=== PATIENT | female | born 2005 | race Caucasian/White ===

== ENCOUNTER 2023-05-01 14:35 | Outpatient (OUT) | payer OTHER, SELFPAY ==
--- NOTE | 2023-05-01 | XR_ITS ---
The [address] [address] Patient Name: HENRY BONE MRN: [id number] date: 2005 Sex: F Assigned Patient Location: [facility] Current Patient Location: [facility] Accession/Order Number: [id number] Exam Date: 05/01/2023 14:42 Report Date: 05/01/2023 15:53 At the request of: MICHAEL LOVELL Procedure: XR foot RT min 3V EXAM: XR foot RT min 3V HISTORY: RIGHT FOOT PAIN for days after an injury to the ankle. COMPARISON: 11/16/2021 TECHNIQUE: 5 views of the foot were obtained. FINDINGS: There is no evidence of an acute fracture or dislocation. The joint spaces are intact throughout. No significant focal osseous abnormality is identified. No soft tissue calcification or radiopaque foreign body is identified. XR/XR foot RT min 3V IMPRESSION: No acute fracture or dislocation. The joint spaces are intact. The overall appearance is unchanged. Electronically authenticated by: SUZETTE MONTIEL Date: 05/01/2023 15:53
--- NOTE | 2023-05-01 | XR_ITS ---
The [address] [address] Patient Name: HENRY BONE MRN: [id number] date: 2005 Sex: F Assigned Patient Location: [facility] Current Patient Location: [facility] Accession/Order Number: [id number] Exam Date: 05/01/2023 14:42 Report Date: 05/01/2023 15:51 At the request of: MICHAEL LOVELL Procedure: XR ankle RT min 3V EXAM: XR ankle RT min 3V HISTORY: RIGHT ANKLE PAIN COMPARISON: 05/24/2022 TECHNIQUE: 3 views of the right ankle were obtained. FINDINGS: There is no evidence of an acute fracture or dislocation. The mortise is intact. No osteochondral injury is identified. The subtalar joints are intact. No abnormality is seen in the soft tissues. XR/XR ankle RT min 3V IMPRESSION: No acute fracture or dislocation. No significant degenerative changes are present. The overall appearance of the ankle is unchanged. Electronically authenticated by: SUZETTE MONTIEL Date: 05/01/2023 15:51
== END 2023-05-01 14:36 | disposition home or self-care (01) ==
LOC: RAD 14:35
PROVIDERS: Visit Provider Physician Assistant
DX: M25.571 Pain in right ankle and joints of right foot (principal)
CPT/HCPCS: 73610; 73630

== ENCOUNTER 2025-06-05 08:06 | Outpatient (OUT) | payer BC, MEDICAID, SELFPAY ==
--- OUTSIDE RECORDS SUMMARY | 2017-06-05 11:00 | XMS_ITS | Continuity of Care Document ---
Author Organization [facility] Address [address] [place] [address] Phone Care Team Providers Care Technical Implementation Lead Name Role Phone Fernando Stephens Unavailable Unavailable Procedures Procedure Date Imm Admin Through 16 Yrs Of Age 017 HPV 9 Valent Imm Admin Through 16 Yrs Of Age 016 HPV 9 Valent IMMUNIZATION ADMIN HPV VACCINE NON VALENT IM Imm Admin Through 16 Yrs Of Age 016 HPV 9 Valent Imm Admin Through 16 Yrs Of Age 016 Meningococcal Conjugate Vaccine 016 Imm Admin Through 16 Yrs Of Age 016 TDAP VACCINE >7 IM IMMUNIZATION ADMIN HPV VACCINE NON VALENT IM IMMUNIZATION ADMIN, EACH ADD MENINGOCOCCAL VACCINE, IM TDAP VACCINE >7 IM Advance Directives Directive Yes / No Effective Date File Name No Information Encounters Encounter Description Practice Location Reason(s) For Visit Diagnoses Date Provider Providers Copied on Encounter [facility], [address], [place], [id number], tel:[phone] [facility] No Information Rajani Wang. [address], [place], [id number], [place]. tel:[phone] [facility], [address], [place], [id number], [place] tel:[phone] [facility] No Information Rajani Wang. [address], [place], [id number], [place]. tel:[phone] [facility], [address], [place], [id number], [place] tel:[phone] [facility] No Information Rajani Wang. [address], [place], [id number], [place]. tel:[phone] Family History Family Member Type Diagnosis Age At Onset No Information Immunizations Vaccine Date Status Comments Hep A (ped/adol, 2 dose) refused Tram rce: New Immunization Record HPV (9-valent) administered Source: New I mmunization Record Influenza virus vaccine, injectable, quadrivalent, split virus, preservative free, 3 years or older Fluarix, Flulaval or Fluzone Quad [id number] refused Source: New Immuniza tion Record HPV (9-valent) administered Source: New I mmunization Record Hep A (ped/adol, 2 dose) refused Tram rce: New Immunization Record HPV (9-valent) administered Source: New I mmunization Record MCV4 administered Source: New Imm unization Record Tdap administered Source: New Imm unization Record Payers Payer name Insurance type Covered constitution party ID Authoriza tion(s) No Information Social History Type Description Quantity Date Captured Comments Sex Female Smoking Status No Information Chief Complaint And Reason For Visit No Information Reason For Referral Reason For Referral No Information History Of Present Illness Encounter Date Complaint History Of Prese nt Illness No Information Functional Status Date Functional Assessmen t No Information Instructions Date Instruction Additional Infor mation No Information Assessments Type Assessment Date No Information Patient Care Teams Name Effective Dates (start - stop) Status Members No Information
--- OUTSIDE RECORDS SUMMARY | 2025-05-25 05:25 | XMS_ITS | Continuity of Care Document ---
Author Organization [facility] Address [address] [place] [address] Phone Care Team Providers Care Rotary Engraver Name Role Phone Kalani Zamora Attending Provider [phone] Aida Carrizales APRN Attending Provider [facility] Primary Care Prov ider Jason Watkins DO Emergency Provider [phone] Care Teams Patient Care Team Team Status: Active Member Role/Relationship Status Dates Services [facility] Primary Care Provider Ac tive Visit Care Team Team Status: Inactive Member Role/Relationship Status Dates MELISSA Elam Attending Provider Active Start: March 26, 2025 End: March 26, 2025 Visit Care Team Team Status: Inactive Member Role/Relationship Status Dates Aida Carrizales APRN [employer] TECHNICIAN-BC Attending Provider Activ e Start: April 17, 2025 End: April 17, 2025 Visit Care Team Team Status: Inactive Member Role/Relationship Status Dates [facility] Primary Care Provider Ac tive Start: May 25, 2025 End: May 25, 2025Gedajuan Watkins DOEmergendior ProviderActiveStart: May 25, 2025 End: May 25, 2025 Chief Complaint and Reason for Visit Chief Complaint Admit Date d64.9 e61.1 r79.89 March 26, 2025 9:21am Z01.419 Z12.4 April 17, 2025 1 1:20am Lower rt side abd/back pain May 7:17am Allergies, Adverse Reactions, Alerts Allergen Type Severity Reaction Last Updated Verified Status amoxicillin Allergy Unknown Mother is allergic May 25, 2025 7:32am Yes Active homatropine Allergy Unknown dizzy, nausea May 032024 7:32am Yes Active hydrocodone Allergy Unknown dizzy, nausea May 032024 7:32am Yes Active red dye Allergy Unknown Hives May 25, 2025 7:32am Yes Active Penicillins Adverse Reaction Unknown Hives Novembe r 2024 7:32am Yes Active wheat Adverse Reaction Unknown Hives May 25, 2025 7:32am Yes Active Social History Smoking Status Status Start Date End Date Date of Observa tion Never smoked tobacco (finding) May 25, 2025 7:36am Observation Status Observation Response Date of Response Legal Sex Female (finding) [facility] 2004 Family History Relationship Condition Age at Onset Recorded Date/T belkis grandparent Diabetes mellitus Unknown motherDeceasedUnknown Problems Active Problems Problem Diagnosis/Recorded Date Onset Date Stat Acute flank pain April 12, 2021 12:32am Unknown Active UTI (urinary tract infection) January 02, 2023 6:07pm Un known Active Incomplete miscarriage October 08, 2024 5:25am Unknown Active Skin yeast infection January 02, 2023 6:07pm Unknown Active Arthralgia May 07, 2019 9:46pm Unknown Ac tive Upper respiratory infection November 03, 2018 9:46pm Unkno wn Active Coxsackie viruses April 19, 2017 2:26pm Unknown Active Hematuria, microscopic April 12, 2021 12:32am Unkn own Active Acute bronchitis October 21, 2017 8:12pm Unknown Active Left shoulder strain October 12, 2020 8:44pm Unknown Active Abdominal pain May 25, 2025 9:55am Unknown Active Bronchitis May 07, 2019 9:46pm Unknown Ac tive Right ankle sprain February 16, 2021 2:13pm Unknown Active Sprain of foot March 08, 2019 3:27pm Unknown Active Inactive/Resolved Problems Problem Diagnosis/Recorded Date Onset Date Stat us Calculus of distal left ureter March 07, 2024 4:1 7am Unknown Resolved Viral illness August 21, 2023 9:07pm Unknown Resolved Renal colic on left side March 07, 2024 4:17am Un known Resolved Abdominal pain November 12, 2023 6:36pm Unknown Reso lved Medications Medication Status Dose Units Route Directions Qty Days Refills S tart Date Stop Date End Date Reason(s) Instructions Adherence Cetirizine (Zyrtec) 10 mg capsule Discontinued 10 MG P O Daily 30 0May 2017 11:00pmMay 2018 8:43pmFluoxetine 20 mg capsuleDiscontinued 20MGPODailyFebruary 2023 12:00amNoveer 2023 2:15pmOndansetron 4 mg tablet,mmvqayrwmlhrogOkizmjecyegx5GJBGGjuvr 8 hours as needed for nausea and vomitingFebruary 2023 12:00amN[facility] 20[facility] 2:15pmOndansetron 4 mg tablet,wolrpqcgihtagaDxnvgvjehwkb5OUKKHenml 8 hours as needed for nausea and pzgcchxk038Guqqnqln 2023 12:00amMay 2023 5:25pmTamsulosin (Flomax) 0.4 mg capsuleDiscontinued0.1CVWXJblrh47Cpkgvlckk 5th, 2024 11:00pmNov2023 2:15pmadminister 30 minutes after same meal each day until stone passes Ketorolac 10 mg tuktpiBwlqbtfmkppo82IKLMMgrfu 6 hours as needed for tjam2349 March 06, 2024 11:00pmNov2023 2:16pmOndansetron 4 mg tablet,qnqdhtvmyqvawuGfcmkuyxcntt4CXSWM1I as needed for nausea and byvgaayg434 March 06, 2024 11:00pmNov2023 6:45pmOxycodone 5 mg tablet Discontinued5 - 10MGPOEvery 6 hours as needed for buyb9118Esgscciya 6th, 2024 May 07, 2024 2:15pmCalculus of distal left ureter Renal colic on left side Calculus of ureter Unspecified renal colicHydroxyzine Hcl 25 mg qhomegByneodblkcxf32EDTEYaqxiBlcav 2024 11:00pmJune 2024 4:52pmHydroxyzine Hcl 25 mg hfchshKvyvbc94RVOV Daily as neededJun2024 4:52pmUnknownPrednisolone Sodium Phosphate 15 mg/5 mL (3 mg/mL) ccgwfkjmPivgulkvvguu29FSJKHyoot4149Rluck 2017 11:00pmApril 2017 11:00pmApril 2017 11:01pmAlbuterol Sulfate 90 mcg/actuation HFA aerosol sgknaeaFehofiizcdjs8KANASTZKVCPDNQGCEI 4-6 HOURS as needed for shortness of breath or daqguuqb41Pnoqw 2017 11:00pmMay 2017 5:51pmadminister with spacerAlbuterol Sulfate 90 mcg/actuation HFA aerosol inhalerDiscontinued2 FRRBUNYWFUAJCGS6X as needed for shortness of breath or szzdwmtx675Aogimxcc 6th, 2019 12:00amNovember 2023 2:15pmVenlafaxine (Effexor Xr) 75 mg capsule,extended release 24hrDiscontinuedMGPOJuly 2022 11:00pmFebruary 2023 8:31pmTrazodone 50 mg tabletDiscontinuedMGJuly 2022 11:00pm August 21, 2023 8:31pmCetirizine 10 mg clcaieDhnqav56XSLNYnwab as needed for allergy symptomsJuly 2022 11:00pmComplies with drug therapyNitrofurantoin Macrocrystal 100 mg capsuleDiscontinuedMGJuly 2022 11:00pmFebruary 2023 8:31pmMetformin 500 mg tablet extended release 24 hrDiscontinuedMGPOJuly 2022 11:00pmFebruary 2023 8:30pmCephalexin 500 mg capsuleDiscontinued 500MGPOFour times sepsr04585Igsq 2022 11:00pmFebruary 2023 8:30pm Ibuprofen 600 mg nixxucDadgbbwmkgxs889EMXCV9R as needed for tsgb4853Zoo 2023 11:00pmNovember 2023 2:15pmArm Brace (Wrist Brace) miscDiscontinued0 .Pqfzx28OncxmxdpMay 27, 2024 12:00amApril 2024 4:36amAcute pain of left wrist Strain of left wrist Pain in left wristAs directedNorgestimate-Ethinyl Estradiol (Sprintec (28)) 0.25-0.035 mg hqvltbAushmo0HBKCQBndlvTkom 2024 11:00pmUnknownMetformin 500 mg pihvkuNrprykpliuhl681VZJVOacyxKzpsueux 6th, 2024 12:00amJune 2024 4:52pm FreeTextSi tablet with a meal Orally Once a day; Note: Source Status: Taking; Provider: Lyndon Piper ( )Methylprednisolone (Medrol (Jose)) 4 mg tablets,dose anepDyqzwlfikahc2XKbar package qipyinmplt194Itchglnj 6th, 2024 12:00amNove2023 6:45pmPO PER PKG DIR for 6 days Immunizations Immunization Event Date Not Given Reason Dose Number [employer] D[employer] Lot Number Reason(s) Given Vaccine Information Statement (VIS) Detail Administration Location DTap, unspecified February 11, 2009 Measles, Mumps, and Rubella Virus VaccineAugust 2008polio, unspecified formulationAugust 2008Varicella Virus VaccineAugust 2008 Procedures Procedure Date Performed Status CT abdomen pelvis w con May 25, 2025 7:50 am completed Relevant Diagnostic Tests and/or Laboratory Data Laboratory Results Test Collection Date/Time Result Date/Time Result Interpretation Reference Range Result Comment Performing Site Corrected White Blood Count March 26, 2025 8:21am March 27, 2025 5:36am 7.4 10*3/uL 3.8-11.6F[facility] [id number] [address] [facility] [address]Jehchsazu White Blood CountMay 25, 2025 7:57amNovemb2024 8:16am7.6 10*3/uL3.8-11.6FThe [facility] [id number] [address] [facility] 15469Rzqxtuhivtt WBC CountSept2024 8:21amSept2024 5:36am7.4 10*3/uL3.8-11.6FA[facility] [id number] [address] [facility] 89494Xnwfapvmclg WBC CountNovember 2024 7:57amNovember 2024 8:16am7.6 10*3/uL3.8-11.6FA[facility] [id number] [address] [facility] 42491Raj Blood CountSeptember 2024 8:21amSeptember 2024 5:36am4.51 10*6/uL3.60-5.00[facility] [id number] [address] [facility] 36549Mwc Blood CountNovember 2024 7:57amNovember 2024 8:16am4.70 10*6/uL3.60-5.00[facility] [id number] [address] [facility] 88712InagvykwflSyegywlff 2024 8:21amSeptember 2024 5:36am13.0 g/dL11.8-15.4FA[facility] [id number] [address] [facility] 81135CnejivtasjSpscspnv 2024 7:57amNovember 2024 8:16am 13.9 g/dL11.8-15.4FA[facility] [id number] [address] [place] [address] 07515IptaznviytUsofexqbs 2024 8:21amSeptember 2024 5:36am38.4 %34.0-46.4FA[facility] [id number] [address] [place] [address] 79257XtifjypdecKncfijjb 2024 7:57amNovember 2024 8:16am 40.8 %34.0-46.4FA[facility] [id number] [address] [place] [address] 65480Udqh Corpuscular VolumeSeptember 2024 8:21amSeptember 2024 5:36am85.0 pQ54-875IzpdnvayaRegency Hospital [facility] [id number] [address] [place] [address] 47119Cukm Corpuscular VolumeNovember 2024 7:57amNovember 2024 8:16am86.7 eB25-946LajzabkgvRegency Hospital [facility] [id number] [address] [place] [address] 09785Okiy Corpuscular HemoglobinSeptember 2024 8:21amSeptember 2024 5:36am28.9 pg24.7-34.3FAv[facility] [id number] [address] [place] [address] 99680Lsec Corpuscular HemoglobinNovember 2024 7:57amNovember 2024 8:16am29.5 pg24.7-34.3FA[facility] [id number] [address] [place] [address] 55857Madb Corpuscular Hemoglobin ConcentSeptember 2024 8:21am March 27, 2025 5:36am34.0 g/dL32.0-35.0[facility] [id number] [address] [place] [address] 55917Xusm Corpuscular Hemoglobin ConcentNovember 2024 7:57am May 25, 2025 8:16am34.0 g/dL32.0-35.0[facility] [id number] [address] [place] [address] 07612Aqq Cell Distribution WidthSeptember 2024 8:21amSeptember 2024 5:36am14.0 %11.9-15.3FA[facility] [id number] [address] [place] [address] 49573Uxq Cell Distribution WidthNovember 2024 7:57amNovember 2024 8:16am12.7 %11.9-15.3FA[facility] [id number] [address] [place] [address] 87233Gmfugrmf CountSeptember 2024 8:21amSeptember 2024 5:80mx043 10*3/oI078-522ThtmnosimRegency Hospital [facility] [id number] [address] [place] [address] 67398Bkhsggeu CountNovember 2024 7:57amNove2024 8:73bm128 10*3/hT974-309DgollarawRegency Hospital [facility] [id number] [address] [facility] 59427Avlh Platelet VolumeSept2024 8:21amSeptember 2024 5:36am9.0 fL6.3-10.7FA[facility] [id number] [address] [facility] 47046Jdny Platelet VolumeNovember 2024 7:57amNovemb2024 8:16am8.0 fL6.3-10.7FA[facility] [id number] [address] [facility] 69855Dtbfgdni Distribution WidthNovember 2024 7:2024 8:16am18.56 %0.00-20.00[facility] [id number] [address] [facility] 80638Udoohbscsel (%) (Auto)March 26, 2025 8:21amSept2024 6:21amN/[facility] [id number] [address] [facility] 71559Qiebeeodqio (%) (Auto)May 25, 2025 7:amNove2024 8:16am75.2 %.[facility] [id number] [address] [facility] 37172Jveohmlocsf (%) (Auto)March 26, 2025 8:amSept2024 6:21amN/[facility] [id number] [address] [facility] 83770Hyysfgrrtsi (%) (Auto)May 25, 2025 7:amNovemb2024 8:16am18.9 %.[facility] [id number] [address] [facility] 17423Dvjpamsew (%) (Auto)March 26, 2025 8:21amSept2024 6:21amN/[facility] [id number] [address] [facility] 95671Qzrmrexhf (%) (Auto)May 25, 2025 7:57amNovember th, 2025 8:16am4.6 %.[facility] [id number] [address] [facility] 06382Arjgiccsykq (%) (Auto)March 26, 2025 8:21amSept2024 6:21amN/[facility] [id number] [address] [facility] [place] [address]Kbvazelfxsi (%) (Auto)May 25, 2025 7:57amNovemb2024 8:16am0.5 %.[facility] [id number] [address] [facility] 14478Cqlwobsrp (%) (Auto)March 26, 2025 8:21amSept2024 6:21amN/[facility] [id number] [address] [facility] [place] [address]Ugeqtruie (%) (Auto)May 25, 2025 7:57amNovemb2024 8:16am0.8 %.[facility] [id number] [address] [facility] 68893Kxcdtkqnm RBC Relative Count (auto)March 26, 2025 8:21am March 27, 2025 6:21amN/[facility] [id number] [address] [facility] [place] [address]Zzqgfxtxk RBC Relative Count (auto)May 25, 2025 7:57am May 25, 2025 8:16am0.1 /100{WBC}0-0.5FA[facility] [id number] [address] [facility] 46276Onpgkoynvix # (Auto)March 26, 2025 8:amSept2024 6:21amN/[facility] [id number] [address] [facility] 80389Kygiywbcskv # (Auto)May 25, 2025 7:57amNove2024 8:16am5.7 10*3/uL1.8-7.7FA[facility] [id number] [address] [facility] 85148Godaahohozp # (Auto)March 26, 2025 8:21amSept2024 6:21amN/[facility] [id number] [address] [facility] 34626Efyruskwtwm # (Auto)May 25, 2025 7:amNove2024 8:16am1.4 10*3/uL1.00-4.8[facility] [id number] [address] [facility] 98480Mjdxkdwzl # (Auto)March 26, 2025 8:21amSept2024 6:21amN/[facility] [id number] [address] [facility] 13914Tzizrveng # (Auto)May 25, 2025 7:amNove2024 8:16am0.3 10*3/uL0.0-0.8[facility] [id number] [address] [facility] 41231Kirsjopmspm # (Auto)March 26, 2025 8:21amSept2024 6:21amN/[facility] [id number] [address] [facility] 69853Icizfwjakpj # (Auto)May 25, 2025 7:57amNove2024 8:16am0.0 10*3/uL0.0-0.45[facility] [id number] [address] [facility] 38817Fbshqhsgh # (Auto)March 26, 2025 8:amSept2024 6:21amN/[facility] [id number] [address] [facility] 70306Ptgnifktx # (Auto)May 25, 2025 7:amNovemb2024 8:16am0.1 10*3/uL0.0-0.2FA[facility] [id number] [address] [facility] 959[address]Weiacyozn NeutrophilsSept2024 8:amSeptember 2024 6:21am38 %Below low kzwmuo19-23HvktvvdutReg[facility] [id number] [address] [facility] 37164Vkzegoyynrh %March 26, 2025 8:21amSeptember 2024 6:21am54 %Above high qapcts54-84PuiqtvvmhRegency Hospital [facility] [id number] [address] [facility] 02841Wripjmmhu %March 26, 2025 8:21amSeptember 2024 6:21am7 %2-11[facility] [id number] [address] [facility] 77825Wjidfvrfdqx %March 26, 2025 8:21amSeptember 2024 6:21am1 %1-3FA[facility] [id number] [address] [facility] 41475Vju Blood Cell MorphologySeptember 2024 8:21amSeptember 2024 6:21amNormalNormalRegency Hospital [facility] [id number] [address] [facility] 21782Ddyuqbkj EstimateSeptember 2024 8:21amSeptember 2024 6:21amNormalNormL[facility] [id number] [address] [facility] 47935Wkfdbxfk Morphology CommentSeptember 2024 8:21amSeptember 2024 6:21amNormalNormLutheran Hospital [facility] [id number] [address] [facility] 78647Niejr ColorNovember 2024 7:50amNovember 2024 8:06am Light-yellowYellowRegency Hospital [facility]tr [id number] [address] [facility] 77797Jnbnq AppearanceNovember 2024 7:50amNovember 2024 8:06amClearClearRegency Hospital [facility] [id number] [address] [facility] 10226Cqmfb Specific GravityNovember 2024 7:50amNovember 2024 8:06am1.0301.001-1.030[facility] [id number] [address] [facility] 85632Ngytm pHNovember 2024 7:50amNovember 2024 8:06am6.5 5.0-9.0[facility] [id number] [address] [facility] 24396Agjkr Leukocyte EsteraseNovember 2024 7:50amNovember 2024 8:06amNegativeNegativeRegency Hospital [facility] [id number] [address] [facility] 15955Frnuv NitriteNovember 2024 7:50amNovember 2024 8:06amNegativeNegativeRegency Hospital [facility] [id number] [address] [facility] 03160Oxtfc ProteinNovember 2024 7:50amNovember 2024 8:06amNegative mg/dLNegativeRegency Hospital [facility] [id number] [address] [facility] 97700Qbrtq Glucose (UA)May 25, 2025 7:50amNovember 2024 8:06amNormal mg/dLNormalRegency Hospital [facility] [id number] [address] [facility] 92854Bqocf KetonesNovember 2024 7:50amNovember 2024 8:06amNegativeNegativeRegency Hospital [facility] [id number] [address] [facility] 26960Jsnzv UrobilinogenNovember 2024 7:50amNovember 2024 8:06amNormal mg/dLNormalRegency Hospital [facility] [id number] [address] [facility] 28914Bskkj BilirubinNovember 2024 7:50amNovember 2024 8:06amNegativeNegativeRegency Hospital [facility] [id number] [address] [facility] 28252Ygawl Occult BloodNovember 2024 7:50amNovember 2024 8:06amNegativeNegativeRegency Hospital [facility] [id number] [address] [facility] 76034Xnrdn HCG, QualitativeNovember 2024 7:50amNovember 2024 8:08amNegativeFirMercer County Community Hospital Ctr [id number] [address] [facility] 74876Uyphipo LevelSeptember 2024 8:21amSeptember 2024 5:00ae968 mg/uF65-541GPV recommended reference rangeRandom Glucose Reference Range is dependent on time and content of last meal. Glucose of more than 200 mg/dL in a nonstressed, ambulatory subject supports the diagnosisof Diabetes Mellitus.[facility] [id number] [address] [facility] 28202Pbsauep LevelNovember 2024 7:57amNovember 2024 8:99ft917 mg/dLAbove high jtyycy03-765RGE recommended reference rangeRandom Glucose Reference Range is dependent on time and content of last meal. Glucose of more than 200 mg/dL in a nonstressed, ambulatory subject supports the diagnosisof Diabetes Mellitus.[facility] [id number] [address] [facility] 62187Zvewj Urea NitrogenSeptember 2024 8:21amSeptember 2024 5:47am12 mg/dL-[facility] [id number] [address] [facility] 45940Aeeef Urea NitrogenNov2024 7:57amNovember 2024 8:35am10 mg/dL7-[facility] [id number] [address] [facility] 64003IgonsspmphFyzcmyrjy 25th, 2025 8:21amSeptember 2024 5:47am0.71 mg/dL0.60-1.20[facility] [id number] [address] [facility] 41829AldichlfdjHqvatego 2024 7:57amNovember 2024 8:35am 0.64 mg/dL0.60-1.20[facility] [id number] [address] [facility] 53938Tmynsysuc GFR (CKD-EPI)March 26, 2025 8:amSept2024 5:47am> 60.0 mL/MinRegency Hospital [facility] Ctr [id number] [address] [place] [address] 20882Vgxpanrlm GFR (CKD-EPI)May 25, 2025 7:57amNovember 2024 8:35am> 60.0 mL/MinRegency Hospital [facility] [id number] [address] [facility] 39196Lsbaav LevelSeptember 2024 8:21amSeptember 2024 5:66ii338 mmol/T805-194JttdebfnnRegency Hospital [facility]tr [id number] [address] [facility] 63755Bhltiv LevelNovember 2024 7:57amNovember 2024 8:48iv277 mmol/Q196-160AwahljiqkRegency Hospital [facility] [id number] [address] [facility] 77318Khuqupbuy LevelSeptember 2024 8:21amSeptember 2024 5:47am4.0 mmol/L3.5-5.1FA[facility] [id number] [address] [facility] 47819Eiwvccgfk LevelNovember 2024 7:57amNovember 2024 8:35am3.8 mmol/L3.5-5.1FA[facility] [id number] [address] [facility] 74598Zxvkrrid LevelSeptember 2024 8:21amSeptember 2024 5:97xk282 mmol/Q44-655FjecnewhsRegency Hospital [facility]tr [id number] [address] [facility] 72788Tfgcqiwr LevelNovember 2024 7:57amNovember 2024 8:58pf927 mmol/LAbove high -957NtwocmpweRegency Hospital [facility] [id number] [address] [facility] 14224Sluvxs Dioxide LevelSeptember 2024 8:21amSeptember 2024 5:47am26.6 mmol/L21.0-31.0[facility] [id number] [address] [facility] 99386Cybewa Dioxide LevelNovember 2024 7:57amNovember 2024 8:35am24.7 mmol/L21.0-31.0[facility] [id number] [address] [facility] 50814Fppgh GapSeptember 2024 8:21amSeptember 2024 5:47am 8.4 mEq/L6.0-15.0[facility] [id number] [address] [facility] 57045Rfhgh GapNovember 2024 7:57amNovember 2024 8:35am 9.1 mEq/L6.0-15.0[facility] [id number] [address] [facility] 97049Andvluk LevelSeptember 2024 8:21amSeptember 2024 5:47am8.8 mg/dL8.6-10.3FA[facility] [id number] [address] [place], [place] [address]Calcium LevelNovember 2024 7:57amNovember 2024 8:35am9.0 mg/dL8.6-10.3FA[facility] [id number] [address] [place] [address] 92858Wfktl ProteinSeptember 2024 8:21amSeptember 2024 5:47am6.5 g/dL6.4-8.9[facility] [id number] [address] [place] [address] 86079Uouid ProteinNovember 2024 7:57amNovember 2024 8:35am7.3 g/dL6.4-8.9[facility] [id number] [address] [place] [address] 84570RohgrinQfyfdqheq 2024 8:21amSeptember 2024 5:47am 3.8 g/dL3.5-5.7FAv[facility] [id number] [address] [place] [address] 57163JuexlbgCtxriond 2024 7:57amNovember 2024 8:35am4.0 g/dL3.5-5.7FA[facility] [id number] [address] [place] [address] 47770UewolrosFoobtddrp 2024 8:21amSeptember 2024 5:47am 2.7 g/dLRegency Hospital [facility]tr [id number] [address] [place] [address] 49157VloppnbdHhhireql 2024 7:57amNovember 2024 8:35am3.3 g/dLRegency Hospital [facility]tr [id number] [address] [facility] 68426Kdejsnu/Globulin RatioSeptember 2024 8:21amSeptember 2024 5:47am1.4FAvita [facility] [id number] [address] [facility] 48707Hxvaxqn/Globulin RatioNovember 2024 7:57amNovember 2024 8:35am1.2FA[facility] [id number] [address] [facility] 66219Svsnf BilirubinSeptember 2024 8:21amSeptember 2024 5:47am0.4 mg/dL0.3-1.0[facility] [id number] [address] [facility] 46194Vbowp BilirubinNovember 2024 7:57amNovember 2024 8:35am0.3 mg/dL0.3-1.0[facility] [id number] [address] [facility] 13875Trazjq BilirubinNovember 2024 7:57amNovember 2024 8:35am0.00 mg/dLBelow low normal0.03-0.18If the DBIL is less than 0.1, IBIL is not able to becalculated.[facility] [id number] [address] [facility] 16747Hcwaijou BilirubinNovember 2024 7:57amNovember 2024 8:35am0.3 mg/dLRegency Hospital [facility] [id number] [address] [place] [address] 98461Brzvvuajz Amino Transf (AST/SGOT)March 26, 2025 8:21am March 27, 2025 5:47am11 U/LBelow low rouqdo27-47VgzdxsligRegency Hospital [facility]tr [id number] [address] [place] [address] 14405Zwadfjzym Amino Transf (AST/SGOT)May 25, 2025 7:57am May 25, 2025 8:35am12 U/LBelow low yztech87-63UcvnlvmouRegency Hospital [facility]tr [id number] [address] [place] [id number] Aminotransferase (ALT/SGPT)March 26, 2025 8:21am March 27, 2025 5:47am11 U/L7-52[facility] [id number] [address] [facility] 05777Kxnlodt Aminotransferase (ALT/SGPT)May 25, 2025 7:57am May 25, 2025 8:35am12 U/L7-52[facility] [id number] [address] [facility] 57310Rugeptqb PhosphataseSeptember 2024 8:21amSeptember 2024 5:47am62 U/V81-674GsnwamlwzRegency Hospital [facility] [id number] [address] [facility] 08913Ripjhshv PhosphataseNov2024 7:57amNovember 2024 8:35am65 U/C44-617PboremmcaRegency Hospital [facility]tr [id number] [address] [facility] 25442NfhxytRkvehgow 24th, 2025 7:57amNovemb2024 8:35am13.0 U/L11.0-82.0[facility] [id number] [address] [facility] 13661Npka LevelSept2024 8:21amSept2024 5:47am55 ug/hH32-757YigyamrazRegency Hospital [facility] Ctr [id number] [address] [place] [address] 33154Xgkxtrw B12 LevelSeptember 2024 8:amSept2024 6:32nz468 pg/mLBelow low ikofkp706-803YmrwmnbxuRegency Hospital [facility] [id number] [address] [facility] 3137150-Rpuwwxa Vitamin D TotalSeptember 2024 8:amSeptember 2024 6:14am22.9 ng/mLBelow low lncyry80-595ZVVZVOV D STATUS 25(OH)VITAMIN D RANGE (ng/mL) Deficient <20 Insufficient 20 to <30Sufficient 30 to 100Reference: Yuniel MF,Herminio NC, Timi JARVIS, et al. Evaluation,treatment, and prevention of vitamin D deficiency; an Endocrine Society clinical practice guideline. JCEM. 2010; 96(7):1911-30.[facility] [id number] [address] [facility] [address]Qhkqeniy Creatinine Clearance (ChemSeptember 2024 8:21am March 27, 2025 5:47amN/[facility] [id number] [address] [facility] [address]Xcejfkyd Creatinine Clearance (ChemNovember 2024 7:57am May 25, 2025 8:31dc261.10[facility] [id number] [address] [place] [address] 496[address]VS Pap w/Ct-Ng Age Based (Off-Site)April 17, 2025 10:20am May 13, 2025 2:38pmSee commentSee report. Scanned copy available in EMR. [facility] Reports Author Isidro Soni [facility] HospitalReport Date/TimeNovember 2024 9:28am [facility] Main [place] [address] [place] [address] Scan Report Signed Patient: Karyn Veliz MR#: [id number] : 2005 Acct:[id number] Age/Sex: 19 / F ADM Date: 5 Loc: ER Room: Type: [facility] ER Attending Dr: Copies to: Jason Watkins DO~ Ordering Provider: Jason Watkins DO Date of Service: 05/25/25 CT/CT abdomen pelvis w con: Right lower quadrant tenderness. CT ABDOMEN AND PELVIS WITH INTRAVENOUS CONTRAST: CLINICAL HISTORY: Right lower quadrant pain. Low back pain. Urinary frequency. COMPARISON: None TECHNIQUE: Spiral images were obtained through the abdomen and pelvis followingthe administration of intravenous contrast. This CT exam was performed using one or more following dose reduction techniques: Automated exposure control, adjustment of the mA and/or kV according to patient size, or use of iterative reconstruction technique. FINDINGS: Lung Bases: [Bibasilar atelectasis.] Organs:Liver gallbladder portal vein spleen pancreas adrenal glands aorta and kidneys all appear unremarkable.[ GI: Stomach is grossly unremarkable. Small bowel appears nondilated. Appendix is normal. No acute colonic abnormality is seen.[ Pelvis:[Urinary bladder is grossly unremarkable. Uterus is grossly unremarkable. No adnexal mass.] Peritoneum/Retroperitoneum:No free air, free fluid or lymphadenopathy.[ Abd wall/Bones:Abdominal wall demonstrates no acute findings. Osseous structures demonstrate degenerative change.[ CT/CT abdomen pelvis w con IMPRESSION: No acute findings. Impression dictated by: Isidro Soni Jr., D.O. 05/25/2025 9:28 AM Dictation Location: [facility]--23 Transcribed By: PWS 05/25/25927 Dictated By: Isidro Soni Jr, DO 05/25/25925 Signed By: <Electronically signed by Isirdo Soni Jr DO in OV> 05/25/25927 Vital Signs Vital Reading Result Reference Range Collection Date/Time Height 67 [in_i] May 25, 2025 7:93mrXndhvq317.80 kgMay 25, 2025 7:32amBody Nuctswtptvy06.8 [degF]97.6-99.0May 25, 2025 7:32amHeart Rate77 /nqd19-170 May 25, 2025 9:43amRespiratory rate16 /tat75-53SiswczjxMay 25, 2025 9:43am Oxygen saturation by Pulse txarydzd39 %95-100May 25, 2025 9:43amBP Scctngar929 mm[Hg]100-140May 25, 2025 9:43amBP Cjeizugnp96 mm[Hg]60-100 May 25, 2025 9:43am Advance Directives Advance Directive Response Recorded Date/ Time Advance Directives No April 19, 2017 1:44pm Insurance Providers Guarantor Genaro Powell Address [address] [address]Tdwgsxg Info.Home Phone: Coverage Status Update:2025 Payer Group Member ID Coverage Type Subscriber Relationship to Subscriber Effective Date Expiration Date [place] [employer] Id: [id number] Clonch , D Id: [id number] [address] [facility] [address] [facility] [address] Home Phone: Email: [email or web address] [id number] Clonch , D Id: [id number] [address] [place] [address] Home Phone: Email: [email or web address] [facility] Medicaid [id number] Clonch , D Id: [id number] [address] [place] [address] Home Phone: Email: [email or web address] Medicaid Id: [id number] Clonch , D Id: [id number] [address] [place] [address] Home Phone: Email: [email or web address] [place]Self[place] Medicaid [place] HMO [id number] Clonch , D Id: [id number] [address] [place] [address] Home Phone: Email: [email or web address] DoodleAt[facility] Lggroy171127246vozhHnwcnh Clonch , D Id: [id number] [address] [place] [address] Home Phone: Email: [email or web address] [facility] Id: [id number] Clonch , D Id: [id number] [address] [place] [address] Home Phone: Email: [email or web address] Pay nullSelfSelf Encounters Encounter Location(s) Arrival/Admit Date Discharge/Departure Date Discharge/Departure Disposition Provider(s) Departed [facility] March 26, 2025 9:21am March 26, 2025 9:22am Discharged to home care or self care (routine discharge) MELISSA Elam Departed [facility] April 17, 2025 11:20am April 17, 2025 11:21am Discharged to home care or self care (routine discharge) Aida Carrizales APRN STERILE INSTRUMENT TECHNICIAN- Departed Emergency -Emergency Room May 25, 2025 7:17am May 25, 2025 10:13am Discharged to home care or self care (routine discharge) Plan of Treatment Future Tests Future scheduled test information is unavailable Pending Tests Pending diagnostic test information is unavailable Future Visits Future appointment information is unavailable Future Procedures Future procedure information is unavailable Future Medications Future medication information is unavailable Patient Instructions Instruction Admit Date Abdominal pain in adults - ED discharge instructions May 25, 2025 7:17am
--- NOTE | 2025-06-05 08:12 | XR_ITS ---
[facility] [place] [id number] Patient Name: HENRY BONE MRN: [id number] date: 2005 Sex: F Assigned Patient Location: [facility] Current Patient Location: [facility] Accession/Order Number: [id number] Exam Date: 06/05/2025 08:20 Report Date: 06/05/2025 09:10 At the request of: SUZETTE HOWELL DPCecil Procedure: XR ankle RT min 3V RIGHT ANKLE - 3 views COMPARISON: 05/01/2023 CLINICAL DATA: Right ankle pain for the past 2 weeks. No known injury Standing AP, lateral and oblique views were obtained. There is no evidence of fracture or dislocation. The talar dome is intact. There are no significant soft tissue abnormalities. XR/XR ankle RT min 3V IMPRESSION: NO ACUTE BONY FINDINGS. Impression dictated by: Laura Silvestre M.D. 06/05/2025 9:10 AM Dictation Location: [place] [address] Electronically authenticated by: [id number] Date: 06/05/2025 09:10
--- OUTSIDE RECORDS SUMMARY | 2025-06-05 08:12 | XMS_ITS | Patient Health Record ---
Author Organization [facility] [place] Address [address] [place] [address] Care Team Providers Care Car Audio Installer Name Role Phone None, Unknown or Primary Care Provider Unavailab Clint Galarza [phone] Allergies Allergen (clinical drug ingredient) Drug/Non Drug Allergy documented on EMR Reaction Allergy Type Onset Date Status red dye 40 (uncoded)UnknownAllergyActiveNorcoexcessive vomitingDrug Allergy ActiveamoxicillinAmoxicillinUnknownDrug AllergyActiveLatexLatexUnknownAllergy ActivePenicillinUnknownDrug AllergyActive Reason For Referral No Information Medications Medication SIG (Take, Route, Frequency, Duration) Notes Start Date End Date Status Sertraline HCl 25 MG 1 tablet Orally Once a day ActiveTylenol 325 MG1 tablet as needed Orally every 4 hrsActiveZyrTEC Allergy 10 MG1 capsule Orally Once a dayActiveNaproxen 500 MG1 tablet with food or milk as needed Orally every 12 hrsNot-Taking Social History Tobacco Use: Social History Observation Description Date Details (start date - stop date) Never Smoker NA - NA Tobacco Use/Smoking Question Answer Notes Patient is a nonsmoker Problems Problem Type SNOMED Code ICD Code Onset Dates Problem Status W/U Status Risk Notes Problem Arthralgia of the an kle and/or foot (730487453) Pain in right ankle and joints of right foot (M25.571) Activeconfirmed Encounters Encounter Location Date Provider Diagnosis [facility] [place] (PODIATRY) [address] [place] [address] [place] [address] 09/08/2024 Clint Hancock Plan Of Treatment No Information Insurance Providers Payer Name Payer Address Payer Phone Subscriber Number Group Number Insured Name Patient Relationship to Insured Coverage Start Date Coverage End Date [employer] [place] [employer] [address] [place] [address] [id number] Amada Velizelf - patient is the insured Medical (General) History Medical History History ICD Code Right ankle pain M25.571 Surgical History Surgery Date(Month/Year) right ankle stabilization, ankle arthros copy, peroneal tendon repair 08/22/2021
--- OUTSIDE RECORDS SUMMARY | 2025-06-05 08:12 | XMS_ITS | Clinical Summary ---
Author Organization [facility] Address [address] [place] [address] Care Team Providers Care Supervisor Riveting Name Role Phone Kalani Metcalf PA-C Primary Care Provid er Allergies Active AllergyReactionsCriticalityNoted CqglSmagshxmLsqpmnzsvsw74/23/2025 Other Reaction(s): Unknown Chlorhexidine IneaxqgksAhukCya86/23/2024hlorhexidine SelwafzbiJvzmRbv69/23/2025 Vatbiajrckq51/20/2024 Other Reaction(s): dizzy, nausea HydrocodoneGI myzmurxjefm64/20/2024 Other Reaction(s): dizzy, nausea LatexHives,KpnoTdi6710/15/2023 Other Reaction(s): Unknown Ilrmkeeb29/23/2024 Other Reaction(s): stomach upset Penicillin G007/24/2024 Other Reaction(s): Unknown Jpgarapasam67/20/2024 Other Reaction(s): Hives, Mother is allergic, Unknown Other Reaction(s): hives, Mother is allergic, Unknown Red Dye03/07/2024 Other Reaction(s): Hives Other Reaction(s): Unknown Red Dye #40 (Allura Red)10/15/2023 Other Reaction(s): Unknown Tmydjquazt26/23/2024 Other Reaction(s): Unknown Wheat08/21/2023 Other Reaction(s): Hives Medications MedicationSigDispense QuantityRefillsLast FilledStart DateEnd DateStatus cetirizine (ZyrTEC) 10 MG tablet Daily01/02/2023ctive hydrOXYzine HCl (Atarax) 25 MG tablet Indications:Encounter for weight management,Other insomniaTake 1 tablet (25 mg) by mouth as needed at bedtime for itching 90 tablet 5Active metFORMIN XR (Glucophage-XR) 500 MG 24 hr tablet Indications:PCOS (polycystic ovarian syndrome)TAKE TWO TABLETS BY MOUTH WITH EVENING MEAL (DO NOT CRUSH, CHEW, OR SPLIT) 180 tablet 5Active Vit-DSS-Fe Cbn-FA ( AD PO) Take by mouthActive ferrous sulfate 325 (65 Fe) MG tablet Take 325 mg by mouth in the morning. Take with meals.Active norgestimate-ethinyl estradiol (Sprintec 28) 0.25-35 MG-MCG tablet Indications:Surgery follow-upTake 1 tablet by mouth Daily 28 tablet 120506Active Active Problems ProblemNoted DateDiagnosed DateWeight gain06/18/20247824Ntmyrrcmibx30/23/2024COS (polycystic ovarian syndrome)03/24/2024 Family History Medical HistoryRelationNameCommentsDiabetesFatherCarlThyroid diseaseFather's SisterLisaAsthmaPaternal GrandmotherDarleneDiabetesPaternal GrandmotherDarlene MigrainesPaternal GrandmotherDarleneRelationNameStatusCommentsFatherCarlAlive Father's SisterLisaAliveMotherDeceasedPaternal GrandmotherDarleneAlive Social History Tobacco UseTypesPacks/DayYears UsedDateSmoking Tobacco: NeverSmokeless Tobacco: Never Tobacco Cessation:Counseling Given: Not Answered Alcohol UseStandard Drinks/WeekCommentsNot Currently0 (1 standard drink = 0.6 oz pure alcohol)AUDIT-CAnswerDate RecordedQ1: How often do you have a drink containing alcohol?Never12/03/2023Q2: How many drinks containing alcohol do you have on a typical day when you are drinking?Patient does not drink12/03/2023Q3: How often do you have six or more drinks on one occasion?Never12/03/2023HQ-2 AnswerDate RecordedPatient Health Questionnaire-2 Nobry838 CommentsNoSex and Gender InformationValueDate RecordedSex Assigned at BirthNot on fileLegal BsmNpcwll49/15/2023 7:22 PM EDTGender IdentityNot on fileSexual OrientationNot on file Last Filed Vital Signs Vital SignReadingTime TakenCommentsBlood Xgnrymti563/8404 1:28 PM EDT Pulse--Temperature--Respiratory Rate--Oxygen Saturation--Inhaled Oxygen Concentration--Bvkkjl673 kg (251 lb)10/22/2024 1:28 PM ELFLfifal370.6 cm (5' 6 ) 04/21/2024 11:16 AM EDTBody Mass Index40.511 11:16 AM EDT Plan of Treatment Health MaintenanceDue DateLast DoneCommentsCOVID-19 Vaccine ( season) , 04/12/2023, 07/07/2021, Additional history existsInfluenza VrcimvkZshclsfop85/17/2025, 06/26/2024, 04/12/2024, Additional history exists Pneumococcal Vaccine: Pediatrics (0 to 5 Years) and At-Risk Patients (6 to 64 Years)Aged OutNo longer eligible based on patient's age to complete this topic Insurance Care Teams Team MemberRelationshipSpecialtyStart DateEnd Date Kalani Metcalf PA-C [address] [facility] [place] [address] PCP - [facility]10/15/23
--- OUTSIDE RECORDS SUMMARY | 2025-06-05 08:13 | XMS_ITS | CCD ---
Author Organization [facility] CliniSytn Care Team Providers Care Barrel Finisher Name Role Phone ARTURO Pal Attending Provider Flavio Foley Unavailable ANDRY, DR MEZA Primary Care Unavailable SO CAMPOS Admitting Unavailable SO CAMPOS Attending Unavailable SO CAMPOS Consulting Unavailable DANTE, SUZETTE Lam Admitting Unavailable HIGHLANDER, SUZETTE Lam Attending Unavailable BRISTOL, DR MEZA Primary Care Unavailable SUZETTE HOWELL Consulting Unavailable SUZETTE HOWELL Admitting Unavailable SUZETTE HOWELL Attending Unavailable ANDRY, DR MEZA Primary Care Unavailable SUZETTE HOWELL Consulting Unavailable HIGHLANDER, SUZETTE Lam Admitting Unavailable HIGHLANDER, SUZETTE Lam Attending Unavailable BRISTOL, DR MEZA Primary Care Unavailable ZIORLIN, DR CAMILLE Madison Consulting Unavailable HIGHLANDERSUZETTE Consulting Unavailable AGUBOSIM, SATURNINO Consulting Unavailable WASHINGTON, EARLE Consulting Unavailable AYYAGARI, ANA Consulting Unavailable HIGHLANDER, SUZETTE Lam Admitting Unavailable HIGHLANDER, SUZETTE Lam Attending Unavailable BRISTOL, DR MEZA Primary Care Unavailable CANDY, DR CAMILLE Madison Consulting Unavailable SUZETTE HOWELL Consulting Unavailable MICHAEL LOVELL Admitting Unavailable MICHAEL LOVELL Attending Unavailable FAMILY[facility] Primary Care Unavaila ble MICHAEL LOVELL Consulting Unavailable ABARCADEAN Traore Consulting Unavailable HIGHLANDER, SUZETTE Lam Admitting Unavailable LAMONTANDER, SUZETTE Lam Attending Unavailable BRISTOL, DR MEZA Primary Care Unavailable ZIORLIN, DR CAMILLE Madison Consulting Unavailable DANTE, SUZETTE Lam Consulting Unavailable MELISSA Foley Attending Provider Dora Ulloa Unavailable Nitin Horne Unavailable MELISSA Carroll Primary Care Provider [phone] ARTURO Ferrera Emergency Provider MELISSA Metcalf Attending Pr ovider MELISSA Metcalf Primary Care Provider ARTURO Haney Attending Provider Veronique Haney Unavailable MELISSA Metcalf Primary Care Provider ARTURO Ferrera Emergency Provider MELISSA Metcalf Primary Care Provider ARTURO Ferrera Emergency Provider MD Arabella De La Torre Emergency Provider MELISSA Metcalf Primary Care Provider MELISSA Metcalf Attending Pr ovider MELISSA Metcalf Attending Pr ovider MD Flavio Diaz Jr Emergency Provider [facility] Primary Care Provider DO Tino Mcfarlane Attending Provider MD Deuce Abraham Attending Provider MELISSA Metcalf Primary Care Provider Deuce ABRAHAM Attending Unavailable KALANI METCALF Referring Unavailab KALANI METCALF Primary Care Physician Kalani Metcalf PA-C Primary Care Provid er MELISSA Metcalf Attending Pr ovider MD Flavio Diaz Jr Emergency Provider [facility] Primary Care Provider DO Tino Mcfarlane Attending Provider MELISSA Metcalf Primary Care Provider Cook, MD Deuce P Attending Provider [phone] Dixon HEAD BAGGAGE PORTER-C, Kalani Greer Primary Care Provider Alex Hogan DO Attending Provider [phone] Dixon HEAD BAGGAGE PORTER-C, Kalani Greer Primary Care Provider Alex Hogan DO Attending Provider Tino Mcfarlane DO Attending Provider [facility] Primary Care Provider Aditya Galan DO Emergency Provider Jann Urrutia MD Attending Provider TINO MCFARLANE Attending Unavailable BONITA BARCLAY Attending Unavailable BONITA BARCLAY Referring Unavailable BONITA BARCLAY Attending Unavailable BONITA BARCLAY Referring Unavailable JANN URRUTIA Attending Unavailable TINO MCFARLANE Attending Unavailable TINO MCFARLANE Attending Unavailable AMY THOMPSON Attending Unavailable AMY THOMPSON Attending Unavailable Sera HEAD BAGGAGE PORTER-C, Kalani Lucas Attending Provider [phone] Dixon HEAD BAGGAGE PORTER-C, Kalani Greer Primary Care Provider Veronique Haney APRN Attending Provider NON STAFF Primary Care Provider Unavailizabella Zamora HEAD BAGGAGE PORTER-C, Kalani Lucas Attending Provider [phone] Aida Carrizales APRN Attending Provider Kalani Metcalf Primary Care U navailable Becky Matos Admitting Unavailable Becky Matos Attending Unavailable Kalani Zamora Admitting Unavailable Kalani Zamora Attending Unavailable Aida Carrizales Admitting Unavailable Aida Carrizales Attending Unavailable Alex Hogan Admitting Unavailable Alex Hogan Attending Unavailable Kalani Metcalf Primary Care U navailable NON STAFF Primary Care Unavailable Kalani Zamora Admitting Unavailable Kalani Zamora Attending Unavailable Tino Mcfarlane Attending Unavailable Kalani Metcalf Primary Care U navailable Tino Mcfarlane Admitting Unavailable Kalani Metcalf Primary Care U navailable Tino Mcfarlane Admitting Unavailable Tino Mcfarlane Attending Unavailable Kalani Zamora Admitting Unavailable Kalani Zamora Attending Unavailable Jann Urrutia Admitting Unavailable Jann Urrutia Attending Unavailable [facility] Primary Care Unavaila ble Allergies Allergy ClassificationReported Allergen(s)Allergy TypeDate of OnsetReaction(s) FacilityContrast Media (1 source)Contrast mediaSubstance Hakixca80-50-5525LcffmEqlozekysDelaware County Hospitalhomatropine (1 source)homatropineDrug Waciyip01-73-6357gdgynRegional Medical CenterOpioid Agonists (1 source)HYDROcodoneDrug Nebgdir12-32-9562nuiqnHolmes County Joel Pomerene Memorial HospitalPenicillins (antibiotic) (2 sources)AmoxicillinDrug Dwtbofd29-75-2153Hghfpg is allergic, [facility] HospitalWheat preparation (1 source)Wheat preparationDrug Ycjmrsf20-79-0652AdgkxEenehvtvkDelaware County Hospital (20 sources)Contrast media; Translations: [red dye]Propensity to adverse rngiuuijq72-13-1443XIWKQ, Unknown (qualifier value)[facility] (20 sources)Penicillins; Translations: [Penicillins]Propensity to adverse -03-2993RgvaiJwghuaofuDelaware County Hospital (20 sources)Wheat preparation; Translations: [wheat]Drug Xczvsxb77-23-0428HwjwbOhiohealth Mansfield Hospital (20 sources)Amoxicillin; Translations: [amoxicillin]Drug Dekjqng99-74-2717 Unknown (qualifier value)[facility] (9 sources)homatropine / HYDROcodoneDrug Allergydizzy, nauseaNorth [employer] Other (1 source)AmoxicillinDrug Whaledw12-81-6112Lcz [facility] Repository (2 sources)LatexDrug allergy (disorder)Unknown (qualifier value)[facility]ository (2 sources)Penicillin; Translations: [penicillin]Drug Ykaycnp08-92-6404Dubjdlj (qualifier value)[facility] (20 sources)homatropine; Translations: [homatropine]Drug Whhqqwc30-73-8883kmlrwHolmes County [facility] (20 sources)HYDROcodone; Translations: [hydrocodone]Drug Ogqbvdy79-86-9065BC intoleranceCleveland Clinic (20 sources)Chlorhexidine / EthanolDrug Krnlgww01-97-7274YggzGMFN Healthcare Work Phone: (20 sources)LatexPropensity to adverse hbgpaxypz09-16-7614Dydeb, RashMissouri Delta Medical Center (20 sources)NaproxenDrug Gofqjbb21-82-5777JNEU Healthcare (20 sources)SertralineDrug Zzblxpg98-97-2939EAJP Healthcare (20 sources)Red Dye #40 (Allura Red)Allergy to qzgsdhkmy25-66-9837DLYN Healthcare (8 sources)Penicillin GDrug Fmoiely58-22-5825IKSV Healthcare (1 source)AmoxicillinDrug Qkoaooj31-89-9359PuijrdaffCleveland Clinic Repository Medications Current Medications MedicationDrug Class(es)DatesSig (Normalized)Sig (Original)azithromycin 500 mg oral tablet (2 sources)Macrolide AntimicrobialStart: 56-83-6018dxwv 1 tablet by mouth every twenty-four hoursAzithromycin 500 MG 1 tablet Orally Once a day for 5 days Apr, Sstziv36 hr buPROPion hydrochloride 150 mg extended release oral tablet (6 sources)Aminoketonetake 1 tablet by mouth every twenty-four hoursWellbutrin SR 150 MG 1 tablet in the morning Orally Once a day Activecetirizine hydrochloride 10 mg oral tablet (20 sources)Histamine-1 Receptor AntagonistStart: 36-75-0826pdtw 1 tablet by mouth once daily as neededStart: 73-90-8450Qnupqmcfbu Active MG TABLET January 02, 2023 12:00amStart: 11-10-2017 End: 96-99-4748ythy 1 capsule by mouth once dailyCetirizine (Zyrtec) 10 mg capsule Discontinued 10 MG PO Daily 30 November 10, 2017 12:00am November 03, 2018 9:43pmtake 1 tablet by mouth once dailyZyrTEC 5 MG 1 tablet Orally Once a day Activecyclobenzaprine hydrochloride 10 mg oral tablet (1 source)Muscle RelaxantStart: 07-35-0203eevx 1 tablet by mouth every eight hoursCyclobenzaprine HCl 10 MG 1 tablet as needed Orally every 8 hours for 7 days 25 Marcelino, 2023 Activedexamethasone 2 mg oral tablet (1 source)CorticosteroidStart: 83-60-7128wbbp 5 tablets by mouth once daily Dexamethasone 2 MG 5 tablets Orally Once a day for 1 day(s) Apr, Active Norgestimate-Ethinyl Estradiol (6 sources)Progestin, EstrogenStart: 55-41-2725Flspq: 74-87-0869Whxvdywrbnpg- Ethinyl Estradiol (Sprintec (28)) 0.25-0.035 mg tablet Active 1 TAB PO Daily November 12:00amStart: 10-22-2024 End: 89-67-3552mulj 1 tablet by mouth once dailynorgestimate-ethinyl estradiol (Sprintec 28) 0.25-35 MG-MCG tablet Indications: Surgery follow-up Take 1 tablet by mouth Daily 28 tablet 12 10/22/2024 10/22/2025 Activeferrous sulfate 325 mg oral tablet (2 sources)take 1 tablet by mouth at mealtimeferrous sulfate 325 (65 Fe) MG tablet Take 325 mg by mouth in the morning. Take with meals. Activeletrozole 2.5 mg oral tablet (1 source)Aromatase InhibitorStart: 05-21-2024 End: 87-15-0300gftr 2 tablets by mouth once dailyletrozole (Femara) 2.5 MG chemo tablet Indications: Anovulation Take 2 tablets (5 mg total) by mouth Daily for 5 days. 10 tablet 05/21/2024 05/26/2024 Sroxcx75 hr metFORMIN hydrochloride 500 mg extended release oral tablet (20 sources)BiguanideStart: 81-71-7463rzgl 2 tablets by mouth every twenty-four hours at dinnermetFORMIN XR (Glucophage-XR) 500 MG 24 hr tablet Indications: PCOS (polycystic ovarian syndrome) TAKE TWO TABLETS BY MOUTH WITH EVENING MEAL (DO NOT CRUSH, CHEW, OR SPLIT) 180 tablet 10/10/2024 ActiveStart: 05-07-2024 End: 07-37-8668kvcj 1 tablet by mouth once dailyMetformin 500 mg tablet Discontinued 500 MG PO Daily May 07, 2024 1:00am December 04, 2024 5:52pm FreeTextSi tablet with a meal Orally Once a day; Note: Source Status: Taking; Provider: Lyndon Piper ( )Start: 24-97-8536rvvk 1 tablet by mouth once dailyMetFORMIN (Eqv-Glucophage XR) 500 mg oral tablet, extended release 500 mg = 1 tab(s), Oral, Daily Start Date: 03/31/24 Status: OrderedStart: 03-24-2024 End: 19-07-1841nqru 2 tablets by mouth every twenty-four hours at mealtime metFORMIN XR (Glucophage-XR) 500 MG 24 hr tablet Indications: PCOS (polycystic ovarian syndrome) Take 2 tablets (1,000 mg) by mouth in the evening. Take with meals Do not crush, chew, or split. 60 tablet 3 03/24/2024 ActiveStart: 01-02-2023 End: 59-37-5391vmig 1 tablet by mouth every twenty-four hoursMetformin 500 mg tablet extended release 24 hr Discontinued MG PO January 02, 2023 12:00am August 21, 2023 9:30pmStart: 01-02-2023 End: 51-11-9749Mehmiydkr Discontinued MG PO January 01, 2023 11:00pm August 21, 2023 8:30pmtake 1 tablet by mouth every twenty-four hoursmetFORMIN HCl 500 MG 1 tablet with a meal Orally Once a day Activenaproxen 500 mg oral tablet (1 source)Nonsteroidal Anti-inflammatory DrugStart: 44-65-4272zxed 1 tablet by mouth twice dailyNaproxen Sodium 500 mg 1 tablet Orally Twice a day for 10 days Nov, Activephentermine hydrochloride 37.5 mg oral tablet (20 sources)Sympathomimetic Amine AnorecticStart: 04-21-2024 End: 32-01-2488pdff 1 tablet by mouth before mealtimephentermine (Adipex-P) 37.5 MG tablet Indications: Encounter for weight management Take 1 tablet (37.5 mg) by mouth in the morning. Take before meals. 90 tablet 07/24/2024 10/22/2024 Discontinued (Ineffective) Vit-DSS-Fe Cbn-FA ( AD PO) (2 sources) Vit-DSS-Fe Cbn-FA ( AD PO) Take by mouth Active sertraline 50 mg oral tablet (3 sources)Serotonin Reuptake Inhibitortake 1 tablet by mouth every twenty-four hoursSertraline HCl 50 MG 1 tablet Orally Once a day Activeterbinafine 250 mg oral tablet (1 source)Allylamine AntifungalStart: 04-10-2760pfam 1 tablet by mouth once dailyterbinafine 250 mg Tab 250 mg = 1 tab(s), Oral, Daily Start Date: 03/31/24 Status: OrderedUniversity [facility] (1 source)Start: 26-59-5172MejYIH Children's Allergy Daily, Refills(s) 0 Start Date: 03/31/24 Status: Ordered Completed/Discontinued Medications MedicationDrug Class(es)DatesSig (Normalized)Sig (Original)[id number] 200 actuat albuterol 0.09 mg/actuat metered dose inhaler (20 sources)beta2-Adrenergic AgonistStart: 05-07-2019 End: 91-83-3378rlvg 1 puff(s) by inhalation every six hours as needed for wheezingAlbuterol Sulfate 90 mcg/actuation HFA aerosol inhaler Discontinued 2 PUFF INHALATION Q6H as neededfor shortness of breath or wheezing 18 0 May 07, 2019 1:00am May 07, 2024 3:15pmStart: 10-21-2017 End: 97-60-7139Jfxhdwjge Sulfate 90 mcg/actuation HFA aerosol inhaler Discontinued 1 INH INHALATION EVERY 4-6 HOURS as needed for shortness of breath or wheezing 8 0 October 21, 2017 12:00am November 10, 2017 6:51pm administer with spacertake 1 puff(s) by inhalation every four hours as neededAlbuterol Sulfate HFA 108 (90 Base) MCG/ACT 1 puff as needed Inhalation every 4 hrs Not-Takingtake 1 puff(s) by inhalation every four hours as neededAlbuterol Sulfate HFA 108 (90 Base) MCG/ACT 1 puff as needed Inhalation every 4 hrs ActiveArm Brace (Wrist Brace) misc (10 sources)Start: 05-27-2024 End: 98-32-3784Xia Brace (Wrist Brace) misc Discontinued 0 .Route 1 0 May 27, 2024 1:00am October 08, 2024 5:36am Acute pain of left wrist Strain of left wrist Pain in left wrist As directedStart: 05-27-2024 End: 78-10-8616Meh Brace (Wrist Brace) misc Discontinued 0 .Route 1 May 27, 2024 1:00am October 08, 2024 5:36am As directedStart: 25-02-4502Zfi Brace (Wrist Brace) misc Active 0 .Route 1 May 27, 2024 1:00am As directed Start: 97-87-1480Zdz Brace (Wrist Brace) misc Active 0 .Route 1 May 27, 2024 12:00am As directedcefdinir 300 mg oral capsule (8 sources)Cephalosporin AntibacterialStart: 35-40-6275pqsh 1 capsule by mouth every twelve hoursCefdinir 300 MG 1 capsule Orally twice a day for 14 days Mar, Not-TakingStart: 36-79-4171wuos 1 capsule by mouth every twelve hours Cefdinir 300 MG 1 capsule Orally every 12 hrs for 14 day(s) Jul, Active Start: 68-53-6443bqmd 1 capsule by mouth every twelve hoursCefdinir 300 MG 1 capsule Orally every 12 hrs for 10 day(s) Apr, Activecephalexin 500 mg oral capsule (20 sources)Cephalosporin AntibacterialStart: 01-02-2023 End: 91-35-7150erab 1 capsule by mouth four times dailyCephalexin 500 mg capsule Discontinued 500 MG PO Four times daily 40 10 0 January 02, 2023 12:00am August 21, 2023 9:30pmclomiPHENE citrate 50 mg oral tablet (5 sources)Estrogen Agonist/AntagonistStart: 10-22-2023 End: 36-01-0848fundgUQHNZ (Clomid) 50 MG tablet Indications: Hormone imbalance 1 daily day 5-9 of cycle 4 tablet 03/24/2024 Discontinued (Other) doxycycline monohydrate 100 mg oral capsule (8 sources)Tetracycline-class DrugStart: 56-00-0119yeiq 1 capsule by mouth every twelve hoursDoxycycline Monohydrate 100 MG 1 capsule Orally Twice a day for 10 day(s) May, Not-TakingFLUoxetine 20 mg oral capsule (20 sources)Serotonin Reuptake InhibitorStart: 08-21-2023 End: 25-17-3224ydqt 1 capsule by mouth once dailyFluoxetine 20 mg capsule Discontinued 20 MG PO Daily August 21, 2023 1:00am May 07, 2024 3:15pm Start: 05-16-2023 End: 64-79-2006erwz 1 capsule by mouth once dailyFLUoxetine (PROzac) 10 MG capsule TAKE 1 CAPSULE BY MOUTH EVERY DAY FOR 7 DAYS 05/16/2023 03/24/2024 Discontinued (Other)hydrOXYzine hydrochloride 25 mg oral tablet (19 sources)AntihistamineStart: 07-24-2024 End: 54-74-6490cpzy 1 tablet by mouth once dailyHydroxyzine Hcl 25 mg tablet Discontinued 25 MG PO Daily October 08, 2024 12:00am December 04, 2024 5:52pm ibuprofen 600 mg oral tablet (20 sources)Nonsteroidal Anti-inflammatory DrugStart: 11-12-2023 End: 23-25-2777oing 1 tablet by mouth every six hours as needed for pain Ibuprofen 600 mg tablet Discontinued 600 MG PO Q6H as needed for pain 30 5 0 November 12, 2023 12:00amNove2023 3:15pmketorolac tromethamine 10 mg oral tablet (17 sources)Nonsteroidal Anti-inflammatory Drug, Cyclooxygenase InhibitorStart: 03-07-2024 End: 09-62-6911dhyq 1 tablet by mouth every six hours as needed for pain Ketorolac 10 mg tablet Discontinued 10 MG PO Every 6 hours as needed for pain 15 4 0 March 12:00am May 07, 2024 3:16pmmethylPREDNISolone 4 mg oral tablet (11 sources)CorticosteroidStart: 05-07-2024 End: 31-76-7480akmw 1 tablet by mouth onceMethylprednisolone (Medrol (Jose)) 4 mg tablets,dose pack Discontinued 0 PO per package directions 21 0 May 07, 2024 1:00am May 27, 2024 7:45pm PO PER PKG DIR for 6 daysnitrofurantoin, macrocrystals 100 mg oral capsule (20 sources)Nitrofuran AntibacterialStart: 01-02-2023 End: 56-80-3041Ztgyaevtijvlfu Macrocrystal 100 mg capsule Discontinued MG January 02, 2023 12:00am August 21, 2023 9:31pmStart: 01-02-2023 End: 24-96-1741Sdsgutbwybzjsw Macrocrystal Discontinued MG January 01, 2023 11:00pm August 21, 2023 8:31pmondansetron 4 mg disintegrating oral tablet (20 sources)Serotonin-3 Receptor AntagonistStart: 08-21-2023 End: 13-71-4094lcnk 1 tablet by mouth every eight hours as needed for nausea and vomitingOndansetron 4 mg tablet,disintegrating Discontinued 4 MG PO Q8H as needed for nausea and vomiting 10 0 March 07, 2024 12:00am May 27, 2024 7:45pmoxyCODONE hydrochloride 5 mg oral tablet (17 sources)Opioid AgonistStart: 03-07-2024 End: 73-61-0776dbjq 5-10 mg by mouth every six hours as needed for painOxycodone 5 mg tablet Discontinued 5 - 10 MG PO Every 6 hours as needed for pain 15 3 0 March 07, 2024 May 07, 2024 3:15pm Calculus of distal left ureter Renal colic on left side Calculus of ureter Unspecified renal colicprednisoLONE 3 mg/ml oral solution (20 sources)CorticosteroidStart: 10-21-2017 End: 90-75-2205kkhr 30 mg by mouth once dailyPrednisolone Sodium Phosphate 15 mg/5 mL (3 mg/mL) solution Discontinued 30 MG PO Daily 40 4 0 October 21, 2017 12:00am October 24, 2017 12:00am October 25, 2017 12:01ampredniSONE 10 mg oral tablet (8 sources)Start: 02-05-1798vrff 1 tablet by mouth every eight hourspredniSONE 10 MG 1 tablet Orally 3 times a day for 5 day(s) May, Not-Taking tamsulosin hydrochloride 0.4 mg oral capsule (17 sources)alpha-Adrenergic BlockerStart: 03-07-2024 End: 35-43-0146Stuacgiyoi (Flomax) 0.4 mg capsule Discontinued 0.4 MG PO Daily 5 0 March 07, 2024 12:00am May 07, 2024 3:15pm administer 30 minutes after same meal each day until stone passestraZODone hydrochloride 50 mg oral tablet (20 sources)Serotonin Reuptake InhibitorStart: 01-02-2023 End: 55-63-1715Oopvpnnrc 50 mg tablet Discontinued MG January 02, 2023 12:00am August 21, 2023 9:31pmStart: 01-02-2023 End: 92-21-7545Okyvutghe Discontinued MG TABLET January 01, 2023 11:00pm August 21, 2023 8:31pm24 hr venlafaxine 75 mg extended release oral capsule (20 sources)Serotonin and Norepinephrine Reuptake InhibitorStart: 01-02-2023 End: 02-53-6191pixp 1 capsule by mouth every twenty-four hoursVenlafaxine (Effexor Xr) 75 mg capsule,extended release 24hr Discontinued MG PO January 02, 2023 12:00am August 21, 2023 9:31pmtake 1 tablet by mouth once daily at mealtimeEffexor 75 MG 1 tablet with food Orally Once a day Active Problems Active Problems Problem ClassificationProblemDateDocumented DateEpisodic/ChronicAbdominal pain (20 sources)Flank pain; Translations: [Unspecified abdominal pain]Onset: 396732-83-0653OzxiqhpwKovot bronchitis (20 sources)Acute bronchitis; Translations: [Acute bronchitis, unspecified] 71-53-8741TpkdvliuLjoceta disorders (1 source)Ytgoubf94-31-1322PkdvbbfDjvtzbcw of urinary tract (20 sources)Ureteric stone of lower third of ureter; Translations: [Calculus of ureter]94-20-9256XiypzaxdOmbzszm obstructive pulmonary disease and bronchiectasis (20 sources)Bronchitis; Translations: [Bronchitis, not specified as acute or chronic]40-11-0578DcjimqcjDizrfztfnaxqn and procreative management (19 sources)Patient encounter status; Translations: [Encounter for other general counseling and advice on contraception]19-26-9621PwkgscozJubktjdxoa and other anemia (1 source)Anemia, unspecified; Translations: [Anemia, unspecified]Onset: 30-18-9603AjuxozlfBvccjgju of white blood cells (9 sources)Lymphocytosis; Translations: [Elevated lymphocytes]ChronicDisorders of lipid metabolism (9 sources)Hyperlipidemia; Translations: [Hyperlipidemia NOS]ChronicFemale infertility (20 sources)Anovulation; Translations: [Female infertility associated with anovulation]Onset: 152252-68-0190EygrjhzJrcpg of unknown origin (9 sources)Fever; Translations: [Fever]EpisodicGenitourinary symptoms and ill- defined conditions (20 sources)Microscopic hematuria; Translations: [Other microscopic hematuria] 40-32-9229NtzrtbudRgzdbdsh; including migraine (9 sources)Headache; Translations: [Cephalgia]EpisodicMenstrual disorders (2 sources)Dysmenorrhea; Translations: [Irregular menstruation, unspecified] Onset: 930870-43-8885CipdzfkHqpt disorders (1 source)Depressive hvekzpwk32-16-3384GyacaseXcnallx (20 sources)Candidiasis of skin; Translations: [Candidiasis of skin and nail] 89-14-2131XamqyzhfSzlhmm and vomiting (13 sources)Nausea and vomiting; Translations: [Nausea & vomiting]Onset: 35-09-0134YnmxqxxsKibtz aftercare (2 sources)Surgical follow-up; Translations: [Encounter for follow-up examination after completed treatment for conditions other than malignant neoplasm]22-37-4884OgivcaivUqkje diseases of kidney and ureters (1 source)Urinary tract obstruction; Translations: [Hydronephrosis with renal and ureteral calculous obstruction]Onset: 80-79-0933SjdgyxinCihnb ear and sense organ disorders (9 sources)Otalgia; Translations: [Ear Pain]EpisodicOther endocrine disorders (20 sources)Polycystic ovary syndrome; Translations: [Polycystic ovarian syndrome]Onset: 600494-03-9019LqrnaqzPixik endocrine disorders (4 sources)Disorder of endocrine system; Translations: [Endocrine disorder, unspecified]14-37-3349SjkuqzpuRpink gastrointestinal disorders (9 sources)Passing flatus; Translations: [Flatulence]EpisodicOther non-traumatic joint disorders (20 sources)Joint pain; Translations: [Pain in unspecified joint]05-07-2019 EpisodicOther non-traumatic joint disorders (5 sources)Other instability, right ankle; Translations: [OTHER INSTABILITY RIGHT ANKLE]Onset: 89-04-3190XzlgiefcAuxxl nutritional; endocrine; and metabolic disorders (9 sources)Childhood obesity; Translations: [Other obesity due to excess calories]ChronicOther nutritional; endocrine; and metabolic disorders (1 source)Metabolic syndrome X34-65-2300KgqpdpfTxzid nutritional; endocrine; and metabolic disorders (1 source)Morbid nagjcsu70-82-9995HlmnitlHgvbn nutritional; endocrine; and metabolic disorders (9 sources)Weight gain; Translations: [Weight Gain]EpisodicOther upper respiratory disease (1 source)Allergic rhinitis; Translations: [Allergic rhinitis, unspecified] 44-55-4513GjnbozyMgsch upper respiratory infections (20 sources)Upper respiratory infection; Translations: [Acute upper respiratory infection, unspecified]43-88-7663FxxtkgqsYwhumm media and related conditions (9 sources)Otitis media; Translations: [Unspecified otitis media]Episodic Residual codes; unclassified (2 sources)Insomnia; Translations: [Other insomnia]95-70-3978ZpdnwhmZydrbbe and strains (20 sources)Shoulder strain; Translations: [Strain of unspecified muscle, fascia and tendon at shoulder and upper arm level, left arm, initial encounter]Onset: 404474-20-2164IylotckjJlgmuxhmoqby (1 source)CONTACT W/AND (SUSP) EXPOS COVID-19; Translations: [CONTACT W/AND (SUSP) EXPOS COVID-19]Onset: 38-71-0669Atyiuxfhjrty (1 source)Obstructive fjfjsmiczijzwf10-94-8300Qhbcseq tract infections (20 sources)Urinary tract infectious disease; Translations: [Urinary tract infection, site not specified]53-06-3254FrnlpogxFnthv infection (20 sources)Coxsackie virus disease; Translations: [Enterovirus infection, unspecified]74-39-3956Cxjpoxpf Past or Other Problems Problem ClassificationProblemDateDocumented DateEpisodic/ChronicConditions associated with dizziness or vertigo (10 sources)Dizziness; Translations: [Dizziness]Onset: 20-14-2466UrtyjinbGsstn and electrolyte disorders (1 source)Dehydration; Translations: [DEHYDRATION]Onset: 79-08-4510Njgwrdww Malaise and fatigue (1 source)Other fatigue; Translations: [Other fatigue]Onset: 50-22-9587Yzkictqe Nutritional deficiencies (1 source)Iron deficiency; Translations: [Iron deficiency]Onset: 12-24-2024 EpisodicOther aftercare (1 source)[facility] (current) use of aspirin; Translations: [NEGOTIATOR SALES CURRENT USE OF ASPIRIN]Onset: 89-58-7062RtuovrcjElryp aftercare (1 source)Other senior care (current) drug therapy; Translations: [OTH NEGOTIATOR SALES CURRENT DRUG THERAPY]Onset: 66-61-0028EjmsojigSmvus aftercare (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; Translations: [USP USE ORAL HYPOGLYCEMIC DX]Onset: 66-64-2998RfqzujizIgzgk connective tissue disease (4 sources)Pain in right foot; Translations: [PAIN IN RIGHT FOOT]Onset: 71-03-3849PqydzdbqZudqn non-traumatic joint disorders (5 sources)Other specified joint disorders, right ankle and foot; Translations: [OTHER SPEC JOINT D/O RT ANKLEFOOT]Onset: 13-60-8888TswwjldrUwmdr non-traumatic joint disorders (1 source)Pain in right ankle and joints of right foot; Translations: [PAIN IN RIGHT ANKLE]Onset: 85-79-9076JykjdbdbAavye non-traumatic joint disorders (1 source)Pain in left wrist; Translations: [Pain in left wrist]Onset: 83-76-8378RlmhakooDbfqk nutritional; endocrine; and metabolic disorders (18 sources)Weight increased; Translations: [Abnormal weight gain]Onset: [id number]qd and delivery including normal (1 source)Encounter for supervision of normal , unspecified, unspecified trimester; Translations: [Encounter for supervision of normal , unspecified, unspecified trimester]Onset: 49-59-8737Tqillpwt Spontaneous (16 sources)Incomplete miscarriage; Translations: [Incomplete spontaneous without complication]Onset: 457326-42-0068UjtsfqqgJmrwpfacjkrd (1 source)Acute cough R05.1 Results Test NameValueInterpretationReference RangeFacilityAlanine aminotransferase [Enzymatic activity/volume] in Serum or PlasmaOrdered By: Kalani Zamora on 45-40-2264NYE [Catalytic activity/Vol]11 U/LNormal7-52Cleveland ClinicComment on above:Order Comment: Reason for Exam Anemia, unspecified type;Iron deficiencyPerformed By: #### FE, CBC #### [place] [address] USAAlbumin [Mass/volume] in Serum or Plasma by Bromocresol green (BCG) dye binding methoOrdered By: Kalani Zamora on 19-30-5017Ivtscwz BCG dye [Mass/Vol]3.8 g/dL3.5-5.7FParkview HealthAlkaline phosphatase [Enzymatic activity/volume] in Serum or PlasmaOrdered By: Kalani Zamora on 70-53-2638LGL [Catalytic activity/Vol]62 U/KUpceyv44-275TakmpumgdCleveland ClinicComment on above:Order Comment: Reason for Exam Anemia, unspecified type;Iron deficiencyPerformed By: #### FE, CBC #### [facility] [address] [place] [address] USAAspartate aminotransferase [Enzymatic activity/volume] in Serum or PlasmaOrdered By: Kalani Zamora on 39-92-6774IRW [Catalytic activity/Vol]11 U/VJlq17-11MrtxuprngCleveland ClinicComment on above: Order Comment: Reason for Exam Anemia, unspecified type;Iron deficiencyPerformed By: #### FE, CBC #### [facility] [address] [place] [address] USABasophils Auto (Bld) [#/Vol]Ordered By: Kalani Zamora on 13-32-3296Abytmnswy (Bld) [#/Vol]N/[place] Basophils/100 WBC Auto (Bld)Ordered By: Kalani Zamora on 03-26-2025 Basophils/100 WBC (Bld)N/CentervilleBilirubin.total [Mass/volume] in Serum or PlasmaOrdered By: Kalani Zamora on 03-26-2025 Bilirubin [Mass/Vol]0.4 mg/dLNormal0.3-1.0[facility] Comment on above:Order Comment: Reason for Exam Anemia, unspecified type;Iron deficiencyPerformed By: #### FE, CBC #### [facility] [address] [place] [address] USACalcium [Mass/volume] in Serum or PlasmaOrdered By: Kalani Zamora on 44-35-9594Dszdzan [Mass/Vol]8.8 mg/dLNormal8.6-10.3FParkview HealthComment on above:Order Comment: Reason for Exam Anemia, unspecified type;Iron deficiencyPerformed By: #### FE, CBC #### [facility] [address] [place] [address] USACarbon dioxide, total [Moles/volume] in Serum or Plasma Ordered By: Kalani Zamora on 55-40-6640CT0 [Moles/Vol]26.6 mmol/LNormal 21.0-31.0Cleveland ClinicComment on above:Order Comment: Reason for Exam Anemia, unspecified type;Iron deficiencyPerformed By: #### FE, CBC #### [facility] [address] [place] [address] USAChloride [Moles/volume] in Serum or PlasmaOrdered By: Kalani Zamora on 46-82-2838Ojevizyp [Moles/Vol]107 mmol/HAgawqh09-415 Cleveland ClinicComment on above:Order Comment: Reason for Exam Anemia, unspecified type;Iron deficiencyPerformed By: #### FE, CBC #### [facility] [address] [place] [address] USAComprehensive Metabolic Panelon 72-82-7669Rsxgejq [Mass/Vol]3.8 g/dLNormal3.5-5.7The [facility] Physician GroupComment on above: Order Comment: Reason for Exam Anemia, unspecified type;Iron deficiencyPerformed By: #### FE, CBC #### [facility] [address] [place] [address] USAGFR/1.73 sq M.predicted MDRD (S/P/Bld) [Vol rate/Area] mL/min/{1.73_m2}NormalThe [facility] Hospital Physician GroupComment on above:Order Comment: Reason for Exam Anemia, unspecified type;Iron deficiencyPerformed By: #### FE, CBC #### [facility] [address] [place] [address] USACreatinine [Mass/volume] in Serum or PlasmaOrdered By: Kalani Zamora on 51-93-4569Xhgtdpxilp [Mass/Vol]0.71 mg/dLNormal0.60-1.20 [facility] ClinicComment on above:Order Comment: Reason for Exam Anemia, unspecified type;Iron deficiencyPerformed By: #### FE, CBC #### [place] [address] USADiff and CBCon 29-06-8947Rpah Corpuscular HGB Conc34.0 g/pMTfyzoz38.0-35.0The [facility] Physician GroupComment on above:Order Comment: Reason for Exam Anemia, unspecified type;Iron deficiencyPerformed By: #### HCGQNT #### [place] [address] USAPlatelet EstimateNormalNormalNormAscension Sacred Heart Bay Physician GroupComment on above:Order Comment: Reason for Exam Anemia, unspecified type;Iron deficiencyPerformed By: #### HCGQNT #### [place] [address] USAPlatelet MorphologyNormalNormalNormAscension Sacred Heart Bay Physician GroupComment on above:Order Comment: Reason for Exam Anemia, unspecified type;Iron deficiencyResult Comment: PERFORMED BY: [place] [address] PATHOLOGIST PAD MAKING MACHINE OPERATOR HENOK BOONE M.D.Performed By: #### HCGQNT #### [place] [address] USAWhite Blood Count7.4 [CFU]/mLNormal3.8-11.6The [facility] Physician GroupComment on above:Order Comment: Reason for Exam Anemia, unspecified type;Iron deficiencyPerformed By: #### HCGQNT #### [place] [address] USAEosinophils Auto (Bld) [#/Vol]Ordered By: Kalani Zamora on 68-89-8075Dddhxmlqekl (Bld) [#/Vol]N/AFParkview Health Eosinophils/100 WBC Auto (Bld)Ordered By: Kalani Zamora on 03-26-2025 Eosinophils/100 WBC (Bld)N/AFParkview HealthEosinophils/100 leukocytes in Blood by Manual countOrdered By: Kalani Zamora on 03-26-2025 Eosinophils/100 WBC (Bld)1 %Normal1-3FParkview HealthComment on above:Order Comment: Reason for Exam Anemia, unspecified type;Iron deficiency Performed By: #### HCGQNT #### [place] [address] USAErythrocyte distribution width [Ratio] by Automated count Ordered By: Kalani Zamora on 71-72-6237Iijrwznhjxx distribution width (RBC) [Ratio]14.0 %Pzdpmk23.9-15.3FParkview HealthComment on above: Order Comment: Reason for Exam Anemia, unspecified type;Iron deficiencyPerformed By: #### HCGQNT #### [place] [address] USAErythrocyte morphology finding [Identifier] in Blood Ordered By: Kalani Zamora on 04-75-3423IJH morphology finding Nom (Bld)Normal NormalNormOhio State Health SystemComment on above:Order Comment: Reason for Exam Anemia, unspecified type;Iron deficiencyPerformed By: #### HCGQNT #### [place] [id number] USAErythrocytes [#/volume] in Blood by Automated countOrdered By: Kalani Zamora on 21-23-3152YBA (Bld) [#/Vol]4.51 10*6/uLNormal3.60-5.00 [facility] ClinicComment on above:Order Comment: Reason for Exam Anemia, unspecified type;Iron deficiencyPerformed By: #### HCGQNT #### [place] [id number] USAGlomerular filtration rate [Volume Rate/Area] in Serum, Plasma or Blood by CreatinineOrdered By: Kalani Zamora on 03-26-2025 Glomerular filtration rate [Volume Rate/Area] in Serum, Plasma or Blood by Creatinine> 60.0 mL/MinCleveland ClinicGlucose [Mass/volume] in Serum or PlasmaOrdered By: Kalani Sera on 62-70-1152Qroymdz [Mass/Vol]100 mg/vBXwvcpl50-143WqvwaqmyqCleveland ClinicComment on above:ADA recommended reference rangeRandom Glucose Reference Range is dependent on time and content of last meal. Glucose of more than 200 mg/dL in a nonstressed, ambulatory subject supports the diagnosisof Diabetes Mellitus.Order Comment: Reason for Exam Anemia, unspecified type;Iron deficiencyResult Comment: Random Glucose Reference Range is dependent on time and content of last meal. Glucose of more than 200 mg/dL in a nonstressed, ambulatory subject supports the diagnosis of Diabetes Mellitus. ADA recommended reference rangePerformed By: #### FE, CBC #### [facility] [address] [place] [id number] USAHematocrit [Volume Fraction] of Blood by Automated count Ordered By: Kalani Zamora on 61-83-1896Fyrdeozmhs (Bld) [Volume fraction]38.4 %Ehzyug10.0-46.4FParkview HealthComment on above:Order Comment: Reason for Exam Anemia, unspecified type;Iron deficiencyPerformed By: #### HCGQNT #### [place] [id number] USAHemoglobin [Mass/volume] in BloodOrdered By: Kalani Zamora on 96-52-2470Qxkfvmcovb (Bld) [Mass/Vol]13.0 g/wGSapypp28.8-15.4 [facility] ClinicComment on above:Order Comment: Reason for Exam Anemia, unspecified type;Iron deficiencyPerformed By: #### HCGQNT #### [facility] [address] [place] [address] USAIron [Mass/volume] in Serum or PlasmaOrdered By: Kalani Zamora on 81-22-4057Zbsm [Mass/Vol]55 ug/xGIcxbad61-994UqglhnikzCleveland ClinicComment on above:Order Comment: Reason for Exam Anemia, unspecified type;Iron deficiencyPerformed By: #### FE, CBC #### [facility] [address] [place] [id number] USALeukocytes [#/volume] corrected for nucleated erythrocytes in Blood by Automated counOrdered By: Kalani Zamora on 66-73-1400WGM corrected for nucl RBC Auto (Bld) [#/Vol]7.4 10*3/uL3.8-11.6FParkview HealthLeukocytes [#/volume] in Blood by Automated countOrdered By: Kalani Zamora on 63-95-6186JON (Bld) [#/Vol]7.4 10*3/uLNormal3.8-11.6 [facility] ClinicComment on above:Order Comment: Reason for Exam Anemia, unspecified type;Iron deficiencyPerformed By: #### HCGQNT #### [facility] [address] [place] [address] USALymphocytes Auto (Bld) [#/Vol]Ordered By: Kalani Zamora on 28-97-3909Hsrplurkrwe (Bld) [#/Vol]N/[place] Lymphocytes/100 WBC Auto (Bld)Ordered By: Kalani Zamora on 03-26-2025 Lymphocytes/100 WBC (Bld)N/[place]ervilleLymphocytes/100 leukocytes in Blood by Manual countOrdered By: Kalani Zamora on 03-26-2025 Lymphocytes/100 WBC (Bld)54 %Vvtb97-60KsdrsgbaqCleveland ClinicComment on above:Order Comment: Reason for Exam Anemia, unspecified type;Iron deficiency Performed By: #### HCGQNT #### [facility] [address] [place], [place] [id number] [facility] [place]Entitic mass] by Automated countOrdered By: Kalani Zamora on 46-33-4872ABV (RBC) [Entitic mass]28.9 qxUnyzzt53.7-34.3FParkview HealthComment on above:Order Comment: Reason for Exam Anemia, unspecified type;Iron deficiencyPerformed By: #### HCGQNT #### [facility] [address] [place], [place] [id number] [facility] Auto (RBC) [Mass/Vol]Ordered By: Kalani Zamora on 31-70-8436RZGM (RBC) [Mass/Vol]34.0 g/dL32.0-35.0Cleveland ClinicMCV [Entitic volume] by Automated countOrdered By: Kalani Zamora on 38-10-1716BMZ (RBC) [Entitic vol]85.0 rFNjdndh59-208CobieyltkCleveland ClinicComment on above:Order Comment: Reason for Exam Anemia, unspecified type;Iron deficiencyPerformed By: #### HCGQNT #### [facility] [address] [place] [address] USAMonocytes Auto (Bld) [#/Vol]Ordered By: Kalani Zamora on 43-92-6121Dyozolmuf (Bld) [#/Vol]N/[place] Monocytes/100 WBC Auto (Bld)Ordered By: Kalani Zamora on 03-26-2025 Monocytes/100 WBC (Bld)N/[place]ervilleMonocytes/100 leukocytes in Blood by Manual countOrdered By: Kalani Zamora on 03-26-2025 Monocytes/100 WBC (Bld)7 %Normal2-11C[facility] ClinicComment on above:Order Comment: Reason for Exam Anemia, unspecified type;Iron deficiency Performed By: #### HCGQNT #### [facility] [address] [place] [id number] USANeutrophils Auto (Bld) [#/Vol]Ordered By: Kalani Zamora on 63-45-7271Lybabevxcgd (Bld) [#/Vol]N/[place] Neutrophils/100 WBC Auto (Bld)Ordered By: Kalani Zamora on 03-26-2025 Neutrophils/100 WBC (Bld)[facility] HospitalNo Panel InformationOrdered By: Kalani Zamora on 59-99-7026Jzkskwkp Creatinine Clearance (ChemN/[place]ervilleNucleated erythrocytes [Presence] in Blood by Automated countOrdered By: Kalani Zamora on 03-26-2025 Nucleated RBC Auto Ql (Bld)N/AFParkview HealthPlatelet adequacy [Presence] in Blood by Light microscopyOrdered By: Kalani Zamora on 58-18-0095Ncocqtczu LM Ql (Bld)NormalNoalCleveland Clinic Platelet mean volume [Entitic volume] in Blood by Automated countOrdered By: Kalani Zamora on 85-14-4221Foaghomm mean volume (Bld) [Entitic vol]9.0 fL Normal6.3-10.7FParkview HealthComment on above:Order Comment: Reason for Exam Anemia, unspecified type;Iron deficiencyPerformed By: #### HCGQNT #### [facility] [address] [place] [id number] USAPlatelet morphology finding [Identifier] in BloodOrdered By: Kalani Zamroa on 23-05-5587Blibtwzl morphology finding Nom (Bld)Normal NormalCleveland ClinicPlatelets [#/volume] in Blood by Automated countOrdered By: Kalani Zamora on 34-78-7691Tqzcmizuv (Bld) [#/Vol] 391 10*3/sTUqpupm137-669HcvmmxofuCleveland ClinicComment on above:Order Comment: Reason for Exam Anemia, unspecified type;Iron deficiencyPerformed By: #### HCGQNT #### [facility] [address] [place] [id number] USAPotassium [Moles/volume] in Serum or PlasmaOrdered By: Kalani Zamora on 17-80-0424Eyqfxwime [Moles/Vol]4.0 mmol/LNormal3.5-5.1 [facility] ClinicComment on above:Order Comment: Reason for Exam Anemia, unspecified type;Iron deficiencyPerformed By: #### FE, CBC #### [facility] [address] [place] [id number] USAProtein [Mass/volume] in Serum or PlasmaOrdered By: Kalani Zamora on 23-46-7578Luffgns [Mass/Vol]6.5 g/dLNormal6.4-8.9C[facility] ClinicComment on above:Order Comment: Reason for Exam Anemia, unspecified type;Iron deficiencyPerformed By: #### FE, CBC #### [facility] [address] [place] [id number] USASegmented neutrophils/100 leukocytes in Blood by Manual countOrdered By: Kalani Zamora on 39-79-0521Mryqozmnk neutrophils/100 WBC (Bld)38 %Ztu48-97OwwxdeueyCleveland ClinicComment on above:Order Comment: Reason for Exam Anemia, unspecified type;Iron deficiencyPerformed By: #### HCGQNT #### [place] [address] USASerum globulin measurement by calculation (mass/volume) Ordered By: Kalani Zamora on 25-14-8314Oymeexdf (S) [Mass/Vol]2.7 g/dLNormal [facility] ClinicComment on above:Order Comment: Reason for Exam Anemia, unspecified type;Iron deficiencyPerformed By: #### FE, CBC #### [place] [address] USASerum or plasma albumin/globulin mass ratioOrdered By: Kalani Zamora on 64-12-5648Zwlqfxw/Globulin [Mass ratio]1.4 {ratio}Normal [facility] ClinicComment on above:Order Comment: Reason for Exam Anemia, unspecified type;Iron deficiencyPerformed By: #### FE, CBC #### [place] [address] USASerum or plasma anion gap determinationOrdered By: Kalani Zamora on 45-34-7220Iteri gap [Moles/Vol]8.4 mmol/LNormal6.0-15.0 [facility] ClinicComment on above:Order Comment: Reason for Exam Anemia, unspecified type;Iron deficiencyPerformed By: #### FE, CBC #### [place] [id number] USASodium [Moles/volume] in Serum or PlasmaOrdered By: Kalani Zamora on 70-82-9067Fxpxvq [Moles/Vol]138 mmol/CVlflhr475-050XupdnwnniCleveland ClinicComment on above:Order Comment: Reason for Exam Anemia, unspecified type;Iron deficiencyPerformed By: #### FE, CBC #### [facility] [address] [place] [address] USAUrea nitrogen [Mass/volume] in Serum or PlasmaOrdered By: Kalani Zamora on 70-82-0763Onlm nitrogen [Mass/Vol]12 mg/dLNormal01-23 [facility] ClinicComment on above:Order Comment: Reason for Exam Anemia, unspecified type;Iron deficiencyPerformed By: #### FE, CBC #### [facility] [address] [place] [id number] USAVitamin B12 ser/plasOrdered By: Kalani Zamora on 37-06-6661Tmwelfzuf (Vitamin B12) [Mass/Vol]166 pg/vWMsj227-958QxqihyunyCleveland ClinicComment on above:Order Comment: Reason for Exam Anemia, unspecified type;Iron deficiencyPerformed By: #### FE, CBC #### [facility] [address] [place] [id number] USAVitamin D 25 Hydroxy Totalon 84-49-8651Msgudft D 25 Hydroxy Total22.9 ng/lIQaq54-438Gio [facility] Physician GroupComment on above: Order Comment: Reason for Exam Anemia, unspecified type;Iron deficiency Reason for Exam Anemia, unspecified type;Iron deficiency;Low vitamin D levelResult Comment: VITAMIN D STATUS 25(OH)VITAMIN D RANGE (ng/mL) Deficient <20 Insufficient 20 to <30 Sufficient 30 to 100 Reference: Yuniel MF,Herminio NC, Timi JARVIS, et al. Evaluation,treatment, and prevention of vitamin D deficiency; an Endocrine Society clinical practice guideline. JCEM. 2010; 96(7):1911-30. PERFORMED BY: [place] [id number] PATHOLOGIST PAD MAKING MACHINE OPERATOR HENOK BOONE M.D.Performed By: #### HCGQNT #### [place] [id number] USAVitamin D+Metabolites [Mass/volume] in Serum or Plasma Ordered By: Kalani Zamora on 34-83-9629Quxuzuo D+Metabolites [Mass/Vol]22.9 ng/rCPvh22-862NamtsdugjCleveland ClinicComment on above:VITAMIN D STATUS 25(OH)VITAMIN D RANGE (ng/mL) Deficient <20 Insufficient 20 to <14Kensvjelld22 to 100Reference: Yuniel MF,Herminio CHERRY, Timi JARVIS, et al. Evaluation,treatment, and prevention of vitamin D deficiency; an Endocrine Society clinical practice guideline. JCEM. 2010; 96(7):1911-30.Basophils [#/volume] in Blood by Automated countOrdered By: Kalani Zamora on 12-24-2024 Basophils (Bld) [#/Vol]0.0 10*3/uLNormal0.0-0.2FParkview Health Comment on above:Order Comment: Reason for Exam Anemia, unspecified type;Iron deficiencyResult Comment: PERFORMED BY: [place] [address] PATHOLOGIST PAD MAKING MACHINE OPERATOR HENOK BOONE M.D.Performed By: #### FE, CBC #### [facility] [address] [place] [address] USABasophils/100 leukocytes in Blood by Automated count Ordered By: Kalani Zamora on 87-49-8398Ilfhclyvl/100 WBC (Bld)0.6 %Normal. [facility] ClinicComment on above:Order Comment: Reason for Exam Anemia, unspecified type;Iron deficiencyPerformed By: #### FE, CBC #### [facility] [address] [place] [address] USAComplete Blood Count Auto Diffon 49-90-8902Sulz Corpuscular HGB Conc32.7 g/kDYxugaj41.0-35.0The [facility] Physician GroupComment on above:Order Comment: Reason for Exam Anemia, unspecified type;Iron deficiencyPerformed By: #### FE, CBC #### [facility] [address] [place] [address] USANRBC%0.1 /100{WBC}Normal0-0.5The [facility] Comment on above:Order Comment: Reason for Exam Anemia, unspecified type;Iron deficiencyPerformed By: #### FE, CBC #### [facility] [address] [place] [address] USAWhite Blood Count7.0 [CFU]/mLNormal3.8-11.6The [facility] Physician GroupComment on above:Order Comment: Reason for Exam Anemia, unspecified type;Iron deficiencyPerformed By: #### FE, CBC #### [facility] [address] [place] [address] USAEosinophils [#/volume] in Blood by Automated countOrdered By: Kalani Zamora on 32-20-9406Vfbrbdqvypy (Bld) [#/Vol]0.1 10*3/uLNormal 0.0-0.45C[facility] ClinicComment on above:Order Comment: Reason for Exam Anemia, unspecified type;Iron deficiencyPerformed By: #### FE, CBC #### [place] [address] USAEosinophils/100 leukocytes in Blood by Automated count Ordered By: Kalani Zamora on 37-72-9029Atyhwdpjmem/100 WBC (Bld)1.1 %Normal. [facility] ClinicComment on above:Order Comment: Reason for Exam Anemia, unspecified type;Iron deficiencyPerformed By: #### FE, CBC #### [place] [address] USAErythrocyte distribution width [Ratio] by Automated count Ordered By: Kalani Zamora on 30-18-8928Bgjiufxxbxl distribution width (RBC) [Ratio]13.8 %Utaelt07.9-15.3FParkview HealthComment on above: Order Comment: Reason for Exam Anemia, unspecified type;Iron deficiencyPerformed By: #### FE, CBC #### [facility] [address] [place], [place] [address] USAErythrocytes [#/volume] in Blood by Automated countOrdered By: Kalani Zamora on 51-63-1499YZN (Bld) [#/Vol]4.54 10*6/uLNormal3.60-5.00 [facility] ClinicComment on above:Order Comment: Reason for Exam Anemia, unspecified type;Iron deficiencyPerformed By: #### FE, CBC #### [facility] [address] [place] [address] USAHematocrit [Volume Fraction] of Blood by Automated count Ordered By: Kalani Zamora on 71-21-1114Nwquemmpsf (Bld) [Volume fraction]38.1 %Rhwccy81.0-46.4FParkview HealthComment on above:Order Comment: Reason for Exam Anemia, unspecified type;Iron deficiencyPerformed By: #### FE, CBC #### [facility] [address] [place] [address] USAHemoglobin [Mass/volume] in BloodOrdered By: Kalani Zamora on 60-95-4100Ttmoqjguux (Bld) [Mass/Vol]12.5 g/bLDzyist51.8-15.4 [facility] ClinicComment on above:Order Comment: Reason for Exam Anemia, unspecified type;Iron deficiencyPerformed By: #### FE, CBC #### [facility] [address] [place] [address] USAIron [Mass/volume] in Serum or PlasmaOrdered By: Kalani Zamora on 12-28-0714Sgpg [Mass/Vol]79 ug/yXGmyqmv67-202VyaxmkwvoCleveland ClinicComment on above:Order Comment: Reason for Exam Anemia, unspecified type;Iron deficiencyResult Comment: PERFORMED BY: [place] [id number] PATHOLOGIST PAD MAKING MACHINE OPERATOR HENOK BOONE M.D.Performed By: #### FE, CBC #### [facility] [address] [place] [address] USALeukocytes [#/volume] corrected for nucleated erythrocytes in Blood by Automated counOrdered By: Kalani Zamora on 45-90-9152GMK corrected for nucl RBC Auto (Bld) [#/Vol]7.0 10*3/uL3.8-11.6FParkview HealthLeukocytes [#/volume] in Blood by Automated countOrdered By: Kalani Zamora on 05-75-4048FAL (Bld) [#/Vol]7.0 10*3/uLNormal3.8-11.6 [facility] ClinicComment on above:Order Comment: Reason for Exam Anemia, unspecified type;Iron deficiencyPerformed By: #### FE, CBC #### [facility] [address] [place] [address] USALymphocytes [#/volume] in Blood by Automated countOrdered By: Kalani Zamora on 92-39-6066Edfqgscczzp (Bld) [#/Vol]2.7 10*3/uLNormal 1.00-4.8C[facility] ClinicComment on above:Order Comment: Reason for Exam Anemia, unspecified type;Iron deficiencyPerformed By: #### FE, CBC #### [facility] [address] [place] [address] USALymphocytes/100 leukocytes in Blood by Automated count Ordered By: Kalani Zamora on 39-07-0568Fhtlvcezbht/100 WBC (Bld)37.7 %Normal. [facility] ClinicComment on above:Order Comment: Reason for Exam Anemia, unspecified type;Iron deficiencyPerformed By: #### FE, CBC #### [facility] [address] [place] [address] [facility]ATION[facility] [Entitic mass] by Automated countOrdered By: Kalani Zamora on 07-74-7227HPG (RBC) [Entitic mass]27.4 ojDsqvdv97.7-34.3FParkview HealthComment on above:Order Comment: Reason for Exam Anemia, unspecified type;Iron deficiencyPerformed By: #### FE, CBC #### [facility] [address] [place] [address] [facility] Auto (RBC) [Mass/Vol]Ordered By: Kalani Zamora on 39-68-7979WZNY (RBC) [Mass/Vol]32.7 g/dL32.0-35.0Cleveland ClinicMCV [Entitic volume] by Automated countOrdered By: Kalani Zamora on 50-32-5946YTX (RBC) [Entitic vol]84.0 sOScuusm38-080TruigsraxCleveland ClinicComment on above:Order Comment: Reason for Exam Anemia, unspecified type;Iron deficiencyPerformed By: #### FE, CBC #### [address] [address] USAMonocytes [#/volume] in Blood by Automated countOrdered By: Kalani Zamora on 87-24-3586Ofshnycaf (Bld) [#/Vol]0.5 10*3/uLNormal 0.0-0.8Cleveland ClinicComment on above:Order Comment: Reason for Exam Anemia, unspecified type;Iron deficiencyPerformed By: #### FE, CBC #### [address] [address] USAMonocytes/100 leukocytes in Blood by Automated count Ordered By: Kalani Zamora on 58-76-5357Sahjqvtzd/100 WBC (Bld)6.7 %Normal. Cleveland ClinicComment on above:Order Comment: Reason for Exam Anemia, unspecified type;Iron deficiencyPerformed By: #### FE, CBC #### [address] [address] USANeutrophils [#/volume] in Blood by Automated countOrdered By: Kalani Zamora on 53-99-2554Fgvunzvbnlb (Bld) [#/Vol]3.8 10*3/uLNormal 1.8-7.7FParkview HealthComment on above:Order Comment: Reason for Exam Anemia, unspecified type;Iron deficiencyPerformed By: #### FE, CBC #### [address] [address] USANeutrophils/100 leukocytes in Blood by Automated count Ordered By: Kalani Zamora on 24-67-0514Wjvjbktxklc/100 WBC (Bld)53.9 %Normal. Cleveland ClinicComment on above:Order Comment: Reason for Exam Anemia, unspecified type;Iron deficiencyPerformed By: #### FE, CBC #### [address] [place] [address] USANucleated erythrocytes [Presence] in Blood by Automated countOrdered By: Kalani Zamora on 00-26-6320Kzuvohgyg RBC Auto Ql (Bld)0.1 /100{WBC}0-0.5FParkview HealthPlatelet mean volume [Entitic volume] in Blood by Automated countOrdered By: Kalani Zamora on 12-24-2024 Platelet mean volume (Bld) [Entitic vol]8.6 fLNormal6.3-10.7FParkview HealthComment on above:Order Comment: Reason for Exam Anemia, unspecified type;Iron deficiencyPerformed By: #### FE, CBC #### [facility] [address] [place] [address] USAPlatelets [#/volume] in Blood by Automated countOrdered By: Kalani Zamora on 08-97-1566Dzoxwxxlf (Bld) [#/Vol]416 10*3/uLNormal 150-450Cleveland ClinicComment on above:Order Comment: Reason for Exam Anemia, unspecified type;Iron deficiencyPerformed By: #### FE, CBC #### [facility] [address] [place] [address] USANo Panel InformationOrdered By: Veronique Haney on 12-04-2024 Quick Strep (POC)Cleveland ClinicAlanine aminotransferase [Enzymatic activity/volume] in Serum or PlasmaOrdered By: Kalani Zamora on 41-37-7669XRV [Catalytic activity/Vol]Alanine aminotransferase [Enzymatic activity/volume] in Serum or PlasmaCleveland ClinicALT [Catalytic activity/Vol]12 U/LCleveland ClinicAlbumin [Mass/volume] in Serum or Plasma by Bromocresol green (BCG) dye binding metho Ordered By: Kalani Zamora on 53-91-3197Nsqqsvy BCG dye [Mass/Vol]Albumin [Mass/volume] in Serum or Plasma by Bromocresol green (BCG) dye binding metho 3.5-5.7FParkview HealthAlbumin BCG dye [Mass/Vol]4.0 g/dL 3.5-5.7FParkview HealthAlkaline phosphatase [Enzymatic activity/volume] in Serum or PlasmaOrdered By: Kalani Zamora on 86-76-9962SYD [Catalytic activity/Vol]Alkaline phosphatase [Enzymatic activity/volume] in Serum or Xvuryf39-242WpfkuwvooCleveland ClinicALP [Catalytic activity/Vol]64 U/A76-134ShcjgxoksCleveland ClinicAspartate aminotransferase [Enzymatic activity/volume] in Serum or PlasmaOrdered By: Kalani Zamora on 94-39-7436DQA [Catalytic activity/Vol]Aspartate aminotransferase [Enzymatic activity/volume] in Serum or ByeiilAfe97-97JunzlnhbfCleveland ClinicAST [Catalytic activity/Vol]12 U/ZEwx57-28BiphnypftCleveland ClinicBasophils Auto (Bld) [#/Vol]Ordered By: Kalani Zamora on 98-23-0287Rdkojkplp (Bld) [#/Vol]Automated basophil count0.0-0.2FParkview HealthBasophils (Bld) [#/Vol]0.1 10*3/uL0.0-0.2FParkview HealthBasophils/100 WBC Auto (Bld)Ordered By: Kalani Zamora on 51-30-9382Jernbzvsr/100 WBC (Bld)Automated basophil %.Cleveland ClinicBasophils/100 WBC (Bld)1.0 %.[facility] Bilirubin.total [Mass/volume] in Serum or PlasmaOrdered By: Kalani Zamora on 50-43-0365Dpxhvylce [Mass/Vol]Bilirubin.total [Mass/volume] in Serum or Plasma Low0.3-1.0Cleveland ClinicBilirubin [Mass/Vol]0.2 mg/dLLow 0.3-1.0Cleveland ClinicCalcium [Mass/volume] in Serum or Plasma Ordered By: Kalani Zamora on 53-29-7760Ypkoius [Mass/Vol]Calcium [Mass/volume] in Serum or Plasma8.6-10.3FParkview HealthCalcium [Mass/Vol]9.1 mg/dL8.6-10.3FParkview HealthCarbon dioxide, total [Moles/volume] in Serum or PlasmaOrdered By: Kalani Zamora on 03-90-6725NO5 [Moles/Vol]Carbon dioxide, total [Moles/volume] in Serum or Plasma 21.0-31.0Cleveland ClinicCO2 [Moles/Vol]27.0 mmol/L21.0-31.0 Cleveland ClinicChloride [Moles/volume] in Serum or Plasma Ordered By: Kalani Zamora on 17-43-4899Otljaoro [Moles/Vol]Chloride [Moles/volume] in Serum or WrtprrObro46-594AthdjovlcCleveland Clinic Chloride [Moles/Vol]108 mmol/KCwnb75-042KadcmfcsmCleveland Clinic Creatinine [Mass/volume] in Serum or PlasmaOrdered By: Kalani Zamora on 44-23-7191Emhnfhavln [Mass/Vol]Creatinine [Mass/volume] in Serum or Plasma 0.60-1.20Cleveland ClinicCreatinine [Mass/Vol]0.91 mg/dL 0.60-1.20Cleveland ClinicEosinophils Auto (Bld) [#/Vol]Ordered By: Kalani Zamora on 48-70-9684Eugvkbjrwaj (Bld) [#/Vol]Automated eosinophil count0.0-0.45Cleveland ClinicEosinophils (Bld) [#/Vol]0.1 10*3/uL0.0-0.45Cleveland ClinicEosinophils/100 WBC Auto (Bld) Ordered By: Kalani Zamora on 08-18-3883Wqweegvbcnq/100 WBC (Bld)Automated eosinophil %.Cleveland ClinicEosinophils/100 WBC (Bld)1.9 %. Cleveland ClinicErythrocyte distribution width Auto (RBC) [Ratio]Ordered By: Kalani Zamora on 10-33-4765Ktgnuwcaqzt distribution width (RBC) [Ratio]Erythrocyte distribution width [Ratio] by Automated count11.9-15.3 Cleveland ClinicErythrocyte distribution width (RBC) [Ratio] 13.9 %11.9-15.3FParkview HealthGlobulin Calc (S) [Mass/Vol] Ordered By: Kalani Zamora on 70-18-9723Gfiiicok (S) [Mass/Vol]Serum globulin measurement by calculation (mass/volume)[facility] Globulin (S) [Mass/Vol]2.4 g/dLCleveland ClinicGlucose [Mass/volume] in Serum or PlasmaOrdered By: Kalani Zamora on 10-29-2024 Glucose [Mass/Vol]Glucose [Mass/volume] in Serum or Qzxtep16-437MlvgkioaxCleveland ClinicComment on above:ADA recommended reference rangeRandom Glucose Reference Range is dependent on time and content of last meal. Glucose of more than 200 mg/dL in a nonstressed, ambulatory subject supports the diagnosisof Diabetes Mellitus.Glucose [Mass/Vol]91 mg/aT11-266SepjbnbevCleveland ClinicComment on above:ADA recommended reference rangeRandom Glucose Reference Range is dependent on time and content of last meal. Glucose of more than 200 mg/dL in a nonstressed, ambulatory subject supports the diagnosisof Diabetes Mellitus.Hematocrit Auto (Bld) [Volume fraction]Ordered By: Kalani Zamora on 93-68-9575Znjoolqflu (Bld) [Volume fraction]Hematocrit [Volume Fraction] of Blood by Automated tiiqiRdr45.0-46.4FParkview HealthHematocrit (Bld) [Volume fraction]30.0 %Low34.0-46.4FParkview HealthHemoglobin [Mass/volume] in BloodOrdered By: Kalani Zamora on 19-62-2480Kxjjyjokkz (Bld) [Mass/Vol]Hemoglobin [Mass/volume] in BloodLow 11.8-15.4FParkview HealthHemoglobin (Bld) [Mass/Vol]10.0 g/dL Low11.8-15.4FParkview HealthIron [Mass/volume] in Serum or PlasmaOrdered By: Kalani Zamora on 50-22-3623Lsti [Mass/Vol]Iron [Mass/volume] in Serum or Zdudwq24-049GsfveheemCleveland ClinicIron [Mass/Vol]79 ug/aM91-425SyyjkthviCleveland ClinicLeukocytes [#/volume] corrected for nucleated erythrocytes in Blood by Automated counOrdered By: Kalani Zamora on 21-49-0590JUR corrected for nucl RBC Auto (Bld) [#/Vol] Leukocytes [#/volume] corrected for nucleated erythrocytes in Blood by Automated coun3.8-11.6FParkview HealthWBC corrected for nucl RBC Auto (Bld) [#/Vol]6.3 10*3/uL3.8-11.6FParkview HealthLymphocytes Auto (Bld) [#/Vol]Ordered By: Kalani Zamora on 96-35-2890Vsnnbbixdcg (Bld) [#/Vol]Lymphocytes [#/volume] in Blood by Automated count1.00-4.8Cleveland ClinicLymphocytes (Bld) [#/Vol]1.9 10*3/uL1.00-4.8Cleveland ClinicLymphocytes/100 WBC Auto (Bld)Ordered By: Kalani Zamora on 25-15-3636Eammdyqlzvv/100 WBC (Bld)Lymphocytes/100 leukocytes in Blood by Automated count.Cleveland ClinicLymphocytes/100 WBC (Bld)29.8 %.[facility] Auto (RBC) [Entitic mass] Ordered By: Kalani Zamora on 25-96-2694WNX (RBC) [Entitic mass]MCH [Entitic mass] by Automated count24.7-34.3FSumma Health [facility] (RBC) [Entitic mass]28.3 pg24.7-34.3FHolzer HospitalHC Auto (RBC) [Mass/Vol]Ordered By: Kalani Zamora on 90-03-3538MGJP (RBC) [Mass/Vol]MCHC [Mass/volume] by Automated count32.0-35.0[facility]'s Medical CenterHC (RBC) [Mass/Vol]33.5 g/dL32.0-35.0Cleveland ClinicMCV Auto (RBC) [Entitic vol]Ordered By: Kalani Zamora on 17-35-5869TXW (RBC) [Entitic vol]MCV [Entitic volume] by Automated -174AknfhpoxpCleveland ClinicMCV (RBC) [Entitic vol]84.6 uL91-286NvczqsydlCleveland Clinic Monocytes Auto (Bld) [#/Vol]Ordered By: Kalani Zamora on 24-54-2676Cailawics (Bld) [#/Vol]Automated blood monocyte count0.0-0.8Cleveland ClinicMonocytes (Bld) [#/Vol]0.3 10*3/uL0.0-0.8[facility] Monocytes/100 WBC Auto (Bld)Ordered By: Kalani Zamora on 10-29-2024 Monocytes/100 WBC (Bld)Automated monocyte %.[facility] Monocytes/100 WBC (Bld)5.0 %.Cleveland ClinicNeutrophils Auto (Bld) [#/Vol]Ordered By: Kalani Zamora on 69-56-5539Udtxsnqfjdj (Bld) [#/Vol] Neutrophils [#/volume] in Blood by Automated count1.8-7.7FParkview HealthNeutrophils (Bld) [#/Vol]3.9 10*3/uL1.8-7.7FParkview HealthNeutrophils/100 WBC Auto (Bld)Ordered By: Kalani Zamora on 60-67-1151Ywphmncldcu/100 WBC (Bld)Automated neutrophil %.Cleveland ClinicNeutrophils/100 WBC (Bld)62.3 %.[facility] No Panel InformationOrdered By: Kalani Zamora on 96-27-2470Hacsghxdq GFR (CKD-EPI)> 60.0 mL/MinCleveland ClinicPharmacy Creatinine Clearance (ChemN/AFParkview HealthNucleated erythrocytes [Presence] in Blood by Automated countOrdered By: Kalani Zamora on 10-29-2024 Nucleated RBC Auto Ql (Bld)Nucleated erythrocytes [Presence] in Blood by Automated count0-0.5FParkview HealthNucleated RBC Auto Ql (Bld) 0.2 /100{WBC}0-0.5FParkview HealthPlatelet mean volume Auto (Bld) [Entitic vol]Ordered By: Kalani Zamora on 76-98-7542Tbwfkvey mean volume (Bld) [Entitic vol]Platelet mean volume [Entitic volume] in Blood by Automated count6.3-10.7FParkview HealthPlatelet mean volume (Bld) [Entitic vol]8.7 fL6.3-10.7FParkview HealthPlatelets Auto (Bld) [#/Vol]Ordered By: Kalani Zamora on 25-74-8561Dxlqryzoy (Bld) [#/Vol] Platelets [#/volume] in Blood by Automated hipaw679-284OtmqbwyfwCleveland ClinicPlatelets (Bld) [#/Vol]390 10*3/sS696-234SiccdenlvCleveland ClinicPotassium [Moles/volume] in Serum or PlasmaOrdered By: Kalani Zamora on 80-51-9224Mamssvkux [Moles/Vol]Potassium [Moles/volume] in Serum or Plasma3.5-5.1FParkview HealthPotassium [Moles/Vol]4.3 mmol/L 3.5-5.1FParkview HealthProtein [Mass/volume] in Serum or Plasma Ordered By: Kalani Zamora on 94-90-0707Txcdfir [Mass/Vol]Protein [Mass/volume] in Serum or Plasma6.4-8.9Cleveland ClinicProtein [Mass/Vol]6.4 g/dL6.4-8.9Cleveland ClinicRB Auto (Bld) [#/Vol] Ordered By: Kalani Zamora on 29-03-1984JKW (Bld) [#/Vol]Erythrocytes [#/volume] in Blood by Automated countLow3.60-5.00Cleveland ClinicRBC (Bld) [#/Vol]3.55 10*6/uLLow3.60-5.00[facility] Serum or plasma albumin/globulin mass ratioOrdered By: Kalani Zamora on 42-91-1575Dlahzvy/Globulin [Mass ratio]Serum or plasma albumin/globulin mass ratioCleveland ClinicAlbumin/Globulin [Mass ratio]1.7 {ratio} Holzer Hospitalerum or plasma anion gap determinationOrdered By: Kalani Zamora on 39-50-3283Hzkye gap [Moles/Vol]Serum or plasma anion gap determination6.0-15.0Cleveland ClinicAnion gap [Moles/Vol]9.3 mmol/L6.0-15.0Holzer Hospitalerum or plasma iron binding capacity measurement (mass/volume)Ordered By: Kalani Zamora on 99-59-9117Ophs binding capacity [Mass/Vol]Iron binding capacity [Mass/volume] in Serum or Fkijcf665-937LexndqzicCleveland ClinicIron binding capacity [Mass/Vol] 363 ug/kB243-004XmphtltkcHolzer Hospitalerum or plasma iron saturation measurement (mass fraction)Ordered By: Kalani Zamora on 12-69-1206Uhgj saturation [Mass fraction]Iron saturation [Mass Fraction] in Serum or Plasma 20-50Cleveland ClinicIron saturation [Mass fraction]21.8 %20-50 Holzer Hospitalodium [Moles/volume] in Serum or PlasmaOrdered By: Kalani Zamora on 17-29-6565Paalei [Moles/Vol]Sodium [Moles/volume] in Serum or Ryuhub658-692LszfitpmkHolzer Hospitalodium [Moles/Vol]140 mmol/M666-669WhfzknjnkCleveland ClinicThyrotropin [Units/volume] in Serum or PlasmaOrdered By: Kalani Zamora on 28-02-3392NEV QnThyrotropin [Units/volume] in Serum or Plasma0.45-5.33Cleveland ClinicTSH Qn4.14 m[IU]/L0.45-5.33Cleveland ClinicTransferrin [Mass/volume] in Serum or PlasmaOrdered By: Kalani Zamora on 10-29-2024 Transferrin [Mass/Vol]Transferrin [Mass/volume] in Serum or Xttday244-812 Cleveland ClinicTransferrin [Mass/Vol]259 mg/iL657-493YcpnoxgazCleveland ClinicUrea nitrogen [Mass/volume] in Serum or PlasmaOrdered By: Kalani Zamora on 86-69-0744Spmh nitrogen [Mass/Vol]Urea nitrogen [Mass/volume] in Serum or Plasma7-Cleveland ClinicUrea nitrogen [Mass/Vol]12 mg/dL01-23Cleveland ClinicWBC Auto (Bld) [#/Vol]Ordered By: Kalani Zamora on 95-44-4665MXG (Bld) [#/Vol]Leukocytes [#/volume] in Blood by Automated count3.8-11.6FParkview Health WBC (Bld) [#/Vol]6.3 10*3/uL3.8-11.6FParkview HealthABO/Rh Retypeon 59-55-1449SHQ/RH Recheck ResultPositiveNoCritical access hospital Physician GroupComment on above:Result Comment: PERFORMED BY: [facility] [address] [place] [address] PATHOLOGIST PAD MAKING MACHINE OPERATOR RICKY TORRES M.D.Appearance of UrineOrdered By: Shay Cosme on 80-94-8154Lbiyhkdpts (U)Urine appearanceCleBarnesville Hospital Appearance (U)ClearNormalClearCleveland ClinicComment on above: Order Comment: Reason for Exam Anemia, unspecified type;Iron deficiencyPerformed By: #### FE, CBC #### [facility] [address] [place] [address] USABacteria [Presence] in Urine by AutomatedOrdered By: Shay Cosme on 90-95-6541Uqyavkof Auto Ql (U)Bacteria [Presence] in Urine by AutomatedNone SeenCleveland ClinicBacteria Auto Ql (U)None seen [HPF]None [facility] HospitalBasophils Auto (Bld) [#/Vol] Ordered By: JANN URRUTIA on 70-93-7759Dxurhcsud (Bld) [#/Vol]Automated basophil count0.0-0.2FParkview HealthBasophils [#/volume] in Blood by Automated countOrdered By: JANN URRUTIA on 20-67-8031Eyyytjurp (Bld) [#/Vol]0.1 10*3/uLNormal0.0-0.2FParkview HealthComment on above:Result Comment: PERFORMED BY: [place] [address] PATHOLOGIST PAD MAKING MACHINE OPERATOR RICKY TORRES M.D.Performed By: #### CBC #### [facility] [address] [place] [address] USABasophils/100 WBC Auto (Bld)Ordered By: JANN URRUTIA on 11-20-0521Yrvhajahl/100 WBC (Bld)Automated basophil %.Cleveland ClinicBasophils/100 leukocytes in Blood by Automated countOrdered By: JANN URRUTIA on 36-84-6634Wguchipqh/100 WBC (Bld)1.3 %Normal.Cleveland ClinicComment on above:Performed By: #### CBC #### [place] [address] USABilirubin Test strip Ql (U)Ordered By: Shay Cosme on 49-15-5348Hbvjdcrwy Ql (U)Bilirubin.total [Presence] in Urine by Test strip NegativeCleveland ClinicBilirubin Ql (U)NegativeNegative Cleveland ClinicCBC W Auto Differential panel (Bld)on 84-98-8857Yyxhzxbgu (Bld) [#/Vol]0.1 10*3/uL0.0 - 0.2 10*3/uLNOMS Healthcare Basophils/100 WBC Manual cnt (Syn fld)1.3 %.NOMS HealthcareEosinophils (Bld) [#/Vol]0.1 10*3/uL0.0 - 0.45 10*3/uLNOMS HealthcareEosinophils/100 WBC Manual cnt (Syn fld)0.8 %.[facility]OMS HealthcareErythrocyte distribution width (RBC) [Ratio] 12.9 %11.9 - 15.3 %[facility]OMS HealthcareHematocrit (Bld) [Volume fraction]38 %34.0 - 46.4 %[facility]OMS HealthcareHemoglobin (Bld) [Mass/Vol]12.6 g/dL11.8 - 15.4 g/dLNONY HealthcareInterpretation and review of laboratory resultsAbnormalNOMS Healthcare Lymphocytes (Bld) [#/Vol]2.1 10*3/uL1.00 - 4.8 10*3/uLMissouri Delta Medical Center Lymphocytes/100 WBC Manual cnt (Syn fld)17.9 %.[facility] HospitalH (RBC) [Entitic mass]28.1 pg24.7 - 34.3 pgGolden Valley Memorial HospitalHC (RBC) [Mass/Vol]33.1 g/dL32.0 - 35.0 g/dLGolden Valley Memorial HospitalV (RBC) [Entitic vol]84.9 fL80 - 100 fLMissouri Delta Medical Center MDW22.26 %High0.00 - 20.00 %[facility] HealthcareComment on above:For adults in ED, MDW > 20.0 may be associated with a higher risk of sepsis during the first 12 hrs of hospital admission Monocytes (Bld) [#/Vol]0.7 10*3/uL0.0 - 0.8 10*3/uLMissouri Delta Medical Center Monocytes+Macrophages/100 WBC Manual cnt (Syn fld)6.3 %.[facility] Neutrophils (Bld) [#/Vol]8.6 10*3/uLHigh1.8 - 7.7 10*3/uLNOChildren's Mercy Hospital Neutrophils/100 WBC Manual cnt (Syn fld)73.7 %.[facility] CenterNRBC0 /100{WBC}0 - 0.5 /100{WBC}[facility] CenterPlatelet mean volume (Bld) [Entitic vol]8.7 fL6.3 - 10.7 fLMissouri Delta Medical CenterPlatelets (Bld) [#/Vol]490 10*3/oMGwuv385 - 450 10*3/uL [facility] Medical CenterRBC LM.HPF (Urine sed) [#/Area]4.48 10*6/uL3.60 - 5.00 10*6/uL [facility] Medical CenterWBC (Bld) [#/Vol]11.7 10*3/uLHigh3.8 - 11.6 10*3/uLNOChildren's Mercy HospitalWBC LM.HPF (Urine sed) [#/Area]11.7 10*3/uLHigh3.8 - 11.6 10*3/uLNOSaint John's Aurora [facility] HealthcareCalcium oxalate crystals [Presence] in Urine by Computer assisted methodOrdered By: Shay Cosme on 80-95-0152Wlhjgrr oxalate crystals Computer assisted Ql (U)Calcium oxalate crystals [Presence] in Urine by Computer assisted methodCleveland ClinicCalcium oxalate crystals Computer assisted Ql (U)1+ [HPF][facility] Chlamydia/GC Amplificationon 27-11-0172Yealrfezh Trachomotis, NAANegativeNormal NegativeThe [facility] Physician GroupComment on above:Order Comment: SOURCE OF SPECIMEN: GenitalPerformed By: #### HCGQNT #### [facility] [address] [place] [id number] USANeisseria Gonorrhoeae, NAANegativeNormalNegativeThe [facility] Physician GroupComment on above:Order Comment: SOURCE OF SPECIMEN: GenitalResult Comment: Performed at: =[facility] [id number] Senior Training Specialist: Shannen Alves MD, Phone: [phone] PERFORMED BY: [place] [address] PATHOLOGIST PAD MAKING MACHINE OPERATOR RICKY TORRES M.D.Performed By: #### HCGQNT #### [facility] [address] [place] [id number] USAChoriogonadotropin.beta subunit [Units/volume] in Serum or PlasmaOrdered By: Shay Cosme on 15-33-0905GZT.beta subunit Qn Choriogonadotropin.beta subunit [Units/volume] in Serum or PlasmaCleveland ClinicComment on above:Approximate Approximate hCG Gestational Age Range (mIU/ml) (weeks)0.2-1 5-50 1-2 50-500 2-3 100-5,000 3-4 500-10,000 4-5 1,000-50,000 5-6 10,000-100,000 6-8 15,000-200,000 8-12 10,000-100,000HCG.beta subunit Cv7146.00 m[IU]/mLCleveland ClinicComment on above: Approximate Approximate hCG Gestational Age Range (mIU/ml) (weeks)0.2-1 5-50 1-2 50-500 2-3 100-5,000 3-4 500-10,000 4-5 1,000-50,000 5-6 10,000-100,000 6-8 15,000-200,000 8-12 10,000-100,000Color Auto (U)Ordered By: Shaycezar Cosme on 32-60-6627Oygqh (U)Color of Urine by AutoEast Liverpool City Hospital Color of Urine by AutoOrdered By: Shay Ba on 67-44-5413Tkxvp (U)Yellow NormalEast Liverpool City HospitalComment on above:Order Comment: Reason for Exam Anemia, unspecified type;Iron deficiencyPerformed By: #### FE, CBC #### [place] [address] USAComplete Blood Count Auto Diffon 62-47-8168Atpo Corpuscular HGB Conc33.1 g/aKJyfepx74.0-35.0The [facility] Physician GroupComment on above:Performed By: #### CBC #### [place] [address] USAMonocytes/100 WBC (Bld)22.26 %High0.00-20.00The [facility] Physician GroupComment on above:Result Comment: For adults in ED, MDW > 20.0 may be associated with a higher risk of sepsis during the first 12 hrs of hospital admissionPerformed By: #### CBC #### [place] [address] USANRBC%0.0 /100{WBC}Normal0-0.5The [facility]ician Group Comment on above:Performed By: #### CBC #### [place] [address] USADipstick and Microscopicon 94-51-7719Ahzihpum,UrineNone SeenNormalNone SeenThe [facility] Physician GroupComment on above:Order Comment: Reason for Exam Anemia, unspecified type;Iron deficiencyPerformed By: #### FE, CBC #### [place] [address] USABilirubin,UrineNegativeNormalNegativeThe [facility] Physician GroupComment on above:Order Comment: Reason for Exam Anemia, unspecified type;Iron deficiencyPerformed By: #### FE, CBC #### [facility] [address] [place] [address] USACalcium Oxalate Crystals,Urine1+NormalThe [facility] Physician GroupComment on above:Order Comment: Reason for Exam Anemia, unspecified type;Iron deficiencyPerformed By: #### FE, CBC #### [facility] [address] [place] [address] USAGlucose Ql (U)NormalNormalNormalThe [facility] Physician GroupComment on above:Order Comment: Reason for Exam Anemia, unspecified type;Iron deficiencyPerformed By: #### FE, CBC #### [facility] [address] [place] [address] USAHyaline Casts,UrineNoneNormal0-8The [facility] Physician GroupComment on above:Order Comment: Reason for Exam Anemia, unspecified type;Iron deficiencyPerformed By: #### FE, CBC #### [place] [address] USAMucus,UrineRareNormalThe [facility] Physician GroupComment on above:Order Comment: Reason for Exam Anemia, unspecified type;Iron deficiency Result Comment: PERFORMED BY: [place] [address] PATHOLOGIST PAD MAKING MACHINE OPERATOR RICKY TORRES M.D.Performed By: #### FE, CBC #### [facility] [address] [place] [address] USANitrite,UrineNegativeNormalNegativeThe [facility] Physician GroupComment on above:Order Comment: Reason for Exam Anemia, unspecified type;Iron deficiencyPerformed By: #### FE, CBC #### [facility] [address] [place] [address] USAOccult Blood,Urine3+HighNegativeThe [facility] Physician GroupComment on above:Order Comment: Reason for Exam Anemia, unspecified type;Iron deficiencyResult Comment: PERFORMED BY: [address] [place] [address] PATHOLOGIST PAD MAKING MACHINE OPERATOR RICKY TORRES M.D.Performed By: #### FE, CBC #### [facility] [address] [place] [address] USAProtein,UrineTraceHighNegativeThe [facility] Physician GroupComment on above:Order Comment: Reason for Exam Anemia, unspecified type;Iron deficiencyPerformed By: #### FE, CBC #### [facility] [address] [place] [address] USARBC,UrineInnumerableHigh0-4The [facility]ician Group Comment on above:Order Comment: Reason for Exam Anemia, unspecified type;Iron deficiencyPerformed By: #### FE, CBC #### [facility] [address] [place] [address] USASpecificy [place],Urine1.507Uqbodt0.001-1.030The [facility] Physician GroupComment on above:Order Comment: Reason for Exam Anemia, unspecified type;Iron deficiencyPerformed By: #### FE, CBC #### [facility] [address] [place] [address] USASquamous Epithelial Cell,Ozoqn4-4Bigjxt8-7Irs [facility] Physician GroupComment on above:Order Comment: Reason for Exam Anemia, unspecified type;Iron deficiencyPerformed By: #### FE, CBC #### [facility] [address] [place] [address] USAUrobilinogen,Urine3 mg/dLHighNormalThe [facility] Hospital Physician GroupComment on above:Order Comment: Reason for Exam Anemia, unspecified type;Iron deficiencyPerformed By: #### FE, CBC #### [facility] [address] [place] [address] USAWBC,Qjpur2-6Neutdw5-4Knx [facility] Physician GroupComment on above:Order Comment: Reason for Exam Anemia, unspecified type;Iron deficiency Performed By: #### FE, CBC #### [facility] [address] [place] [address] USAEosinophils Auto (Bld) [#/Vol]Ordered By: JANN URRUTIA on 67-36-5125Urphuwsuhuf (Bld) [#/Vol]Automated eosinophil count0.0-0.45Cleveland ClinicEosinophils [#/volume] in Blood by Automated countOrdered By: JANN URRUTIA on 43-57-2517Gxgydfhrvbe (Bld) [#/Vol]0.1 10*3/uLNormal 0.0-0.45Cleveland ClinicComment on above:Performed By: #### CBC #### [place] [address] USAEosinophils/100 WBC Auto (Bld)Ordered By: JANN URRUTIA on 10-24-4465Cswubspsymg/100 WBC (Bld)Automated eosinophil %.Cleveland ClinicEosinophils/100 leukocytes in Blood by Automated countOrdered By: JANN URRUTIA on 25-67-5757Ltpnmnkvdes/100 WBC (Bld)0.8 %Normal.Cleveland ClinicComment on above:Performed By: #### CBC #### [place] [address] USAEpithelial cells.squamous [#/area] in Urine sediment by Automated countOrdered By: Shay Cosme on 28-25-7556Wzftxhnnll cells.squamous Auto (Urine sed) [#/Area]Epithelial cells.squamous [#/area] in Urine sediment by Automated count0-2FParkview HealthEpithelial cells.squamous Auto (Urine sed) [#/Area]1-2 [HPF]0-2FParkview Health Erythrocyte distribution width Auto (RBC) [Ratio]Ordered By: JANN URRUTIA on 74-22-0375Nbiqhgrucbm distribution width (RBC) [Ratio]Erythrocyte distribution width [Ratio] by Automated count11.9-15.3FParkview Health Erythrocyte distribution width [Ratio] by Automated countOrdered By: JANN URRUTIA on 97-46-3994Iesygcbshgu distribution width (RBC) [Ratio]12.9 %Normal 11.9-15.3FParkview HealthComment on above:Performed By: #### CBC #### [place] [address] USAErythrocytes [#/area] in Urine sediment by Automated count Ordered By: Shay Cosme on 65-54-3377XNH Auto (Urine sed) [#/Area]Erythrocytes [#/area] in Urine sediment by Automated countHigh0-4FParkview HealthRB Auto (Urine sed) [#/Area]Innumerable [HPF]High0-4FParkview HealthErythrocytes [#/volume] in Blood by Automated countOrdered By: JANN URRUTIA on 42-53-6718GUI (Bld) [#/Vol]4.48 10*6/uLNormal3.60-5.00Cleveland ClinicComment on above:Performed By: #### CBC #### [place] [address] USAFungal Smearon 46-76-7466Yudcgv SmearFungus Smear Results No Yeast Like Elements Seen Trichomonas Screen No Trichomonas Seen Trich Reference Reference range = None Seen PERFORMED BY: [place] [address] PATHOLOGIST PAD MAKING MACHINE OPERATOR RICKY SloanAdventhealth Daytona Beach Physician GroupComment on above: Performed By: #### HCGQNT #### [place] [id number] USAFungal smearOrdered By: Shay Cosme on 80-01-7392Aaqrrg identified Fungus stain Nom (Unsp spec)Fungal smearCleveland ClinicFungus identified Fungus stain Nom (Unsp spec)Cleveland ClinicGenital Cultureon 66-58-5017Clsxbrl CultureGenital Results Light Normal Urogenital Katty 2 Days No More GC Specimen not tested for Neisseria gonorrheae PERFORMED BY: [place] [address] PATHOLOGIST PAD MAKING MACHINE OPERATOR RICKY TORRES M.D.[facility] Physician GroupComment on above: Performed By: #### HCGQNT #### [place] [id number] USAGenital specimen bacteria identification by aerobic cultureOrdered By: Shay Cosme on 72-02-0084Vrzltkfu identified Aer cx Nom (Genital specimen)Genital specimen bacteria identification by aerobic culture Cleveland ClinicBacteria identified Aer cx Nom (Genital specimen)Cleveland ClinicGlucose [Mass/volume] in Urine by Test stripOrdered By: Shay Cosme on 74-54-7947Ihmjfpy Test strip (U) [Mass/Vol] Glucose [Mass/volume] in Urine by Test stripNoWilson HealthGlucose Test strip (U) [Mass/Vol]Normal mg/dLNoWilson HealthHCG,Quantitativeon 49-89-7353DWE,Jofuipurkbkm2160.00 m[iU]/mL NormalThe [facility] Hospital Physician GroupComment on above:Result Comment: Approximate Approximate hCG Gestational Age Range (mIU/ml) (weeks) 0.2-1 5-50 1-2 50-500 2-3 100-5,000 3-4 500-10,000 4-5 1,000-50,000 5-6 10,000-100,000 6-8 15,000-200,000 8-12 10,000-100,000 PERFORMED BY: [place] [address] PATHOLOGIST PAD MAKING MACHINE OPERATOR RICKY TORRES M.D.Performed By: #### FE, CBC #### [facility] [address] [place], [place] [address] USAHematocrit Auto (Bld) [Volume fraction]Ordered By: JANN URRUTIA on 09-96-6287Anukfeuekv (Bld) [Volume fraction]Hematocrit [Volume Fraction] of Blood by Automated count34.0-46.4FParkview Health Hematocrit [Volume Fraction] of Blood by Automated countOrdered By: JANN URRUTIA on 97-70-0934Rrwqtgzdzf (Bld) [Volume fraction]38.0 %Ohvony61.0-46.4FParkview HealthComment on above:Performed By: #### CBC #### [place] [id number] USAHemoglobin Test strip Ql (U)Ordered By: Shay Cosme on 29-72-2024Trysnxtkiw Ql (U)Hemoglobin [Presence] in Urine by Test stripHigh NegativeCleveland ClinicHemoglobin Ql (U)3+HighNegative Cleveland ClinicHemoglobin [Mass/volume] in BloodOrdered By: JANN URRUTIA on 88-00-4198Fklhnjclfg (Bld) [Mass/Vol]Hemoglobin [Mass/volume] in Blood11.8-15.4FParkview HealthHemoglobin (Bld) [Mass/Vol]12.6 g/cBGoalco78.8-15.4FParkview HealthComment on above:Performed By: #### CBC #### [facility] [address] [place] [address] USAHyaline casts [#/area] in Urine sediment by Automated countOrdered By: Shay Cosme on 16-77-2008Hnmryhy casts Auto (Urine sed) [#/Area]Hyaline casts [#/area] in Urine sediment by Automated count0-8Cleveland ClinicHyaline casts Auto (Urine sed) [#/Area]None [LPF]0-8 Cleveland ClinicKetones Test strip Ql (U)Ordered By: Shay Cosme on 57-64-2958Qnmvfsi Ql (U)Ketones [Presence] in Urine by Test strip NegativeCleveland ClinicKetones [Presence] in Urine by Test stripOrdered By: Shay Cosme on 43-29-8851Vsytlbk Ql (U)NegativeNormalNegative Cleveland ClinicComment on above:Order Comment: Reason for Exam Anemia, unspecified type;Iron deficiencyPerformed By: #### FE, CBC #### [facility] [address] [place] [address] USALon 10-08-2024L Specimen: [id number] Received: 10/08/24 Status: JORDAN Diaz Num: [id number] Spec Type: Surgical Subm Dr: JANN URRUTIA MD Tissues: A Products of Conception - Spontaneous or Missed (CERVIX) Procedures: HE/2, Gross/Micro L4/2 Age/ Patient Sex Location Account Attending Physician Karyn Bone [place] [id number] JANN URRUTIA MD SPEC NUM: [id number] RECD: 10/08/24 STATUS: JORDAN DIAZ NUM: [id number] CRYS: 10/08/[address] [facility] [address]: JANN URRUTIA MD ENTERED: 10/08/24 [facility] DR: SPEC TYPE: Surgical DEPT: S ENTERED BY: [id number] RECV BY: [id number] ORDERED: HE/2, Gross/Micro L4/2 ORDERED: HE/2, Gross/Micro L4/2 Pathological Diagnosis Products of conception: Immature chorionic villi and decidua, consistent with products of conception. Clinical Information Incomplete Gross Description Part A is received in formalin labeled with the patients name, date of , and products of conception are fragments of trinh-pink and glistening, delicate tissue, consistent with decidua admixed with hemorrhagic material, 5.5 x 4 x 1.5 cm in aggregate. Within the hemorrhagic material is an identifiable portion of pale garcia feathery tissue, consistent with chorionic villi, 3 x 2 x 1 cm. No tissue is identified. [place] Stained Glass sections of the chorionic villi are submitted in A1 with admitting representative sections of the decidua submitted in A2. (2, ss, A) CPT Codes 33567 Specimen: Received: 10/08/24 Status: JORDAN Diaz Num: [id number] Spec Type: Surgical Subm Dr: JANN URRUTIA MD Tissues: A Products of Conception - Spontaneous or Missed (CERVIX) Procedures: ELROY/Bc, Gross/Micro L4/2 Patient: YobanymelitaLaurajasmin Lam [id number] (Continued) Signed (signature on file) Ricky Torres MD 10/09/[address] [place] [address] Physician GroupLaboratory - Microbiology and Antimicrobial susceptibilityOrdered By: Shay Cosme on 10-08-2024. trachomatis DNA ÓSCAR+probe Ql (Unsp spec)NegativeNegOhioHealth Grove City Methodist HospitalN. gonorrhoeae DNA ÓSCAR+probe Ql (Unsp spec)NegativeNegOhioHealth Grove City Methodist HospitalComment on above:Performed at: [address] [id number] Director: Shannen Alves MD, Phone: [phone] Leukocyte esterase [Presence] in Urine by Test stripOrdered By: Shay Cosme on 32-66-0645Ktphvgtro esterase Test strip Ql (U)Leukocyte esterase [Presence] in Urine by Test stripNegOhioHealth Grove City Methodist HospitalLeukocyte esterase Test strip Ql (U)NegativeNormalNegOhioHealth Grove City Methodist HospitalComment on above:Order Comment: Reason for Exam Anemia, unspecified type;Iron deficiency Performed By: #### FE, CBC #### [address]Leukocytes [#/area] in Urine sediment by Automated count Ordered By: Shay Cosme on 08-75-6029GYY Auto (Urine sed) [#/Area]Leukocytes [#/area] in Urine sediment by Automated count0-4FParkview HealthWBC Auto (Urine sed) [#/Area]1-2 [HPF]0-4FParkview Health Leukocytes [#/volume] corrected for nucleated erythrocytes in Blood by Automated counOrdered By: JANN URRUTIA on 73-57-8022GYC corrected for nucl RBC Auto (Bld) [#/Vol]Leukocytes [#/volume] corrected for nucleated erythrocytes in Blood by Automated counHigh3.8-11.6FParkview HealthWBC corrected for nucl RBC Auto (Bld) [#/Vol]11.7 10*3/uLHigh3.8-11.6FParkview HealthLeukocytes [#/volume] in Blood by Automated countOrdered By: JANN URRUTIA on 10-84-7221ZVE (Bld) [#/Vol]11.7 10*3/uLHigh3.8-11.6FParkview HealthComment on above:Performed By: #### CBC #### [facility] [address] [place] [address] USALymphocytes Auto (Bld) [#/Vol]Ordered By: AJNN URRUTIA on 87-89-1179Gxfjeotgvyd (Bld) [#/Vol]Lymphocytes [#/volume] in Blood by Automated count1.00-4.8Cleveland ClinicLymphocytes [#/volume] in Blood by Automated countOrdered By: JANN URRUTIA on 37-26-4985Rthqpxbuhue (Bld) [#/Vol] 2.1 10*3/uLNormal1.00-4.8C[place] ClinicComment on above: Performed By: #### CBC #### [facility] [address] [place] [id number] USALymphocytes/100 WBC Auto (Bld)Ordered By: JANN URRUTIA on 16-07-9635Gpwvrekfsoe/100 WBC (Bld)Lymphocytes/100 leukocytes in Blood by Automated count.Cleveland ClinicLymphocytes/100 leukocytes in Blood by Automated countOrdered By: JANN URRUTIA on 61-39-2284Azmfsbpagze/100 WBC (Bld)17.9 %Normal.C[place] ClinicComment on above: Performed By: #### CBC #### [facility] [address] [place] [id number] USAH Auto (RBC) [Entitic mass]Ordered By: JANN URRUTIA on 91-82-2656YMH (RBC) [Entitic mass]MCH [Entitic mass] by Automated count24.7-34.3 [facility] CenterH [Entitic mass] by Automated countOrdered By: JANN URRUTIA on 09-47-3672VSZ (RBC) [Entitic mass]28.1 ybZpczgg44.7-34.3 [place] ClinicComment on above:Performed By: #### CBC #### [facility] [address] [place] [id number] USAMCHC Auto (RBC) [Mass/Vol]Ordered By: JANN URRUTIA on 95-84-2985XXUL (RBC) [Mass/Vol]MCHC [Mass/volume] by Automated count32.0-35.0 [facility] CenterHC (RBC) [Mass/Vol]33.1 g/dL32.0-35.0 Cleveland ClinicMCV Auto (RBC) [Entitic vol]Ordered By: JANN URRUTIA on 52-26-5792NIS (RBC) [Entitic vol]MCV [Entitic volume] by Automated -366MohfhumamBarney Children's Medical CenterV [Entitic volume] by Automated countOrdered By: JANN URRUTIA on 03-88-0229ROH (RBC) [Entitic vol]84.9 fLNormal 80-100C[facility] ClinicComment on above:Performed By: #### CBC #### [place] [id number] USAMonocyte distribution width [Entitic volume] in Blood by AutomatedOrdered By: JANN URRUTIA on 30-61-9270Cqycuexk distribution width Auto (Bld) [Entitic vol]Monocyte distribution width [Entitic volume] in Blood by AutomatedHigh0.00-20.00C[place] ClinicComment on above:For adults in ED, MDW > 20.0 may be associated with a higher risk of sepsis during the first 12 hrs of hospital admissionMonocyte distribution width Auto (Bld) [Entitic vol]22.26 %High0.00-20.00C[place] ClinicComment on above:For adults in ED, MDW > 20.0 may be associated with a higher risk of sepsis during the first 12 hrs of hospital admissionMonocytes Auto (Bld) [#/Vol] Ordered By: JANN URRUTIA on 55-95-5258Rzxltcezb (Bld) [#/Vol]Automated blood monocyte count0.0-0.8Cleveland ClinicMonocytes [#/volume] in Blood by Automated countOrdered By: JANN URRUTIA on 21-83-8479Opxofvoqx (Bld) [#/Vol]0.7 10*3/uLNormal0.0-0.8C[facility] ClinicComment on above:Performed By: #### CBC #### [facility] [address] [place] [address] USAMonocytes/100 WBC Auto (Bld)Ordered By: JANN URRUTIA on 54-44-8137Qwmzsyqye/100 WBC (Bld)Automated monocyte %.Cleveland ClinicMonocytes/100 leukocytes in Blood by Automated countOrdered By: JANN URRUTIA on 19-85-6028Htzljsyda/100 WBC (Bld)6.3 %Normal.C[facility] ClinicComment on above:Performed By: #### CBC #### [facility] [address] [place] [address] USAMucus [Presence] in Urine by AutomatedOrdered By: Shay Cosme on 13-78-9199Eaenu Auto Ql (U)Mucus [Presence] in Urine by Automated Cleveland ClinicMucus Auto Ql (U)Rare [LPF]Cleveland ClinicNeutrophils Auto (Bld) [#/Vol]Ordered By: JANN URRUTIA on 62-72-7024Eigosptypxn (Bld) [#/Vol]Neutrophils [#/volume] in Blood by Automated countHigh1.8-7.7FParkview HealthNeutrophils [#/volume] in Blood by Automated countOrdered By: JANN URRUTIA on 28-46-5270Tjwkkrqrjwb (Bld) [#/Vol]8.6 10*3/uLHigh1.8-7.7FParkview HealthComment on above: Performed By: #### CBC #### [facility] [address] [place] [address] USANeutrophils/100 WBC Auto (Bld)Ordered By: JANN URRUTIA on 22-35-6049Owrjqxkjvak/100 WBC (Bld)Automated neutrophil %.Cleveland ClinicNeutrophils/100 leukocytes in Blood by Automated countOrdered By: JANN URRUTIA on 11-55-0403Hjlgdfokutb/100 WBC (Bld)73.7 %Normal.C[facility] ClinicComment on above:Performed By: #### CBC #### [facility] [address] [place] [address] USANitrite Test strip Ql (U)Ordered By: Shay Cosme on 92-53-3700Lxlrnma Ql (U)Nitrite [Presence] in Urine by Test stripNegative Cleveland ClinicNitrite Ql (U)NegativeNegativeCleveland ClinicNucleated erythrocytes [Presence] in Blood by Automated countOrdered By: JANN URRUTIA on 49-25-2726Pothsxfbg RBC Auto Ql (Bld)Nucleated erythrocytes [Presence] in Blood by Automated count0-0.5FParkview HealthNucleated RBC Auto Ql (Bld)0.0 /100{WBC}0-0.5FParkview HealthPlatelet mean volume Auto (Bld) [Entitic vol]Ordered By: JANN URRUTIA on 71-69-0951Otseqwtl mean volume (Bld) [Entitic vol]Platelet mean volume [Entitic volume] in Blood by Automated count6.3-10.7FParkview HealthPlatelet mean volume [Entitic volume] in Blood by Automated countOrdered By: JANN URRUTIA on 83-71-2214Znfxmrwk mean volume (Bld) [Entitic vol]8.7 fL Normal6.3-10.7FParkview HealthComment on above:Performed By: #### CBC #### [facility] [address] [place] [address] USAPlatelets Auto (Bld) [#/Vol]Ordered By: JANN URRUTIA on 06-22-0027Qstfrbjoh (Bld) [#/Vol]Platelets [#/volume] in Blood by Automated jxrycEkjy033-453XrwbjbdhcCleveland ClinicPlatelets [#/volume] in Blood by Automated countOrdered By: JANN URRUTIA on 22-69-7484Qgtfslcfl (Bld) [#/Vol] 490 10*3/rTUrpm014-201UkopzinwcCleveland ClinicComment on above: Performed By: #### CBC #### [place] [address] USAProtein Test strip (U) [Mass/Vol]Ordered By: Shay Cosme on 90-83-1986Dkoahzv (U) [Mass/Vol]Protein [Mass/volume] in Urine by Test strip HighNegOhioHealth Grove City Methodist HospitalProtein (U) [Mass/Vol]Trace mg/dL HighNegOhioHealth Grove City Methodist HospitalRBC Auto (Bld) [#/Vol]Ordered By: JANN URRUTIA on 39-75-1646NPA (Bld) [#/Vol]Erythrocytes [#/volume] in Blood by Automated count3.60-5.00Cleveland ClinicRhogam Workupon 00-48-8559Tlufcd CandidateNot a CandidateNoCritical access hospital Physician Group Comment on above:Result Comment: PERFORMED BY: [place] [address] PATHOLOGIST PAD MAKING MACHINE OPERATOR RICKY TORRES M.D.ABO and Rh group Nom (Bld)Blood group O Rh(D) positiveNoCritical access hospital Physician GroupSpecific gravity Test strip (U) [Rel density]Ordered By: Shay Cosme on 06-34-1442Axemxmls gravity (U) [Rel density] Specific gravity of Urine by Test strip1.001-1.030Holzer Hospitalpecific gravity (U) [Rel density]1.0291.001-1.030C[facility] ClinicTrichomonas vaginalis detection by wet preparationOrdered By: Shay Cosme on 10-08-2024T. vaginalis Wet prep Ql (Unsp spec)Trichomonas vaginalis detection by wet preparationCleveland ClinicT. vaginalis Wet prep Ql (Unsp spec)C[facility] ClinicUS OB <= 14 weeks fetuson 80-09-0493TN OB <= 14 [facility]ST[facility] [place] [address] [place] [address] Ultrasound Report Signed Patient: Karyn Bone MR#: [id number] 414 : 2005 Acct:[id number] Age/Sex: 19 / F ADM Date: 10/08/24 Loc: ER Room: Type: [facility] ER Attending Dr: Ordering Provider: Shay Cosme DO Date of Service: 10/08/24 US/US OB <= 14 weeks fetus: OB/Uterine Contractions Copies to: Shay Cosme DO OB ultrasound. Reason for exam:Heavy bleeding. History of outside ultrasound showing demise per technologist. Comparison:Ultrasound 08/27/2024 Technique: Transabdominal imaging of the uterus and ovaries was obtained. Color and spectral Doppler imaging of the ovaries were obtained. Findings: The uterus measures 11.3 x 4.3 x 6.1 cm. No fibroid is seen. There appears to be fluid within the endometrial canal with presumed retained products of conception noted. No free fluid is seen. Right ovary measures 4.3 x 2.6 x 2.8 cm. Left ovary measures 4.0 x 2.0 x 2.9 cm. No adnexal mass. Normal arterial and venous Doppler waveforms. US/US OB <= 14 weeks fetus Impression: Fluid is seen within the endometrial canal with presumed echogenic retained products of conception noted. No definitive IUP is seen. Given the history, findings suggest miscarriage. Per technologist notes, patient was actively passing large clots during the ultrasound. Impression dictated by: Isidro Soni Jr., D.OTanvi10/08/2024 8:31 AM Dictation Location: [place] [address] Tech: Laila Paul Transcribed By: GARO 10/08/24 0831 Dictated By: Isidro Soni Jr, DO 10/08/24 0826 Signed By: 10/08/24 0831[facility] Physician GroupUrobilinogen Test strip (U) [Mass/Vol]Ordered By: Shay Cosme on 58-33-8329Kguxboskxlnu (U) [Mass/Vol] Urobilinogen [Mass/volume] in Urine by Test stripSelect Medical OhioHealth Rehabilitation HospitalUrobilinogen (U) [Mass/Vol]3 mg/dLHighNoalCleveland ClinicWBC Auto (Bld) [#/Vol]Ordered By: JANN URRUTIA on 11-48-9570QHS (Bld) [#/Vol]Leukocytes [#/volume] in Blood by Automated countHigh3.8-11.6 Cleveland ClinicpH Test strip (U)Ordered By: Shay Cosme on 02-01-8141uX (U)pH of Urine by Test strip5.0-9.0Cleveland ClinicpH of Urine by Test stripOrdered By: Shay Cosme on 92-79-5980hN (U)6.0 [pH]Normal5.0-9.0C[facility] ClinicComment on above:Order Comment: Reason for Exam Anemia, unspecified type;Iron deficiencyPerformed By: #### FE, CBC #### [place] [address] USAChoriogonadotropin.beta subunit [Units/volume] in Serum or PlasmaOrdered By: Tino Mcfarlane on 84-30-1178AKW.beta subunit Qn Choriogonadotropin.beta subunit [Units/volume] in Serum or PlasmaCleveland ClinicComment on above:Approximate Approximate hCG Gestational Age Range (mIU/ml) (weeks)0.2-1 5-50 1-2 50-500 2-3 100-5,000 3-4 500-10,000 4-5 1,000-50,000 5-6 10,000-100,000 6-8 15,000-200,000 8-12 10,000-100,000HCG.beta subunit Or75850.00 m[IU]/mLCleveland ClinicComment on above: Approximate Approximate hCG Gestational Age Range (mIU/ml) (weeks)0.2-1 5-50 1-2 50-500 2-3 100-5,000 3-4 500-10,000 4-5 1,000-50,000 5-6 10,000-100,000 6-8 15,000-200,000 8-12 10,000-100,000HCG,Quantitativeon 90-27-7041YBK,Quantitative 63075.00 m[iU]/mLNormalAdventhealth Daytona Beach Physician GroupComment on above:Result Comment: Approximate Approximate hCG Gestational Age Range (mIU/ml) (weeks) 0.2-1 5-50 1-2 50-500 2-3 100-5,000 3-4 500-10,000 4-5 1,000-50,000 5-6 10,000-100,000 6-8 15,000-200,000 8-12 10,000-100,000 PERFORMED BY: [address] [address] PATHOLOGIST PAD MAKING MACHINE OPERATOR RICKY TORRES M.D.Performed By: #### HCGQNT #### [place] [id number] USAhCG, quantitative, pregnancyon 48-44-6558AQC,QUANTITATIVE [address] m[iU]/mLNOU MEDICAL CENTER – EDMOND HealthcareComment on above:Approximate Approximate hCG Gestational Age Range (mIU/ml) (weeks) 0.2-1 5-50 1-2 50-500 2-3 100-5,000 3-4 500-10,000 4-5 1,000-50,000 5-6 10,000-100,000 6-8 15,000-200,000 8-12 10,000-100,000 NOMS HealthcareChoriogonadotropin.beta subunit [Units/volume] in Serum or Plasma Ordered By: Tino Mcfarlane on 91-27-3636EKW.beta subunit QnChoriogonadotropin.beta subunit [Units/volume] in Serum or PlasmaCleveland Clinic Comment on above:Approximate Approximate hCG Gestational Age Range (mIU/ml) (weeks)0.2-1 5-50 1-2 50-500 2-3 100-5,000 3-4 500-10,000 4-5 1,000-50,000 5-6 10,000-100,000 6-8 15,000-200,000 8-12 10,000-100,000HCG.beta subunit Cl60179.00 m[IU]/mLCleveland ClinicComment on above:Approximate Approximate hCG Gestational Age Range (mIU/ml) (weeks)0.2-1 5-50 1-2 50-500 2-3 100-5,000 3-4 500-10,000 4-5 1,000-50,000 5-6 10,000-100,000 6-8 15,000-200,000 8-12 10,000-100,000HCG,Quantitativeon 85-77-3397BXT,Mwsoneknbskt70980.00 m[iU]/mLNormalThe [facility] Physician GroupComment on above:Result Comment: Approximate Approximate hCG Gestational Age Range (mIU/ml) (weeks) 0.2-1 5-50 1-2 50-500 2-3 100-5,000 3-4 500-10,000 4-5 1,000-50,000 5-6 10,000-100,000 6-8 15,000-200,000 8-12 10,000-100,000 PERFORMED BY: [place] [address] PATHOLOGIST PAD MAKING MACHINE OPERATOR RICKY TORRES M.D.Performed By: #### HCGQNT #### [place] [address] USAUS OB TRANSVAGINALon 43-30-9742YU OB TRANSVAGINALEXAM: US OB TRANSVAGINAL HISTORY: Dating. COMPARISON: None available. TECHNIQUE: Two-dimensional transvaginal grayscale ultrasound imaging of the pelvis was performed. Color Doppler evaluation of the ovaries was also performed. FINDINGS: The uterus demonstrates a normal homogeneous echotexture. The cervix measures 3.8 cm and the cervical os is closed. The right ovary measures 3.9 x 2.5 x 3.6 cm and demonstrates a normal echotexture. There is normal color Doppler flow. There is a corpus luteal cyst visualized. The left ovary measures 2.9 x 2.2 x 2.8 cm and demonstrates a normal echotexture. There is normal color Doppler flow. No fluid is present within the cul-de-sac. There is a single, intrauterine gestation identified with a crown-rump length measurement of 0.7 cm, correlating to a gestational age of 6 weeks 4 days (+/- 4 days). No heart tones are identified. There is no subchorionic hemorrhage visualized. A yolk sac is visualized. IMPRESSION: 1. No cardiac activity is identified on today's ultrasound. This is consistent with early failure. 2. Normal color Doppler evaluation of the bilateral ovaries. Electronically Signed:Electronically signed by MATTHEW MUÑIZ II, MD, PHD at 05-Oct-2024 10:37:44 PM [facility] TeleradiologyNormalNot AvailableComment on above:Order Comment: US OB TRANSVAGINAL No LMP recorded.hCG, quantitative, pregnancyon 96-89-3603HPS,BIBIHRNDFWNH44870 m[iU]/mLNOMS HealthcareComment on above:Approximate Approximate hCG Gestational Age Range (mIU/ml) (weeks) 0.2-1 5-50 1-2 50-500 2-3 100-5,000 3-4 500-10,000 4-5 1,000-50,000 5-6 10,000-100,000 6-8 15,000-200,000 8-12 10,000-100,000 NOMS HealthcareAlanine aminotransferase [Enzymatic activity/volume] in Serum or PlasmaOrdered By: Alex Hogan on 20-59-9880GBY [Catalytic activity/Vol] Alanine aminotransferase [Enzymatic activity/volume] in Serum or Plasma7-52 Cleveland ClinicAlbumin [Mass/volume] in Serum or Plasma by Bromocresol green (BCG) dye binding methoOrdered By: Alex Hogan on 33-56-9357Ypsqeib BCG dye [Mass/Vol]Albumin [Mass/volume] in Serum or Plasma by Bromocresol green (BCG) dye binding metho3.5-5.7FParkview HealthAlkaline phosphatase [Enzymatic activity/volume] in Serum or PlasmaOrdered By: Alex Hogan on 24-94-4218FHU [Catalytic activity/Vol]Alkaline phosphatase [Enzymatic activity/volume] in Serum or Kntack38-202IzpccbbrzCleveland ClinicAspartate aminotransferase [Enzymatic activity/volume] in Serum or Plasma Ordered By: Alex Hogan on 73-99-2352QAW [Catalytic activity/Vol]Aspartate aminotransferase [Enzymatic activity/volume] in Serum or Oybbxt81-40LddxmmrizCleveland ClinicBasophils Auto (Bld) [#/Vol]Ordered By: Alex Hogan on 63-14-5539Yioeizzwi (Bld) [#/Vol]Automated basophil count0.0-0.2FParkview HealthBasophils/100 WBC Auto (Bld)Ordered By: Alex Hogan on 21-40-9314Gmujngbrf/100 WBC (Bld)Automated basophil %.Cleveland ClinicBilirubin.total [Mass/volume] in Serum or PlasmaOrdered By: Alex Hogan on 58-29-2505Qmwychuua [Mass/Vol]Bilirubin.total [Mass/volume] in Serum or Plasma0.3-1.0Cleveland ClinicCalcium [Mass/volume] in Serum or PlasmaOrdered By: Alex Hogan on 54-93-0885Jzcngnk [Mass/Vol]Calcium [Mass/volume] in Serum or Plasma8.6-10.3FParkview HealthCarbon dioxide, total [Moles/volume] in Serum or PlasmaOrdered By: Alex Hogan on 79-98-2821LN8 [Moles/Vol]Carbon dioxide, total [Moles/volume] in Serum or Plasma 21.0-31.0Cleveland ClinicChlamydia trachomatis DNA [Presence] in Specimen by ÓSCAR with probe detectionOrdered By: Alex Hogan on 08-27-2024 C. trachomatis DNA ÓSCAR+probe Ql (Unsp spec)Chlamydia trachomatis DNA [Presence] in Specimen by ÓSCAR with probe detectionNegativeCleveland Clinic Chlamydia/GC/Trich NAAon 26-98-3262Pkaeucjra Trachomotis, NAANegativeNormal NegativeThe [facility] Physician GroupComment on above:Order Comment: Reason for Exam Anemia, unspecified type;Iron deficiencyPerformed By: #### FE, CBC #### [facility] [address] [id number] USANeisseria Gonorrhoeae, NAANegativeNormalNegativeThe [facility] Physician GroupComment on above:Order Comment: Reason for Exam Anemia, unspecified type;Iron deficiencyPerformed By: #### FE, CBC #### [facility] [address] [place] [address] USATrichomonas NAANegativeNormalNegativeThe [facility] Physician GroupComment on above:Order Comment: Reason for Exam Anemia, unspecified type;Iron deficiencyResult Comment: Performed at: = - [facility] [id number] Senior Training Specialist: Shannen Alves MD, Phone: [phone] PERFORMED BY: [place] [address] PATHOLOGIST PAD MAKING MACHINE OPERATOR RICKY TORRES M.D.Performed By: #### FE, CBC #### [facility] [address] [place] [address] USAChloride [Moles/volume] in Serum or PlasmaOrdered By: Alex Hogan on 67-14-6907Vvxycunx [Moles/Vol]Chloride [Moles/volume] in Serum or Nhxere78-040ZgkkbzhymCleveland ClinicComplete Blood Count Auto Diff on 00-96-8428Ongrbjmxb (Bld) [#/Vol]0.0 10*3/uLNormal0.0-0.2The [facility] Physician GroupComment on above:Order Comment: Reason for Exam Early stage of pregnancyResult Comment: PERFORMED BY: [place] [address] PATHOLOGIST PAD MAKING MACHINE OPERATOR RICKY TORRES M.D.Performed By: #### RUBELLA IGG, RPR W RFX, HIV SCREEN, RUBEOLA IGG, GCCHLAMTRI #### [facility] , #### TSH3 wRFLX, CBC, CMP #### [facility] [address] [place] [address] USABasophils/100 WBC (Bld)0.6 %Normal.The [facility] Physician GroupComment on above:Order Comment: Reason for Exam Early stage of Performed By: #### RUBELLA IGG, RPR W RFX, HIV SCREEN, RUBEOLA IGG, GCCHLAMTRI #### [facility] , #### TSH3 wRFLX, CBC, CMP #### [facility] [address] [place] [address] USAEosinophils (Bld) [#/Vol]0.2 10*3/uLNormal0.0-0.45The [facility] Physician GroupComment on above:Order Comment: Reason for Exam Early stage of pregnancyPerformed By: #### RUBELLA IGG, RPR W RFX, HIV SCREEN, RUBEOLA IGG, GCCHLAMTRI #### [facility] , #### TSH3 wRFLX, CBC, CMP #### [place] [id number] USAEosinophils/100 WBC (Bld)2.6 %Normal.The [facility] Physician GroupComment on above:Order Comment: Reason for Exam Early stage of pregnancyPerformed By: #### RUBELLA IGG, RPR W RFX, HIV SCREEN, RUBEOLA IGG, GCCHLAMTRI #### [facility] , #### TSH3 wRFLX, CBC, CMP #### [place] [address] USAErythrocyte distribution width (RBC) [Ratio]13.3 %Normal 11.9-15.3The [facility] Physician GroupComment on above:Order Comment: Reason for Exam Early stage of pregnancyPerformed By: #### RUBELLA IGG, RPR W RFX, HIV SCREEN, RUBEOLA IGG, GCCHLAMTRI #### [facility] , #### TSH3 wRFLX, CBC, CMP #### [place] [address] USAHematocrit (Bld) [Volume fraction]37.3 %Ycpnrn86.0-46.4The [facility] Physician GroupComment on above:Order Comment: Reason for Exam Early stage of pregnancyPerformed By: #### RUBELLA IGG, RPR W RFX, HIV SCREEN, RUBEOLA IGG, GCCHLAMTRI #### [facility] , #### TSH3 wRFLX, CBC, CMP #### [place] [id number] USAHemoglobin (Bld) [Mass/Vol]12.6 g/rHSgqiaq08.8-15.4The [facility] Physician GroupComment on above:Order Comment: Reason for Exam Early stage of pregnancyPerformed By: #### RUBELLA IGG, RPR W RFX, HIV SCREEN, RUBEOLA IGG, GCCHLAMTRI #### [facility] , #### TSH3 wRFLX, CBC, CMP #### [place] [id number] USALymphocytes (Bld) [#/Vol]2.3 10*3/uLNormal1.00-4.8The [facility] Physician GroupComment on above:Order Comment: Reason for Exam Early stage of pregnancyPerformed By: #### RUBELLA IGG, RPR W RFX, HIV SCREEN, RUBEOLA IGG, GCCHLAMTRI #### [facility] , #### TSH3 wRFLX, CBC, CMP #### [place] [id number] USALymphocytes/100 WBC (Bld)35.9 %Normal.The [facility] Physician GroupComment on above:Order Comment: Reason for Exam Early stage of pregnancyPerformed By: #### RUBELLA IGG, RPR W RFX, HIV SCREEN, RUBEOLA IGG, GCCHLAMTRI #### [facility] , #### TSH3 wRFLX, CBC, CMP #### [address]H (RBC) [Entitic mass]29.1 ttNwziov45.7-34.3The [facility] Physician GroupComment on above:Order Comment: Reason for Exam Early stage of pregnancyPerformed By: #### RUBELLA IGG, RPR W RFX, HIV SCREEN, RUBEOLA IGG, GCCHLAMTRI #### [facility] , #### TSH3 wRFLX, CBC, CMP #### [place] [id number] USAV (RBC) [Entitic vol]86.3 cGDzikzt12-675Bgw [facility] Physician GroupComment on above:Order Comment: Reason for Exam Early stage of pregnancyPerformed By: #### RUBELLA IGG, RPR W RFX, HIV SCREEN, RUBEOLA IGG, GCCHLAMTRI #### [facility] , #### TSH3 wRFLX, CBC, CMP #### [facility] [address] [id number] USAMean Corpuscular HGB Conc33.7 g/xITpqpnu91.0-35.0The [facility] Physician GroupComment on above:Order Comment: Reason for Exam Early stage of pregnancyPerformed By: #### RUBELLA IGG, RPR W RFX, HIV SCREEN, RUBEOLA IGG, GCCHLAMTRI #### [facility] , #### TSH3 wRFLX, CBC, CMP #### [place] [address] USAMonocytes (Bld) [#/Vol]0.5 10*3/uLNormal0.0-0.8The [facility] Physician GroupComment on above:Order Comment: Reason for Exam Early stage of pregnancyPerformed By: #### RUBELLA IGG, RPR W RFX, HIV SCREEN, RUBEOLA IGG, GCCHLAMTRI #### [facility] , #### TSH3 wRFLX, CBC, CMP #### [place] [address] USAMonocytes/100 WBC (Bld)8.3 %Normal.The [facility] Physician GroupComment on above:Order Comment: Reason for Exam Early stage of Performed By: #### RUBELLA IGG, RPR W RFX, HIV SCREEN, RUBEOLA IGG, GCCHLAMTRI #### [facility] , #### TSH3 wRFLX, CBC, CMP #### [facility] [address] [place] [address] USANeutrophils (Bld) [#/Vol]3.3 10*3/uLNormal1.8-7.7The [facility] Physician GroupComment on above:Order Comment: Reason for Exam Early stage of pregnancyPerformed By: #### RUBELLA IGG, RPR W RFX, HIV SCREEN, RUBEOLA IGG, GCCHLAMTRI #### [facility] , #### TSH3 wRFLX, CBC, CMP #### [facility] [address] [place] [address] USANeutrophils/100 WBC (Bld)52.6 %Normal.The [facility] Physician GroupComment on above:Order Comment: Reason for Exam Early stage of pregnancyPerformed By: #### RUBELLA IGG, RPR W RFX, HIV SCREEN, RUBEOLA IGG, GCCHLAMTRI #### [facility] , #### TSH3 wRFLX, CBC, CMP #### [facility] [address] [place] [address] USANRBC%0.1 /100{WBC}Normal0-0.5The [facility] Group Comment on above:Order Comment: Reason for Exam Early stage of Performed By: #### RUBELLA IGG, RPR W RFX, HIV SCREEN, RUBEOLA IGG, GCCHLAMTRI #### [facility] , #### TSH3 wRFLX, CBC, CMP #### [facility] [address] [place] [address] USAPlatelet mean volume (Bld) [Entitic vol]8.1 fLNormal 6.3-10.7The [facility] Physician GroupComment on above:Order Comment: Reason for Exam Early stage of pregnancyPerformed By: #### RUBELLA IGG, RPR W RFX, HIV SCREEN, RUBEOLA IGG, GCCHLAMTRI #### [facility] , #### TSH3 wRFLX, CBC, CMP #### [facility] [address] [place] [address] USAPlatelets (Bld) [#/Vol]333 10*3/nSIfxmgo679-409Ujn [facility] Physician GroupComment on above:Order Comment: Reason for Exam Early stage of pregnancyPerformed By: #### RUBELLA IGG, RPR W RFX, HIV SCREEN, RUBEOLA IGG, GCCHLAMTRI #### [facility] , #### TSH3 wRFLX, CBC, CMP #### [facility] [address] [id number] USARBC (Bld) [#/Vol]4.32 10*6/uLNormal3.60-5.00The [facility] Physician GroupComment on above:Order Comment: Reason for Exam Early stage of pregnancyPerformed By: #### RUBELLA IGG, RPR W RFX, HIV SCREEN, RUBEOLA IGG, GCCHLAMTRI #### [facility] , #### TSH3 wRFLX, CBC, CMP #### [place] [id number] USAWBC (Bld) [#/Vol]6.3 10*3/uLNormal3.8-11.6The [facility] Physician GroupComment on above:Order Comment: Reason for Exam Early stage of pregnancyPerformed By: #### RUBELLA IGG, RPR W RFX, HIV SCREEN, RUBEOLA IGG, GCCHLAMTRI #### [facility] , #### TSH3 wRFLX, CBC, CMP #### [place] [id number] USAComprehensive Metabolic Panelon 58-12-0689Fuhuqjq [Mass/Vol]4.1 g/dLNormal3.5-5.7The [facility] Physician GroupComment on above: Order Comment: Reason for Exam Early stage of pregnancyPerformed By: #### RUBELLA IGG, RPR W RFX, HIV SCREEN, RUBEOLA IGG, GCCHLAMTRI #### [facility] , #### TSH3 wRFLX, CBC, CMP #### [place] [id number] USAAlbumin/Globulin [Mass ratio]1.7 {ratio}NormalThe [facility] Physician GroupComment on above:Order Comment: Reason for Exam Early stage of pregnancyPerformed By: #### RUBELLA IGG, RPR W RFX, HIV SCREEN, RUBEOLA IGG, GCCHLAMTRI #### [facility] , #### TSH3 wRFLX, CBC, CMP #### [place] [address] USAALP [Catalytic activity/Vol]57 U/GFvxgpt83-563Dzw [facility] Physician GroupComment on above:Order Comment: Reason for Exam Early stage of pregnancyPerformed By: #### RUBELLA IGG, RPR W RFX, HIV SCREEN, RUBEOLA IGG, GCCHLAMTRI #### [facility] , #### TSH3 wRFLX, CBC, CMP #### [place] [address] USAALT [Catalytic activity/Vol]20 U/LNormal7-52The [facility] Physician GroupComment on above:Order Comment: Reason for Exam Early stage of pregnancyPerformed By: #### RUBELLA IGG, RPR W RFX, HIV SCREEN, RUBEOLA IGG, GCCHLAMTRI #### [facility] , #### TSH3 wRFLX, CBC, CMP #### [place] [address] USAAnion gap [Moles/Vol]11.6 mmol/LNormal6.0-15.0The [facility] Physician GroupComment on above:Order Comment: Reason for Exam Early stage of pregnancyPerformed By: #### RUBELLA IGG, RPR W RFX, HIV SCREEN, RUBEOLA IGG, GCCHLAMTRI #### [facility] , #### TSH3 wRFLX, CBC, CMP #### [place] [address] USAAST [Catalytic activity/Vol]22 U/HTdxmus53-79Kvx [facility] Physician GroupComment on above:Order Comment: Reason for Exam Early stage of pregnancyPerformed By: #### RUBELLA IGG, RPR W RFX, HIV SCREEN, RUBEOLA IGG, GCCHLAMTRI #### [facility] , #### TSH3 wRFLX, CBC, CMP #### [facility] [address] [place] [address] USABilirubin [Mass/Vol]0.5 mg/dLNormal0.3-1.0The [facility] Physician GroupComment on above:Order Comment: Reason for Exam Early stage of pregnancyPerformed By: #### RUBELLA IGG, RPR W RFX, HIV SCREEN, RUBEOLA IGG, GCCHLAMTRI #### [facility] , #### TSH3 wRFLX, CBC, CMP #### [place] [address] USACalcium [Mass/Vol]8.8 mg/dLNormal8.6-10.3The [facility] Physician GroupComment on above:Order Comment: Reason for Exam Early stage of pregnancyPerformed By: #### RUBELLA IGG, RPR W RFX, HIV SCREEN, RUBEOLA IGG, GCCHLAMTRI #### [facility] , #### TSH3 wRFLX, CBC, CMP #### [place] [address] USAChloride [Moles/Vol]105 mmol/OIzoalb83-058Rip [facility] Physician GroupComment on above:Order Comment: Reason for Exam Early stage of pregnancyPerformed By: #### RUBELLA IGG, RPR W RFX, HIV SCREEN, RUBEOLA IGG, GCCHLAMTRI #### [facility] , #### TSH3 wRFLX, CBC, CMP #### [place] [address] USACO2 [Moles/Vol]25.2 mmol/ELmtbjq97.0-31.0The [facility] Physician GroupComment on above:Order Comment: Reason for Exam Early stage of pregnancyPerformed By: #### RUBELLA IGG, RPR W RFX, HIV SCREEN, RUBEOLA IGG, GCCHLAMTRI #### [facility] , #### TSH3 wRFLX, CBC, CMP #### [facility] [address] [place] [address] USACreatinine [Mass/Vol]0.59 mg/dLLow0.60-1.20The [facility] Physician GroupComment on above:Order Comment: Reason for Exam Early stage of pregnancyPerformed By: #### RUBELLA IGG, RPR W RFX, HIV SCREEN, RUBEOLA IGG, GCCHLAMTRI #### [facility] , #### TSH3 wRFLX, CBC, CMP #### [place] [address] USAGFR/1.73 sq M.predicted MDRD (S/P/Bld) [Vol rate/Area] mL/min/{1.73_m2}NormalThe [facility] Physician GroupComment on above:Order Comment: Reason for Exam Early stage of pregnancyPerformed By: #### RUBELLA IGG, RPR W RFX, HIV SCREEN, RUBEOLA IGG, GCCHLAMTRI #### [facility] , #### TSH3 wRFLX, CBC, CMP #### [place] [address] USAGlobulin (S) [Mass/Vol]2.4 g/dLNormalThe [facility] Physician GroupComment on above:Order Comment: Reason for Exam Early stage of pregnancyPerformed By: #### RUBELLA IGG, RPR W RFX, HIV SCREEN, RUBEOLA IGG, GCCHLAMTRI #### [facility] , #### TSH3 wRFLX, CBC, CMP #### [facility] [address] [place] [address] USAGlucose [Mass/Vol]98 mg/wOYbvqcd14-961Jju [facility] Physician GroupComment on above:Order Comment: Reason for Exam Early stage of pregnancyResult Comment: Random Glucose Reference Range is dependent on time and content of last meal. Glucose of more than 200 mg/dL in a nonstressed, ambulatory subject supports the diagnosis of Diabetes Mellitus. ADA recommended reference rangePerformed By: #### RUBELLA IGG, RPR W RFX, HIV SCREEN, RUBEOLA IGG, GCCHLAMTRI #### [facility] , #### TSH3 wRFLX, CBC, CMP #### [place] [address] USAPotassium [Moles/Vol]3.8 mmol/LNormal3.5-5.1The [facility] Physician GroupComment on above:Order Comment: Reason for Exam Early stage of pregnancyPerformed By: #### RUBELLA IGG, RPR W RFX, HIV SCREEN, RUBEOLA IGG, GCCHLAMTRI #### [facility] , #### TSH3 wRFLX, CBC, CMP #### [place] [address] USAProtein [Mass/Vol]6.5 g/dLNormal6.4-8.9The [facility] Physician GroupComment on above:Order Comment: Reason for Exam Early stage of pregnancyPerformed By: #### RUBELLA IGG, RPR W RFX, HIV SCREEN, RUBEOLA IGG, GCCHLAMTRI #### [facility] , #### TSH3 wRFLX, CBC, CMP #### [place] [address] USASodium [Moles/Vol]138 mmol/UAxbiwk492-259Pjw [facility] Physician GroupComment on above:Order Comment: Reason for Exam Early stage of pregnancyPerformed By: #### RUBELLA IGG, RPR W RFX, HIV SCREEN, RUBEOLA IGG, GCCHLAMTRI #### [facility] , #### TSH3 wRFLX, CBC, CMP #### [facility] [address] [place] [address] USAUrea nitrogen [Mass/Vol]8 mg/dLNormal7-25The [facility] Physician GroupComment on above:Order Comment: Reason for Exam Early stage of pregnancyPerformed By: #### RUBELLA IGG, RPR W RFX, HIV SCREEN, RUBEOLA IGG, GCCHLAMTRI #### [facility] , #### TSH3 wRFLX, CBC, CMP #### [facility] [address] [place] [address] USACreatinine [Mass/volume] in Serum or PlasmaOrdered By: Alex Hogan on 39-78-1588Ibtmrtltpo [Mass/Vol]Creatinine [Mass/volume] in Serum or PlasmaLow0.60-1.20Cleveland ClinicEosinophils Auto (Bld) [#/Vol]Ordered By: Alex Hogan on 89-34-9630Igleopsyqhr (Bld) [#/Vol] Automated eosinophil count0.0-0.45[facility] Eosinophils/100 WBC Auto (Bld)Ordered By: Alxe Hogan on 08-27-2024 Eosinophils/100 WBC (Bld)Automated eosinophil %.Cleveland ClinicErythrocyte distribution width Auto (RBC) [Ratio]Ordered By: Alex Hogan on 19-41-1756Rzndmfomybz distribution width (RBC) [Ratio]Erythrocyte distribution width [Ratio] by Automated count11.9-15.3FParkview HealthGlobulin Calc (S) [Mass/Vol]Ordered By: Alex Hogan on 08-27-2024 Globulin (S) [Mass/Vol]Serum globulin measurement by calculation (mass/volume) Cleveland ClinicGlucose [Mass/volume] in Serum or PlasmaOrdered By: Alex Hogan on 26-23-2207Glgnwjx [Mass/Vol]Glucose [Mass/volume] in Serum or Ztwtjr55-205FtlwdmeneCleveland ClinicComment on above:ADA recommended reference rangeRandom Glucose Reference Range is dependent on time and content of last meal. Glucose of more than 200 mg/dL in a nonstressed, ambulatory subject supports the diagnosisof Diabetes Mellitus.HIV 1/O/2 Antigen/Antibodyon 72-74-0639NNK Screen 4th GenerationNon-ReactiveNormalNon ReactiveThe [facility] Physician GroupComment on above:Order Comment: Reason for Exam Anemia, unspecified type;Iron deficiencyResult Comment: HIV-1/HIV-2 antibodies and HIV-1 p24 antigen were NOT detected. There is no laboratory evidence of HIV infection. HIV Negative Performed at: - [facility] [address] [id number] Senior Training Specialist: Chilango Cuello PhD, Phone: [phone] By: #### FE, CBC #### [facility] [address] [place] [address] USAHIV antibody and antigen panelOrdered By: Alex Hogan on 00-97-1683ALQ 1+2 Ab+HIV1 p24 Ag IA QlHIV 1 and HIV-2 antibody assay with HIV-1 p24 antigen detectionNon ReactiveCleveland ClinicComment on above:HIV-1/HIV-2 antibodies and HIV-1 p24 antigen were NOTdetected. There is no laboratory evidence of HIV infection.HIV NegativePerformed at: [facility] [id number] Director: Chilango Cuello PhD, Phone: [phone] Auto (Bld) [Volume fraction]Ordered By: Alex Hogan on 28-26-3265Xhwgwolvft (Bld) [Volume fraction]Hematocrit [Volume Fraction] of Blood by Automated count34.0-46.4FParkview Health Hemoglobin [Mass/volume] in BloodOrdered By: Alex Hogan on 08-27-2024 Hemoglobin (Bld) [Mass/Vol]Hemoglobin [Mass/volume] in Blood11.8-15.4FParkview HealthLeukocytes [#/volume] corrected for nucleated erythrocytes in Blood by Automated counOrdered By: Alex Hogan on 08-27-2024 WBC corrected for nucl RBC Auto (Bld) [#/Vol]Leukocytes [#/volume] corrected for nucleated erythrocytes in Blood by Automated coun3.8-11.6FParkview HealthLymphocytes Auto (Bld) [#/Vol]Ordered By: Alex Hogan on 45-25-0077Meshhekhvry (Bld) [#/Vol]Lymphocytes [#/volume] in Blood by Automated count1.00-4.8C[facility] ClinicLymphocytes/100 WBC Auto (Bld) Ordered By: Alex Hogan on 60-36-1500Zrxaflwoxtb/100 WBC (Bld)Lymphocytes/100 leukocytes in Blood by Automated count.[facility] Auto (RBC) [Entitic mass]Ordered By: Alex Hogan on 49-20-9395UFK (RBC) [Entitic mass]MCH [Entitic mass] by Automated count24.7-34.3FParkview HealthMCHC Auto (RBC) [Mass/Vol]Ordered By: Alex Hogan on 08-27-2024 MCHC (RBC) [Mass/Vol]MCHC [Mass/volume] by Automated count32.0-35.0C[facility] ClinicMCV Auto (RBC) [Entitic vol]Ordered By: Alex Hogan on 50-14-4232OVU (RBC) [Entitic vol]MCV [Entitic volume] by Automated ckbso95-538 Cleveland ClinicMonocytes Auto (Bld) [#/Vol]Ordered By: Alex Hogan on 00-10-6451Rxqdqnshk (Bld) [#/Vol]Automated blood monocyte count 0.0-0.8C[facility] ClinicMonocytes/100 WBC Auto (Bld)Ordered By: Alex Hogan on 79-48-0859Gdxaesauj/100 WBC (Bld)Automated monocyte %. Cleveland ClinicNeisseria gonorrhoeae DNA [Presence] in Specimen by ÓSCAR with probe detectionOrdered By: Alex Hogan on 08-27-2024N. gonorrhoeae DNA ÓSCAR+probe Ql (Unsp spec)Neisseria gonorrhoeae DNA [Presence] in Specimen by ÓSCAR with probe detectionNegativeCleveland Clinic Neutrophils Auto (Bld) [#/Vol]Ordered By: Alex Hogan on 08-27-2024 Neutrophils (Bld) [#/Vol]Neutrophils [#/volume] in Blood by Automated count 1.8-7.7FParkview HealthNeutrophils/100 WBC Auto (Bld)Ordered By: Alex Hogan on 89-11-6791Beyekkgvbuh/100 WBC (Bld)Automated neutrophil %. [facility] ClinicNo Panel InformationOrdered By: Alex Hogan on 07-85-7754Xpvwxgimx GFR (CKD-EPI)> 60.0 mL/MinCleveland ClinicPharmacy Creatinine Clearance (ChemN/[place] Nucleated erythrocytes [Presence] in Blood by Automated countOrdered By: Alex Hogan on 63-51-7590Jxuafeaqf RBC Auto Ql (Bld)Nucleated erythrocytes [Presence] in Blood by Automated count0-0.5FParkview Health Platelet mean volume Auto (Bld) [Entitic vol]Ordered By: Alex Hogan on 87-77-5363Xxuiojcn mean volume (Bld) [Entitic vol]Platelet mean volume [Entitic volume] in Blood by Automated count6.3-10.7FParkview Health Platelets Auto (Bld) [#/Vol]Ordered By: Alex Hogan on 95-24-5695Rjqrafdse (Bld) [#/Vol]Platelets [#/volume] in Blood by Automated pmiro270-302OfrttnqijCleveland ClinicPotassium [Moles/volume] in Serum or PlasmaOrdered By: Alex Hogan on 10-41-5535Jpijgpmnb [Moles/Vol]Potassium [Moles/volume] in Serum or Plasma3.5-5.1FParkview HealthProtein [Mass/volume] in Serum or PlasmaOrdered By: Alex Hogan on 79-29-4060Zqmjuec [Mass/Vol]Protein [Mass/volume] in Serum or Plasma6.4-8.9C[facility] ClinicRBC Auto (Bld) [#/Vol]Ordered By: Alex Hogan on 76-55-9227LLP (Bld) [#/Vol] Erythrocytes [#/volume] in Blood by Automated count3.60-5.00Cleveland ClinicRPR w/rfx to Quant TP Abson 14-80-3548ECR, Rfx Quant RPR Non-ReactiveNormalNon ReactiveThe [facility] Physician GroupComment on above: Order Comment: Reason for Exam Anemia, unspecified type;Iron deficiencyResult Comment: Performed at: - [facility] [id number] Senior Training Specialist: Chilango Cuello PhD, Phone: [phone] PERFORMED BY: [place] [address] PATHOLOGIST PAD MAKING MACHINE OPERATOR RICKY TORRES M.D.Performed By: #### FE, CBC #### [place] [address] USARubella IgG Antibodyon 84-00-6096Syoohzi IgG Antibody4.90 NormalImmune >0.99The [facility] Physician GroupComment on above:Order Comment: Reason for Exam Early stage of pregnancyResult Comment: Non-immune <0.90 Equivocal 0.90 - 0.99 Immune >0.99Performed By: #### RUBELLA IGG, RPR W RFX, HIV SCREEN, RUBEOLA IGG, GCCHLAMTRI #### [facility] , #### TSH3 wRFLX, CBC, CMP #### [facility] [address] [place] [id number] USARubella IgG antibody assayOrdered By: Alex Hogan on 34-93-2599Qdgfzpl IgG Antibody4.90 indexImmune >0.99C[facility] ClinicComment on above:Non-immune <0.90 Equivocal 0.90 - 0.99 Immune >0.99 Rubeola (Measles) Abs, IgGon 50-19-6048Gpaexdy (Measles) Abs, UgD719.0Normal Immune >16.4The [facility] Physician GroupComment on above:Order Comment: Reason for Exam Early stage of pregnancyResult Comment: Negative <13.5 Equivocal 13.5 - 16.4 Positive >16.4 Presence of antibodies to Rubeola is presumptive evidence of immunity except when acute infection is suspected. Performed at: [facility] [address] [address] Senior Training Specialist: Chilango Cuello PhD, Phone: [phone] By: #### RUBELLA IGG, RPR W RFX, HIV SCREEN, RUBEOLA IGG, GCCHLAMTRI #### [facility] , #### TSH3 wRFLX, CBC, CMP #### [facility] [address] [place], [place] [id number] USASerum RPR testOrdered By: Alex Hogan on 08-27-2024 Reagin Ab RPR Ql (S)Reagin Ab [Presence] in Serum by RPRNon ReactiveCleveland ClinicComment on above:Performed at: [facility] [address] [id number] Director: Chilango Cuello PhD, Phone: [phone] measles virus IgG antibody assay by immunoassay (units/volume) Ordered By: Alex Hogan on 91-40-3661PyN IgG IA Qn (S)Measles virus IgG Ab [Units/volume] in Serum by ImmunoassayImmune >16.4FParkview HealthComment on above:Negative <13.5 Equivocal 13.5 - 16.4 Positive >16.4Presence of antibodies to Rubeola is presumptive evidenceof immunity except when acute infection is suspected.Performed at: [address] [id number] Director: Chilango Cuello PhD, Phone: [phone] Serum or plasma albumin/globulin mass ratioOrdered By: Alex Hogan on 55-64-4555Kveashn/Globulin [Mass ratio]Serum or plasma albumin/globulin mass ratioHolzer Hospitalerum or plasma anion gap determination Ordered By: Alex Hogan on 00-30-8328Dcyhp gap [Moles/Vol]Serum or plasma anion gap determination6.0-15.0Holzer Hospitalodium [Moles/volume] in Serum or PlasmaOrdered By: Alex Hogan on 47-44-7796Dnwtfz [Moles/Vol]Sodium [Moles/volume] in Serum or Atuhjn920-774QzlgaboyxCleveland ClinicThyroid Stim Hormone w/Rflxon 02-40-7409Vryxykg Stim Hormone w/Rflx2.67 u[iU]/mLNormal0.45-5.33[facility] Physician GroupComment on above: Order Comment: Reason for Exam Early stage of pregnancyResult Comment: PERFORMED BY: [place] [address] PATHOLOGIST PAD MAKING MACHINE OPERATOR RICKY TORRES M.D.Performed By: #### RUBELLA IGG, RPR W RFX, HIV SCREEN, RUBEOLA IGG, GCCHLAMTRI #### [facility] , #### TSH3 wRFLX, CBC, CMP #### [facility] [address] [place] [address] USAThyrotropin [Units/volume] in Serum or PlasmaOrdered By: Alex Hogan on 57-28-2177SFW QnThyrotropin [Units/volume] in Serum or Plasma 0.45-5.33Cleveland ClinicTrichomonas vaginalis DNA [Presence] in Specimen by ÓSCAR with probe detectionOrdered By: Alex Hogan on 08-27-2024 T. vaginalis DNA ÓSCAR+probe Ql (Unsp spec)Trichomonas vaginalis DNA [Presence] in Specimen by ÓSCAR with probe detectionNegativeCleveland Clinic Comment on above:Performed at: =[facility] [place], [place] [id number] Director: Shannen Alves MD, Phone: [phone] OB <= 14 weeks fetuson 46-01-6065WQ OB <= 14 weeks [facility] [place] [address] [place] [address] Ultrasound Report Signed Patient: Karyn Bone MR#: [id number] 414 : 2005 Acct:[id number] Age/Sex: 19 / F ADM Date: 08/27/24 Loc: Room: Type: [facility] Attending Dr: Alex Hogan DO Ordering Provider: Alex Hogan DO Date of Service: 08/27/24 US/US OB transvaginal: Early stage of ([id number]) US/US OB <= 14 weeks fetus: EARLY STAGES Copies to: Alex Hogan DO OB ultrasound. Reason for exam:Early stage of . Comparison:None Technique: Transabdominal as well as transvaginal imaging of the uterus and ovaries were obtained. Findings: A gestational sac is noted within the endometrial canal with yolk sac noted measuring 5 weeks 1 day by MSD. No pole yet identified. Small amount of simple free fluid is noted. Left ovary appears unremarkable. 3 cm right ovarian cyst. US/US OB transvaginal Impression: Gestational sac is noted with yolk sac present within the endometrial canal measuring 5 weeks 1 day. No pole is identified. Finding is consistent with early IUP. Impression dictated by: Isidro Soni Jr., D.O.08/27/2024 11:15 AM Dictation Location: [place] [address] Tech: Vashtikurt King Transcribed By: GARO 08/27/24 1115 Dictated By: Isidro Soni Jr, DO 08/27/24 1103 Signed By: 08/27/24 1115PaulinaCritical access hospital Physician GroupUrea nitrogen [Mass/volume] in Serum or PlasmaOrdered By: Alex Hogan on 99-77-4002Tfxm nitrogen [Mass/Vol] Urea nitrogen [Mass/volume] in Serum or Plasma01-23Cleveland ClinicWBC Auto (Bld) [#/Vol]Ordered By: Alex Hogan on 42-14-0030SOH (Bld) [#/Vol]Leukocytes [#/volume] in Blood by Automated count3.8-11.6FParkview HealthXR wrist LT min 3V*on 34-92-2142ZL wrist LT min 3V* [facility] [place] [address] XRay Report Signed Patient: Karyn Bone MR#: [id number] 414 : 2005 Acct:[id number] Age/Sex: 18 / F ADM Date: 05/27/24 Loc: [id number] Room: Type: [facility] Attending Dr: Becky Walker SALES VICE PRESIDENT Copies to: Becky Walker APRN Ordering Provider: Becky Walker APRN Date of Service: 05/27/24 XR/XR wrist LT min 3V*: M25.532 - Pain in left wrist LEFT WRIST - 3 views CLINICAL HISTORY: Anterior left wrist pain. No known injury. COMPARISON: None FINDINGS: No focal soft tissue abnormality. No acute bony process is seen. Joint spaces appear maintained. XR/XR wrist LT min 3V* IMPRESSION: NO ACUTE BONY PROCESS. Impression dictated by: Isidro Soni Jr., D.OTanvi05/27/2024 6:58 PM Dictation Location: [facility]--18 Transcribed By: [facility] 05/27/241857 Dictated By: Isidro Soni Jr, DO 05/27/241856 Signed By: 05/27/241857[facility] Physician GroupNo Panel InformationOrdered By: Becky Walker on 55-82-3005Ahfjw Strep (POC)Holzer Hospitalerum or plasma progesterone measurement (mass/volume)Ordered By: Tino Mcfarlane on 63-01-5482Dtzhfzudviif [Mass/Vol]0.1 ng/mL.[facility] Comment on above:Follicular phase 0.1 - 0.9 Luteal phase 1.8 - 23.9 Ovulation phase 0.1 - 12.0 First trimester 11.0 - 44.3 Second trimester 25.4 - 83.3 Third trimester 58.7 - 214.0 Postmenopausal 0.0 - 0.1Performed at: [facility] LabG[place] [id number] [place], [place] [id number] Director: Chilango Mazariegos, Phone: [phone] Visit Summaryon 97-79-3047Iyfxvzrtsu Visit SummaryAmbulatory Visit Summary KARYN BONE :2005 Visit Date:03/31/2024 Ambulatory Visit Instructions Your Diagnosis Ureteral stone with hydronephrosis Left flank pain Tests Performed XR IVP -- Results Pending -- Please visit your patient portal for your results or contact your primary care physician. Your Care Team Attending Physician - Deuce ABRAHAM MD Primary Care Physician - KALANI METCALF CNP Referring Physician - KALANI METCALF CNP This Is Your Medications List Contact prescribing physician if questions or concerns cetirizine (ZyrTEC Children's Allergy) metformin (MetFORMIN (Eqv-Glucophage XR) 500 mg oral tablet, extended release) terbinafine (terbinafine 250 mg Tab) Procedures Performed Tonsillectomy and adenoidectomy. Discharge Vitals Heart Rate (Peripheral) 86 Respiratory Rate 16 Blood Pressure 126/86 Height 170 cm Height 67 in Weight 133.4 kg Weight 293.48 lb BMI 46.16 What to do next You Need to Schedule the Following Appointments Follow Up with Deuce ABRAHAM MD, DALIA When: Where: [address] [place] [address]- Medications What How Much When Instructions Unchanged cetirizine (ZyrTEC Children's Allergy) Every day Contact prescribing physician if questions or concerns Unchanged metformin (MetFORMIN (Eqv-Glucophage XR) 500 mg oral tablet, extended release) 1 Tablets By Mouth Every day Contact prescribing physician if questions or concerns Unchanged terbinafine (terbinafine 250 mg Tab) 1 Tablets By Mouth Every day Contact prescribing physician if questions or concerns Allergies Latex (Unknown) Red Dye (Unknown) amoxicillin (Unknown) penicillin (Unknown) Problems Ongoing - Any problem that you are currently receiving treatment for. Anxiety Depression Dysmenorrhea Kidney stones Left flank pain Metabolic syndrome Morbid obesity Ureteral stone with hydronephrosis Patient Survey You may receive a survey via text or e-mail asking about your office visit. Please share your experience with us by completing your survey. We appreciate your feedback and thank you for choosing us for your care. Education Materials Intravenous Pyelogram An intravenous pyelogram is an X-ray of the urinary tract. The urinary tract is the system through which pee (urine) travels. This tract includes the kidneys, ureters, and bladder. An intravenous pyelogram can help your health care provider find problems, such as: ? Kidney stones. ? Bladder stones. ? An enlarged prostate. ? Tumors. Tell a health care provider about: ? Any allergies you have. ? All medicines you are taking, including vitamins, herbs, eye drops, creams, and oeop-eop-maefuvn medicines. ? Any problems you or family members have had with anesthesia. ? Any bleeding problems you have. ? Any surgeries you have had. ? Any medical conditions you have. ? Whether you are or may be . What are the risks? Your provider will talk with you about risks. These may include: ? Nausea. ? An allergic reaction to the dye that is used during the procedure. What happens before the procedure? ? Follow instructions from your provider about eating or drinking restrictions. ? Follow instructions from your provider about preparing for the test by taking an oral bowel prep. ? Ask your provider about changing or stopping your regular medicines. These include any diabetes medicines or blood thinners you take. ? You may need to remove glasses, jewelry, and any other metal objects. ? You may be asked to put on a hospital gown. What happens during the procedure? ? You will lie down on an exam table. ? An IV will be inserted into one of your veins. ? A contrast dye will be injected through the IV. This dye will help your provider see the urinary tract better on the X-rays. When the dye enters your body, you may feel warm or have a strange taste in your mouth. The feeling will not last long. ? A natural gas plant technician will take X-rays. To make the X-rays clearer: ? Pressure may be applied to your abdomen. ? You may be asked not to move for long periods of time. ? You may be asked to change positions. ? You may be asked to empty your bladder before the final X-ray is taken. The procedure may vary among providers and hospitals. What can I expect after procedure? ? You may return to your normal activities right after the procedure. ? You may safely drive home right after the procedure. Follow these instructions at home: ? Drink enough fluid to keep your pee pale yellow. This will help flush out the dye in your body. ? Take lbor-eth-gnyibud and prescription medicines only as told by your provider. ? Return to your normal activities as told by your provider. Ask your provider what activities are safe for y (more content not included)...NormalMercy Health Clermont HospitalBasophils Auto (Bld) [#/Vol]Ordered By: Tino Mcfarlane on 03-24-2024 Basophils (Bld) [#/Vol]0.1 10*3/uL0.0-0.2FParkview Health Basophils/100 WBC Auto (Bld)Ordered By: Tino Mcfarlane on 66-27-5030Lextdeqiq/100 WBC (Bld)1.2 %.Cleveland ClinicEosinophils Auto (Bld) [#/Vol] Ordered By: Tino Mcfarlane on 03-26-6206Aikozmawzjk (Bld) [#/Vol]0.1 10*3/uL 0.0-0.45Cleveland ClinicEosinophils/100 WBC Auto (Bld)Ordered By: Tino Mcfarlane on 49-47-7825Rdurujrumcf/100 WBC (Bld)1.0 %.Cleveland ClinicErythrocyte distribution width Auto (RBC) [Ratio]Ordered By: Tino Mcfarlane on 08-14-0640Gwhgqzdfwqa distribution width (RBC) [Ratio]13.1 %11.9-15.3 Cleveland ClinicGlucose mean value [Mass/volume] in Blood Estimated from glycated hemoglobinOrdered By: Tino Mcfarlane on 70-96-8978Pkekgob glucose Estimated from glycated hemoglobin (Bld) [Mass/Vol]117 mg/dLCleveland ClinicHematocrit Auto (Bld) [Volume fraction]Ordered By: Tino Mcfarlane on 46-56-8105Kkhregkdxd (Bld) [Volume fraction]37.7 %34.0-46.4FParkview HealthHemoglobin A1c percentageOrdered By: Tino Mcfarlane on 62-07-5212FnO0v (Bld) [Mass fraction]5.7 %High4.3-5.6FParkview HealthComment on above:Increased risk for diabetes: 5.7 - 6.4diabetes: >6.4glycemic control for adults with diabetes: <7.0Hemoglobin [Mass/volume] in BloodOrdered By: Tino Mcfarlane on 84-39-9176Pvhkerysfo (Bld) [Mass/Vol]12.7 g/dL11.8-15.4FParkview HealthLeukocytes [#/volume] corrected for nucleated erythrocytes in Blood by Automated counOrdered By: Tino Mcfarlane on 80-24-6350NBE corrected for nucl RBC Auto (Bld) [#/Vol]8.3 10*3/uL3.8-11.6 Cleveland ClinicLymphocytes Auto (Bld) [#/Vol]Ordered By: Tino Mcfarlane on 40-19-2618Qmlcxweacvl (Bld) [#/Vol]2.3 10*3/uL1.00-4.8Cleveland ClinicLymphocytes/100 WBC Auto (Bld)Ordered By: Tino Mcfarlane on 58-70-3596Xybduujsewd/100 WBC (Bld)28.1 %.Cleveland ClinicMCH Auto (RBC) [Entitic mass]Ordered By: Tino Mcfarlane on 60-25-4284YUZ (RBC) [Entitic mass]29.3 pg24.7-34.3FParkview HealthMCHC Auto (RBC) [Mass/Vol]Ordered By: Tino Mcfarlane on 59-29-5827YHOY (RBC) [Mass/Vol]33.7 g/dL 32.0-35.0Cleveland ClinicMCV Auto (RBC) [Entitic vol]Ordered By: Tino Mcfarlane on 23-82-7695OVF (RBC) [Entitic vol]86.9 sG17-883MnhccpxmzCleveland ClinicMonocytes Auto (Bld) [#/Vol]Ordered By: Tino Mcfarlane on 19-17-6650Asmawkbkc (Bld) [#/Vol]0.5 10*3/uL0.0-0.8Cleveland ClinicMonocytes/100 WBC Auto (Bld)Ordered By: Tino Mcfarlane on 03-24-2024 Monocytes/100 WBC (Bld)6.0 %.Cleveland ClinicNeutrophils Auto (Bld) [#/Vol]Ordered By: Tino Mcfarlane on 85-70-3581Khcfbbcpjwm (Bld) [#/Vol]5.3 10*3/uL1.8-7.7FParkview HealthNeutrophils/100 WBC Auto (Bld) Ordered By: Tino Mcfarlane on 14-83-7663Qcgjmvezxlv/100 WBC (Bld)63.7 %.C[facility] ClinicNucleated erythrocytes [Presence] in Blood by Automated countOrdered By: Tino Mcfarlane on 25-97-6346Ivktotkxd RBC Auto Ql (Bld)0.8 /100{WBC}High0-0.5FParkview HealthPlatelet mean volume Auto (Bld) [Entitic vol]Ordered By: Tino Mcfarlane on 95-03-7553Wmkmfwgk mean volume (Bld) [Entitic vol]9.6 fL6.3-10.7FParkview HealthPlatelets Auto (Bld) [#/Vol]Ordered By: Tino Mcfarlane on 15-46-7899Dbyvdyppu (Bld) [#/Vol]355 10*3/dD846-302KvhrjfcsfCleveland ClinicRBC Auto (Bld) [#/Vol]Ordered By: Tino Mcfarlane on 80-95-2759QQT (Bld) [#/Vol]4.34 10*6/uL3.60-5.00Cleveland ClinicWBC Auto (Bld) [#/Vol]Ordered By: Tino Mcfarlane on 25-49-8986NLZ (Bld) [#/Vol]8.3 10*3/uL3.8-11.6FParkview Health Alanine aminotransferase [Enzymatic activity/volume] in Serum or PlasmaOrdered By: Flavio Diaz on 55-79-4272FKW [Catalytic activity/Vol]10 U/L7-52Cleveland ClinicAlbumin [Mass/volume] in Serum or Plasma by Bromocresol green (BCG) dye binding methoOrdered By: Flavio Diaz on 88-51-1151Edehjhw BCG dye [Mass/Vol]4.1 g/dL3.5-5.7FParkview HealthAlkaline phosphatase [Enzymatic activity/volume] in Serum or PlasmaOrdered By: Flavio Diaz on 09-67-3663GCM [Catalytic activity/Vol]50 U/Z93-342GtxoeiopeCleveland ClinicAspartate aminotransferase [Enzymatic activity/volume] in Serum or PlasmaOrdered By: Flavio Diaz on 07-89-4041VTT [Catalytic activity/Vol]12 U/L Vfr19-01PcojrlsdeCleveland ClinicBacteria [Presence] in Urine by AutomatedOrdered By: Flavio Diaz on 28-56-5022Ttbzzsvj Auto Ql (U)None seen [HPF]None SeenCleveland ClinicBasophils Auto (Bld) [#/Vol] Ordered By: Flavio Diaz on 43-44-0265Jyfdgqpdr (Bld) [#/Vol]0.0 10*3/uL0.0-0.2 [facility] ClinicBasophils/100 WBC Auto (Bld)Ordered By: Flavio Diaz on 77-42-2071Njjcubtgr/100 WBC (Bld)0.5 %.C[facility] ClinicBilirubin Test strip Ql (U)Ordered By: Flavio Diaz on 03-07-2024 Bilirubin Ql (U)NegativeNegativeCleveland ClinicBilirubin.total [Mass/volume] in Serum or PlasmaOrdered By: Flavio Diaz on 03-07-2024 Bilirubin [Mass/Vol]0.3 mg/dL0.3-1.0C[facility] ClinicCalcium [Mass/volume] in Serum or PlasmaOrdered By: Flavio Diaz on 07-49-0672Fxpwjrk [Mass/Vol]9.1 mg/dL8.6-10.3FParkview HealthCarbon dioxide, total [Moles/volume] in Serum or PlasmaOrdered By: Flavio Diaz on 03-07-2024 CO2 [Moles/Vol]25.1 mmol/L21.0-31.0C[facility] ClinicChloride [Moles/volume] in Serum or PlasmaOrdered By: Flavio Diaz on 89-79-5277Pevmddqc [Moles/Vol]108 mmol/JPdqn99-783KsirsthkjCleveland ClinicColor Auto (U) Ordered By: Flavio Diaz on 00-70-1528Zbuey (U)Light-yellowYellowCleveland ClinicCreatinine [Mass/volume] in Serum or PlasmaOrdered By: Flavio Diaz on 82-35-4045Czdppauxnx [Mass/Vol]0.82 mg/dL0.60-1.20C[facility] ClinicEosinophils Auto (Bld) [#/Vol]Ordered By: Flavio Diaz on 15-72-7824Qnqrfgaqphc (Bld) [#/Vol]0.1 10*3/uL0.0-0.45Cleveland ClinicEosinophils/100 WBC Auto (Bld)Ordered By: Flavio Diaz on 04-18-9706Ejpzfrnhfto/100 WBC (Bld)1.0 %.[facility] Epithelial cells.squamous [#/area] in Urine sediment by Automated countOrdered By: Flavio Diaz on 15-66-6302Tzaizrovjw cells.squamous Auto (Urine sed) [#/Area]1-2 [HPF]0-2FParkview HealthErythrocyte distribution width Auto (RBC) [Ratio]Ordered By: Flavio Diaz on 09-24-9169Xzgybuejlvj distribution width (RBC) [Ratio]13.2 %11.9-15.3FParkview Health Erythrocytes [#/area] in Urine sediment by Automated countOrdered By: Flavio Diaz on 68-93-8345XJX Auto (Urine sed) [#/Area]50-100 [HPF]High0-4FParkview HealthGlobulin Calc (S) [Mass/Vol]Ordered By: Flavio Diaz on 84-74-2705Axiattgc (S) [Mass/Vol]2.7 g/dLCleveland Clinic Glucose [Mass/volume] in Serum or PlasmaOrdered By: Flavio Diaz on 03-07-2024 Glucose [Mass/Vol]126 mg/hCBmcm22-253WojyaulmqCleveland ClinicComment on above:ADA recommended reference rangeRandom Glucose Reference Range is dependent on time and content of last meal. Glucose of more than 200 mg/dL in a nonstressed, ambulatory subject supports the diagnosisof Diabetes Mellitus. Glucose [Mass/volume] in Urine by Test stripOrdered By: Flavio Diaz on 19-10-2919Dtuouqc Test strip (U) [Mass/Vol]Normal mg/dLNormalCleveland ClinicHCG ( test) IA.rapid Ql (U)Ordered By: LY ARMSTRONG on 90-94-1631RXE ( test) Ql (U)NegativeCleveland Clinic Hematocrit Auto (Bld) [Volume fraction]Ordered By: Flavio Diaz on 03-07-2024 Hematocrit (Bld) [Volume fraction]36.5 %34.0-46.4FParkview HealthHemoglobin Test strip Ql (U)Ordered By: Flavio Diaz on 03-07-2024 Hemoglobin Ql (U)1+HighNegativeCleveland ClinicHemoglobin [Mass/volume] in BloodOrdered By: Flavio Diaz on 49-00-1215Nnyxkfqccj (Bld) [Mass/Vol]12.3 g/dL11.8-15.4FParkview HealthHyaline casts [#/area] in Urine sediment by Automated countOrdered By: Flavio Diaz on 24-85-0758Yerpnyx casts Auto (Urine sed) [#/Area]None [LPF]0-8Cleveland ClinicKetones Test strip Ql (U)Ordered By: Flavio Diaz on 03-07-2024 Ketones Ql (U)NegativeNegativeCleveland ClinicLeukocyte esterase [Presence] in Urine by Test stripOrdered By: Flavio Diaz on 21-12-8552Mkoyhlizf esterase Test strip Ql (U)NegativeNegativeCleveland ClinicLeukocytes [#/area] in Urine sediment by Automated countOrdered By: Flavio Diaz on 21-07-8893TVD Auto (Urine sed) [#/Area]1-2 [HPF]0-4 Cleveland ClinicLeukocytes [#/volume] corrected for nucleated erythrocytes in Blood by Automated counOrdered By: Flavio Diaz on 03-07-2024 WBC corrected for nucl RBC Auto (Bld) [#/Vol]8.9 10*3/uL3.8-11.6FParkview HealthLymphocytes Auto (Bld) [#/Vol]Ordered By: Flavio Diaz on 40-65-7142Vlwvqpxjpsa (Bld) [#/Vol]2.2 10*3/uL1.00-4.8Cleveland ClinicLymphocytes/100 WBC Auto (Bld)Ordered By: Flavio Diaz on 22-75-6593Oisiofjfewk/100 WBC (Bld)24.9 %.[facility] CenterH Auto (RBC) [Entitic mass]Ordered By: Flavio Diaz on 21-30-0768KVV (RBC) [Entitic mass]29.0 pg24.7-34.3FParkview HealthMCHC Auto (RBC) [Mass/Vol]Ordered By: Flavio Diaz on 52-23-4037JAIX (RBC) [Mass/Vol]33.6 g/dL 32.0-35.0Cleveland ClinicMCV Auto (RBC) [Entitic vol]Ordered By: Flavio Diaz on 91-33-6789QSL (RBC) [Entitic vol]86.2 bC08-043WjtouqxmkCleveland ClinicMonocyte distribution width [Entitic volume] in Blood by AutomatedOrdered By: Flavio Diaz on 13-67-9439Jgjzhagk distribution width Auto (Bld) [Entitic vol]19.74 %0.00-20.00Cleveland ClinicMonocytes Auto (Bld) [#/Vol]Ordered By: Flavio Diaz on 85-34-7132Gnqxuibxd (Bld) [#/Vol] 0.5 10*3/uL0.0-0.8Cleveland ClinicMonocytes/100 WBC Auto (Bld) Ordered By: Flavio Diaz on 69-13-8099Yrrbxrulf/100 WBC (Bld)5.7 %.[facility] ClinicMucus [Presence] in Urine by AutomatedOrdered By: Flavio Diaz on 36-99-4064Jafml Auto Ql (U)Rare [LPF][facility] Neutrophils Auto (Bld) [#/Vol]Ordered By: Flavio Diaz on 12-50-7189Cvtwepjcuhu (Bld) [#/Vol]6.0 10*3/uL1.8-7.7FParkview HealthNeutrophils/100 WBC Auto (Bld)Ordered By: Flavio Diaz on 87-12-5038Leenorbkosd/100 WBC (Bld) 67.9 %.C[facility] ClinicNitrite Test strip Ql (U)Ordered By: Flavio Diaz on 96-85-0605Syspmot Ql (U)NegativeNegativeCleveland ClinicNo Panel InformationOrdered By: Flavio Diaz on 03-07-2024 Estimated GFR (CKD-EPI)> 60.0 mL/MinCleveland ClinicPharmacy Creatinine Clearance (Hwzt760.37Cleveland ClinicNucleated erythrocytes [Presence] in Blood by Automated countOrdered By: Flavio Diaz on 33-12-2202Rdjunbiix RBC Auto Ql (Bld)0.0 /100{WBC}0-0.5FParkview HealthPlatelet mean volume Auto (Bld) [Entitic vol]Ordered By: Flavio Diaz on 83-76-3131Jfyshwfg mean volume (Bld) [Entitic vol]7.9 fL6.3-10.7 Cleveland ClinicPlatelets Auto (Bld) [#/Vol]Ordered By: Flavio Diaz on 64-05-4941Lyniztgsn (Bld) [#/Vol]379 10*3/mJ527-960SrwhgeuonCleveland ClinicPotassium [Moles/volume] in Serum or PlasmaOrdered By: Flavio Diaz on 38-91-7700Hqufbvsxn [Moles/Vol]3.7 mmol/L3.5-5.1FParkview HealthProtein Test strip (U) [Mass/Vol]Ordered By: Flavio Diaz on 37-86-4955Dxzvuue (U) [Mass/Vol]NegativeNegativeCleveland ClinicProtein [Mass/volume] in Serum or PlasmaOrdered By: Flavio Diaz on 27-22-1974Oqlfvwq [Mass/Vol]6.8 g/dL6.4-8.9C[facility] ClinicRBC Auto (Bld) [#/Vol]Ordered By: Flavio Diaz on 23-48-6016JRK (Bld) [#/Vol]4.24 10*6/uL3.60-5.00Holzer Hospitalerum or plasma albumin/globulin mass ratioOrdered By: Flavio Diaz on 03-07-2024 Albumin/Globulin [Mass ratio]1.5 {ratio}Holzer Hospitalerum or plasma anion gap determinationOrdered By: Flavio Diaz on 04-81-5973Kjqtl gap [Moles/Vol]9.6 mmol/L6.0-15.0Holzer Hospitalodium [Moles/volume] in Serum or PlasmaOrdered By: Flavio Diaz on 86-31-3388Sjomej [Moles/Vol]139 mmol/W814-724ZxltopxjbHolzer Hospitalpecific gravity Test strip (U) [Rel density]Ordered By: Flavio Diaz on 47-44-8202Rdgkxfqi gravity (U) [Rel density]1.0271.001-1.030C[facility] ClinicUrea nitrogen [Mass/volume] in Serum or PlasmaOrdered By: Flavio Diaz on 03-07-2024 Urea nitrogen [Mass/Vol]15 mg/dL7-25Cleveland ClinicUrine appearanceOrdered By: Flavio Diaz on 33-53-3788Ydgioqdecy (U)ClearClear Cleveland ClinicUrobilinogen Test strip (U) [Mass/Vol]Ordered By: Flavio Diaz on 79-95-1538Yngkwrqlapbk (U) [Mass/Vol]Normal mg/dLNormal Cleveland ClinicWBC Auto (Bld) [#/Vol]Ordered By: Flavio Diaz on 12-58-0705PNX (Bld) [#/Vol]8.9 10*3/uL3.8-11.6FParkview HealthpH Test strip (U)Ordered By: Flavio Diaz on 32-35-7530vN (U)6.0 [pH] 5.0-9.0C[facility] ClinicAlanine aminotransferase [Enzymatic activity/volume] in Serum or PlasmaOrdered By: Kalani Metcalf on 02-08-2024 ALT [Catalytic activity/Vol]9 U/L7-52Cleveland ClinicAlbumin [Mass/volume] in Serum or Plasma by Bromocresol green (BCG) dye binding metho Ordered By: Kalani Metcalf on 43-26-8725Pqvyktk BCG dye [Mass/Vol]4.2 g/dL 3.5-5.7FParkview HealthAlkaline phosphatase [Enzymatic activity/volume] in Serum or PlasmaOrdered By: Kalani Metcalf on 02-08-2024 ALP [Catalytic activity/Vol]49 U/A44-795WchgcmnbqCleveland Clinic Aspartate aminotransferase [Enzymatic activity/volume] in Serum or PlasmaOrdered By: Kalani Metcalf on 49-20-9953KLD [Catalytic activity/Vol]10 U/MFto12-16 [facility] ClinicBasophils Auto (Bld) [#/Vol]Ordered By: Kalani Metcalf on 17-11-1348Gyiogxpey (Bld) [#/Vol]0.1 10*3/uL0.0-0.2 [facility] ClinicBasophils/100 WBC Auto (Bld)Ordered By: Kalani Metcalf on 51-81-8507Opgzshugy/100 WBC (Bld)0.9 %.[facility] ClinicBilirubin.total [Mass/volume] in Serum or PlasmaOrdered By: Kalani Metcalf on 61-41-9459Lnbtyemfx [Mass/Vol]0.4 mg/dL0.3-1.0C[facility] ClinicCalcium [Mass/volume] in Serum or PlasmaOrdered By: Kalani Metcalf on 67-28-8674Yukxndj [Mass/Vol]9.3 mg/dL8.6-10.3FParkview HealthCarbon dioxide, total [Moles/volume] in Serum or Plasma Ordered By: Kalani Metcalf on 28-96-1793SF1 [Moles/Vol]29.0 mmol/L21.0-31.0 [facility] ClinicChloride [Moles/volume] in Serum or Plasma Ordered By: Kalani Metcalf on 39-26-1531Qgpskwsp [Moles/Vol]108 mmol/LHigh 98-107C[facility] ClinicCholesterol [Mass/volume] in Serum or PlasmaOrdered By: Kalani Metcalf on 66-22-1269Hizweokfbrz [Mass/Vol]158 mg/cA214-179VshselosvCleveland ClinicComment on above:Chol less than 200 mg/dl low riskChol 201-239 mg/dl borderline riskChol 240 mg/dl and greater high riskCholesterol in LDL Calc [Mass/Vol]Ordered By: Kalani Metcalf on 40-86-8334Uoyxxonaauv in LDL [Mass/Vol]91 mg/dL0-100Cleveland ClinicComment on above:LDL ATP III CLASSIFICATIONLDL less than 100 mg/dL OptimalLDL 100-129 mg/dL Near or above fcradtxLUI295-422 mg/dL Borderline highLDL 160-189 mg/dL HighLDL greater than 189 mg/dL Very highCholesterol in VLDL Calc [Mass/Vol]Ordered By: Kalani Metcalf on 78-00-3712Kocbxxalbnp in VLDL [Mass/Vol]24 mg/dLCleveland ClinicCreatinine [Mass/volume] in Serum or PlasmaOrdered By: Kalani Metcalf on 00-37-2351Vjoizuqybg [Mass/Vol]0.60 mg/dL0.60-1.20C[facility] ClinicEosinophils Auto (Bld) [#/Vol]Ordered By: Kalani Metcalf on 63-33-4704Vyideclwouu (Bld) [#/Vol]0.0 10*3/uL0.0-0.45C[place] ClinicEosinophils/100 WBC Auto (Bld)Ordered By: Kalani Metcalf on 21-80-2609Rxfajqcrftk/100 WBC (Bld) 0.5 %.C[facility] ClinicErythrocyte distribution width Auto (RBC) [Ratio]Ordered By: Kalani Metcalf on 34-06-8940Qfreeowrrsg distribution width (RBC) [Ratio]12.7 %11.9-15.3FParkview HealthGlobulin Calc (S) [Mass/Vol]Ordered By: Kalani Metcalf on 58-58-0845Lnimkyuy (S) [Mass/Vol]2.7 g/dLCleveland ClinicGlucose [Mass/volume] in Serum or PlasmaOrdered By: Kalani Metcalf on 37-19-8944Yrqzqco [Mass/Vol]99 mg/mN64-524GblfrikoeCleveland ClinicComment on above:ADA recommended reference rangeRandom Glucose Reference Range is dependent on time and content of last meal. Glucose of more than 200 mg/dL in a nonstressed, ambulatory subject supports the diagnosisof Diabetes Mellitus.Hematocrit Auto (Bld) [Volume fraction]Ordered By: Kalani Metcalf on 66-01-0318Vbnddajnpw (Bld) [Volume fraction]38.2 %34.0-46.4FParkview HealthHemoglobin [Mass/volume] in BloodOrdered By: Kalani Metcalf on 51-25-0908Gqmpmvcqpw (Bld) [Mass/Vol]12.7 g/dL11.8-15.4FParkview HealthLeukocytes [#/volume] corrected for nucleated erythrocytes in Blood by Automated coun Ordered By: Kalani Metcalf on 64-03-9394RYB corrected for nucl RBC Auto (Bld) [#/Vol]8.3 10*3/uL3.8-11.6FParkview HealthLymphocytes Auto (Bld) [#/Vol]Ordered By: Kalani Metcalf on 57-71-5281Mhovtwtxiiz (Bld) [#/Vol]2.4 10*3/uL1.00-4.8Cleveland ClinicLymphocytes/100 WBC Auto (Bld)Ordered By: Kalani Metcalf on 34-82-3379Morjqjzsram/100 WBC (Bld) 29.5 %.[facility] Auto (RBC) [Entitic mass]Ordered By: Kalani Metcalf on 61-37-9192KPV (RBC) [Entitic mass]29.1 pg24.7-34.3 [facility] CenterHC Auto (RBC) [Mass/Vol]Ordered By: Kalani Metcalf on 42-18-3124MMED (RBC) [Mass/Vol]33.4 g/dL32.0-35.0C[facility] ClinicMCV Auto (RBC) [Entitic vol]Ordered By: Kalani Metcalf on 26-48-2990XRN (RBC) [Entitic vol]87.1 tN36-967JaglpqmwbCleveland ClinicMonocytes Auto (Bld) [#/Vol]Ordered By: Kalani Metcalf on 02-40-5423Zjygbmyoa (Bld) [#/Vol]0.5 10*3/uL0.0-0.8C[place] ClinicMonocytes/100 WBC Auto (Bld)Ordered By: Kalani Metcalf on 02-08-2024 Monocytes/100 WBC (Bld)6.7 %.[place] ClinicNeutrophils Auto (Bld) [#/Vol]Ordered By: Kalani Metcalf on 70-34-9839Fgxezyvucdv (Bld) [#/Vol]5.2 10*3/uL1.8-7.7FParkview HealthNeutrophils/100 WBC Auto (Bld)Ordered By: Kalani Metcalf on 32-14-4033Ehypopkuueg/100 WBC (Bld) 62.4 %.[facility] ClinicNo Panel InformationOrdered By: Kalani Metcalf on 47-23-6399Ygetdvrlc GFR (CKD-EPI)> 60.0 mL/MinCleveland ClinicPharmacy Creatinine Clearance (ChemN/CentervilleNucleated erythrocytes [Presence] in Blood by Automated countOrdered By: Kalani Metcalf on 28-51-6600Tjhvpoubx RBC Auto Ql (Bld)0.1 /100{WBC}0-0.5 [facility] ClinicPlatelet mean volume Auto (Bld) [Entitic vol] Ordered By: Kalani Metcalf on 35-56-8746Uzdmwtwa mean volume (Bld) [Entitic vol]9.0 fL6.3-10.7FParkview HealthPlatelets Auto (Bld) [#/Vol] Ordered By: Kalani Metcalf on 24-48-9639Itfhkfpuy (Bld) [#/Vol]398 10*3/uL 150-450C[facility] ClinicPotassium [Moles/volume] in Serum or PlasmaOrdered By: Kalani Metcalf on 91-43-4596Whifuqwom [Moles/Vol]3.8 mmol/L3.5-5.1FParkview HealthProtein [Mass/volume] in Serum or PlasmaOrdered By: Kalani Metcalf on 66-79-2303Ulgdwrv [Mass/Vol]6.9 g/dL 6.4-8.9C[facility] ClinicRBC Auto (Bld) [#/Vol]Ordered By: Kalani Metcalf on 65-41-4642ZIR (Bld) [#/Vol]4.38 10*6/uL3.60-5.00Holzer Hospitalerum or plasma albumin/globulin mass ratioOrdered By: Kalani Metcalf on 92-18-2543Wcyohpv/Globulin [Mass ratio]1.6 {ratio} Holzer Hospitalerum or plasma anion gap determinationOrdered By: Kalani Metcalf on 64-95-6092Uojta gap [Moles/Vol]8.8 mmol/L6.0-15.0 [facility] Hospitalerum or plasma high density lipoprotein (HDL) cholesterol measurementOrdered By: Kalani Metcalf on 67-23-6028Nbxwvsvoblu in HDL [Mass/Vol]43 mg/qP64-42AcaeadoxuCleveland ClinicComment on above: HDL CHOL ATP-III CLASSIFICATION Cardiovascular RiskHDL > or equal to 60 mg/dL LOWHDL < 40 mg/dL HIGHSerum or plasma insulin measurement (units/volume)Ordered By: Kalani Metcalf on 67-00-1711Iwgfkec Qn22.5 u[iU]/mL2.6-24.9C[place] ClinicComment on above:Performed at: - [facility] [id number] Director: Chilango Cuello PhD, Phone: [phone] or plasma total cholesterol/high density lipoprotein (HDL) cholesterol mass ratOrdered By: Kalani Metcalf on 02-08-2024 Cholesterol.total/Cholesterol in HDL [Mass ratio]3.7 {ratio}<5.0Holzer Hospitalodium [Moles/volume] in Serum or PlasmaOrdered By: Kalani Metcalf on 23-34-8029Ixijdn [Moles/Vol]142 mmol/O223-838TrllhqhyhCleveland ClinicThyrotropin [Units/volume] in Serum or PlasmaOrdered By: Kalani Metcalf on 75-83-9152XKJ Qn2.74 m[IU]/L0.45-5.33C[facility] ClinicThyroxine (T4) free [Mass/volume] in Serum or PlasmaOrdered By: Kalani Metcalf on 50-74-8911Gooc T4 [Mass/Vol]0.89 ng/dL0.61-1.12C[facility] ClinicTriglyceride [Mass/volume] in Serum or PlasmaOrdered By: Kalani Metcalf on 05-65-4618Mvqowykszdes [Mass/Vol]121 mg/dL0-149C[place] ClinicComment on above:TRIG ATP III CLASSIFICATIONTRIG less than 150 mg/dL NormalTRIG 150-199 mg/dL Borderline highTRIG 200-500 mg/dL High TRIG greater than 500 mg/dL Very highStandard traceable to the Center for Disease Conrtrol and Prevention (CDC) test method.Triiodothyronine (T3) Free [Mass/volume] in Serum or PlasmaOrdered By: Kalani Metcalf on 02-08-2024 Free T3 [Mass/Vol]3.31 pg/mL2.50-3.90C[facility] ClinicUrea nitrogen [Mass/volume] in Serum or PlasmaOrdered By: Kalani Metcalf on 60-23-5339Jfdd nitrogen [Mass/Vol]11 mg/dL7-25[facility] WBC Auto (Bld) [#/Vol]Ordered By: Kalani Metcalf on 90-96-1334JXA (Bld) [#/Vol]8.3 10*3/uL3.8-11.6FParkview HealthAlanine aminotransferase [Enzymatic activity/volume] in Serum or PlasmaOrdered By: Arabella De La Torre on 40-68-0051GYX [Catalytic activity/Vol]12 U/L7-52C[facility] ClinicAlbumin [Mass/volume] in Serum or Plasma by Bromocresol green (BCG) dye binding methoOrdered By: Arabella De La Torre on 73-94-7708Tjhjcko BCG dye [Mass/Vol]4.4 g/dL3.5-5.7FParkview HealthAlkaline phosphatase [Enzymatic activity/volume] in Serum or PlasmaOrdered By: Arabella De La Torre on 09-86-1964FOQ [Catalytic activity/Vol]54 U/N79-210HowjuqlliCleveland ClinicAspartate aminotransferase [Enzymatic activity/volume] in Serum or PlasmaOrdered By: Arabella De La Torre on 25-55-6615GHA [Catalytic activity/Vol]14 U/L 13-39C[facility] ClinicBasophils Auto (Bld) [#/Vol]Ordered By: Arabella De La Torre on 81-69-7471Pzctbrqib (Bld) [#/Vol]0.1 10*3/uL0.0-0.2FParkview HealthBasophils/100 WBC Auto (Bld)Ordered By: Arabella De La Torre on 39-33-2621Vrfahqgsr/100 WBC (Bld)0.8 %.[facility] Bilirubin Test strip Ql (U)Ordered By: Arabella De La Torre on 24-45-5657Appjkshyq Ql (U)NegativeNegativeCleveland ClinicBilirubin.total [Mass/volume] in Serum or PlasmaOrdered By: Arabella De La Torre on 11-12-2023 Bilirubin [Mass/Vol]0.2 mg/dLLow0.3-1.0C[facility] ClinicCalcium [Mass/volume] in Serum or PlasmaOrdered By: Arabella De La Torre on 83-83-2951Fkrhgjs [Mass/Vol]9.2 mg/dL8.6-10.3FParkview HealthCarbon dioxide, total [Moles/volume] in Serum or PlasmaOrdered By: Arabella De La Torre on 11-12-2023 CO2 [Moles/Vol]25.9 mmol/L21.0-31.0C[facility] ClinicChloride [Moles/volume] in Serum or PlasmaOrdered By: Arabella De La Torre on 11-12-2023 Chloride [Moles/Vol]106 mmol/L49-781ZfajmjblsCleveland Clinic Choriogonadotropin.beta subunit [Units/volume] in Serum or PlasmaOrdered By: Arabella De La Torre on 33-95-8570KIG.beta subunit QnNegativeCleveland ClinicColor Auto (U)Ordered By: Arabella De La Torre on 77-86-2314Ixczp (U) YellowYellowCleveland ClinicCreatinine [Mass/volume] in Serum or PlasmaOrdered By: Arabella De La Torre on 23-89-0828Eawoyxsozv [Mass/Vol]0.72 mg/dL 0.60-1.20C[facility] ClinicEosinophils Auto (Bld) [#/Vol]Ordered By: Arabella De La Torre on 11-70-0210Nmrmechyder (Bld) [#/Vol]0.1 10*3/uL0.0-0.45 [facility] ClinicEosinophils/100 WBC Auto (Bld)Ordered By: Arabella De La Torre on 93-42-6344Pufodtabhyv/100 WBC (Bld)0.7 %.[facility] ClinicErythrocyte distribution width Auto (RBC) [Ratio]Ordered By: Arabella De La Torre on 09-62-9384Riogcmoxpfi distribution width (RBC) [Ratio]13.2 % 11.9-15.3FParkview HealthGenital specimen bacteria identification by aerobic cultureOrdered By: Arabella De La Torre on 11-12-2023 Bacteria identified Aer cx Nom (Genital specimen)C[facility] ClinicGlobulin Calc (S) [Mass/Vol]Ordered By: Arabella De La Torre on 11-12-2023 Globulin (S) [Mass/Vol]3.0 g/dLCleveland ClinicGlucose [Mass/volume] in Serum or PlasmaOrdered By: Arabella De La Torre on 45-90-3150Jlgseql [Mass/Vol]100 mg/uF05-457QwgrclblsCleveland ClinicComment on above:ADA recommended reference rangeRandom Glucose Reference Range is dependent on time and content of last meal. Glucose of more than 200 mg/dL in a nonstressed, ambulatory subject supports the diagnosisof Diabetes Mellitus.Hematocrit Auto (Bld) [Volume fraction]Ordered By: Arabella De La Torre on 30-43-5169Sjgvvqvidd (Bld) [Volume fraction]38.7 %34.0-46.4FParkview HealthHemoglobin [Mass/volume] in BloodOrdered By: Arabella De La Torre on 71-06-8690Stozolikzd (Bld) [Mass/Vol]13.0 g/dL11.8-15.4FParkview HealthKetones Auto test strip (U) [Mass/Vol]Ordered By: Arabella De La Torre on 79-94-6293Bojwdiw (U) [Mass/Vol]NegativeNegativeCleveland ClinicLaboratory - Microbiology and Antimicrobial susceptibilityOrdered By: Arabella De La Torre on 11-12-2023. trachomatis DNA ÓSCAR+probe Ql (Unsp spec)NegativeNegativeCleveland ClinicN. gonorrhoeae DNA ÓSCAR+probe Ql (Unsp spec)Negative NegativeCleveland ClinicComment on above:Performed at: = - [facility] [id number] Director: Shannen Alves MD, Phone: [phone] [#/volume] corrected for nucleated erythrocytes in Blood by Automated counOrdered By: Arabella De La Torre on 11-12-2023 WBC corrected for nucl RBC Auto (Bld) [#/Vol]10.6 10*3/uL3.8-11.6FParkview HealthLipase [Enzymatic activity/volume] in Serum or Plasma Ordered By: Arabella De La Torre on 61-00-0906Eeodik [Catalytic activity/Vol]22.0 U/L 11.0-82.0C[facility] ClinicLymphocytes Auto (Bld) [#/Vol]Ordered By: Arabella De La Torre on 10-85-9910Eiguiauvftk (Bld) [#/Vol]2.4 10*3/uL1.00-4.8 [facility] ClinicLymphocytes/100 WBC Auto (Bld)Ordered By: Arabella De La Torre on 15-36-7286Yoqcbiepdon/100 WBC (Bld)22.9 %.[facility] CenterH Auto (RBC) [Entitic mass]Ordered By: Arabella De La Torre on 28-05-5613QTQ (RBC) [Entitic mass]29.0 pg24.7-34.3FParkview HealthMCHC Auto (RBC) [Mass/Vol]Ordered By: Arabella De La Torre on 71-70-7532GSDC (RBC) [Mass/Vol]33.6 g/dL32.0-35.0C[facility] ClinicMCV Auto (RBC) [Entitic vol]Ordered By: Arabella De La Torre on 85-81-9522PML (RBC) [Entitic vol]86.3 dI74-754IikildyreCleveland ClinicMonocyte distribution width [Entitic volume] in Blood by AutomatedOrdered By: Arabella De La Torre on 11-12-2023 Monocyte distribution width Auto (Bld) [Entitic vol]16.88 %0.00-20.00C[facility] ClinicMonocytes Auto (Bld) [#/Vol]Ordered By: Arabella De La Torre on 37-44-1805Fqlhaznhg (Bld) [#/Vol]0.8 10*3/uL0.0-0.8C[facility] ClinicMonocytes/100 WBC Auto (Bld)Ordered By: Arabella De La Torre on 11-12-2023 Monocytes/100 WBC (Bld)7.1 %.[facility] ClinicNeutrophils Auto (Bld) [#/Vol]Ordered By: Arabella De La Torre on 78-32-9083Odbsvpmpqrr (Bld) [#/Vol] 7.3 10*3/uL1.8-7.7FParkview HealthNeutrophils/100 WBC Auto (Bld)Ordered By: Arabella De La Torre on 61-52-5505Tmlhwruadoz/100 WBC (Bld)68.5 %. [facility] ClinicNitrite Test strip Ql (U)Ordered By: Arabella De La Torre on 17-82-6080Kexvusa Ql (U)NegativeNegativeCleveland ClinicNo Panel InformationOrdered By: Arabella De La Torre on 53-72-1495Wywsbeajs GFR (CKD-EPI)> 60.0 mL/MinCleveland ClinicPharmacy Creatinine Clearance (Anxq488.75C[facility] ClinicNucleated erythrocytes [Presence] in Blood by Automated countOrdered By: Arabella De La Torre on 11-12-2023 Nucleated RBC Auto Ql (Bld)0.1 /100{WBC}0-0.5FParkview Health Platelet mean volume Auto (Bld) [Entitic vol]Ordered By: Arabella De La Torre on 52-86-2160Mijmnxeg mean volume (Bld) [Entitic vol]8.5 fL6.3-10.7FParkview HealthPlatelets Auto (Bld) [#/Vol]Ordered By: Arabella De La Torre on 56-58-6662Qixsdkrvq (Bld) [#/Vol]400 10*3/aT100-380GdsyncewsCleveland ClinicPotassium [Moles/volume] in Serum or PlasmaOrdered By: Arabella De La Torre on 16-29-0323Qhwvyflnx [Moles/Vol]3.6 mmol/L3.5-5.1FParkview HealthProtein Auto test strip (U) [Mass/Vol]Ordered By: Arabella De La Torre on 22-78-7564Fcsllfg (U) [Mass/Vol]NegativeNegativeCleveland ClinicProtein [Mass/volume] in Serum or PlasmaOrdered By: Arabella De La Torre on 05-33-3192Ekbgpjd [Mass/Vol]7.4 g/dL6.4-8.9C[facility] ClinicRBC Auto (Bld) [#/Vol]Ordered By: Arabella De La Torre on 13-27-8049HOU (Bld) [#/Vol]4.49 10*6/uL3.60-5.00Holzer Hospitalerum or plasma albumin/globulin mass ratioOrdered By: Arabella De La Torre on 11-12-2023 Albumin/Globulin [Mass ratio]1.5 {ratio}[facility] Hospitalerum or plasma anion gap determinationOrdered By: Arabella De La Torre on 55-51-7340Fnsjg gap [Moles/Vol]10.7 mmol/L6.0-15.0Holzer Hospitalodium [Moles/volume] in Serum or PlasmaOrdered By: Arabella De La Torre on 08-15-0544Mjyiao [Moles/Vol]139 mmol/I047-956XxqiwzwojHolzer Hospitalpecific gravity Auto test strip (U) [Rel density]Ordered By: Arabella De La Torre on 11-12-2023 Specific gravity (U) [Rel density]1.0251.001-1.030C[facility] ClinicTrichomonas vaginalis detection by wet preparationOrdered By: rAabella De La Torre on 11-12-2023T. vaginalis Wet prep Ql (Unsp spec)C[facility] ClinicUrea nitrogen [Mass/volume] in Serum or PlasmaOrdered By: Arabella De La Torre on 26-64-2380Qmcv nitrogen [Mass/Vol]13 mg/dL7-25C[facility] ClinicUrine clarity by refractometry automatedOrdered By: Arabella De La Torre on 27-29-5787Ypcypdr Refractometry automated (U)ClearClearFParkview HealthUrine glucose measurement by automated test strip (mass/volume) Ordered By: Arabella De La Torre on 26-12-9985Qtirloz Auto test strip (U) [Mass/Vol] Normal mg/dLNormOhio State Health SystemUrine hemoglobin detection by automated test stripOrdered By: Arabella De La Torre on 36-07-7412Dffqpeaknu Auto test strip Ql (U)NegativeNegOhioHealth Grove City Methodist HospitalUrine leukocyte esterase detection by automated test stripOrdered By: Arabella De La Torre on 44-61-9276Fckgxzrvg esterase Auto test strip Ql (U)NegativeNegOhioHealth Grove City Methodist HospitalUrobilinogen Auto test strip (U) [Mass/Vol]Ordered By: Arabella De LaT orre on 62-68-3837Hrwjpyvzuymp (U) [Mass/Vol]Normal mg/dLNoWilson Street HospitalWBC Auto (Bld) [#/Vol]Ordered By: Arabella De La Torre on 90-81-8810DWC (Bld) [#/Vol]10.6 10*3/uL3.8-11.6FParkview HealthpH Auto test strip (U)Ordered By: Arabella De La Torre on 45-30-1399mM (U)6.0 [pH]5.0-9.0C[facility] ClinicAlanine aminotransferase [Enzymatic activity/volume] in Serum or PlasmaOrdered By: Vaishali Ferrera on 47-97-1646LJM [Catalytic activity/Vol]12 U/L7-52C[facility] ClinicAlbumin [Mass/volume] in Serum or Plasma by Bromocresol green (BCG) dye binding methoOrdered By: Vaishali Ferrera on 63-83-7571Urumqbp BCG dye [Mass/Vol] 4.7 g/dL3.5-5.7FParkview HealthAlkaline phosphatase [Enzymatic activity/volume] in Serum or PlasmaOrdered By: Vaishali Ferrera on 64-53-4311CLO [Catalytic activity/Vol]71 U/F20-757GzrfceytaCleveland ClinicAmorphous urine sedimentOrdered By: Vaishali Ferrera on 81-17-5221Bnkqluvpp sediment LM Ql (Urine sed)1+ [LPF]C[facility] ClinicAspartate aminotransferase [Enzymatic activity/volume] in Serum or PlasmaOrdered By: Vaishali Ferrera on 00-73-3656SCU [Catalytic activity/Vol]14 U/U30-42FsmjzafvmCleveland ClinicAutomated epithelial cells count in urine sediment (number/area)Ordered By: Vaishali Ferrera on 51-94-6170Rxmfnmtsxv cells Auto (Urine sed) [#/Area]5-9 [HPF]0-2FParkview HealthAutomated erythrocytes count in urine sediment (number/area)Ordered By: Vaishali Ferrera on 56-01-2054BAX Auto (Urine sed) [#/Area]None seen [HPF]0-4FParkview HealthAutomated leukocytes count in urine sediment (number/area)Ordered By: Vaishali Ferrera on 05-85-0382AMN Auto (Urine sed) [#/Area]3-4 [HPF]0-4FParkview HealthAutomated urine hyaline casts count (number/volume)Ordered By: Vaishali Ferrera on 32-24-4955Bouhevm casts Auto (U) [#/Vol]1-2 [LPF]0-1FParkview HealthBasophils Auto (Bld) [#/Vol]Ordered By: Vaishali Ferrera on 79-92-6701Egrmngmlu (Bld) [#/Vol]0.1 10*3/uL0.0-0.2FParkview HealthBasophils/100 WBC Auto (Bld)Ordered By: Vaishali Ferrera on 08-21-2023 Basophils/100 WBC (Bld)1.0 %.C[facility] ClinicBilirubin Test strip Ql (U)Ordered By: Vaishali Ferrera on 77-30-4086Dkzvnfsxj Ql (U)Negative NegativeCleveland ClinicBilirubin.direct [Mass/volume] in Serum or PlasmaOrdered By: Vaishali Ferrera on 08-27-3548Vhljftvyf.direct [Mass/Vol] 0.10 mg/dL0.03-0.18FParkview HealthBilirubin.total [Mass/volume] in Serum or PlasmaOrdered By: Vaishali Ferrera on 08-21-2023 Bilirubin [Mass/Vol]0.4 mg/dL0.3-1.0C[facility] ClinicCOVID CepheidOrdered By: Vaishali Ferrera on 86-76-7812QOJJ-CoV-2 (COVID-19) Ab IA Ql NegativeNegativeCleveland ClinicComment on above:This is a duplicate CepheMadeiraMadeira Xpert Xpress CoV-2/Flu/RSV Plus RNA by RT-PCR result to be used for statistical tracking purpose only.SARS-CoV-2 (COVID-19) RNA ÓSCAR+probe Ql (Unsp spec)Holzer HospitalARS-CoV-2 (COVID-19) RNA ÓSCAR+probe Ql (Unsp spec)[facility] ClinicCalcium [Mass/volume] in Serum or PlasmaOrdered By: Vaishali Ferrera on 67-31-9422Ibashgh [Mass/Vol]9.4 mg/dL8.6-10.3FParkview HealthCarbon dioxide, total [Moles/volume] in Serum or PlasmaOrdered By: Vaishali Ferrera on 23-96-7399TA7 [Moles/Vol]27.3 mmol/L21.0-31.0C[facility] ClinicChloride [Moles/volume] in Serum or PlasmaOrdered By: Vaishali Ferrera on 08-21-2023 Chloride [Moles/Vol]106 mmol/I31-268LdgiskhdkCleveland ClinicColor Auto (U)Ordered By: Vaishali Ferrera on 10-22-0196Fkvhs (U)YellowYellowCleveland ClinicCreatinine [Mass/volume] in Serum or PlasmaOrdered By: Vaishali Ferrera on 73-16-7883Ckjhwuzore [Mass/Vol]0.66 mg/dL0.60-1.20C[facility] ClinicEosinophils Auto (Bld) [#/Vol]Ordered By: Vaishali Ferrera on 17-79-1186Xsljmtpamef (Bld) [#/Vol]0.1 10*3/uL0.0-0.45C[facility] ClinicEosinophils/100 WBC Auto (Bld)Ordered By: Vaishali Ferrera on 81-63-0998Dkxtzjrzefr/100 WBC (Bld)1.1 %.[facility] Erythrocyte distribution width Auto (RBC) [Ratio]Ordered By: Vaishali Ferrera on 11-99-5287Sbhcxugewce distribution width (RBC) [Ratio]13.4 %11.9-15.3FParkview HealthGlobulin Calc (S) [Mass/Vol]Ordered By: Vaishali Ferrera on 34-26-5424Xxxxhgtr (S) [Mass/Vol]2.8 g/dLCleveland Clinic Glucose [Mass/volume] in Serum or PlasmaOrdered By: Vaishali Ferrera on 93-86-4537Qxkvmjk [Mass/Vol]93 mg/uT89-449GycyzhuzjCleveland Clinic Comment on above:ADA recommended reference rangeRandom Glucose Reference Range is dependent on time and content of last meal. Glucose of more than 200 mg/dL in a nonstressed, ambulatory subject supports the diagnosisof Diabetes Mellitus. HCG ( test) IA.rapid Ql (U)Ordered By: Vaishali Ferrera on 75-42-4206HTK ( test) Ql (U)NegativeCleveland ClinicHematocrit Auto (Bld) [Volume fraction]Ordered By: Vaishali Ferrera on 00-65-7039Rweyfzvvdu (Bld) [Volume fraction]40.9 %34.0-46.4FParkview Health Hemoglobin [Mass/volume] in BloodOrdered By: Vaishali Ferrera on 08-21-2023 Hemoglobin (Bld) [Mass/Vol]13.7 g/dL11.8-15.4FParkview Health Ketones Auto test strip (U) [Mass/Vol]Ordered By: Vaishali Ferrera on 08-21-2023 Ketones (U) [Mass/Vol]NegativeNegativeCleveland Clinic Leukocytes [#/volume] corrected for nucleated erythrocytes in Blood by Automated counOrdered By: Vaishali Ferrera on 81-26-3591HEL corrected for nucl RBC Auto (Bld) [#/Vol]8.6 10*3/uL3.8-11.6FParkview HealthLipase [Enzymatic activity/volume] in Serum or PlasmaOrdered By: Vaishali Ferrera on 86-17-2812Uszvbn [Catalytic activity/Vol]11.0 U/L11.0-82.0C[facility] ClinicLymphocytes Auto (Bld) [#/Vol]Ordered By: Vaishali Ferrera on 35-01-9874Hwbcuukmpoy (Bld) [#/Vol]2.3 10*3/uL1.00-4.8C[facility] ClinicLymphocytes/100 WBC Auto (Bld)Ordered By: Vaishali Ferrera on 08-21-2023 Lymphocytes/100 WBC (Bld)27.0 %.[facility] CenterH Auto (RBC) [Entitic mass]Ordered By: Vaishali Ferrera on 32-02-6997OHJ (RBC) [Entitic mass] 28.8 pg24.7-34.3FParkview HealthMCHC Auto (RBC) [Mass/Vol] Ordered By: Vaishali Ferrera on 06-02-9141DPVU (RBC) [Mass/Vol]33.5 g/dL32.0-35.0 [facility] ClinicMCV Auto (RBC) [Entitic vol]Ordered By: Vaishali Ferrera on 05-20-2821UWE (RBC) [Entitic vol]86.0 pC63-690AcngkrsdcCleveland ClinicMagnesium [Mass/volume] in Serum or PlasmaOrdered By: Vaishali Ferrera on 37-68-9083Ipllmpgaa [Mass/Vol]1.9 mg/dL1.9-2.7FParkview HealthMonocyte distribution width [Entitic volume] in Blood by AutomatedOrdered By: Vaishali Ferrera on 39-24-9363Vptnuqtk distribution width Auto (Bld) [Entitic vol]21.13 %0.00-20.00[facility] Comment on above:For adults in ED, MDW > 20.0 may be associated with a higher risk of sepsis during the first 12 hrs of hospital admissionMonocytes Auto (Bld) [#/Vol]Ordered By: Vaishali Ferrera on 17-57-4266Siqrqsals (Bld) [#/Vol]0.5 10*3/uL0.0-0.8C[facility] ClinicMonocytes/100 WBC Auto (Bld) Ordered By: Vaishali Ferrera on 91-72-0312Jumgicnwm/100 WBC (Bld)6.2 %.[facility] ClinicMucus LM Ql (Urine sed)Ordered By: Vaishali Ferrera on 90-81-0580Wiyqc Ql (Urine sed)3+ [LPF][facility] Neutrophils Auto (Bld) [#/Vol]Ordered By: Vaishali Ferrera on 08-21-2023 Neutrophils (Bld) [#/Vol]5.6 10*3/uL1.8-7.7FParkview Health Neutrophils/100 WBC Auto (Bld)Ordered By: Vaishali Ferrera on 08-21-2023 Neutrophils/100 WBC (Bld)64.7 %.[facility] ClinicNitrite Test strip Ql (U)Ordered By: Vaishali Ferrera on 75-04-7940Fcrtvgc Ql (U)Negative NegativeCleveland ClinicNo Panel InformationOrdered By: Vaishali Ferrera on 02-70-9881Oulwncloo GFR (CKD-EPI)> 60.0 mL/MinCleveland ClinicPharmacy Creatinine Clearance (Zgjt384.57C[facility] ClinicNucleated erythrocytes [Presence] in Blood by Automated countOrdered By: Vaishali Ferrera on 21-36-0127[place] RBC Auto Ql (Bld)0.0 /100{WBC}0-0.5FParkview HealthPlatelet mean volume Auto (Bld) [Entitic vol]Ordered By: Vaishali Ferrera on 98-26-0130Qngwrceq mean volume (Bld) [Entitic vol]8.1 fL6.3-10.7FParkview HealthPlatelets Auto (Bld) [#/Vol]Ordered By: Vaishali Ferrera on 37-54-8936Mfnsmzsot (Bld) [#/Vol]403 10*3/tO142-070OfjhcdtcuCleveland ClinicPotassium [Moles/volume] in Serum or PlasmaOrdered By: Vaishali Ferrera on 93-61-3224Wcgeqlwhr [Moles/Vol]3.9 mmol/L3.5-5.1FParkview HealthProtein Auto test strip (U) [Mass/Vol]Ordered By: Vaishali Ferrera on 24-67-6010Girfygt (U) [Mass/Vol]Trace mg/dLNegativeCleveland ClinicProtein [Mass/volume] in Serum or PlasmaOrdered By: Vaishali Ferrera on 17-66-7275Ayceqzu [Mass/Vol]7.5 g/dL6.4-8.9 [facility] ClinicRBC Auto (Bld) [#/Vol]Ordered By: Vaishali Ferrera on 40-82-6308XLM (Bld) [#/Vol]4.75 10*6/uL3.60-5.00Hol[facility] Hospitalerum or plasma albumin/globulin mass ratioOrdered By: Vaishali Ferrera on 54-77-1605Fcehrjv/Globulin [Mass ratio]1.7 {ratio}[facility] Hospitalerum or plasma anion gap determinationOrdered By: Vaishali Ferrera 16-47-9594Zzjhh gap [Moles/Vol]9.6 mmol/L6.0-15.0Hol[facility] Hospitalerum or plasma non-glucuronidated bilirubin measurement (mass/volume) Ordered By: Vaishali Ferrera on 31-94-7632Ugwcykdef.indirect [Mass/Vol]0.3 mg/dL [facility] Hospitalodium [Moles/volume] in Serum or PlasmaOrdered By: Vaishali Ferrera 40-47-8228Qyocbl [Moles/Vol]139 mmol/P354-263GiebuzkziHolzer Hospitalpecific gravity Auto test strip (U) [Rel density]Ordered By: Vaishali Ferrera on 44-30-8681Wmnugsem gravity (U) [Rel density]1.029 1.001-1.030[facility] ClinicUrea nitrogen [Mass/volume] in Serum or PlasmaOrdered By: Vaishali Ferrera on 42-92-8927Mpzm nitrogen [Mass/Vol]9 mg/dL7-25C[facility] ClinicUrine bacteria detection by automated methodOrdered By: Vaishali Ferrera on 32-81-3984Twgjtdjf Auto Ql (U)3+None Seen [facility] ClinicUrine clarity by refractometry automatedOrdered By: Vaishali Ferrera on 60-09-5614Udmjhmi Refractometry automated (U)CloudyClear Cleveland ClinicUrine glucose measurement by automated test strip (mass/volume)Ordered By: Vaishali Ferrera on 79-67-3463Bnivxui Auto test strip (U) [Mass/Vol]Normal mg/dLNoWilson HealthUrine hemoglobin detection by automated test stripOrdered By: Vaishali Ferrera on 37-56-8393Exgzzgtfpw Auto test strip Ql (U)NegativeNegOhioHealth Grove City Methodist HospitalUrine leukocyte esterase detection by automated test stripOrdered By: Vaishali Ferrera on 53-21-0046Ahptkfdyz esterase Auto test strip Ql (U) NegativeNegOhioHealth Grove City Methodist HospitalUrobilinogen Auto test strip (U) [Mass/Vol]Ordered By: Vaishali Ferrera on 05-03-6700Qivvwfnkqssi (U) [Mass/Vol]Normal mg/dLNoWilson HealthWBC Auto (Bld) [#/Vol]Ordered By: Vaishali Ferrera on 49-48-0808RTS (Bld) [#/Vol]8.6 10*3/uL 3.8-11.6FParkview HealthpH Auto test strip (U)Ordered By: Vaishali Ferrera on 23-52-2176zN (U)8.0 [pH]5.0-9.0[facility] ClinicQuick Strepon 05-01-2023S. pyogenes Org specific cx Ql (Throat)Positive Kahub Other Quick StrepNoQuorum Other [id number]-MrP-2 (COVID-19) RNA ÓSCAR+probe Ql (Resp)on 63-07-4037HKDF-CoV-2 (COVID-19) RNA ÓSCAR+probe Ql (Unsp spec)NegativeNoQuorum Other Quick Strepon 09-04-2023S. pyogenes Org specific cx Ql (Throat)PositiveNoQuorum Other Quick StrepNoQuorum Other Choriogonadotropin.beta subunit [Units/volume] in Serum or PlasmaOrdered By: Kalani Metcalf on 59-83-9710YPQ.beta subunit Qn m[IU]/mLCleveland ClinicComment on above:Approximate Approximate hCG Gestational Age Range (mIU/ml) (weeks)0.2-1 5-50 1-2 50-500 2-3 100-5,000 3-4 500-10,000 4-5 1,000-50,000 5-6 10,000-100,000 6-8 15,000-200,000 8-12 10,000-100,000Choriogonadotropin.beta subunit [Units/volume] in Serum or PlasmaOrdered By: Kalani Metcalf on 18-92-4352WCK.beta subunit Qnm[IU]/mL Cleveland ClinicComment on above:Approximate Approximate hCG Gestational Age Range (mIU/ml) (weeks)0.2-1 5-50 1-2 50-500 2-3 100-5,000 3-4 500-10,000 4-5 1,000-50,000 5-6 10,000-100,000 6-8 15,000-200,000 8-12 10,000-100,000Automated erythrocytes count in urine sediment (number/area) Ordered By: Vaishali Ferrera on 94-16-3331YBN Auto (Urine sed) [#/Area]5-9 [HPF] 0-4FParkview HealthAutomated leukocytes count in urine sediment (number/area)Ordered By: Vaishali Ferrera on 27-46-4839TES Auto (Urine sed) [#/Area]5-9 [HPF]0-4FParkview HealthAutomated urine hyaline casts count (number/volume)Ordered By: Vaishali Ferrera on 83-46-0173Sfvcipj casts Auto (U) [#/Vol]5-9 [LPF]0-1FParkview HealthBilirubin Test strip Ql (U)Ordered By: Vaishali Ferrera on 78-81-9392Cpgdbluqe Ql (U) NegativeNegativeCleveland ClinicCasts typing in urine sediment by light microscopyOrdered By: Vaishali Ferrera on 52-81-2148Iqqjl LM Nom (Urine sed)N/AFParkview HealthColor Auto (U)Ordered By: Vaishali Ferrera on 42-05-1098Tokfp (U)YellowYellowCleveland ClinicHCG ( test) IA.rapid Ql (U)Ordered By: Vaishali Ferrera on 78-18-7034BJA ( test) Ql (U)NegativeCleveland ClinicKetones Auto test strip (U) [Mass/Vol]Ordered By: Vaishali Ferrera on 12-19-0912Ttpfztn (U) [Mass/Vol]TraceNegativeCleveland ClinicNitrite Test strip Ql (U)Ordered By: Vaishali Ferrera on 22-64-7476Llxzkmz Ql (U)NegativeNegative Cleveland ClinicProtein Auto test strip (U) [Mass/Vol]Ordered By: Vaishali Ferrera on 13-76-2380Zqxxvak (U) [Mass/Vol]Trace mg/dLNegative Holzer Hospitalpecific gravity Auto test strip (U) [Rel density]Ordered By: Vaishali Ferrera on 00-91-0124Hmkebyvc gravity (U) [Rel density]1.0251.001-1.030Holzer Hospitalquamous epithelial cells detection in urine sediment by light microscopyOrdered By: Vaishali Ferrera on 05-63-7919Jmpgrgqudc cells.squamous LM Ql (Urine sed)3-4 [HPF]0-2FParkview HealthUrine bacteria detection by automated methodOrdered By: Vaishali Ferrera on 78-45-9061Wkiapbgv Auto Ql (U)1+None SeenCleveland ClinicUrine clarity by refractometry automatedOrdered By: Vaishali Ferrera on 80-49-4604Sgazzto Refractometry automated (U)ClearClearFParkview HealthUrine culture routineOrdered By: Vaishali Ferrera on 56-13-4973Nmaglxjz identified Cx Nom (U)2 DaysCleveland Clinic Urine glucose measurement by automated test strip (mass/volume)Ordered By: Vaishali Ferrera on 96-71-1708Uucaizv Auto test strip (U) [Mass/Vol]Normal mg/dL NormalCleveland ClinicUrine hemoglobin detection by automated test stripOrdered By: Vaishali Ferrera on 88-42-0726Ffrjmjxyhk Auto test strip Ql (U)NegativeNegativeCleveland ClinicUrine leukocyte esterase detection by automated test stripOrdered By: Vaishali Ferrera on 01-02-2023 Leukocyte esterase Auto test strip Ql (U)2+NegativeCleveland ClinicUrobilinogen Auto test strip (U) [Mass/Vol]Ordered By: Vaishali Ferrera on 47-09-5990Yxdfptfzdxnu (U) [Mass/Vol]Normal mg/dLNormalCleveland ClinicpH Auto test strip (U)Ordered By: Vaishali Ferrera on 06-01-2831wS (U)8.0 [pH]5.0-9.0[facility] ClinicQuick Strepon 07-05-2022S. pyogenes Org specific cx Ql (Throat)PositiveHornbeak SensorLogic Other Quick StrepHornbeak SensorLogic Other Urinalysis - DIPSTICKon 43-05-5620Hrudvxvonp (U)clear Kahub Other Bilirubin Ql (U)NegativeStrands SensorLogic Other Color (U)yellowHornbeak SensorLogic Other Glucose Ql (U)NegativeStrands [employer]ensorLog[employer] Other Hemoglobin Ql (U)NegativeQuorum Other Ketones Ql (U)NegativeStrands [employer]ensorLog[employer] Other Nitrite Ql (U)NegativeStrands [employer]ensorLog[employer] Other pH (U)6.5 [pH]Kahub Other Protein Ql (U)traceHornbeak SensorLogic Other Specific gravity (U) [Rel density]1.020[facility] [employer]Log[employer] Other Urobilinogen (U) [Mass/Vol]0.2 mg/dLHornbeak SensorLogic Other Urinalysis - DIPSTICKHornbeak SensorLogic Other Urine Cultureon 51-82-7909Uojnshwj identified Cx Nom (U)[facility] Other Quick Strepon 04-23-2022. pyogenes Org specific cx Ql (Throat)PositiveHornbeak SensorLogic Other Quick StrepHornbeak SensorLogic Other Albumin [Mass/volume] in Serum or PlasmaOrdered By: Nhi Pal on 86-98-5420Gqpeyyo [Mass/Vol]3.9 g/dL3.2-5.5FParkview HealthBasophils Auto (Bld) [#/Vol]Ordered By: Nhi Pal on 02-27-2022 Basophils (Bld) [#/Vol]0.1 10*3/uL0.0-0.1FParkview Health Basophils/100 WBC Auto (Bld)Ordered By: Nhi Pal on 61-62-9198Nvpxmtmfm/100 WBC (Bld)0.6 %.C[facility] ClinicBlood hemoglobin measurement (mass/volume)Ordered By: Nhi Pal on 99-38-9541Djkkxfcztv (Bld) [Mass/Vol] 13.2 g/dL12.0-16.0C[facility] ClinicBlood leukocytes automated count (number/volume)Ordered By: Nhi Pal on 46-14-2759MZR (Bld) [#/Vol]8.1 10*3/uL4.5-13.5FParkview HealthCholesterol [Mass/volume] in Serum or PlasmaOrdered By: Nhi Pal on 94-50-0956Fqhxrzvfost [Mass/Vol]180 mg/tZ960-706ProsjgetzCleveland ClinicComment on above:Chol less than 200 mg/dl low risk Chol 201-239 mg/dl borderline risk Chol 240 mg/dl and greater high riskCholesterol in LDL Calc [Mass/Vol]Ordered By: Nhi Pal on 10-49-0793Olcnjgtetrm in LDL [Mass/Vol]124 mg/dL0-100 [facility] ClinicComment on above:LDL ATP III CLASSIFICATION LDL less than 100 mg/dL Optimal LDL 100-129 mg/dL Near or above optimal LDL 130-159 mg/dL Borderline high LDL 160-189 mg/dL High LDL greater than 189 mg/dL Very highCholesterol in VLDL Calc [Mass/Vol]Ordered By: Nhi Pal on 26-57-9158Zltusxslxfu in VLDL [Mass/Vol]18 mg/dLCleveland ClinicCreatinine and Glomerular filtration rate.predicted panel (S/P/Bld)Ordered By: Nhi Pal on 60-02-7697Lcfvfntycy [Mass/Vol]0.60 mg/dL 0.44-1.03C[facility] ClinicEosinophils Auto (Bld) [#/Vol]Ordered By: Nhi Pal on 30-04-7829Nnnnwtrrbvu (Bld) [#/Vol]0.1 10*3/uL0.0-0.7 [facility] ClinicEosinophils/100 WBC Auto (Bld)Ordered By: Nhi Pal on 27-89-1500Tadztznsnjs/100 WBC (Bld)1.0 %.C[facility] ClinicErythrocyte distribution width Auto (RBC) [Ratio]Ordered By: Nhi Pal on 97-74-6783Esertphzviv distribution width (RBC) [Ratio]13.6 %11.9-15.3 [facility] ClinicEstimated glomerular filtration rate (GFR) non- AmericanOrdered By: Nhi Pal on 83-49-5328FFL/1.73 sq M.predicted among non-blacks MDRD (S/P/Bld) [Vol rate/Area]> 60 mL/MinCleveland ClinicGlobulin Calc (S) [Mass/Vol]Ordered By: Nhi Pal on 02-27-2022 Globulin (S) [Mass/Vol]2.7 g/dLCleveland ClinicHematocrit Auto (Bld) [Volume fraction]Ordered By: Nhi Pal on 22-54-6358Bcbuophqak (Bld) [Volume fraction]40.4 %36.0-46.0C[facility] ClinicLaboratory - Hematology and Cell countsOrdered By: Nhi Pal on 61-27-0666Djtyrhqzx RBC/100 WBC (Bld) [Ratio]0.1 %0-0.5FParkview HealthLymphocytes Auto (Bld) [#/Vol]Ordered By: Nhi Pal on 45-21-1911Kwsfxltjyvw (Bld) [#/Vol]1.8 10*3/uL1.20-4.8Cleveland ClinicLymphocytes/100 WBC Auto (Bld)Ordered By: Nhi Pal on 70-78-6886Jzbuorvexrs/100 WBC (Bld)22.7 %. [facility] Auto (RBC) [Entitic mass]Ordered By: Nhi Pal on 45-70-5589MQP (RBC) [Entitic mass]27.8 pg25.0-35.0C[facility] ClinicMCHC Auto (RBC) [Mass/Vol]Ordered By: Nhi Pal on 02-27-2022 MCHC (RBC) [Mass/Vol]32.6 g/dL31.0-37.0C[facility] ClinicMCV Auto (RBC) [Entitic vol]Ordered By: Nhi Pal on 38-45-4756GXA (RBC) [Entitic vol]85.2 mC16-969UdexzowxqCleveland ClinicMonocytes Auto (Bld) [#/Vol] Ordered By: Nhi Pal on 38-95-5836Ourdswwtl (Bld) [#/Vol]0.5 10*3/uL0.1-1.00 [facility] ClinicMonocytes/100 WBC Auto (Bld)Ordered By: Nhi Pal on 88-09-5665Wxgoupwve/100 WBC (Bld)5.7 %.C[place] ClinicNeutrophils Auto (Bld) [#/Vol]Ordered By: Nhi Pal on 02-27-2022 Neutrophils (Bld) [#/Vol]5.7 10*3/uL1.2-7.7FParkview Health Neutrophils/100 WBC Auto (Bld)Ordered By: Nhi Pal on 02-27-2022 Neutrophils/100 WBC (Bld)70.0 %.C[facility] ClinicNo Panel InformationOrdered By: Nhi Pal on 99-73-4554Ctqoeslvx GFR ()> 60 mL/MinCleveland ClinicComment on above:GFR estimated reference range: According to KDOQI guidelines, <60 ml/min/1.73m2 is sufficient todiagnose a patient with chronic kidney disease.Pharmacy Creatinine Clearance (ChemN/CentervillePlatelet mean volume Auto (Bld) [Entitic vol]Ordered By: Nhi Pal on 73-45-1820Juogjrdf mean volume (Bld) [Entitic vol]8.6 fL6.3-10.7FParkview HealthPlatelets Auto (Bld) [#/Vol]Ordered By: Nhi Pal on 10-33-7187Dfdhacikx (Bld) [#/Vol]357 10*3/fX860-575ZzxxohoqmCleveland ClinicProtein [Mass/volume] in Serum or PlasmaOrdered By: Nhi Pal on 14-59-2828Qzupjzo [Mass/Vol]6.6 g/dL6.1-7.9 [facility] ClinicRBC Auto (Bld) [#/Vol]Ordered By: Nhi Pal on 20-10-2350ZTP (Bld) [#/Vol]4.74 10*6/uL4.10-5.10Holzer Hospitalerum or plasma alanine aminotransferase measurement without P-5'-P (enzymatic activiOrdered By: Nhi Pal on 06-42-1527NLI No additional P-5'-P [Catalytic activity/Vol]12 U/V18-58VcoanbgyuHolzer Hospitalerum or plasma albumin/globulin mass ratioOrdered By: Nhi Pal on 02-27-2022 Albumin/Globulin [Mass ratio]1.4 {ratio}Holzer Hospitalerum or plasma alkaline phosphatase measurement (enzymatic activity/volume)Ordered By: Nhi Pal on 00-93-3423AQJ [Catalytic activity/Vol]79 U/G88-46EgceeviucHolzer Hospitalerum or plasma anion gap determinationOrdered By: Nhi Pal on 50-18-8365Htync gap [Moles/Vol]13.7 mmol/L6.0-15.0Holzer Hospitalerum or plasma aspartate aminotransferase measurement (enzymatic activity/volume)Ordered By: Nhi Pal on 76-40-4831DIE [Catalytic activity/Vol]14 U/H46-51NtqswgcdkHolzer Hospitalerum or plasma calcium measurement (mass/volume)Ordered By: Nhi Pal on 97-46-1185Pceupqd [Mass/Vol]9.5 mg/dL8.2-10.2FWVUMedicine Barnesville Hospitalerum or plasma chloride measurement (moles/volume)Ordered By: Nhi Pal on 02-27-2022 Chloride [Moles/Vol]101 mmol/W63-641CmrroxbchHolzer Hospitalerum or plasma glucose measurement (mass/volume)Ordered By: Nhi Pal on 02-27-2022 Glucose [Mass/Vol]83 mg/gS03-547AidbcdhnrCleveland ClinicComment on above:ADA recommended reference range Random Glucose Reference Range is dependent on time and content of last meal. Glucose of more than 200 mg/dL in a nonstressed, ambulatory subject supports the diagnosis of Diabetes Mellitus.Serum or plasma high density lipoprotein (HDL) cholesterol measurementOrdered By: Nhi Pal on 24-48-5333Ihzifhyiqhj in HDL [Mass/Vol]38 mg/lZ85-89FkovvvdfzCleveland ClinicComment on above:HDL CHOL ATP-III CLASSIFICATION Cardiovascular Risk HDL > or equal to 60 mg/dL LOW HDL < 40 mg/dL HIGHSerum or plasma potassium measurement (moles/volume)Ordered By: Nhi Pal on 54-57-7812Uslktjiba [Moles/Vol]4.2 mmol/L3.5-5.1FWVUMedicine Barnesville Hospitalerum or plasma sodium measurement (moles/volume)Ordered By: Nhi Pal on 45-02-2307Izeyln [Moles/Vol]135 mmol/Z021-226ZdlvhpwpfHolzer Hospitalerum or plasma total bilirubin measurement (mass/volume) Ordered By: Nhi Pal on 77-47-6474Ectmpohki [Mass/Vol]0.4 mg/dL0.3-1.2 Holzer Hospitalerum or plasma total carbon dioxide measurement (moles/volume)Ordered By: Nhi Pal on 37-39-9033SN4 [Moles/Vol] 24.5 mmol/L22.0-30.0Holzer Hospitalerum or plasma total cholesterol/high density lipoprotein (HDL) cholesterol mass ratOrdered By: Nhi Pal on 62-81-6681Zgivahajdky.total/Cholesterol in HDL [Mass ratio]4.7 {ratio}<5.0Holzer Hospitalerum or plasma urea nitrogen measurement (mass/volume)Ordered By: Nhi Pal on 48-03-3224Ejln nitrogen [Mass/Vol]8 mg/dL9-23C[facility] ClinicTS DL <= 0.005 mIU/L Qn Ordered By: Nhi Pal on 01-58-7568YJZ Qn1.29 m[IU]/L0.45-5.33C[facility] ClinicTriglyceride [Mass/volume] in Serum or PlasmaOrdered By: Nhi Pal on 35-83-2045Mtzglykfzoqd [Mass/Vol]92 mg/rQ14-309TgmhxryhxCleveland ClinicComment on above:TRIG ATP III CLASSIFICATION TRIG less than 150 mg/dL Normal TRIG 150-199 mg/dL Borderline high TRIG 200-500 mg/dL High TRIG greater than 500 mg/dL Very high Standard traceable to the Center for Disease Conrtrol and Prevention (CDC) test method.CBC AUTO DIFFon 98-03-8705QTZQ #0.0 103/ulNormal0.0-0.1The [facility] HospitalComment on above:Performed By: #### CBC #### [facility] [address] [address] [address] Declan ReeceBasophils/100 WBC (Bld)0.3 %Normal0.2-2.0The [facility] Comment on above:Performed By: #### CBC #### [facility] [address] [place], [place] [address] Dr. Declan Barba #0.0 103/ulNormal0.0-0.7The [facility] HospitalComment on above: Performed By: #### CBC #### [facility] [address] [address] [address] Declan Oroscoosinophils/100 WBC (Bld)0.3 %Critically low0.9-7.0The [facility] HospitalComment on above:Performed By: #### CBC #### [facility] [address] [place] [address] Dr. Declan Oroscorythrocyte distribution width (RBC) [Ratio]13.0 %Tysoca15.0-15.0 The [facility] HospitalComment on above:Performed By: #### CBC #### [facility] [address] [place] [address] Dr. Declan ReeceHematocrit (Bld) [Volume fraction]43.0 %Ohunvs57.0-48.0[facility]tering Health DaytonComment on above:Performed By: #### CBC #### [facility] [address] [place] [address] Dr. Declan ReeceHemoglobin (Bld) [Mass/Vol]13.8 g/iDVmxkhy46.0-16.0[facility] DaytonComment on above:Performed By: #### CBC #### [facility] [address] [place] [address] Dr. Declan Neal #0.03 10e3/ulNormal0.00-0.03The [facility] HospitalComment on above:Performed By: #### CBC #### [facility] [address] [place] [address] Dr. Declan Neal %0.3 %Normal0.0-0.5The [facility] HospitalCommymichigan medical center gladwin on above: Performed By: #### CBC #### [facility] [address] [place] [address] Dr. Declan Raya #1.9 103/ulNormal1.2-3.8The [facility] HospitalComment on above:Performed By: #### CBC #### [facility] [address] [place] [address] Dr. Declan Mendezmphocytes/100 WBC (Bld)16.6 %Critically low20.5-60.0The [facility] HospitalComment on above:Performed By: #### CBC #### [facility] [address] [place] [address] Dr. Declan FreireUAL DIFF REQNONormalThe [facility] HospitalComment on above: Performed By: #### CBC #### [facility] [address] [place] [address] Dr. Declan Shetty (RBC) [Entitic mass]27.4 gfIrhymr75.7-34.0The [facility] HospitalComment on above:Performed By: #### CBC #### [facility] [address] [place] [address] Dr. Declan Shetty (RBC) [Mass/Vol]32.1 g/aJByknna25.9-35.2The [facility] HospitalComment on above:Performed By: #### CBC #### [facility] [address] [place] [address] Dr. Declan Shetty (RBC) [Entitic vol]85.3 sNCxigix98.0-99.0The [facility] HospitalComment on above:Performed By: #### CBC #### [facility] [address] [place] [address] Dr. Declan Desai #0.7 103/ulNormal0.3-0.8The [facility] HospitalComment on above:Performed By: #### CBC #### [facility] [address] [place] [address] Dr. Declan Castroocytes/100 WBC (Bld)6.3 %Normal1.7-12.0[facility] Comment on above:Performed By: #### CBC #### [facility] [address] [place] [address] Dr. Declan Santos #8.8 103/ulCritically high1.4-6.5The [facility] Comment on above:Performed By: #### CBC #### [facility] [address] [place] [address] Dr. Declan Boucherutrophils/100 WBC (Bld)76.2 %Critically high43.0-75.0The [facility] HospitalComment on above:Performed By: #### CBC #### [facility] [address] [place] [address] Dr. Yilan ChangPlatelet mean volume (Bld) [Entitic vol]9.6 fLNormal9.5-13.5The [facility] HospitalComment on above:Performed By: #### CBC #### [facility] [address] [place] [address] Dr. Declan NeffT463 103/ulCritically jwnn771-427Duy [facility] HospitalComment on above:Performed By: #### CBC #### [facility] [address] [place] [address] Dr. Declan ReeceRBC5.04 106/ulNormal4.20-5.40The [facility] HospitalComment on above:Performed By: #### CBC #### [facility] [address] [place] [address] Dr. Declan ReeceWBC11.5 103/ulCritically high4.0-11.0The [facility] HospitalComment on above:Performed By: #### CBC #### [facility] [address] [place] [address] Dr. Declan Gonzáles 14(COMP METB)on 94-48-8644Dlwbuks [Mass/Vol]3.9 g/dLNormal 3.5-5.0The [facility] HospitalComment on above:Performed By: #### CMP #### [facility] [address] [place] [address] Dr. Declan ReeceAlbumin/Globulin [Mass ratio]0.9 {ratio}NormalThe [facility] HospitalComment on above:Performed By: #### CMP #### [facility] [address] [place] [address] Dr. Declan Winters [Catalytic activity/Vol]100 U/YGncnsw09-690Rtp [facility] HospitalComment on above:Performed By: #### CMP #### [facility] [address] [place] [address] Dr. Declan Grayson [Catalytic activity/Vol]38 U/LNormal9-52The [facility] on above:Performed By: #### CMP #### [facility] [address] [place] [address] Dr. Yilan ChangAnion gap [Moles/Vol]11.6 mmol/LNormalKettering Health Dayton Comment on above:Performed By: #### CMP #### [facility] [address] [address] [address] Declan ReeceAST [Catalytic activity/Vol]19 U/BPahrpj11-23Mgb [facility] HospitalComment on above:Performed By: #### CMP #### [facility] [address] [address] [address] Declan ReeceBilirubin [Mass/Vol]0.6 mg/dLNormal0.2-1.3The [facility] Comment on above:Performed By: #### CMP #### [facility] [address] [place] [address] Dr. Declan ReeceCalcium [Mass/Vol]9.4 mg/dLNormal8.4-10.2[facility] Comment on above:Performed By: #### CMP #### [facility] [address] [place] [address] Dr. Declan ReeceChloride [Moles/Vol]103 mmol/RCizsty96-361Xoh [facility] Comment on above:Performed By: #### CMP #### [facility] [address] [place] [address] Dr. Declan ReeceCO2 [Moles/Vol]27.2 mmol/TWsefiy17.0-30.0[facility] Comment on above:Performed By: #### CMP #### [facility] [address] [place] [address] Dr. Declan ReeceCreatinine [Mass/Vol]0.70 mg/dLNormal0.52-1.04The [facility] HospitalComment on above:Performed By: #### CMP #### [facility] [address] [place] [address] Dr. Declan OroscoGFR-AF SIERRA LEONEAN>60Normal>=60The [facility] HospitalComment on above:Performed By: #### CMP #### [facility] [address] [place] [address] Dr. Declan OroscoGFR-NON AF SIERRA LEONEAN>60Normal>=60The [facility] HospitalComment on above:Performed By: #### CMP #### [facility] [address] [address] [address] Declan ReeceGlobulin (S) [Mass/Vol]4.3 g/dLNormSelect Medical Specialty Hospital - Southeast OhioComment on above:Performed By: #### CMP #### [facility] [address] [address] [address] Declan ReeceGlucose [Mass/Vol]108 mg/dLCritically iocm78-827Qmi [facility] HospitalComment on above:Performed By: #### CMP #### [facility] [address] [address] [address] Declan ReecePotassium [Moles/Vol]3.8 mmol/LNormal3.4-5.0[facility] Comment on above:Performed By: #### CMP #### [facility] [address] [address] [address] Declan ReeceProtein [Mass/Vol]8.2 g/dLNormal6.1-8.2[facility] Comment on above:Performed By: #### CMP #### [facility] [address] [address] [address] Declan ReeceSodium [Moles/Vol]138 mmol/RVydbso034-050FkvKettering Health Dayton Comment on above:Performed By: #### CMP #### [facility] [address] [address] [address] Declan ReeceUrea nitrogen [Mass/Vol]15.0 mg/dLNormal6.4-19.3TMercy Health Fairfield HospitalComment on above:Performed By: #### CMP #### [facility] [address] [address] [address] Declan ReeceUrea nitrogen/Creatinine [Mass ratio]21.4 mg/mgNoHenry County HospitalComment on above:Performed By: #### CMP #### [facility] [address] [address] [address] Declan ReecePOINT OF CARE GLUCOSEon 05-89-0178Zlyuzat [Mass/Vol]97 mg/dL Cdrpmw21-263Dij [facility] HospitalComment on above:Performed By: #### POCGLUC #### [facility] [address] [place] [address] Dr. Declan ReecePREBrad HCG QUALon 10-10-5275YNOHFBFYG, QUALNegativeNormalNEGATIVE The [facility] HospitalComment on above:Performed By: #### PREG #### [facility] [address] [place] [address] Dr. Declan ReeceCovid-19 PCR (CVDTB)on 69-96-1605UBXQ-CoV-2 (COVID-19) RNA ÓSCAR+probe Ql (Unsp spec)Not detectedNormalNOT DETECTEDThe [facility] Comment on above:Result Comment: This test is not yet approved or cleared by the [place] FDA. When there are no FDA-approved or cleared tests available, and other criteria are met, FDA can make tests available under an emergency access mechanism called an Emergency Use Authorization (EUA). The EUA for this test is supported by the [place] of Health and Human Service's (HHS's) declaration that circumstances exist to justify the emergency use of in vitro diagnostics for the detection and/or diagnosis of the virus that causes COVID- 19. This EUA will remain in effect (meaning this test can be used) for the duration of the COVID-19 declaration justifying emergency of IVDs, unless it is terminated or revoked by FDA (after which the test may no longer be used). When diagnostic testing is negative, the possibility of a false negative should be considered in the context of a patient's recent exposures and the presence of clinical signs and symptoms consistent with SARS-CoV-2.Performed By: #### CVDTBH #### [facility] [address] [place] [address] Dr. Declan ReeceMRI ANKLE RT WO CONon [id number] ANKLE RT WO CONEXAM: MRI ANKLE RT WO CON HISTORY: Instability of joint of right ankle, chronic pain in the right ankle, prior sprain. Evaluate for peroneal tendon injury. COMPARISON: Right ankle x-rays 03/15/2021. TECHNIQUE: Multiplanar multisequence MRI of the right ankle was performed without contrast. This included axial T1, axial T2, axial oblique PD fat-sat, coronal T1, coronal T2, sagittal PD fat-sat, sagittal T2 and sagittal T1 imaging FINDINGS: JOINTS: No talar dome osteochondral lesion is seen. The talonavicular and calcaneocuboid joints appear preserved. Subtalar joints appear preserved. BONES: As seen, no focal bone marrow edema is identified. No T1 fracture line is noted. LIGAMENTS: ATFL is thickened presumably related to scar from prior sprain. Thickening of the calcaneofibular ligament is also noted. Posterior talofibular ligament is intact. The deep and superficial fibers of the deltoid ligament are intact. Superior medial band of the spring ligament is identified and is intact. The anterior and posterior tibiofibular ligaments are intact. TENDONS: The peroneus longus tendon is slightly attenuated and irregular at the anterior process of the calcaneus suggesting a partial tear. Peroneus brevis tendon is intact. No tenosynovitis. Flexor and extensor tendons appear preserved. Achilles tendon is intact. SINUS TARSI: Normal fat signal is seen sinus tarsi. PLANTAR FASCIA: Plantar fascia is intact. No adjacent soft tissue or bone marrow edema identified. TARSAL TUNNEL: No mass lesion in tarsal tunnel is identified. IMPRESSION: 1. Low to intermediate grade partial tear of the peroneus longus tendon at the level the anterior process of the calcaneus. No tenosynovitis. 2. Thickening of the ATFL and calcaneofibular ligament suggesting scar from prior sprain. No acute ligamentous injury. 3. No fracture. 2 Electronically authenticated by: DEAN ABARCA Date: 2021-06-03 08:57[facility] Vital Signs Date TimeVital SignValuePerforming AzhysjqaqWhefmgzt92-26-4896 17:52-0400Body zofuit040.64 cmKalani ROMEROC Work Phone: [facility]06-05-2025 17:52-0400 Body mass index (BMI) [Ratio]41.9 kg/l9MnegacfhKalani Metcalf NP-C Work Phone: [facility]06-05-2025 17:52-0400 Body xircabuutpg04.4 [degF]Kalani Metcalf NP-C Work Phone: [phone])[address]06-05-2025 17:52-0400 Body ikequd383.93 kgKalani Dixon [employer] Work Phone: 1(630)[address] [place], [place] 4204906-05-2025 17:52-0400 Diastolic blood vimrmjda49 mm[Hg]Kalani Metcalf [employer] Work Phone: 1(971)[address] [place], [place] 4204906-05-2025 17:52-0400 Heart rate99 /Rameshdashawn Metcalf [employer] Work Phone: 1(830)[address] [place], [place] 4204906-05-2025 17:52-0400 Respiratory rate16 /Jeanetteyaodashawn Dixon [employer] Work Phone: 1(786)[address] [place], [place] 4204906-05-2025 17:52-0400 SaO2% (BldA) [Mass fraction]96 %Kalani Metcalf [employer] Work Phone: 1(765)[address] [place], [place] 4204906-05-2025 17:52-0400 Systolic blood onnnisqe114 mm[Hg]Kalani Metcalf [employer] Work Phone: 1(796)[address]04-23-2025 13:28-0400 Body mass index (BMI) [Ratio]40.51 kg/a7MjsdkJann Urrutia MD Work Phone: [facility] CenterAmkthhwnhh49-46-9994 13:28-0400Body auqhbs815.85 kgJann Urrutia MD Work Phone: [facility] CenterZkkaorwiuy44-74-8418 13:28-0400Diastolic blood ampwdglz04 mm[Hg]Jann Urrutia MD Work Phone: [facility] CenterRuysnyvavt21-37-5634 13:28-0400Systolic blood mucmvram761 mm[Hg]Jann Urrutia MD Work Phone: [facility] CenterPkjoxpbhol72-05-0202 12:27-0400Diastolic blood tttpttsy65 mm[Hg]Kalani Metcalf [employer] Work Phone: [facility]04-09-2025 12:27-0400 Heart rate98 /Gudio Metcalf [employer] Work Phone: 1(823)[address]04-09-2025 12:27-0400 Respiratory rate16 /Guido Metcalf [employer] Work Phone: 1(794)[address] [place], [place] 0391104-09-2025 12:27-0400 SaO2% (BldA) [Mass fraction]98 %Kalani Kingson [employer] Work Phone: 1(185)[address]04-09-2025 12:27-0400 Systolic blood leuvelqy625 mm[Hg]Kalani Metcalf [employer] Work Phone: 1(404)[address] [place], [place] 0391104-09-2025 10:42-0400 Body iuicfhwalus59.4 [degF]Kalani Metcalf [employer] Work Phone: 1(332)[address] [place], [place] 0391104-09-2025 10:17-0400 Inhaled oxygen flow rate8 L/minKalani Metcalf [employer] Work Phone: 1(972)[address] [place], [place] 0391104-09-2025 05:05-0400 Body .64 cmKalani Metcalf [employer] Work Phone: 1(732)[address]04-09-2025 05:05-0400 Body xvwxuz659.4 kgKalani Metcalf [employer] Work Phone: 1(133)[address]01-23-2025 09:30-0500 Body mass index (BMI) [Ratio]43.09 kg/w4Xxojg Denys DO Work Phone: [facility] CenterVzpvaaflzy41-79-4397 09:30-0500Body nauggz163.11 kgCorey Denys DO Work Phone: [facility] CenterWetudqwbbt46-03-5227 09:30-0500Diastolic blood waeglyxg75 mm[Hg]Tino Denys DO Work Phone: [facility] CenterJbvryvwxvi29-88-4786 09:30-0500Systolic blood mm[Hg]Tino Denys DO Work Phone: 1(612)049-[facility]ly [facility], 1928–198[address] CenterErlsvmuznz70-18-4645 09:56-0500Body mass index (BMI) [Ratio]44.61 kg/m2Amy Donna PA Work Phone: 1(349)644-[facility], [facility]–198[address] CenterJzwxxlupms30-51-6270 09:56-0500Body ujwojz189.37 kgAmy Ayalaey PA Work Phone: 1(849)419-[facility], [facility]–198[address] CenterIispltxsti11-52-4706 09:56-0500Diastolic blood qoqsevqb49 mm[Hg]Amy Thompson PA Work Phone: 1(601)220-[address] [place], [place] [address]Elvrsxybll06-54-0018 09:56-0500Systolic blood tauszigr616 mm[Hg]Amy Thompson PA Work Phone: 1(843)832-[address] [place], [place] [address]Rcetjygfon74-45-9992 09:03-0500Body mass index (BMI) [Ratio]45.03 kg/m2Amy Pittsfield PA Work Phone: 1(466)867-[address] [place], [place] [address]Bbfxmxhyav39-19-9049 09:03-0500Body uhcogt435.55 kgAmy Pittsfield PA Work Phone: 1(213)264-[address] [place], [place] [address]Ywtgbupoqx33-36-6255 09:03-0500Diastolic blood iqohdzxh15 mm[Hg]Amy Thompson PA Work Phone: 1(480)759-[address] [place], [place] [address]Camcjjficf21-46-4937 09:03-0500Systolic blood yucxxsha990 mm[Hg] Donna PA Work Phone: 1(132)705-[address] [place], [place] [address]Vmzaodvxqh47-85-0455 11:16-0400Body .6 cmCorey Denys DO Work Phone: 1(558)[facility] [place], [place] [address]Onmwmtuesm62-82-3100 11:16-0400Body mass index (BMI) [Ratio]47.13 kg/u4Ldqhh Denys DO Work Phone: 1(076)958-[address] [place], [place] [address]Byqvvbnsjs77-52-1671 11:16-0400Body fcflyy281.45 kgCorey Denys DO Work Phone: 1(692)801-[address] [place], [place] [address]Gauobjrtvb19-76-3177 11:16-0400Diastolic blood mm[Hg]Tino Denys DO Work Phone: 1(283)[facility] [place], [place] [address]Gdoedvxojx22-84-7648 11:16-0400Systolic blood wviyaitk094 mm[Hg]Tino Denys DO Work Phone: [facility] CenterXtilfmloge09-33-9190 09:48-0400Blood Pressure LocationGregysabel ABRAHAM [facility]09-30-2024 09:48-0400Diastolic blood zkmsuwcl38 mm[Hg]Deuce ABRAHAM [facility]09-30-2024 09:48-0400Heart rate86 /minDeuce Gini.net [facility]09-30-2024 09:48-0400Respiratory rate16 /minDeuce Gini.net [facility]09-30-2024 09:48-0400Systolic blood omuukioe119 mm[Hg]Deuce ABRAHAM [facility]09-23-2024 09:10-0400Body daymhp498.91 kgCorey Denys DO Work Phone: [facility] CenterJevpelrcee19-54-4166 09:10-0400Diastolic blood kiexaqfd73 mm[Hg]Tino Denys DO Work Phone: [facility] CenterDkqynylqmw07-06-6333 09:10-0400Systolic blood baxxghwe825 mm[Hg]Tino Denys DO Work Phone: [facility] CenterPhkhuapyxj37-21-2504 04:45-0400Diastolic blood ekihtldl43 mm[Hg]MD Flavio Diaz Jr Work Phone: [facility]09-06-2024 04:45-0400 Heart rate89 /minMD Flavio Diaz Jr Work Phone: [facility]09-06-2024 04:45-0400 Respiratory rate18 /minMD Flavio Diaz Jr Work Phone: [facility]09-06-2024 04:45-0400 SaO2% (BldA) [Mass fraction]100 %MD Flavio Diaz Jr Work Phone: [facility]09-06-2024 04:45-0400 Systolic blood flbxzaqp304 mm[Hg]MD Flavio Diaz Jr Work Phone: 1(063)940-[address] [place], [place] 6255409-06-2024 02:10-0400 Body qogvqs658.64 cmMD Flavio Diaz Jr Work Phone: 1(888)[address]09-06-2024 02:10-0400 Body aqjtihcvflq19.8 [degF]MD Flavio Diaz Jr Work Phone: 1(921)[address]09-06-2024 02:10-0400 Body auxknn285.54 kgMD Flavio Diaz Jr Work Phone: 1(179)077-[address] [place], [place] 6255405-13-2024 20:10-0400 Diastolic blood jnyuijfw76 mm[Hg][employer] Kalani Metcalf Work Phone: 1(138)102-[address] [place], [place] 0206105-13-2024 20:10-0400 Heart rate91 /minNP-C Kalani Metcalf Work Phone: 1(958)396-[address] [place], [place] 0206105-13-2024 20:10-0400 Respiratory rate20 /minNP-C Kalani Metcalf Work Phone: 1(171)010-[address] [place], [place] 0206105-13-2024 20:10-0400 SaO2% (BldA) [Mass fraction]100 %[employer] Kalani Metcalf Work Phone: 1(000)080-[address] [place], [place] 0206105-13-2024 20:10-0400 Systolic blood jcejjelq835 mm[Hg][employer] Kalani Metcalf Work Phone: 1(072)781-[address] [place], [place] 0206105-13-2024 17:20-0400 Body eakenq081.64 cmNP-C Kalani Metcalf Work Phone: 1(433)468-[address] [place], [place] 0206105-13-2024 17:20-0400 Body uypzxcmcvni49.3 [degF][employer] Kalani Dixon Work Phone: 1(052)[address] [place], [place] 0391105-13-2024 17:20-0400 Body dkxcga076 kgNP-C Kalani Dixon Work Phone: 1(368)[address] [place], [place] 0391102-20-2024 21:00-0500 Diastolic blood kcdqtulg03 mm[Hg][employer] Kalani Dixon Work Phone: 1(523)[address] [place], [place] 0391102-20-2024 21:00-0500 Heart rate77 /minNP-C Kalani Dixon Work Phone: 1(731)[address] [place], [place] 0391102-20-2024 21:00-0500 Respiratory rate18 /minNP-C Kalani Dixon Work Phone: 1(740)[address] [place], [place] 0391102-20-2024 21:00-0500 SaO2% (BldA) [Mass fraction]100 %[employer] Kalani Dixon Work Phone: 1(703)[address] [place], [place] 0391102-20-2024 21:00-0500 Systolic blood fvbfygtb622 mm[Hg][employer] Kalani Dixon Work Phone: 1(648)[address] [place], [place] 0391102-20-2024 20:27-0500 Body fbbaatdumkp28.1 [degF][employer] Kalani Dixon Work Phone: 1(045)[address] [place], [place] 0391102-20-2024 16:30-0500 Body foxkjf727.64 cmNP-C Kalani Dixon Work Phone: 1(870)[address]02-20-2024 16:30-0500 Body eiogqm262.2 kgNP-C Kalani Metcalf Work Phone: 1(174)[address] [place], [place] [address]391110-31-2023 17:10-0400 Body iwtqnp043.18 cmAvargas Haney Other [employer] Other 10-31-2023 17:10-0400Body mass index (BMI) [Ratio] 40.72 kg/a1KgkocVeronique Haney Other [employer] Other 10-31-2023 17:10-0400Body grtkylqsncl86 [degF]Veronique Haney Other [employer] Other 10-31-2023 17:10-0400Body cprqyw516.94 kgVeronqiue Haney Other [employer] Other 10-31-2023 17:10-0400Diastolic blood mm[Hg] Veronique Haney Other [employer] Other 10-31-2023 17:10-0400Respiratory rate18 /minAmbjulia Haney Other [employer] Other 10-31-2023 17:10-0426ZoA8% (BldA) [Mass fraction]98 % Veronique Haney Other [employer] Other 10-31-2023 17:10-0400Systolic blood mm[Hg] Veronique Haney Other [employer] Other 09-04-2023 14:30-0400Body .18 cmThomas Og Other [employer] Other 09-04-2023 14:30-0400Body mass index (BMI) [Ratio] 40.72 kg/v1Lbsblt Og Other [employer] Other 09-04-2023 14:30-0400Body dajdbhttqiy01.3 [degF]Flavio Og Other [employer] Other 09-04-2023 14:30-0400Body .94 kgThomas Og Other [employer] Other 09-04-2023 14:30-0400Diastolic blood mpdakgso31 mm[Hg] Flavio Og Other [employer] Other 09-04-2023 14:30-0400Respiratory rate18 /minThomas Og Other [employer] Other 09-04-2023 14:30-0379QoB7% (BldA) [Mass fraction]97 % Flavio Og Other [employer] Other 09-04-2023 14:30-0400Systolic blood jikfnjfv721 mm[Hg] Flavio Og Other [employer] Other 07-04-2023 19:30-0400Diastolic blood mm[Hg] [employer] Qamar Carroll Work Phone: [facility]07-04-2023 19:30-0400 Heart rate69 /minNP-C Qamar Carroll Work Phone: [facility]07-04-2023 19:30-0400 Respiratory rate18 /minNP-C Qamar Carroll Work Phone: [facility]07-04-2023 19:30-0400 SaO2% (BldA) [Mass fraction]98 %[employer] Qamar Carroll Work Phone: [facility]07-04-2023 19:30-0400 Systolic blood mm[Hg][employer] Qamar Carroll Work Phone: [facility]07-04-2023 18:17-0400 Body uarvdn176.18 cmNP-C Qamar Carroll Work Phone: [facility]07-04-2023 18:17-0400 Body miahhmvspdw50 [degF][employer] Qamar Carroll Work Phone: [facility]07-04-2023 18:17-0400 Body edukov025.95 kgNP-C Qamar Carroll Work Phone: [facility]06-25-2023 13:45-0400 Body kyptzm470.18 cmCgriselda Horne Other [employer] Other 06-25-2023 13:45-0400Body mass index (BMI) [Ratio] 40.72 kg/q1ZoutxbNitin Horne Other [employer] Other 06-25-2023 13:45-0400Body ghvyvfljght02.9 [degF]Nitin Horne Other [employer] Other 06-25-2023 13:45-0400Body tiotbz728.94 kgNitin Horne Other [employer] Other 06-25-2023 13:45-0400Diastolic blood mmbyswzu12 mm[Hg] Nitin Horne Other [employer] Other 06-25-2023 13:45-0400Respiratory rate18 /minNitin Horen Other [employer] Other 06-25-2023 13:45-8757NgL2% (BldA) [Mass fraction]96 % Nitin Horne Other [employer] Other 06-25-2023 13:45-0400Systolic blood mm[Hg] Nitin Horne Other [employer] Other 01-04-2023 16:00-0500Body hrloej536.18 cmThomriver Foley Other [employer] Other 01-04-2023 16:00-0500Body mass index (BMI) [Ratio] 42.28 kg/n1Colfza [place] Other [employer] Other 01-04-2023 16:00-0500Body pvakwbwpvrc13 [degF]Flavio Foley Other [employer] Other 01-04-2023 16:00-0500Body yerefj973.47 kgThomas [place] Other [employer] Other 01-04-2023 16:00-0500Respiratory rate18 /minThomas [place] Other [employer] Other 01-04-2023 16:00-7149IuG1% (BldA) [Mass fraction]96 % Flavio Og Other [employer] Other 12-16-2022 17:30-0500Body ghsywwnrhol29.2 [degF]Flavio Og Other [employer] Other 12-16-2022 17:30-0500Diastolic blood mkroqfdt58 mm[Hg] Flavio Og Other [employer] Other 12-16-2022 17:30-0500Respiratory rate18 /minThomas [place] Other [employer] Other 12-16-2022 17:30-7832FrE2% (BldA) [Mass fraction]98 % Flavio Foley Other [employer] Other 12-16-2022 17:30-0500Systolic blood usgbxlsf865 mm[Hg] Flavio Foley Other [employer] Other 10-23-2022 13:40-0400Body rolyrb866.18 cmThomas Og Other [employer] Other 10-23-2022 13:40-0400Body mass index (BMI) [Ratio] 42.28 kg/z1Skyxug Og Other [employer] Other 10-23-2022 13:40-0400Body elfarpdrxql41.1 [degF]Flavio Foley Other [employer] Other 10-23-2022 13:40-0400Body mhwujw188.47 kgThomas Og Other [employer] Other 10-23-2022 13:40-0400Respiratory rate18 /minThomas Og Other [employer] Other 10-23-2022 13:40-2751JfI2% (BldA) [Mass fraction]98 % Flavio Foley Other [employer] Other Encounters Encounter DateEncounter TypeCare ProviderFacilityStart: 04-17-2025 End: 24-28-1939kybbvhotfpQhonlo [facility]Start: 04-17-2025 End: 32-61-0835Ztfajudv ReferredAida Carrizales ARTURO CRIME SCENE EVIDENCE TECHNICIAN-BC-[facility] HospitalStart: 03-26-2025 End: 29-81-2205ymdcbwchiaPnbyltuk L [facility] Work Phone: Start: 03-26-2025 End: 86-01-0069Lnjelrff ReferredKalani Lucas Sera [employer]-C-[facility] HospitalStart: 12-24-2024 End: 84-17-9571mdghxommbqMkvllucfKalani Metcalf [employer]-C Work Phone: [facility] Work Phone: Start: 12-24-2024 End: 87-30-5514Rplmfmex ReferredKalani Lucas Sera [employer]-C-[facility] HospitalStart: 12-04-2024 End: 18-04-8564obzvhghtaeDyvtoedjKalani Metcalf [employer]-C Work Phone: [facility] Work Phone: Start: 12-04-2024 End: 21-72-9998Dcerovs encounter procedureKalani Metcalf [employer]-C Work Phone: [facility] [place] Work Phone: Start: 10-29-2024 End: 43-07-4222rripbuidsoGwnlthcgSharad Metcalf [employer]-C Work Phone: [facility] Work Phone: Start: 10-29-2024 End: 94-91-9617Vzvzfanf Kevin Metcalf [employer]-C Work Phone: [facility]trAd[facility] HospitalStart: 10-22-2024 End: 27-74-2286Ivmrex Jericho Urrutia MD Work Phone: NON[facility] SWS OBStart: 10-22-2024 End: 88-13-5468Pvlhzouma Urrutia MD Work Phone: noms SWS OBStart: 10-22-2024 End: 92-88-9449Lppovc follow up visit related to original August Urrutia MD Work Phone: [facility] OBComment on above:Surgery follow-up (Primary Dx); Incomplete ; BCP ( control pills) initiationStart: 10-22-2024 End: 34-73-3367dtqnglalkzJGZTK J PRINTYNot AvailableStart: 10-08-2024 End: 62-57-6574Wzkghowu Result EncounterJann Urrutia MD Work Phone: noms External Department UnsolicitedStart: 10-08-2024 End: 67-95-0659Tugvheyv Result EncounterJann Urrutia MD Work Phone: noms External Department UnsolicitedStart: 10-08-2024 End: 76-56-1176Dbmytpllj to same day surgery Malina ROMEROC Work Phone: [facility] RehabilitationStart: 10-08-2024 End: 22-83-2180pbptynvnfoEjnnecuhGiovanni Metcalf NP-C Work Phone: [facility] Work Phone: Start: 10-06-2024 End: 11-99-7953Dhbjqlkq Result EncounterCorey Denys DO Work Phone: noms External Department UnsolicitedStart: 10-06-2024 End: 98-26-8290Cclsezem Result EncounterCorey Denys DO Work Phone: noms External Department UnsolicitedStart: 10-06-2024 End: 27-45-0471Epriwdr encounter procedureKalani ROMEROC Work Phone: [facility] [place] Work Phone: Start: 10-06-2024 End: 68-96-2706rdsfqsfqdwFzfdtztqGiovanni Metcalf NP-C Work Phone: [facility] Work Phone: Start: 10-03-2024 End: 09-62-5544Hhboerml Result EncounterCorey Denys DO Work Phone: noms External Department UnsolicitedStart: 10-03-2024 End: 87-97-1907Pwstrhlz Result EncounterCorey Denys DO Work Phone: noms External Department UnsolicitedStart: 10-03-2024 End: 20-50-1263tfzejhpxmsEmagtzcoKalani Metcalf [employer]-C Work Phone: [facility] Work Phone: Start: 10-03-2024 End: 55-71-6907Bkswehs encounter procedureKalani Metcalf [employer]-C Work Phone: [facility] [place] Work Phone: Start: 10-03-2024 End: 21-75-7223eziuzsghmzSyfqk FazioNot AvailableStart: 08-27-2024 End: 64-72-3135Vegklbc encounter procedureKalani Metcalf [employer]-C Work Phone: [facility]-Ultrasound [facility] [place] Work Phone: Start: 08-27-2024 End: 47-01-2749ajglydkiwiMfmzjcybKalani Metcalf [employer]-C Work Phone: [facility] Work Phone: Start: 07-24-2024 End: 73-87-1645Gxljtx flowsheetCorey Denys DO Work Phone: noms BCP OBStart: 07-24-2024 End: 30-11-9860Jivzpc flowsheetCorey Denys DO Work Phone: [facility] BCP OBStart: 07-24-2024 End: 18-85-6744cbzykltefqQIINF FAZIONot AvailableStart: 07-24-2024 End: 91-80-0539Fkgoat outpatient visit 15 minutesCorey Denys DO Work Phone: [facility] BCP OBComment on above:Encounter for infertility; Weight gain; Encounter for weight management; Other insomniaStart: 06-18-2024 End: 59-81-0203Lxvqdf flowsDian COELLO Work Phone: [facility] BCP OBStart: 06-18-2024 End: 28-58-9135Qqaxdh Karen COELLO Work Phone: [facility] BCP OBStart: 06-18-2024 End: 56-00-4697Eoxjnsxa flow sheetAmy COELLO Work Phone: [facility] BCP OBComment on above:Weight gain; Encounter for weight management; PCOS (polycystic ovarian syndrome); AnovulationStart: 06-18-2024 End: 73-88-0616eouwlnuenwOFT RAMEYNot AvailableStart: 05-27-2024 End: 79-00-8167kzhsduddqqSoxbayrb Christine RichardsonFacility:[facility] Hospitaltart: 05-21-2024 End: 90-81-9148Izmdjz Karen COELLO Work Phone: [facility] BCP OBStart: 05-21-2024 End: 66-41-7926Tjhsva Karen COELLO Work Phone: [facility] BCP OBStart: 05-21-2024 End: 00-45-0035Yimlnxl encounter procedureAmy COELLO Work Phone: [facility] BCP OBComment on above:Weight gain; Encounter for weight management; AnovulationStart: 05-21-2024 End: 03-90-5109fmoepgcyumPUD RAMEYNot AvailableStart: 05-07-2024 End: 55-96-6322vutcoxtxhyNO Flavio Diaz Jr Work Phone: [facility] Work Phone: Start: 05-07-2024 End: 32-72-9507Iznrebn encounter procedureMD Flavio Diaz Jr Work Phone: [facility] [place] Work Phone: Start: 04-21-2024 End: 32-17-5846Vjjbec outpatient visit 15 minutesCorey eDnys DO Work Phone: NO[facility] BCP OBComment on above:Follow-up encounter involving medication; PCOS (polycystic ovarian syndrome); Weight gain; Encounter for weight managementStart: 04-21-2024 End: 92-28-3864rucaaqxszzSONRQ FAZIONot AvailableStart: 04-19-2024 End: 63-97-2831dkmxijyewrPI Flavio Diaz Jr Work Phone: [facility] Work Phone: Start: 04-19-2024 End: 59-22-1722Jrzvvtt encounter procedureMD Flavio Diaz Jr Work Phone: [facility] [place] Work Phone: Start: 04-08-2024 End: 16-69-3888woorrwqoivIG Flavio Diaz Jr Work Phone: [facility] Work Phone: Start: 04-08-2024 End: 62-21-3240Jvdzamd encounter procedureMD Flavio Diaz Jr Work Phone: [facility]-XRay [facility] Work Phone: Start: 03-31-2024 End: 14-98-4524ateubupaqkJzjgbra P COOKFacility:[place]kyStart: 03-31-2024 End: 37-34-9961Hxbfwph encounter procedureDeuce ABRAHAM [facility] [place] Start: 03-27-2024 End: 92-89-3470bepjwkasnwKJ Thomas D Kramer Jr Work Phone: [facility] Work Phone: Start: 03-27-2024 End: 40-89-7779Xgkpnkq encounter procedureMD Flavio Diaz Jr Work Phone: [facility] [place] Work Phone: Start: 03-26-2024 End: 25-01-4121ukyznrxgqaHW Flavio Diaz Jr Work Phone: [facility] Work Phone: Start: 03-26-2024 End: 35-33-1127Zpnxutw encounter procedureMD Flavio Diaz Jr Work Phone: [facility] [place] Work Phone: Start: 03-24-2024 End: 27-22-8470Lhtkgi flowsheetCorey Denys DO Work Phone: [facility] OBStart: 03-24-2024 End: 38-90-3047Nhfnhi flowsheetCorey Denys DO Work Phone: [facility] OBStart: 03-24-2024 End: 44-36-2965aneezbjbnmWC Flavio Diaz Jr Work Phone: [facility] Work Phone: Start: 03-24-2024 End: 78-24-4963Uhpeqsvi ReferredMD Flavio Diaz Jr Work Phone: [facility] [place] Work Phone: Start: 03-24-2024 End: 46-41-5230Svfnmf outpatient visit 15 minutesCorey Denys DO Work Phone: [facility] BCP OBComment on above:Anovulation; PCOS (polycystic ovarian syndrome)Start: 03-24-2024 End: 91-95-6864uydcikctjcLRSMT FAZIONot AvailableStart: 52-20-9369bfessdnnpm Deuce ABRAHAMFacility:[place]Start: 03-07-2024 End: 61-83-8534Jeuxephlw department patient visitMD Flavio Diaz Jr Work Phone: [facility] Work Phone: Start: 02-08-2024 End: 92-97-2023tvxhzncieaBL-C Kalani Zoey Metcalf Work Phone: [facility] Work Phone: Start: 02-08-2024 End: 15-95-3535Cuqmgwtz ReferredNP-C Kalani Dixon Work Phone: [facility] ServicesStart: 01-14-2024 End: 23-11-1353heeryfrqifQGDUQW P JONESNot AvailableStart: 01-01-2024 End: 65-70-5881Upstoak encounter procedureBonita Barclay MD Work Phone: [facility] SWS OBComment on above:Family planning counseling; Hormone imbalance; Left lower quadrant abdominal painStart: 12-03-2023 End: 76-96-5569zrgubpkklcLTJFJH P JONESNot AvailableStart: 11-21-2023 End: 97-37-7835bbvkpqlfauAN-C Kalani Zoey Metcalf Work Phone: [facility] Work Phone: Start: 11-21-2023 End: 15-27-1554Onbvxju encounter procedureNP-Bassem FrostKalani Dixon Work Phone: [facility]-Ultrasound [place] Work Phone: Start: 11-12-2023 End: 55-47-7285Ixxvirouq department patient visitNP-C Kalani Dixon Work Phone: [facility]-Emergency Room Work Phone: Start: 10-22-2023 End: 51-83-3629Myuhcfb encounter Alma Barclay MD Work Phone: noms SWS OBComment on above:Hormone imbalance; Thyroid disorder screen; Family planning counselingStart: 08-21-2023 End: 46-48-0669Upsaziybn department patient visitNP-Bassem MarvinKalani Dixon Work Phone: [facility]-Emergency Room Work Phone: Start: 05-04-2023 End: 54-95-4174jljqnfzttxCmtkb Keller Other [employer] Other Start: 64-57-5368Bwjsabyby encounterAmber LyndonG [facility] RoadStart: 05-01-2023 End: 54-25-4411Djagrryd ReferredNP-C Kalani Dixon Work Phone: [facility]-Lab [facility] Start: 05-01-2023 End: 50-67-6355uashxycserUT-C Kalani Zoey Metcalf Work Phone: [facility] Work Phone: Start: 78-59-9172Uluduj outpatient visit 25 minutes Veronique KellerG [facility] RoadStart: 03-05-2023 End: 99-94-6383mhvwplapyxUazowr Og Other [facility] [employer] Other Start: 98-08-0305Ybnhvx outpatient visit 15 minutes Flavio ForakerENCOMPASS [facility] [place] RoadStart: 01-30-2023 End: 44-35-7292qriqsgrmkuRT-C Qamar Carroll Work Phone: [facility] Work Phone: Start: 01-30-2023 End: 01-26-8089Rvtkqmmn ReferredNP-C Qamar Carroll Work Phone: [facility]trAd[facility] HospitalStart: 01-25-2023 End: 75-53-3389oiaurulyksFY-C Qamar Carroll Work Phone: [facility] Work Phone: Start: 01-25-2023 End: 33-63-7195Ixkadgft ReferredNP-C Qamar Carroll Work Phone: [facility]: 01-02-2023 End: 36-53-4628Twcncvlno department patient visitNP-Bassem Carroll Work Phone: [facility]-Emergency Room Work Phone: Start: 12-24-2022 End: 94-70-0617mngzmmtcbwRegmtv Lewis Other [employer] Other Start: 19-27-1514Zgdkgl outpatient visit 15 minutes Nitin HorneENCOMPASS [facility] [place] RoadStart: 11-01-2022 End: 44-46-7879bmguxvkoreWbud Fitt Other [employer] Other Start: 44-71-9295Blvmulfgw encounterDawn Yandelarbor health [facility] ClinicStart: 07-05-2022 End: 01-07-4309yyllkjfregFtlzld [place] Other [employer] Other Start: 66-01-7797Bnfjlz outpatient visit 15 minutes Flavio ForjunoFPG [facility] [place] RoadStart: 06-19-2022 End: 69-51-9469tcgmhxfurhUlyorn [place] Other [employer] Other Start: 42-18-5941Abwulqxrm encounterThomas ForakerFPG [facility] [place] RoadStart: 06-16-2022 End: 93-61-5237Rbwtlwwz ReferredNP-C Flavio [place] Work Phone: [facility] Start: 06-16-2022 End: 23-93-4346lqqfkdvekvVB-C Flavio [place] Work Phone: [facility] Work Phone: start: 12-18-5488Wozjot outpatient visit 15 minutes Flavio Maradiaga [facility] RoadStart: 05-24-2022 End: 26-26-2348vqfwulxuqbIRRNP D HIGHLANDERFacility:I0Wayov: 04-23-2022 End: 19-95-0980qbbffvkwzcPizshi Og Other [facility] [employer] Other Start: 86-50-2352Pbjqeg outpatient visit 15 minutes Flavio Maradiaga [facility] [place] RoadStart: 02-27-2022 End: 76-21-5594Ouhkggxm ReferredAPRN Nhi Pal Work Phone: [facility] HospitalStart: 11-16-2021 End: 66-59-5281nbhyejishhTXFWF D HIGHLANDERFacility:W7Lgluy: 08-27-2021 End: 82-95-6616ygsrrnwtqnID SUSANA BRISTOLFacility:I5Iezhv: 94-48-8256Dkxfxcymb for preprocedural laboratory examinationPETER D [facility] Start: 08-22-2021 End: 20-36-3084ckvbknkjwoXPPMQ D HIGHLANDERFacility:D5Jzpmr: 08-18-2021 End: 58-81-5156hqgwaxxshvGFAPR D CENTERVILLEANDERFacility:A5Ueoze: 08-18-2021 End: 79-19-8126Dahicdylq for preprocedural laboratory examinationPETER D [facility] SUMMITFacility:T1Tmjxv: 45-31-1369Obipuxgij for preprocedural cardiovascular examinationPETER D [facility]. [facility] Hospitaltart: 08-08-2021 End: 24-42-6479wtmgurkpijTUDHU D HIGHLANDERFacility:K0Iylzr: 08-08-2021 End: 14-94-6272Ujbthifrf for preprocedural cardiovascular examinationPETER D [facility] IN SUMMITFacility:P2Hfsyy: 06-02-2021 End: 15-89-1974wjqtykzkmtAYVWVZCP CULLENFacility:H1 Procedures DateProcedureProcedure DetailPerforming ClinicianStart: 28-51-1823Woane Strep (POC)Kalani Metcalf [employer]-C Work Phone: Start: 95-71-2791Bobuzrow identification testKalani Metcalf [employer]-C Work Phone: Start: 25-09-4706Zzqdittjipwfn of growth of fungi Kalani Metcalf [employer] Work Phone: Start: 89-29-8921Oinfcinzfbi vaginalis detection Kalani Metcalf [employer] Work Phone: Start: 47-19-7634Sglindfy and curettage of uterus Kalani Metcalf [employer] Work Phone: Start: 36-43-9250Rofsldmc screenKalani Metcalf Start: 71-49-9856Qapujibujm ultrasound of gravid uterusKalani Metcalf [employer]-C Work Phone: Start: 50-72-4987Ksjciwio blood count with white cell differential, Brandon Urrutia MD Work Phone: start: 88-78-1643Nqeyztfuzhgj chorionic quantitative Tino Denys DO Work Phone: Start: 70-05-4706Kkcljqozseza chorionic quantitative Tino Denys DO Work Phone: Start: 96-64-6690Rqlmxvdofefd obstetric ultrasonographyKalani Metcalf [employer] Work Phone: Start: 26-01-6280Pjxncckaif ultrasound of gravid uterusKalani Metcalf [employer]-C Work Phone: Start: 39-51-7210Bcbkr Strep (POC)MD Flavio Diaz Jr Work Phone: Start: 22-32-7231Urathhppnyv pyelogramMD Flavio Diaz Jr Work Phone: Start: 80-21-7045Tswvejxgfd radiography of abdomenMD Flavio Diaz Jr Work Phone: Start: 17-19-1742JJ of abdomen and pelvis without contrastMD Flavio Diaz Jr Work Phone: Start: 09-49-9167Bmjwoy echographyNP-C Kalani Metcalf Work Phone: Start: 75-64-2550Mrakvbqmdjulaed of bilateral kidneys [employer]TER-Bassem Metcalf Work Phone: Start: 73-48-8005Seqkgnluikbl echographyNP-Bassem Metcalf Work Phone: Start: 56-89-8078RI of abdomen and pelvis without contrastNP-Bassem Metcalf Work Phone: Start: 67-71-1309Msnbqwyp identification testNP-Bassem Metcalf Work Phone: Start: 25-60-9174Auselfelvdj vaginalis detectionNP-Bassem Metcalf Work Phone: Start: 53-24-1482IORH-CoV-2, Influenza & RSV (PCR)[employer]-C Kalani Metcalf Work Phone: Start: 18-76-9333Hmcpq cultureNP-Bassem Carroll Work Phone: History and physical examination, annual for health maintenanceThomas [place] Other Throat cultureRodrigojulia Haney Other Tonsillectomy and adenoidectomyGregory PAUL Plan of Treatment DateCare ActivityDetailAuthorStart: 07-26-7466LenawsrpdCleveland Clinic Start: 10-22-2024 End: 94-19-9668Yjukcom encounter elkzbcovh95/23/2025 1:30 PM EDT Office Visit [facility] [address] [place] [address] Jann Urrutia MD [address] [place] [address] Surgery follow-upNOMS SWS OBComment on above:Surgery follow-upStart: 23-76-7056Oxfbpda CultureGenital CultureHolzer Hospitaltart: 10-08-2024 End: 37-84-5072XcguepvhvHolzer Hospitaltart: 79-04-6912TmivloafnHolzer Hospitaltart: 07-24-2024 End: 01-81-1521Keporoc encounter aktwpzxxx65/23/2025 9:20 AM EST Office Visit [facility] [address] [place] [address] Tino Mcfarlane, DO [address] [place], [place] [address] NOMS BCP OBStart: 07-24-2024 End: 42-19-5353Suysioawxqfa / ancillary services ivlwaskdzg50/23/2025 8:00 AM EST Ancillary Procedure [facility] [address] [place] [address] NOMS BCP OBStart: 06-18-2024 End: 62-35-7850WV for pregnancyUS PELVIS-TRANSVAG IF INDICATED Imaging Routine PCOS (polycystic ovarian syndrome) Anovulation Expected: 06/18/2024 (Approximate), Expires: 06/18/2025[facility] Work Phone: comment on above:Expected: 06/18/2024 (Approximate), Expires: 06/18/2025Start: 06-18-2024 End: 21-95-9073Wtvqrti encounter procedureNOMS [facility] OBComment on above:Arrived Start: 05-21-2024 End: 88-45-4277MqxdmizwjfiiQvcbijzcxybu Lab Routine Anovulation Expected: 05/21/2024 (Approximate), Expires: 05/21/2025[facility] Work Phone: comment on above:Expected: 05/21/2024 (Approximate), Expires: 05/21/2025Start: 05-21-2024 End: 12-10-8426Xirpcbj encounter jaftoighx53/20/2024 8:50 AM EST Office Visit [facility] OB [address] [place] [address] Amy Thompson, PA [address] [place] [address] ArrivedNOSADDLEBACK MEMORIAL [facility] OBComment on above:ArrivedStart: 05-19-2024 End: 27-01-3732Bobyvyt encounter dovzezsna09/18/2024 9:50 AM EST Office Visit [facility] OB [address] [place] [address] Amy Thompson, PA [address] [place] [address] [facility] OBStart: 04-21-2024 End: 95-11-7618Oidihqv encounter clyyxnxio96/21/2024 10:40 AM EDT Office Visit [facility] OB [address] [place] [phone] Tino Mcfarlane, [address] [place] [address] [facility] OBStart: 03-24-2024 End: 98-38-6975YZY W Auto Differential panel - BloodCBC and differential Lab Routine PCOS (polycystic ovarian syndrome) Expected: 03/24/2024 (Approximate), Expires: 03/24/2025[facility] Work Phone: comment on above:Expected: 03/24/2024 (Approximate), Expires: 03/24/2025Start: 03-24-2024 End: 91-62-3242Dfbkngyqbq A1c/Hemoglobin.total in BloodHemoglobin A1c Lab Routine PCOS (polycystic ovarian syndrome) Expected: 03/24/2024 (Approximate), Expires: 03/24/2025[facility] HealthcareComment on above:Expected: 03/24/2024 (Approximate), Expires: 03/24/2025Start: 35-38-1269RemgvqyfuHolzer Hospitaltart: 03-24-2024 End: 64-30-7882Ipdacgn encounter axtkwjhnl46/23/2024 8:50 AM EDT Office Visit [facility] [address] [place] [address] Tino Mcfarlane, DO [address] [place] [address] ArrivedNOMS [facility] OBComment on above:ArrivedStart: 51-60-3186WL Abdomen and Pelvis WO contrastCleveland Clinic Start: 27-21-7515AC of abdomen and pelvis without contrastCT abdomen pelvis wo [facility] Columbustart: 72-76-4295Awuiuavvs vaccination Influenza Vaccine (#1)[facility]OM[facility] HealthcareStart: 84-85-1316LoxjdeuhlHolzer Hospitaltart: 42-48-5285Lqduheu CultureGenital CultureHolzer Hospitaltart: 32-89-3479Vekyix cultureThroat [facility] Hospitaltart: 07-73-0103Aekbaqna identified in Urine by CultureUrine Culture Cleveland ClinicBacteria identified in Genital specimen by Aerobe cultureCleveland ClinicBacteria identified in Genital specimen by Aerobe cultureCleveland ClinicBacteria identified in Throat by Aerobe cultureCleveland ClinicBacteria identified in Urine by CultureUrine Providence HospitalChlamydia trachomatis DNA [Presence] in Unspecified specimen by ÓSCAR with probe detection Cleveland ClinicChlamydia trachomatis rRNA [Presence] in Cervix by ÓSCAR with probe detectionCleveland ClinicGlucose measurement estimated from glycated hemoglobinCleveland ClinicHIV 1+2 Ab+HIV1 p24 Ag [Presence] in Serum or Plasma by ImmunoassayCleveland ClinicHucentreville papilloma virus 16+18+31+33+35+39+45+51+52+56+58+59+66+68 DNA [Presence] in Cervix by Probe with signal amplificationCleveland ClinicHucentreville papilloma virus 16+18+31+33+35+39+45+51+52+56+58+59+68 DNA [Presence] in Cervix by Probe withsignal amplificationCleveland ClinicInsulin [Units/volume] in Serum or PlasmaCleveland ClinicMeasles virus IgG Ab [Units/volume] in Serum by ImmunoassayCleveland ClinicNeisseria gonorrhoeae DNA [Presence] in Unspecified specimen by ÓSCAR with probe detectionCleveland ClinicNeisseria gonorrhoeae rRNA [Presence] in Cervix by ÓSCAR with probe detectionCleveland ClinicPatient EducationFirelands Regional [facility] Work Phone: Patient referralFirelands Regional Medical [facility] Work Phone: Progesterone [Mass/volume] in Serum or PlasmaCleveland ClinicReagin Ab [Presence] in Serum by RPRFParkview HealthRubella IgG measurementCleveland Clinic Trichomonas vaginalis DNA [Presence] in Unspecified specimen by ÓSCAR with probe detectionCleveland Clinic Immunizations Immunization DateImmunizationNotesCare IycjuwbbOuassmqq93-90-3647xfpypjrwu virus vaccine, unspecified formulationCorey Denys DO Work Phone: [facility] CenterPwxvclugum65-13-7942juvzwylwei, tetanus toxoids and acellular pertussis vaccineThomas [place] Other [place] [employer] Other 400736-52-9718srtvapxukr, tetanus toxoids and acellular pertussis vaccine, unspecified formulationNP-C Kalani Metcalf Work Phone: [facility]08-13-2009measles, mumps and rubella virus vaccineThomas [place] Other [facility]08-13-2009poliovirus vaccine, inactivatedThomas [place] Other [place] [employer] Other [id number] vaccine, unspecified formulation [employer]-C Kalani Metcalf Work Phone: [facility]08-13-2009varicella virus vaccineThomas [place] Other [facility] Payers DatePayer CategoryPayerPolicy ID2025MedicaidMEDICAID [place] [id number] [id number]-ire [id number] Cross Blue Shield [id number]10171.997501.42224-00-7310Cvjglul 1.2.840.930220.1.13.693.2.7.3.820395.86677-08-4565LamyaxmFWN845Z88585 n4pbz0ae-c31v-8yu5-zfij-mm733[id number] 2.840.1.431285.3.579.[id number] 2.840.1.290629.3.57[id number] 2.0.1.343468.3.579.2.13453-94-4687Clwepej9524110 2.0.1.010177.3.579.2.08925-83-3061Srhwgnh0613969 2.840.1.363793.3.579.2.18466-63-0096Yvjcuct5011859 2.16.840.1.989594.3.579.[id number] 2.16.840.1.727002.3.579.2.80153-40-4008Cjtmvne8724483 2.16.840.1.307329.3.579.2.839432-94-7898Fdnmukc6564792 2.16.840.1.252854.3.579.2.821864-96-3418Ghyliag4949421 2.840.1.812138.3.579.2.369927-49-3394Slswidh7118229 2.840.1.927838.3.579.2.703508-12-7892Hgngedo7410123 2.840.1.933484.3.579.2.953189-48-1985Pbamtkn9651194 2..840.1.515811.3.579.2.793332-27-8496Topgolj7210227 2.840.1.998832.3.579.2.614646-28-6934Upzigee7098574 2.840.1.880378.3.579.2.055924-81-4068Bdhlbcu4561318 2.840.1.062746.3.579.2.401926-41-0024Exnnjnd0442332 2.840.1.484001.3.579.2.1259 [id number] 2.16840.1.198061.3.579.2.593 [id number] 2.840.1.866576.3.579.2.082Xyzfjxv72502629 2.16.840.1.611071.3.579.2.363Tlhlqzl37374364 2.16.840.1.920684.3.579.2.531 [id number] 2.16.840.1.099247.3.579.2.792Dpsanoq07058424 2.16.840.1.826704.3.579.2.476Dhnfucj69170738 2.16.840.1.734354.3.579.2.531 Jkwnrdb25931822 2.16.840.1.293052.3.579.2.689Cldfoft47747873 2.16.840.1.873402.3.579.2.206Yvwveon63493456 2.16.840.1.937469.3.579.2.531 Worker's [id number] x8w82ff8-2il5-0ci9-5lcr-90gcc1x27q5o Social History DateTypeDetailFacilityStart: 04-12-2021 End: 29-92-0184Jxiynnz smoking status NHISNever smoked tobacco (finding) [facility]: 30-42-1696Qec Assigned At [facility] Hospitaltart: 12-03-2023 End: 90-60-6739Bix Assigned At [facility] HospitalTobacco smoking statusNeverExecutive Urology of [facility] SanduskyStart: 46-11-4174Exhodst use and exposureSmokeless tobacco non-userNOMS Healthcare Start: 10-15-2023 End: 60-62-0093Axvzfxvee beverage intakeEx-drinker (finding)[facility] Start: 12-03-2023 End: 11-61-0194Zknevpn of Social functionNOMS HealthcareHow often to you have a drink containing alcohol?NeverNOMS HealthcareStart: 60-35-8150Dxn assigned at birthNot on fileNOMS HealthcareStart: 08-28-2024 End: 32-29-2016NexPhdmkh (finding)C[facility] ClinicNEGATED: Highlighted rowCleveland Clinic Goals DatePatient GoalDesired Activity/State Functional Status OdqbBsyvvijfyfUhirklAwkzpeco24-03-6229Prsotevjxr StatusN/AExecutive [facility]rology [facility] [place] Clinical Notes 02-24-2012 to 10-22-2024 Note Date & IysnImowApcaimxg05-35-1864 History of Present illness Narrative* Jann Urrutia MD - 10/22/2024 1:30 PM EDT Images from the original note were not included. Jann Urrutia MD Obstetrics and Gynecology Patient: Karyn Bone, : 2005 (19 y.o.) DOS 10/22/24 Exam Date: 10/22/2024 HPI: Follow up from emergency suction D+C for incomplete Ab. She was seeing Dr Mcfarlane for PNC. PATH neg. She has no more bleeding Visit Vitals BP 132/84 Wt 251 lb LMP 07/19/2024 BMI 40.51 kg/m OB Status Having periods Smoking Status Never BSA 2.3 m OB History Para Term AB Living 0 0 0 0 0 0 SAB IAB Ectopic Multiple Live Births 0 0 0 0 0 Obstetric Comments No control; every month, normal blood loss, LMP: 07/19/24 Medication and Allergies Medication Documentation Review Audit Reviewed by Mimi Kee MA (Radiologic Technology Program Director) on 10/22/24 at 1332 Medication Order Taking? Sig Documenting Provider Last Dose Status cetirizine (ZyrTEC) 10 MG tablet [id number] Daily Bonita Barclay MD Active ferrous sulfate 325 (65 Fe) MG tablet [id number] Yes Take 325 mg by mouth in the morning. Take with meals. Jann Urrutia MD Active hydrOXYzine HCl (Atarax) 25 MG tablet [id number] Take 1 tablet (25 mg) by mouth as needed at bedtime for itching Tino Mcfarlane DO Active metFORMIN XR (Glucophage-XR) 500 MG 24 hr tablet [id number] TAKE TWO TABLETS BY MOUTH WITH EVENING MEAL (DO NOT CRUSH, CHEW, OR SPLIT) Tino Mcfarlane DO Active Discontinued 10/22/24 1330 Discontinued 10/22/24 1330 Discontinued 10/22/24 1330 Discontinued 10/22/24 1330 Vit-DSS-Fe Cbn-FA ( AD PO) [id number] Yes Take by mouth Jann Urrutia MD Active Allergies Allergen Reactions Amoxicillin Other Reaction(s): Unknown Homatropine Other Reaction(s): dizzy, nausea Hydrocodone GI intolerance Other Reaction(s): dizzy, nausea Naproxen Other Reaction(s): stomach upset Penicillin G Other Reaction(s): Unknown Penicillins Other Reaction(s): Hives, Mother is allergic, Unknown Other Reaction(s): hives, Mother is allergic, Unknown Red Dye Other Reaction(s): Hives Other Reaction(s): Unknown Red Dye #40 (Allura Red) Other Reaction(s): Unknown Sertraline Other Reaction(s): Unknown Wheat Other Reaction(s): Hives Chlorhexidine Gluconate Rash Chlorhexidine Gluconate Rash Latex Hives and Rash Other Reaction(s): Unknown Past Medical History: Diagnosis Date Ovarian cyst PCOS (polycystic ovarian syndrome) Past Surgical History: Procedure Laterality Date ADENOIDECTOMY ANKLE FUSION Right 2021 OTHER SURGICAL HISTORY Suction D&C TONSILLECTOMY Physical Exam: Objective Physical Exam Constitutional: Appearance: Normal appearance. Neurological: Mental Status: She is alert. Assessment/Plan ICD-10-CM 1. Surgery follow-up Z09 2. Incomplete O03.4 3. BCP ( control pills) initiation Z30.011 Start Sprintec. Follow up with Dr Mcfarlane for adipex and metformin No orders of the defined types were placed in this encounter. documented in this encounterMissouri Delta Medical CenterAruitpursu64-48-2255 Evaluation note* Diagnosis Onset Date Resolution Status Admit Date Incomplete miscarriage acuteApril 2024 9:23am [facility] Work Phone: 1(299) 849-691504-09-2025 Evaluation note* Diagnosis Onset Date Resolution Status Admit Date Incomplete miscarriage acuteApril 2024 9:23amAllergic rhinitisnoneactiveJune 2024 5:48pm [facility] Work Phone: 1(108) 573-128204-09-2025 Consult note Author JANN URRUTIA Cleveland ClinicNote Date/TimeApril 2024 8:[address] [address] CALENDAR CONTROL CLERK BLOOD BANK Consult Note Signed Patient: Karyn Bone MR#: [id number] : 2005 Acct:[id number] Age/Sex: 19 / F Adm Date: 5 Loc: ER Room: Type: [facility] ER Attending Dr: Copies to: JANN URRUTIA MD [facility] Shay Cosme, DO~ HPI History of Present Illness Date of Consultation: 10/08/24 Requesting Provider: Dr Cosme Reason for Consultation: miscarriage HPI: Patient is a 19-year-old 1 para 0 female who was seen Dr. Mcfarlane for . She was seenthis week and found to have an intrauterine demise at 6 weeks. Arrangements have been made for her to have a suction D&C Sunday morning. However earlier this morning she started bleeding and cramping and came to the emergency room for evaluation. Ultrasound here confirms a fetaldemise at 6 weeks. Unfortunately her bleeding and cramping has continued and now she is having extreme cramping and passing large clots. I have evaluated the patient and we have decided to proceed with suction D&C OB [facility] Surgical History History of tonsillectomy History of ankle surgery right Family History Grandparent Diabetes Legacy FamHx Relation: Paternal Grand Father Mother Allergies & Medications Medications and Allergies Allergies amoxicillin Allergy (Unknown, Verified 10/08/24 05:08) Mother is allergic homatropine (Hycodan) Allergy (Unknown, Verified 10/08/24 05:08) dizzy, nausea hydrocodone (Hycodan) Allergy (Unknown, Verified 10/08/24 05:08) dizzy, nausea red dye Allergy (Unknown, Verified 10/08/24 05:08) Hives Penicillins Adverse Reaction (Verified 10/08/24 05:08) Hives wheat Adverse Reaction (Verified 10/08/24 05:08) Hives Home Medications cetirizine 10 mg tablet 10 mg PO DAILY PRN allergy symptoms 01/02/23 [History Confirmed 10/08/24] metformin 500 mg tablet 500 mg PO DAILY 05/07/24 [History Confirmed 10/08/24] hydroxyzine HCl 25 mg tablet 25 mg PO DAILY 10/08/24 [History Confirmed 10/08/24] Active Medications Sodium Chloride (Sodium Chloride 0.9 % 10 Ml Syringe) 0 ml IV-PUSH PRN PRN PRN Reason: Flush Stop: 10/08/25 05:06 Last Admin: 10/08/24 05:58 Dose: 10 ml OB - Physical Exam Vital Signs Vital Signs: Temp 97.9 F 10/08/24 05:05 Pulse 88 10/08/24 06:47 Resp 18 10/08/24 06:47 BP 130/76 10/08/24 06:47 Pulse Ox 100 10/08/24 06:47 O2 Del Method Room Air 10/08/24 06:47 Constitutional Constitutional: mild distress HEENT Exam Head: Present normocephalic and atraumatic Respiratory Exam Respiratory: Absent respiratory distress Abdominal Exam Abdominal: Present soft; Absent tenderness or rebound Detailed Labor and Delivery Exam Comments: The cervical os is closed but she is having ongoing bleeding passing very large clots OB Results Laboratory Results - Last 48 hrs. 10/08/24 05:30: HCG, Quant [id number], Urine Color Yellow, Urine Appearance Clear, Urine pH 6.0, Ur Specific [place] 1.029, Urine Protein Trace H, Urine Glucose (UA) Normal, Urine Ketones Negative, Urine Occult Blood 3+ H, Urine Nitrite Negative, Urine Bilirubin Negative, Urine Urobilinogen 3 H, Ur Leukocyte Esterase Negative, Urine RBC Innumerable H, Urine WBC 1-2, Ur Squamous Epith Cells 1-2, Calcium Oxalate Crystal 1+, Urine Bacteria None seen, Hyaline Casts None, Urine Mucus Rare, Blood Type OPositive, Antibody Screen Negative, RhIG Candidate? Not a candidate Microbiology - Last 72 hours 10/08/24 05:55 Genital Fungal Smear - Final 10/08/24 05:55 Genital Trichomonas [place] - Final 10/08/24 05:55 Genital Genital Culture - Pending Assessment/Plan (1) Incomplete miscarriage: Plan I have discussed with the patient and her what is currently happening. We are going to proceed with suction D&C. Consent has been signed. Documented By: JANN URRUTIA MD 10/08/24 0854 Signed By: <Electronically signed by MD JANN URRUTIA> 10/08/24 0857 [facility] Work Phone: [phone] [place] [address] CALENDAR CONTROL CLERK BLOOD BANK Consult Note Signed Patient: Karyn Bone MR#: [id number] : 2005 Acct:[id number] Age/Sex: 19 / F Adm Date: 5 Loc: ER Room: Type: [facility] ER Attending Dr: Copies to: JANN URRUTIA MD [facility] Shay Cosme, DO~ HPI History of Present Illness Date of Consultation: 10/08/24 Requesting Provider: Dr Cosme Reason for Consultation: miscarriage HPI: Patient is a 19-year-old 1 para [address] female who was seen Dr[address] Mcfarlane for . She was seenthis week and found to have an intrauterine demise at 6 weeks. Arrangements have been made for her to have a suction D&C Sunday morning. However earlier this morning she started bleeding and cramping and came to the emergency room for evaluation. Ultrasound here confirms a fetaldemise at 6 weeks. Unfortunately her bleeding and cramping has continued and now she is having extreme cramping and passing large clots. I have evaluated the patient and we have decided to proceed with suction D&C OB [facility] Surgical History History of tonsillectomy History of ankle surgery right Family History Grandparent Diabetes Legacy FamHx Relation: Paternal Grand Father Mother Allergies & Medications Medications and Allergies Allergies amoxicillin Allergy (Unknown, Verified 10/08/24 05:08) Mother is allergic homatropine (Hycodan) Allergy (Unknown, Verified 10/08/24 05:08) dizzy, nausea hydrocodone (Hycodan) Allergy (Unknown, Verified 10/08/24 05:08) dizzy, nausea red dye Allergy (Unknown, Verified 10/08/24 05:08) Hives Penicillins Adverse Reaction (Verified 10/08/24 05:08) Hives wheat Adverse Reaction (Verified 10/08/24 05:08) Hives Home Medications cetirizine 10 mg tablet 10 mg PO DAILY PRN allergy symptoms 01/02/23 [History Confirmed 10/08/24] metformin 500 mg tablet 500 mg PO DAILY 05/07/24 [History Confirmed 10/08/24] hydroxyzine HCl 25 mg tablet 25 mg PO DAILY 10/08/24 [History Confirmed 10/08/24] Active Medications Sodium Chloride (Sodium Chloride 0.9 % 10 Ml Syringe) 0 ml IV-PUSH PRN PRN PRN Reason: Flush Stop: 10/08/25 05:06 Last Admin: 10/08/24 05:58 Dose: 10 ml OB - Physical Exam Vital Signs Vital Signs: Temp 97.9 F 10/08/24 05:05 Pulse 88 10/08/24 06:47 Resp 18 10/08/24 06:47 BP 130/76 10/08/24 06:47 Pulse Ox 100 10/08/24 06:47 O2 Del Method Room Air 10/08/24 06:47 Constitutional Constitutional: mild distress HEENT Exam Head: Present normocephalic and atraumatic Respiratory Exam Respiratory: Absent respiratory distress Abdominal Exam Abdominal: Present soft; Absent tenderness or rebound Detailed Labor and Delivery Exam Comments: The cervical os is closed but she is having ongoing bleeding passing very large clots OB Results Laboratory Results - Last 48 hrs. 10/08/24 05:30: HCG, Quant 6856.00, Urine Color Yellow, Urine Appearance Clear, Urine pH 6.0, Ur Specific [place] 1.029, Urine Protein Trace H, Urine Glucose (UA) Normal, Urine Ketones Negative, Urine Occult Blood 3+ H, Urine Nitrite Negative, Urine Bilirubin Negative, Urine Urobilinogen 3 H, Ur Leukocyte Esterase Negative, Urine RBC Innumerable H, Urine WBC 1-2, Ur Squamous Epith Cells 1-2, Calcium Oxalate Crystal 1+, Urine Bacteria None seen, Hyaline Casts None, Urine Mucus Rare, Blood Type OPositive, Antibody Screen Negative, RhIG Candidate? Not a candidate Microbiology - Last 72 hours 10/08/24 05:55 Genital Fungal Smear - Final 10/08/24 05:55 Genital Trichomonas Wet [place] - Final 10/08/24 05:55 Genital Genital Culture - Pending Assessment/Plan (1) Incomplete miscarriage: Plan I have discussed with the patient and her what is currently happening. We are going to proceed with suction D&C. Consent has been signed. Documented By: JANN URRUTIA MD 10/08/24 0854 Signed By: 10/08/24 0857 [facility]04-09-2025 Radiology Diagnostic study note [facility] [place] [address] [place] [address] Ultrasound Report Signed Patient: Karyn Bone MR#: [id number] : 2005 Acct:[id number] Age/Sex: 19 / F ADM Date: 5 Loc: ER Room: Type: [facility] ER Attending Dr: Ordering Provider: Shay Cosme DO Date of Service: 10/08/24 US/US OB <= 14 weeks fetus: OB/Uterine Contractions Copies to: Shay Cosme DO~ OB ultrasound. Reason for exam:Heavy bleeding. History of outside ultrasound showing demise per technologist. Comparison:Ultrasound 08/27/2024 Technique: Transabdominal imaging of the uterus and ovaries was obtained. Colorand spectral Dopplerimaging of the ovaries were obtained. Findings: The uterus measures 11.3 x 4.3 x 6.1 cm. No fibroid is seen. There appears to be fluid within the endometrial canal with presumed retained products of conception noted. No free fluid is seen. Right ovary measures 4.3 x 2.6 x 2.8 cm. Left ovary measures 4.0 x 2.0 x 2.9 cm. No adnexal mass. Normal arterial and venous Doppler waveforms. US/US OB <= 14 weeks fetus Impression: Fluid is seen within the endometrial canal with presumed echogenic retained products of conception noted. No definitive IUP is seen. Given the history, findings suggest miscarriage. Per technologist notes, patient was actively passing large clots during the ultrasound. Impression dictated by: Isidro Soni Jr. DTanviOTanvi10/08/2024 8:31 AM Dictation Location: [employer] Tech: Laila Miller Transcribed By: GARO 10/08/24 0831 Dictated By: Isidro Soni Jr, DO 10/08/24 08 Signed By: 10/08/2431 [facility]02-26-2025 Radiology Diagnostic study note [facility] [place] [address] [place], [place] [id number] Ultrasound Report Signed Patient: Karyn Bone MR#: [id number] : 2005 Acct:[id number] Age/Sex: 19 / F ADM Date: 5 Loc: Room: Type: [facility] Attending Dr: Alex Hogan DO Ordering Provider: Alex Hogan DO Date of Service: 08/27/24 US/US OB transvaginal: Early stage of ([id number]) US/US OB <= 14 weeks fetus: EARLY STAGES Copies to: Alex Hogan DO~ OB ultrasound. Reason for exam:Early stage of . Comparison:None Technique: Transabdominal as well as transvaginal imaging of the uterus and ovaries were obtained. Findings: A gestational sac is noted within the endometrial canal with yolk sac noted measuring 5 weeks 1 dayby MSD. No pole yet identified. Small amount of simple free fluid is noted. Left ovary appears unremarkable. 3 cm right ovarian cyst. US/US OB transvaginal Impression: Gestational sac is noted with yolk sac present within the endometrial canal measuring 5 weeks 1 day. No pole is identified. Finding is consistent with early IUP. Impression dictated by: Isidro Soni Jr., D.O.08/27/2024 11:15 AM Dictation Location: [place] [address] Tech: Vashti Tenorioeliu Transcribed By: GARO 08/27/24 1115 Dictated By: Isidro Soni Jr, DO 08/27/24 1103 Signed By: 08/27/24 111 [facility]01-23-2025 History of Present illness Narrative * Cristela Garza LPN - 07/24/2024 9:20 AM EST Reason for Appointment: Patient ID: Karyn Bone is a 19 y.o. female who presents for Infertility (Pt present today for a fertility f/up visit and for her Adipex #4.) Patient presents today for Consult appointment. MEDICATIONS Current Outpatient Medications Medication Instructions cetirizine (ZyrTEC) 10 MG tablet Daily hydrOXYzine HCl (ATARAX) 25 mg, Oral, Nightly PRN metFORMIN XR (GLUCOPHAGE-XR) 1,000 mg, Oral, Daily with evening meal, Do not crush, chew, or split. phentermine (ADIPEX-P) 37.5 mg, Oral, Daily before breakfast phentermine (ADIPEX-P) 37.5 mg, Oral, Daily before breakfast phentermine (ADIPEX-P) 37.5 mg, Oral, Daily before breakfast phentermine (ADIPEX-P) 37.5 mg, Oral, Daily before breakfast ALLERGIES Allergies Allergen Reactions Amoxicillin Other Reaction(s): Unknown Homatropine Other Reaction(s): dizzy, nausea Hydrocodone GI intolerance Other Reaction(s): dizzy, nausea Naproxen Other Reaction(s): stomach upset Penicillin G Other Reaction(s): Unknown Penicillins Other Reaction(s): Hives, Mother is allergic, Unknown Other Reaction(s): hives, Mother is allergic, Unknown Red Dye Other Reaction(s): Hives Other Reaction(s): Unknown Red Dye #40 (Allura Red) Other Reaction(s): Unknown Sertraline Other Reaction(s): Unknown Wheat Other Reaction(s): Hives Chlorhexidine Gluconate Rash Latex Hives and Rash Other Reaction(s): Unknown PROBLEMS Active Ambulatory Problems Diagnosis Date Noted Anovulation 03/24/2024 PCOS (polycystic ovarian syndrome) 03/24/2024 Weight gain 06/18/2024 Resolved Ambulatory Problems Diagnosis Date Noted No Resolved Ambulatory Problems No Additional Past Medical History HISTORY PAST MEDICAL HISTORY SOCIAL HISTORY No past medical history on file. Social History Tobacco Use Smoking status: Never Smokeless tobacco: Never Vaping Use Vaping status: Never Used Substance Use Topics Alcohol use: Not Currently Drug use: Never FAMILY HISTORY No family history on file. SURGICAL HISTORY Past Surgical History: Procedure Laterality Date ADENOIDECTOMY ANKLE FUSION Right 2021 TONSILLECTOMY REVIEW OF SYSTEMS Review of Systems: Review of Systems All other systems reviewed and are negative. OBJECTIVE Objective: Physical Exam Constitutional: Appearance: Normal appearance. She is well-developed. Cardiovascular: Rate and Rhythm: Normal rate and regular rhythm. Pulmonary: Effort: Pulmonary effort is normal. Breath sounds: Normal breath sounds. Abdominal: General: Bowel sounds are normal. There is no distension. Palpations: Abdomen is soft. Tenderness: There is no abdominal tenderness. There is no guarding or rebound. Musculoskeletal: General: No swelling. Normal range of motion. Right lower leg: No edema. Left lower leg: No edema. Neurological: Mental Status: She is alert and oriented to person, place, and time. Skin: General: Skin is warm and dry. Psychiatric: Mood and Affect: Mood normal. Behavior: Behavior normal. Vitals and nursing note reviewed. Exam conducted with a servicer present. Vitals: Estimated body mass index is 43.09 kg/m as calculated from the following: Height as of 04/21/24: 5' 6 . Weight as of this encounter: 267 lb. BP: 124/76 Patient's last menstrual period was 07/23/2024 (exact date). ASSESSMENT & PLAN ICD-10-CM 1. Encounter for infertility Z31.9 2. Weight gain R63.5 3. Encounter for weight management Z76.89 phentermine (Adipex-P) 37.5 MG tablet hydrOXYzine HCl (Atarax) 25 MG tablet 4. Other insomnia G47.09 hydrOXYzine HCl (Atarax) 25 MG tablet Patient presents today for weight management. Patient has decided to hold off on fertility planningat this time. Patient does have direct number for fertility discussion. Patient given prescription for Adipex and will return to clinic as directed. Documented by Cristela Garza LPN on behalf of: Tino Mcfarlane DO documented in this encounterMissouri Delta Medical [id number] History of Present illness Narrative* MODE Anderson - 06/18/2024 9:30 AM EST Reason for Appointment: Patient ID: Karyn oBne is a 19 y.o. female who presents for Weight Management Patient presents today for Weight Management Consult. MEDICATIONS Current Outpatient Medications Medication Instructions cetirizine (ZyrTEC) 10 MG tablet Daily metFORMIN XR (GLUCOPHAGE-XR) 1,000 mg, Oral, Daily with evening meal, Do not crush, chew, or split. phentermine (ADIPEX-P) 37.5 mg, Oral, Daily before breakfast phentermine (ADIPEX-P) 37.5 mg, Oral, Daily before breakfast phentermine (ADIPEX-P) 37.5 mg, Oral, Daily before breakfast ALLERGIES Allergies Allergen Reactions Homatropine Other Reaction(s): dizzy, nausea Hydrocodone GI intolerance Other Reaction(s): dizzy, nausea Naproxen Other Reaction(s): stomach upset Penicillins Other Reaction(s): Hives, Mother is allergic, Unknown Other Reaction(s): hives, Mother is allergic, Unknown Red Dye Other Reaction(s): Hives Red Dye #40 (Allura Red) Other Reaction(s): Unknown Sertraline Other Reaction(s): Unknown Wheat Other Reaction(s): Hives Chlorhexidine Gluconate Rash Latex Hives and Rash PROBLEMS Active Ambulatory Problems Diagnosis Date Noted Anovulation 03/24/2024 PCOS (polycystic ovarian syndrome) 03/24/2024 Weight gain 06/18/2024 Resolved Ambulatory Problems Diagnosis Date Noted No Resolved Ambulatory Problems No Additional Past Medical History HISTORY PAST MEDICAL HISTORY SOCIAL HISTORY No past medical history on file. Social History Tobacco Use Smoking status: Never Smokeless tobacco: Never Vaping Use Vaping status: Never Used Substance Use Topics Alcohol use: Not Currently Drug use: Never FAMILY HISTORY No family history on file. SURGICAL HISTORY Past Surgical History: Procedure Laterality Date ADENOIDECTOMY ANKLE FUSION Right 2021 TONSILLECTOMY REVIEW OF SYSTEMS Review of Systems: Review of Systems All other systems reviewed and are negative. OBJECTIVE Objective: Physical Exam Constitutional: Appearance: Normal appearance. She is well-developed. Cardiovascular: Rate and Rhythm: Normal rate and regular rhythm. Pulmonary: Effort: Pulmonary effort is normal. Breath sounds: Normal breath sounds. Abdominal: General: Bowel sounds are normal. There is no distension. Palpations: Abdomen is soft. Tenderness: There is no abdominal tenderness. There is no guarding or rebound. Musculoskeletal: General: No swelling. Normal range of motion. Right lower leg: No edema. Left lower leg: No edema. Neurological: Mental Status: She is alert and oriented to person, place, and time. Skin: General: Skin is warm and dry. Psychiatric: Mood and Affect: Mood normal. Behavior: Behavior normal. Vitals and nursing note reviewed. Exam conducted with a servicer present. Vitals: Estimated body mass index is 44.61 kg/m as calculated from the following: Height as of 04/21/24: 5' 6 . Weight as of this encounter: 276 lb 6.4 oz. BP: 128/82 No LMP recorded. ASSESSMENT & PLAN ICD-10-CM 1. Weight gain R63.5 phentermine (Adipex-P) 37.5 MG tablet 2. Encounter for weight management Z76.89 phentermine (Adipex-P) 37.5 MG tablet Patient presents today for 3rd Adipex prescription. Patient desires additional weigh loss and she is currently taking metformin along with working out to achieve further results. The possibility of Ozempic for future use has been discussed. Weight and blood pressure has been captured and it has been discussed/reiterated the importance of keeping a food journal, proper nutrition/diet, and exerciseregimen. Patient verbalized understanding. Patient has not lost more than 5% of her initial body weight. Patient also inquired about previous labs that were drawn to confirm/show PCOS. Results were obtained and pelvic ultrasound ordered. Follow Up: Patient is to return to the office in 1 month for further evaluation to assess patient progress. Weight and blood pressure will need to be obtained in order for patient to receive 4th Adipex prescription. Documented by Cristela Garza LPN on behalf of: MODE Anderson documented in this encounterMissouri Delta Medical [id number] History of Present illness Narrative* Kasey Boss MA - 05/21/2024 8:50 AM EST Reason for Appointment: Patient ID: Karyn Bone is a 18 y.o. female who presents for Weight Management (Pt present today for Adipex #2) Patient presents today for a weight management consultation. Patient has been prescribed Adipex andshe is here for her 2nd prescription. Today's Vitals: Estimated body mass index is 45.03 kg/m as calculated from the following: Height as of 04/21/24: 5' 6 . Weight as of this encounter: 279 lb. Previous Weight/BMI: Wt Readings from Last 2 Encounters: 05/21/24 279 lb 10/21/24 292 lb BMI Readings from Last 2 Encounters: 05/21/24 45.03 kg/m 04/21/24 47.13 kg/m Allergies as of 05/21/2024 - Reviewed 05/21/2024 Allergen Reaction Noted Homatropine 08/21/2023 Hydrocodone GI intolerance 08/21/2023 Naproxen 03/24/2024 Penicillins 08/21/2023 Red dye 03/07/2024 Red dye #40 (allura red) 10/15/2023 Sertraline 03/24/2024 Wheat 08/21/2023 Chlorhexidine gluconate Rash 03/24/2024 Latex Hives and Rash 10/15/2023 No past medical history on file. Past Surgical History: Procedure Laterality Date ADENOIDECTOMY ANKLE FUSION Right 2021 TONSILLECTOMY Assessment/Plan Encounter Diagnoses Name Primary? Weight gain Encounter for weight management Anovulation Adipex: Patient presents today for 2nd Adipex prescription. Patients weight and blood pressure has been captured and discussed with the patient. I have discussed/reiterated the importance of keeping a food journal, proper nutrition/diet, and exercise regimen while taking Adipex. Patient verbalized understanding and was given a printed prescription signed by provider to take to their local pharmacy. Follow Up: Patient is to return to the office in 1 month for further evaluation to assess patient progress. Weight and blood pressure will need to be obtained in order for patient to receive 3rd prescription. Pt started her cycle on Sunday and would like Femara sent to pharmacy today and a order for her day21. I advised pt the rx will be sent to today and pt was given a copy of her lab order. Pt will be going to [facility] to have it drawn. Documented by: Kasey Boss MA on behalf of MODE Anderson documented in this encounterMissouri Delta Medical [id number] History of Present illness Narrative* Cristela Garza LPN - 04/21/2024 10:40 AM EDT Reason for Appointment: Patient ID: Karyn Bone is a 18 y.o. female who presents for Follow-up (Pt present today for Metformin follow up visit. Pt was put on 500 mg and was to increase it to 1000 mg on 03/24/2024.) and Weight Management (Pt present today for Adipex visit #!) Patient presents today for Weight Management Consult. MEDICATIONS Current Outpatient Medications Medication Instructions cetirizine (ZyrTEC) 10 MG tablet Daily metFORMIN XR (GLUCOPHAGE-XR) 1,000 mg, Oral, Daily with evening meal, Do not crush, chew, or split. phentermine (ADIPEX-P) 37.5 mg, Oral, Daily before breakfast ALLERGIES Allergies Allergen Reactions Homatropine Other Reaction(s): dizzy, nausea Hydrocodone GI intolerance Other Reaction(s): dizzy, nausea Naproxen Other Reaction(s): stomach upset Penicillins Other Reaction(s): Hives, Mother is allergic, Unknown Other Reaction(s): hives, Mother is allergic, Unknown Red Dye Other Reaction(s): Hives Red Dye #40 (Allura Red) Other Reaction(s): Unknown Sertraline Other Reaction(s): Unknown Wheat Other Reaction(s): Hives Chlorhexidine Gluconate Rash Latex Hives and Rash PROBLEMS Active Ambulatory Problems Diagnosis Date Noted Anovulation 03/24/2024 PCOS (polycystic ovarian syndrome) 03/24/2024 Resolved Ambulatory Problems Diagnosis Date Noted No Resolved Ambulatory Problems No Additional Past Medical History HISTORY PAST MEDICAL HISTORY SOCIAL HISTORY No past medical history on file. Social History Tobacco Use Smoking status: Never Smokeless tobacco: Never Vaping Use Vaping status: Never Used Substance Use Topics Alcohol use: Not Currently Drug use: Never FAMILY HISTORY No family history on file. SURGICAL HISTORY Past Surgical History: Procedure Laterality Date ADENOIDECTOMY ANKLE FUSION Right 2021 TONSILLECTOMY REVIEW OF SYSTEMS Review of Systems: Review of Systems All other systems reviewed and are negative. OBJECTIVE Objective: Physical Exam Constitutional: Appearance: Normal appearance. She is well-developed. Cardiovascular: Rate and Rhythm: Normal rate and regular rhythm. Pulmonary: Effort: Pulmonary effort is normal. Breath sounds: Normal breath sounds. Abdominal: General: Bowel sounds are normal. There is no distension. Palpations: Abdomen is soft. Tenderness: There is no abdominal tenderness. There is no guarding or rebound. Musculoskeletal: General: No swelling. Normal range of motion. Right lower leg: No edema. Left lower leg: No edema. Neurological: Mental Status: She is alert and oriented to person, place, and time. Skin: General: Skin is warm and dry. Psychiatric: Mood and Affect: Mood normal. Behavior: Behavior normal. Vitals and nursing note reviewed. Exam conducted with a servicer present. Vitals: Estimated body mass index is 47.13 kg/m as calculated from the following: Height as of this encounter: 5' 6 . Weight as of this encounter: 292 lb. BP: 118/70 Patient's last menstrual period was 03/29/2024 (exact date). ASSESSMENT & PLAN ICD-10-CM 1. Follow-up encounter involving medication Z79.899 2. PCOS (polycystic ovarian syndrome) E28.2 3. Weight gain R63.5 4. Encounter for weight management Z76.89 phentermine (Adipex-P) 37.5 MG tablet Patient presents today for initial Adipex prescription. The importance of keeping a food journal, proper nutrition/diet, and exercise regimen while taking Adipex has been discussed. Patient verbalized understanding and signed consents to initiate (Adipex) medication therapy. Patient was given a printed prescription signed by provider to take to their local pharmacy. Patient to continue with Metformin 500mg at this time. Follow Up: Patient is to return to the office in 1 month for further evaluation to assess patient progress. Weight and blood pressure will need to be captured in order for patient to receive 2nd prescription. Documented by Cristela Garza LPN on behalf of: Tino Mcfarlane DO documented in this encounterMissouri Delta Medical [id number] Hospital Discharge instructions Patient Education 03/31/2024 10:19:16 Intravenous Pyelogram Intravenous Pyelogram An intravenous pyelogram is an X-ray of the urinary tract. The urinary tract is the system through which pee (urine) travels. This tract includes the kidneys, ureters, and bladder. An intravenous pyelogram can help your health care provider find problems, such as: Kidney stones. Bladder stones. An enlarged prostate. Tumors. Tell a health care provider about: Any allergies you have. All medicines you are taking, including vitamins, herbs, eye drops, creams, and jwas-yqb-ufrbrum medicines. Any problems you or family members have had with anesthesia. Any bleeding problems you have. Any surgeries you have had. Any medical conditions you have. Whether you are or may be . What are the risks? Your provider will talk with you about risks. These may include: Nausea. An allergic reaction to the dye that is used during the procedure. What happens before the procedure? Follow instructions from your provider about eating or drinking restrictions. Follow instructions from your provider about preparing for the test by taking an oral bowel prep. Ask your provider about changing or stopping your regular medicines. These include any diabetes medicines or blood thinners you take. You may need to remove glasses, jewelry, and any other metal objects. You may be asked to put on a hospital gown. What happens during the procedure? You will lie down on an exam table. An IV will be inserted into one of your veins. A contrast dye will be injected through the IV. This dye will help your provider see the urinary tract better on the X-rays. When the dye enters your body, you may feel warm or have a strange taste in your mouth. The feeling will not last long. A natural gas plant technician will take X-rays. To make the X-rays clearer: ?Pressure may be applied to your abdomen. ?You may be asked not to move for long periods of time. ?You may be asked to change positions. You may be asked to empty your bladder before the final X-ray is taken. The procedure may vary among providers and hospitals. What can I expect after procedure? You may return to your normal activities right after the procedure. You may safely drive home right after the procedure. Follow these instructions at home: Drink enough fluid to keep your pee pale yellow. This will help flush out the dye in your body. Take gazv-xye-zpwllya and prescription medicines only as told by your provider. Return to your normal activities as told by your provider. Ask your provider what activities are safe for you. It is up to you to get the results of your procedure. Ask your provider, or the department that is doing the procedure, when your results will be ready. Contact a health care provider if: You start peeing (urinating) less than usual. Get help right away if: You vomit or feel like you may vomit. You have itching or itchy, red, swollen areas on the skin (hives). You have trouble breathing. Your throat swells. You have chest pain. You have chills or a fever. These symptoms may be an emergency. Get help right away. Call 911. Do not wait to see if the symptoms will go away. Do not drive yourself to the hospital. This information is not intended to replace advice given to you by your health care provider. Make sure you discuss any questions you have with your health care provider. Document Revised: 03/27/2023 Document Reviewed: 03/27/2023 [employer] Patient Education 2023 [employer]. 03/31/2024 10:19:11 Laser Therapy for Kidney Stones Laser Therapy for Kidney Stones Laser therapy for kidney stones is a procedure to break up rock-like masses that form inside the kidneys (kidney stones). It is done using a device that beams a strong light (laser) on the kidney stones. This breaks the stones up into small pieces. These small pieces may leave your body when you pee (urinate) or may be taken out during the procedure. You may need laser therapy if you have kidney stones that are painful or that are stopping you frombeing able to pee. Tell a health care provider about: Any allergies you have. All medicines you are taking, including vitamins, herbs, eye drops, creams, and rgtz-uwe-tadctwv medicines. Any problems you or family members have had with anesthesia. Any bleeding problems you have. Any surgeries you have had. Any medical conditions you have. Whether you are or may be . What are the risks? Your health care provider will talk with you about risks. These may include: Infection. Bleeding. Allergic reactions to medicines. Damage to: ?The part of your body that drains pee (urine) from the bladder (urethra). ?The bladder. ?The tube that connects the bladder to the kidneys (ureter). Urinary tract infection (UTI). Urethral stricture. This is when the urethra is narrowed by scarring. Trouble peeing. Blockage of the kidney. This may be caused by a piece of kidney stone. What happens before the procedure? When to stop eating and drinking Follow instructions from your provider about what you may eat and drink. These may include: 8 hours before the procedure ?Stop eating most foods. Do not eat meat, fried foods, or fatty foods. ?Eat only light foods, such as toast or crackers. ?All liquids are okay except energy drinks and alcohol. 6 hours before the procedure ?Stop eating. ?Drink only clear liquids, such as water, clear fruit juice, black coffee, plain tea, and sports drinks. ?Do not drink energy drinks or alcohol. 2 hours before the procedure ?Stop drinking all liquids. ?You may be allowed to take medicines with small sips of water. If you do not follow your provider's instructions, your procedure may be delayed or canceled. Medicines Ask your provider about: ?Changing or stopping your regular medicines. These include any diabetes medicines or blood thinners you take. ?Taking medicines such as aspirin and ibuprofen. These medicines can thin your blood. Do not take them unless your provider tells you to. ?Taking frob-qzf-ixljbgd medicines, vitamins, herbs, and supplements. Tests You may have a physical exam before the procedure. You may also have tests done. These may include: ?Imaging tests. ?Blood or pee tests. Surgery safety Ask your provider: ?How your surgery site will be marked. ?What steps will be taken to help prevent infection. These steps may include: ?Removing hair at the surgery site. ?Washing skin with a soap that kills germs. ?Taking antibiotics. General instructions Do not use any products that contain nicotine or tobacco for at least 4 weeks before the procedure.These products include cigarettes, chewing tobacco, and vaping devices, such as e-cigarettes. If you need help quitting, ask your provider. If you will be going home right after the procedure, plan to have a responsible adult: ?Take you home from the hospital or clinic. You will not be allowed to drive. ?Care for you for the time you are told. What happens during the procedure? An IV will be inserted into one of your veins. You will be given: ?A sedative. This helps you relax. ?Anesthesia. This keeps you from feeling pain. It will make you fall asleep for surgery. A tool with a camera on the end (ureteroscope) will be put into your urethra. It will be moved through your bladder to your kidney. It will send pictures to a screen in the operating room. This will show what parts of your kidney need to be treated. A tube will be put through the ureteroscope. It will be moved into your kidney. The laser device will be put into your kidney through the tube. The laser will be used to break up the kidney stones. A tool with a tiny wire basket may be put through the tube into your kidney. This can help remove the small pieces of the kidney stone. A small mesh tube (stent) may be placed to allow your kidney to drain. The tube and ureteroscope will be taken out at the end of the surgery. The procedure may vary among providers and hospitals. What happens after the procedure? Your blood pressure, heart rate, breathing rate, and blood oxygen level will be monitored until youleave the hospital or clinic. If you had a stent placed, it may have a string that will be secured to your skin. This helps your provider remove the stent. You may be given a strainer to collect any stone pieces that you pass in your pee. Your provider may have these tested. This information is not intended to replace advice given to you by your health care provider. Make sure you discuss any questions you have with your health care provider. Document Revised: 02/16/2023 Document Reviewed: 02/16/2023 [employer] Patient Education 2023 [employer]. Follow Up Care 03/13/2024 09:35:01 With:PAUL GAVIRIA, Deuce Valenzuela, URL Address: [address] [place], [place] [id number]- When: Unknown [facility] [id number] NoteUrology Office/Clinic Note Chief Complaint New Pt. referral HPI Staff Karyn is a 18 yo female new pt referred by Kalani Metcalf CNP due to 2 mm ureteral stone, hydronephrosis. Dysuria: denies pain or burning Incomplete bladder emptying: denies Hematuria: denies visible blood Frequency: denies Urgency: denies Nocturia: denies Stream: denies hesitancy, denies weak stream Leaking: denies Post void dripping: denies Wearing pads/ Depends: denies Urge incontinence: denies Stress incontinence: denies Incontinence without Sensory Awareness: denies Abdominal pain: denies Flank pain: denies Sexual complaints: denies History of Present Illness Tests reviewed: UA, referral records, KUB, CT I have reviewed the previous health record information and history for this patient from Kalani Metcalf CNP . I have reviewed and verified the staff HPI to be accurate for this encounter. Review of Systems PHQ Score Initial Depression Screen Score: 0 SCORE ROS - Provider Constitutional: denies weight loss, denies hot flashes. Eyes: denies eye problems. Gastrointestinal: denies nausea, denies vomiting. Cardiovascular: denies chest pain or angina. Integumentary: no dryness Musculoskeletal: denies musculoskeletal symptoms. ENMT: denies otolaryngeal symptoms. Respiratory: no shortness of breath. Heme/Lymph: denies easy bleeding tendency, denies easy bruising tendency. Psychiatric: no confusion, no anxiety. Genitourinary: See HPI. Physical Exam Vitals & Measurements HR: 86(Peripheral) RR: 16 BP: 126/86 HT: 67 in HT: 170 cm WT: 133.4 kg WT: 293.48 lb BMI: 46.16 General Appearance: alert, no distress, well nourished, well developed female. Assessment/Plan Karyn is a 18 yo female new pt referred by Kalani Metcalf CNP due to 2 mm ureteral stone, hydronephrosis. Pt here with her mother today. 1. Ureteral stone with hydronephrosis (N13.2: Hydronephrosis with renal and ureteral calculous obstruction) CT AP wo con 03/07/24 [facility] - Mild L hydro. Previous L 2 mm renal stone has resolved. Small 2 mm stone near the L UVJ in the distal L ureter (this is the renal stone that resolved ). No other renal stones noted. KUB 03/27/24 [facility] - Neg. Interval resolution of tiny distal L ureteral stone. UA shows trace-intact blood wo signs of infection. Reviewed imaging with pt. Intermittent pain. Does not think she has passed stone. 98% chance of passing stone this size at this location. Pain neverwrapped around to front. Discussed xray IVP to eval for possible remaining ureteral stone given this is less radiation. No iodine/shellfish allergy, has tolerated IV con in the past. If ureteral stone remains on IVP, consider L laser litho, RPG, URS, possible stent given pt has been trying to pass this stone for weeks now if it is still there. Discussed metabolic workup including 24 hour urine and blood work for stone prevention. PE: pain over L kidney and LLQ pain. Follow up pending IVP below or sooner if needed. Pt understands and agrees with plan. -Schedule XR IVP. -High fluid intake. -The procedural risks, benefits, details, and treatment alternatives of L laser litho, RPG, URS, possible stent have been discussed with the patient. These include bleeding, infection, inability to break or retrieve all of the stone, injury to the ureter (the tube which connects the kidney to the bladder), injury to the kidney scarring of the ureter, and need for repeat procedures, among others. Full informed consent has been obtained. Will order General anesthesia. 2. Left flank pain (R10.9: Unspecified abdominal pain) See #1. The patient apparently has been having pain for the past 3 to 4 weeks. She actually had a study performed back in October 2023 which demonstrated a left-sided renal calculus measuring 2 to 3 mm. The follow-up study in March 07 demonstrates left-sided hydronephrosis and a 2 to 3 mm stone in the left lower ureter. This is unconfirmed on the most recent KUB but she still having pain. I informed her that she had about a 98% chance of passing this 2 to 3 mm stone. If 3 weeks of passing the stone is still present this may lead to the recommendation for operative intervention. I feel that an intravenous pyelogram should be obtained to confirm presence or absence of the stoneand hydronephrosis and she agrees with that plan. She will call after completion of that test. She knows that the next step would be cystoscopy, retrograde pyelogram, ureteroscopy, with or without laser ablation, basket extraction and the possibility of stent. The patient and her grandmother agree with that plan. Follow-up With When Contact Information Deuce ABRAHAM MD, URL [address] [facility] [address] [address]- Additional Instructions: f/u pending XR IVP Patient Education Intravenous Pyelogram Laser Therapy for Kidney Stones IRebeca, personally scribed for Dr. Abraham on 03/31/2024 10:20:28. Electronically (more content not included)...[facility] HospitalComment on above:Result Comment: Electronically Signed By: Deuce ABRAHAM MD\.br\Date and Time Signed: 03/31/24 10:25 EDT\.br\Electronically Co-Signed By: Rebeca Johnson\.br\Date and Time Co-Signed: 03/31/24 10:21 [id number] NotePatient Education Nephrology Laser Therapy for Kidney Stones Laser therapy for kidney stones is a procedure to break up rock-like masses that form inside the kidneys (kidney stones). It is done using a device that beams a strong light (laser) on the kidney stones. This breaks the stones up into small pieces. These small pieces may leave your body when you pee (urinate) or may be taken out during the procedure. You may need laser therapy if you have kidney stones that are painful or that are stopping you frombeing able to pee. Tell a health care provider about: ? Any allergies you have. ? All medicines you are taking, including vitamins, herbs, eye drops, creams, and hrlh-yar-ooakbhb medicines. ? Any problems you or family members have had with anesthesia. ? Any bleeding problems you have. ? Any surgeries you have had. ? Any medical conditions you have. ? Whether you are or may be . What are the risks? Your health care provider will talk with you about risks. These may include: ? Infection. ? Bleeding. ? Allergic reactions to medicines. ? Damage to: ? The part of your body that drains pee (urine) from the bladder (urethra). ? The bladder. ? The tube that connects the bladder to the kidneys (ureter). ? Urinary tract infection (UTI). ? Urethral stricture. This is when the urethra is narrowed by scarring. ? Trouble peeing. ? Blockage of the kidney. This may be caused by a piece of kidney stone. What happens before the procedure? When to stop eating and drinking Follow instructions from your provider about what you may eat and drink. These may include: ? 8 hours before the procedure ? Stop eating most foods. Do not eat meat, fried foods, or fatty foods. ? Eat only light foods, such as toast or crackers. ? All liquids are okay except energy drinks and alcohol. ? 6 hours before the procedure ? Stop eating. ? Drink only clear liquids, such as water, clear fruit juice, black coffee, plain tea, and sports drinks. ? Do not drink energy drinks or alcohol. ? 2 hours before the procedure ? Stop drinking all liquids. ? You may be allowed to take medicines with small sips of water. ? If you do not follow your provider's instructions, your procedure may be delayed or canceled. Medicines ? Ask your provider about: ? Changing or stopping your regular medicines. These include any diabetes medicines or blood thinners you take. ? Taking medicines such as aspirin and ibuprofen. These medicines can thin your blood. Do not take them unless your provider tells you to. ? Taking uqtv-qrs-lwmwbnw medicines, vitamins, herbs, and supplements. Tests ? You may have a physical exam before the procedure. You may also have tests done. These may include: ? Imaging tests. ? Blood or pee tests. Surgery safety ? Ask your provider: ? How your surgery site will be marked. ? What steps will be taken to help prevent infection. These steps may include: ? Removing hair at the surgery site. ? Washing skin with a soap that kills germs. ? Taking antibiotics. General instructions ? Do not use any products that contain nicotine or tobacco for at least 4 weeks before the procedure. These products include cigarettes, chewing tobacco, and vaping devices, such as e-cigarettes. If you need help quitting, ask your provider. ? If you will be going home right after the procedure, plan to have a responsible adult: ? Take you home from the hospital or clinic. You will not be allowed to drive. ? Care for you for the time you are told. What happens during the procedure? ? An IV will be inserted into one of your veins. ? You will be given: ? A sedative. This helps you relax. ? Anesthesia. This keeps you from feeling pain. It will make you fall asleep for surgery. ? A tool with a camera on the end (ureteroscope) will be put into your urethra. It will be moved through your bladder to your kidney. It will send pictures to a screen in the operating room. This will show what parts of your kidney need to be treated. ? A tube will be put through the ureteroscope. It will be moved into your kidney. ? The laser device will be put into your kidney through the tube. The laser will be used to break up the kidney stones. ? A tool with a tiny wire basket may be put through the tube into your kidney. This can help removethe small pieces of the kidney stone. ? A small mesh tube (stent) may be placed to allow your kidney to drain. ? The tube and ureteroscope will be taken out at the end of the surgery. The procedure may vary among providers and hospitals. What happens after the procedure? ? Your blood pressure, heart rate, breathing rate, and blood oxygen level will be monitored until you leave the hospital or clinic. ? If you had a stent placed, it may have a string that will be secured to your skin. This helps your provider remove the stent. ? You may be given a strainer to col (more content not included)...[facility] History of Present illness Narrative* Cristela Garza LPN - 03/24/2024 8:50 AM EDT Reason for Appointment: Patient ID: Karyn Bone is a 18 y.o. female who presents for Discuss Fertilty Patient presents today for Consult appointment. MEDICATIONS Current Outpatient Medications Medication Instructions cetirizine (ZyrTEC) 10 MG tablet Daily ALLERGIES Allergies Allergen Reactions Homatropine Other Reaction(s): dizzy, nausea Hydrocodone GI intolerance Other Reaction(s): dizzy, nausea Naproxen Other Reaction(s): stomach upset Penicillins Other Reaction(s): Hives, Mother is allergic, Unknown Other Reaction(s): hives, Mother is allergic, Unknown Red Dye Other Reaction(s): Hives Red Dye #40 (Allura Red) Other Reaction(s): Unknown Sertraline Other Reaction(s): Unknown Wheat Other Reaction(s): Hives Chlorhexidine Gluconate Rash Latex Hives and Rash PROBLEMS Active Ambulatory Problems Diagnosis Date Noted No Active Ambulatory Problems Resolved Ambulatory Problems Diagnosis Date Noted No Resolved Ambulatory Problems No Additional Past Medical History HISTORY PAST MEDICAL HISTORY SOCIAL HISTORY History reviewed. No pertinent past medical history. Social History Tobacco Use Smoking status: Never Smokeless tobacco: Never Vaping Use Vaping status: Never Used Substance Use Topics Alcohol use: Not Currently Drug use: Never FAMILY HISTORY No family history on file. SURGICAL HISTORY Past Surgical History: Procedure Laterality Date ADENOIDECTOMY ANKLE FUSION Right 2021 TONSILLECTOMY REVIEW OF SYSTEMS Review of Systems: Review of Systems All other systems reviewed and are negative. OBJECTIVE Objective: Physical Exam Constitutional: Appearance: Normal appearance. She is well-developed. Cardiovascular: Rate and Rhythm: Normal rate and regular rhythm. Pulmonary: Effort: Pulmonary effort is normal. Breath sounds: Normal breath sounds. Abdominal: General: Bowel sounds are normal. There is no distension. Palpations: Abdomen is soft. Tenderness: There is no abdominal tenderness. There is no guarding or rebound. Musculoskeletal: General: No swelling. Normal range of motion. Right lower leg: No edema. Left lower leg: No edema. Neurological: Mental Status: She is alert and oriented to person, place, and time. Skin: General: Skin is warm and dry. Psychiatric: Mood and Affect: Mood normal. Behavior: Behavior normal. Vitals and nursing note reviewed. Exam conducted with a servicer present. Vitals: Estimated body mass index is 32.28 kg/m as calculated from the following: Height as of 03/25/21: 5' 6 . Weight as of 03/25/21: 200 lb. BP: 120/76 No LMP recorded. ASSESSMENT & PLAN ICD-10-CM 1. Encounter for fertility planning Z31.89 Patient presents today to discuss fertility as she has previously seen Dr. Barclay and was given Clomid. Patient was instructed to call the office once menstrual cycle begins so femara can be called into patients pharmacy. Patient has been instructed to take Femara on days 3-7 of cycle. On day 21 of cycle patient is to have progesterone labs drawn. Patient was advised to have intercourse on days 12, 14, 16, 18, and 20 of cycle. We will do three rounds of Femara and if patient has not conceived bythen, we will perform HSG. Patient has voiced understanding and will call our office for any further questions/concerns. Discussed benefits of taking Metformin and start at 500mg and increase to 1,000mg. Discussed PCOS with patient after review labs and Hba1c & CBC were ordered to be drawn. Patient will be started on 5mg of Femara starting first month, since she has been in Clomid in the past. Ordered Semen analysis for spouse: Fabian Shelton : Follow Up: 4 weeks to start Adipex. 4 months for follow-up fertility. Documented by Cristela Garza LPN on behalf of: Tino Mcfarlane DO documented in this encounterMissouri Delta Medical [id number] History of Present illness Narrative* Bonita Barclay MD - 01/01/2024 8:00 AM EDT Images from the original note were not included. Bonita Barclay MD Obstetrics and Gynecology Patient: Karyn Bone : 2005 (18 y.o.) Exam Date: 01/01/2024 Reason for Visit - Chief Complaint Patient presents with Follow-up Televisit to go over most recent lab work. Vaginal Bleeding Complaints of left side pain, stating she has had it for about 2 weeks waiting for it to go away after her menses, it did not , patient was seen at [facility] [facility] 2 times and had US done where pt stated that they could not find any cause of the pain, her PCP also could not fine the source of pain and was recommenced to see OBGYN. Ovulation11/03 and menses 11/20 Had bleeding for 2 days, then stopped, then started again for 2 hours and was finished. On clomid, did take it this cycle. LMP 11/20 with bleeding for 2 days US 12/02 [id number] ROVC and 19x18 mm OVC Next menses 12/22 Follow up for Clomid check Visit Vitals LMP 11/21/2023 (Exact Date) OB Status Having periods Smoking Status Never History of Present Illness, Associated Treatments and Results - OB History Para Term AB Living 0 0 0 0 0 0 SAB IAB Ectopic Multiple Live Births 0 0 0 0 0 Constitutional: Negative. HENT: Negative. Eyes: Negative. Respiratory: Negative. Cardiovascular: Negative. Gastrointestinal: Negative. Endocrine: Negative. Genitourinary: Negative. Musculoskeletal: Negative. Skin: Negative. Allergic/Immunologic: Negative. Neurological: Negative. Hematological: Negative. Psychiatric/Behavioral: Negative. Allergies Allergen Reactions Homatropine Other Reaction(s): dizzy, nausea Hydrocodone GI intolerance Latex Hives Penicillins Other Reaction(s): Hives, Mother is allergic, Unknown Red Dye Other Reaction(s): Unknown Wheat Other Reaction(s): Hives Current Outpatient Medications: cetirizine (ZyrTEC) 10 MG tablet, Daily, Disp: , Rfl: clomiPHENE (Clomid) 50 MG tablet, 1 daily day 5-9 of cycle, Disp: 4 tablet, Rfl: 2 FLUoxetine (PROzac) 10 MG capsule, TAKE 1 CAPSULE BY MOUTH EVERY DAY FOR 7 DAYS, Disp: , Rfl: No past medical history on file. Past Surgical History: Procedure Laterality Date ANKLE FUSION Right 2021 TONSILECTOMY, ADENOIDECTOMY, BILATERAL MYRINGOTOMY AND TUBES No family history on file. Social History Tobacco Use Smoking Status Never Smokeless Tobacco Never Assessment/Plan Verbal consent given for televisit, provider in office and patient at home. ICD-10-CM 1. Family planning counseling Z30.09 2. Hormone imbalance E34.9 3. Left lower quadrant abdominal pain R10.32 documented in this encounterMissouri Delta Medical [id number] Hospital Discharge instructions Additional Instructions Please return to emergency department for any new or worrisome symptoms including any vomiting, fever, return of flank pain, chest pain or shortness of breath. Follow-up with your family physician within the next 1 to 2 days.[facility] Work Phone: [phone] 163-234704-22-2024 History of Present illness Narrative* Bonita Barclay MD - 10/22/2023 8:00 AM EDT Images from the original note were not included. rocio T Bonita Barclay MD Obstetrics and Gynecology Patient: Karyn Bone : 2005 (18 y.o.) Exam Date: 10/22/2023 Reason for Visit - Chief Complaint Patient presents with Follow-up Televisit follow up on family planning, labs done at last visit. Verbal consent given for televisitover the phone. Provider in office and patient at home. Pt with wish and progesterone was low . Pt will need Clomid since periods are irregular and progesterone is low and pt has acne and hirsuitism Ultrasound will be ordered to assess pelvic anatom\y Follow up 3 months for Clomod check Visit Vitals LMP 09/12/2023 (Exact Date) OB Status Having periods Smoking Status Never History of Present Illness, Associated Treatments and Results - OB History Para Term AB Living 0 0 0 0 0 0 SAB IAB Ectopic Multiple Live Births 0 0 0 0 0 Constitutional: Negative. HENT: Negative. Eyes: Negative. Respiratory: Negative. Cardiovascular: Negative. Gastrointestinal: Negative. Endocrine: Negative. Genitourinary: Negative. Musculoskeletal: Negative. Skin: Negative. Allergic/Immunologic: Negative. Neurological: Negative. Hematological: Negative. Psychiatric/Behavioral: Negative. Allergies Allergen Reactions Homatropine Other Reaction(s): dizzy, nausea Hydrocodone GI intolerance Latex Hives Penicillins Other Reaction(s): Hives, Mother is allergic, Unknown Red Dye Other Reaction(s): Unknown Wheat Other Reaction(s): Hives Current Outpatient Medications: cetirizine (ZyrTEC) 10 MG tablet, Daily, Disp: , Rfl: FLUoxetine (PROzac) 10 MG capsule, TAKE 1 CAPSULE BY MOUTH EVERY DAY FOR 7 DAYS, Disp: , Rfl: No past medical history on file. Past Surgical History: Procedure Laterality Date ANKLE FUSION Right 2021 TONSILECTOMY, ADENOIDECTOMY, BILATERAL MYRINGOTOMY AND TUBES No family history on file. Social History Tobacco Use Smoking Status Never Smokeless Tobacco Never Assessment/Plan ICD-10-CM 1. Hormone imbalance E34.9 2. Thyroid disorder screen Z13.29 3. Family planning counseling Z30.09 documented in [facility] encounterMiss[facility] [id number] Evaluation note* Encounter Date Diagnosis Assessment Notes Treatment Notes Treatment Clinical Notes Apr, Acute cough (ICD-10 - R05.1) Apr,Sore throat (ICD-10 - J02.9) Discussed diagnosis with patient today in office. Advised patient that COVID PCR test was negative today. Advised patient that rapid strep test was positive, however, physical exam shows no findings that would correlate with strep diagnosis. Throat culture was obtained today, will call with resultsin 2 to 5 days. At time of results treatment plan may change. Patient has been on multiple antibiotics in the past 2 months. Advised patient that I wish to hold off on antibiotic therapy at this time, however, patient requested antibiotic therapy due to positive Quick test. We will send in Rx of azithromycin to use as directed, however, advised that if throat culture does not show bacteria that sh e will need to discontinue medication. Encouraged supportive care as directed, including OTC cold medications, Tylenol/Motrin, increasing fluids, rest, salt water gargles, throat lozenges as needed. Work note provided, no extension allowed. Patient to follow-up with PCP or ENT if symptoms do not improve in the future. Patient verbalizes understanding and is agreeable with treatment plan [facility] Other 09-04-2023 Evaluation note* Encounter Date Diagnosis Assessment Notes Treatment Notes Treatment Clinical Notes Mar, Sore throat (ICD-10 - J02.9) Mar,Strep pharyngitis (ICD-10 - J02.0)Will order 14 day course of cefdinir given patient's extensive strep history and history of frequent reinfections. Symptoms presented in office today indicate Strep Throat. Take medications as directed. Saltwater gargles may help with pain and disrupts bacteria and viral infections. Continue tylenol/ibu for general discomfort. Encourage fluids. Symptoms should improve within the next 4-7 days. [facility] Other 06-25-2023 Evaluation note* Encounter Date Diagnosis Assessment Notes Treatment Notes Treatment Clinical Notes Nov, Strain of lumbar region, initial encounter (ICD-10 - S39.012A) Pt to take meds as prescribed. No nsaids while on steroid. Discussed drowsy SE of muscle relaxer. No driving or operating machinery while on rx. Otc tylenol is ok to take PRN for additional pain relief. Ice first 48 hrs as directed, then moist heat thereafter. RICE therapy. No heavy lifting or strenuous exercise. Stretching exercises as discussed. Pt to f/u as needed for any persistent or worsening symptoms. Immediate eval in ER for loss of bowel/bladder function, severe pain, loss of sensationin lower legs, or inability to walk. Pt understood and agreed to treatment plan. [facility] Other 01-04-2023 Evaluation note* Encounter Date Diagnosis Assessment Notes Treatment Notes Treatment Clinical Notes Jul, Sore throat (ICD-10 - J02.9) Jul,Strep pharyngitis (ICD-10 - J02.0)Symptoms presented in office today indicate Strep Throat. Take medications as directed. Given she has had strep more frequently, will trial cefdinir for 14 days as opposed to 10. Saltwater gargles may help with pain and disrupts bacteria and viral infections. Continue tylenol/ibu for general discomfort. Encourage fluids. Symptoms should improve within the next 4-7 days. [facility] Other 12-16-2022 Evaluation note* Encounter Date Diagnosis Assessment Notes Treatment Notes Treatment Clinical Notes Jun, Dysuria (ICD-10 - R30.0) We will call you when your urine culture results return. Push fluids! Take medication as directed. Follow hygiene guidelines such as wiping front to back, avoid using perfumed lotions, bath beads, bubble bath. Prevention tips inlcude urinating after sexual intercourse. Follow up with primary care provider or tobacco sieve operator if no improvement of symptoms. [facility] Other 11-24-2022 NotePROCEDURE: XR ANKLE RT MIN 3 VIEWS HISTORY: Pain of right ankle joint ; acute lateral right ankle pain following injury COMPARISON: None. FINDINGS: BONES:No fracture, acute abnormality, or significant arthropathy. SOFT TISSUES:No visible soft tissue swelling. EFFUSION:None visible. OTHER: Negative. IMPRESSION: 1. No acute bone abnormality. Electronically authenticated by: CAMILLE GUPTA Date: 2022-05-24 22:57[facility]10-23-2022 Evaluation note* Encounter Date Diagnosis Assessment Notes Treatment Notes Treatment Clinical Notes Apr, Sore throat (ICD-10 - J02.9) Apr,trep pharyngitis (ICD-10 - J02.0)Symptoms presented in office today indicate Strep Throat. Continue tylenol/ibu for general discomfort. Encourage cool fluids, popsicles, yogurt for comfort of symptoms. Symptoms should improve withinthe next 4-7 days. Follow up with primary care provider if no improvement of symptoms. Sign and symptoms are consistent with strep pharyngitis. Will treat with cefdinir, as she was recently on amoxicillin, and dexamethasone given the level of discomfort she is in. Pt understands and agrees with the plan. [facility] Other 05-18-2022 NotePROCEDURE: XR FOOT RT MIN 3 VIEWS HISTORY: Pain COMPARISON: XR foot right 03/10/2019, XR ankle right 08/22/2021 FINDINGS: BONES:No fracture, acute abnormality, or significant arthropathy. SOFT TISSUES:No visible soft tissue swelling. EFFUSION:None visible. OTHER: Negative. IMPRESSION: 1. No acute bone abnormality or appreciable degenerative changes. Electronically authenticated by: CAMILLE GUPTA Date: 2021-11-16 10:23[facility]02-21-2022 NotePROCEDURE: XR ANKLE RT 2V HISTORY: Ankle pain COMPARISON: XR ankle right 02/16/2021 FINDINGS: BONES:Single intraoperative view of the right ankle under stress demonstrates anterior subluxation of the talus in relation to the tibial plafond. IMPRESSION: 1. Mild anterior subluxation of talus during ankle joint stress. Electronically authenticated by: CAMILLE GUPTA Date: 2021-08-22 12:54[facility] [id number] History general Narrative - Reported* Type Description Date Medical History 02/24/12 blood work Lipid, CMP, CBC, T4, TSH, HGA1C (5.6) Medical HistoryanxietyMedical Historyseasonal allergiesSurgical History tonsillectomy and trsurpkdagzyr61/2008 [facility] Other [id number] History general Narrative - Reported* Type Description Date Medical History 02/24/12 blood work Lipid, CMP, CBC, T4, TSH, HGA1C (5.6) Medical HistoryanxietyMedical Historyseasonal allergiesSurgical History tonsillectomy and mdjisljfrwbyh00/2008Hospitalization Historytonsillectomy and adenoidectomy10/2007 [facility] Other Evaluation + Plan note No data available for this section [facility] Evaluation noteNo assessment information available [facility] Work Phone: Evaluation noteNo InformationNort S[employer] Other Evaluation note* Diagnosis Hormone imbalance Thyroid disorder screen Screening for thyroid disorder Family planning counseling Other general counseling and advice for contraceptive management [facility] Diagnosis Family planning counseling Other general counseling and advice for contraceptive management Hormone imbalance Left lower quadrant abdominal pain documented [facility]* Diagnosis Follow-up encounter involving medication PCOS (polycystic ovarian syndrome) Polycystic ovaries Weight gain Other symptoms concerning nutrition, metabolism, and development Encounter for weight management [facility]* Diagnosis Weight gain Other symptoms concerning nutrition, metabolism, and development Encounter for weight management Anovulation Female infertility associated with anovulation documented in this encounter [facility]* Diagnosis Weight gain Other symptoms concerning nutrition, metabolism, and development Encounter for weight management PCOS (polycystic ovarian syndrome) Polycystic ovaries Anovulation Female infertility associated with anovulation documented in this encounter [facility] Healthcare[facility]* Diagnosis Anovulation Female infertility associated with anovulation PCOS (polycystic ovarian syndrome) Polycystic ovaries documented in this encounter [facility]* Diagnosis Encounter for infertility Weight gain Other symptoms concerning nutrition, metabolism, and development Encounter for weight management Other insomnia documented in this encounter [facility] Healthcare[facility] note* Diagnosis Surgery follow-up- Primary Incomplete Legally unspecified , incomplete, without mention of complication BCP ( control pills) initiation General counseling for prescription of oral contraceptives documented in this encounter [facility] HealthcareHospital Discharge instructions Additional Instructions Push fluids Rest Take antibiotic as instructed until gone Tylenol or Motrin if needed for pain Please return if you develop any abdominal pain, fevers, chills, back pain, chest pain, shortness of breath Please apply nystatin cream to your blood alcohol area affected Take your Diflucan as [facility] Work Phone: Hospital Discharge instructions Additional Instructions Take Zofran for nausea vomiting Push fluids Clear liquid diet today and advance as tolerated Bananas, rice, applesauce, toast to help formed stool Good handwashing Follow with your PCP call tomorrow for [facility] Work Phone: Hospital Discharge instructions Additional Instructions DISCHARGE INSTRUCTIONS FOR DILATION & CURETTAGE (D & C) -Today, outpatient surgery has become a vital link in the health care program. Outpatient D&C is a safe and common practice and this paper is designed to help you know what to expect when you go home and under what circumstances you should give me a call. I will have all of your labs and surgery reports for you when you come in for your follow-up. -To reach me in an emergency, call the office at [[phone]]. TODAY -Take it easy the rest of the day. If you have received a general anesthetic or injections to help you relax for the local procedure you should not drive a car for at least 8 hours after surgery to make sure all of the medication has worn off. ACTIVITIES -There are no restrictions on your normal activities. Generally, you may expect to go back to work the next day unless I have given you other instructions. You should shower daily and practice good personal habits to offset the chance of infection. Avoid intercourse for one week after your surgery and you should not douche. Most women experience minimal disruption of their normal routines. BLEEDING -The amount of bleeding after a D&C varies somewhat. Some women have very little requiring onlya light pad for a few days. Other women may bleed similar to a heavy period for a week or so. [You may wear Tampax if you wish, but be sure to change often.] Do not be alarmed if you expel some clots. -If I have given you a prescription to control bleeding, get it filled on your way home, if possible, and take all the pills according to the directions on the bottle. These pills may increase the amount of your flow and give you cramping similar to first day menstrual cramps. Two Motrin every 6 hours or Anaprox every 12 hours and a heating pad should be sufficient to control any discomfort you may have. If your bleeding becomes bright red and becomes heavy enough that you have used one full pad an hour times 4 hours, I want you to give me a call. Also, if within the first week after surgery you experience chills, fever, and a change in the odor, color, or character of your drainage, you may be developing an infection and you should call me. You may expect your next period anywhere from 2 to 6 weeks after your D&C. CONTROL -Do not assume that you cannot get soon after a D&C. Practice your usual method of control beginning with the first time you have intercourse after you have surgery. If you are taking control pills, please continue them unless told otherwise. DIET -Any diet is permissible FOLLOW UP -Please call the office at [phone] to arrange an appointment [facility] Work Phone[facility] Progress note No data available for this section [facility] Renetta Reason for referral (narrative)No reason for referral information availableWood [facility] Work Phone: Recqkz for visit Narrative* Consultation (Routine) - ClosedSpecialtyDiagnoses / ProceduresReferred By ContactReferred To Contact Obstetrics and Gynecology Diagnoses s/p D&C Procedures [place] UNLISTED EVALUATION AND MANAGEMENT SERVICE [facility] [address] [place] [address] Jann Urrutia MD [address] [place] [address] Phone: tel: fax: Referral IDStatusReasonStart DateExpiration DateVisits RequestedVisits [id number]/10/202510/ [facility] Healthcare Chief Complaint and Reason for Visit Chief Complaint R53.83 Chief Complaint Painful Urination, v aginal buring sensatio, DX UTI Chief Complaint Painful Urination, v aginal buring sensatio, DX UTI Positive urine test Chief Complaint Painful Urination, v aginal buring sensatio, DX UTI Positive urine test Positive urine test Chief Complaint nausea,diarrhea, abd pain Chief Complaint nausea,diarrhea, abd pain lt side abd pain Chief Complaint lt side abd pain R10.2 Z87.442 Chief Complaint lt side abd pain R10.2 Z87.442 R63.5 R06.83 E66.01 E28.2 Chief Complaint R63.5 R06.83 E66.01 E28.2 lt side pain Chief Complaint R63.5 R06.83 E66.01 E28.2 lt side pain E28.2 n20.1 Chief Complaint R63.5 R06.83 E66.01 E28.2 lt side pain E28.2 n20.1 n20.1 Chief Complaint R63.5 R06.83 E66.01 E28.2 lt side pain E28.2 n20.1 n20.1 n13.2 Chief Complaint R63.5 R06.83 E66.01 E28.2 lt side pain E28.2 n20.1 n20.1 n13.2 E28.2 N97.0 Chief Complaint R63.5 R06.83 E66.01 E28.2 lt side pain E28.2 n20.1 n13.2 E28.2 N97.0 Congestion, sore throat Chief Complaint Admit Date z34.90 August 27, 2024 9:48am Chief Complaint Admit Date z34.90 August 27, 2024 9:48am n92.6 October 03, 2024 9:32 am Chief Complaint Admit Date z34.90 August 27, 2024 9:48am n92.6 October 03, 2024 9:32 am N92.6 October 06, 2024 7:08 am Chief Complaint Admit Date z34.90 August 27, 2024 9:48am n92.6 October 03, 2024 9:32 am N92.6 October 06, 2024 7:08 am heavy bleeding/dx miscarriage October 08, 2024 9:23am Reason for Visit Admit Date Incomplete miscarriage October 08, 2024 9 :23am Chief Complaint Admit Date n92.6 October 03, 2024 9:32 am N92.6 October 06, 2024 7:08 am heavy bleeding/dx miscarriage October 08, 2024 9:23am R42 R53.83 O03.9 October 29, 2024 11: 03am sinus sx December 04, 2024 5:48p m Chief Complaint Admit Date n92.6 October 03, 2024 9:32 am N92.6 October 06, 2024 7:08 am heavy bleeding/dx miscarriage October 08, 2024 9:23am R42 R53.83 O03.9 October 29, 2024 11: 03am sinus sx December 04, 2024 5:48p m d64.9 December 24, 2024 8:24 am Reason for Visit Admit Date Incomplete miscarriage October 08, 2024 9 :23am Allergic rhinitis December 04, 2024 5:48p m Chief Complaint Admit Date d64.9 e61.1 r79.89 March 26, 2025 9:21am Advance Directives No Advanced Directives Records Found Advance Directive Response Recorded Date/ Time Advance Directives No April 19, 2017 2:44pm Advance Directive Response Recorded Date/ Time Advance Directives No April 19, 2017 1:44pm Summary Purpose Family History No Family History Records Found Relationship Condition Age at Onset Recorded Date/T belkis grandparent Diabetes mellitus Unknown Not SpecifiedDeceasedUnknown Relationship Condition Age at Onset Recorded Date/T belkis grandparent Diabetes mellitus Unknown motherDeceasedUnknown Additional Source Comments Care Teams (unrecognized sec tion and content) Team Status: Inactive Member Role Status Dates Kalani Metcalf , [employer] P[employer]TER-C Attending Provide r Active Team Status: Inactive Member Role Status Dates Qamar Carroll [employer]-C Primary Care Provider Active Daniela Higuera ProviderActive Team Status: Inactive Member Role Status Dates Nhi Pal APRN [employer]-C Attending Provider Active Team Status: Inactive Member Role Status Dates Flavio Foley [employer]-C Attending Provider Activ e Team Status: Active Member Role Status Dates Qamar Carroll , [employer]-C Primary Care Provider Active Team Status: Active Member Role Status Dates Kalani Metcalf [employer]-C Primary Care Prov ider Active Team Status: Inactive Member Role Status Dates Kalani Metcalf NP-C Primary Care Prov ider Active Conchis Alvarez ProviderActive Team Status: Inactive Member Role Status Dates Kalani hurt [employer]TER-C Primary Care Provider Active Start: August 212023 End: August 21Daniela York ProviderActiveStart: August 21, 2023 End: August 21, 2023 Team Status: Inactive Member Role Status Dates Kalani hurt [employer]-C Primary Care Provider Active Start: November 11 End: November 11Maddie Koch ProviderActiveStart: November 12, 2023 End: November 12, 2023 Team Status: Inactive Member Role Status Dates Kalani hurt [employer]-C Primary Care Provider, Attending Provider Active Start: November 21, 2023 End: November 21, 2023 Team Status: Inactive Member Role Status Dates Kalani hurt , [employer]-C Attending Provider Active Start: February 07 End: February 08, 2024 Team Status: Active Member Role Status Dates [facility] Primary Care Provider Active Team Status: Inactive Member Role Status Dates Flavio Diaz Jr, MD Emergency Provider Active Start: March 07, 2024 End: March 07, 2024Services [facility] Care ProviderActiveStart: March 07, 2024 End: March 07, 2024 Team Status: Inactive Member Role Status Dates Tino Mcfarlane DO Attending Provider Active Start : March 24, 2024 End: March 24, 2024 Team Status: Inactive Member Role Status Dates Deuce Abraham MD Attending Provider Active St art: March 26, 2024 End: March 26, 2024Kalani Metcalf [facility] Care ProviderActiveStart: March 26, 2024 End: March 26, 2024 Team Status: Inactive Member Role Status Dates Kalani hurt , [employer]-C Primary Care Provider Active Start: March 032023 End: March 27, 2024Silverio Proending ProviderActiveStart: March 27, 2024 End: March 27, 2024Team MemberRelationshipSpecialtyStart DateEnd Date Kalani Metcalf PA-C [address] [place] [address] PCP - General10/15/23Team MemberRelationshipSpecialtyStart DateEnd Date Kalani Metcalf PA-C [address] [place] [address] PCP - General10/15/23 Team Status: Inactive Member Role Status Dates Kalani hurt [employer]-C Primary Care Provider Active Start: April End: April 08, 2024Kamran Pro ProviderActiveStart: April 08, 2024 End: April 08, 2024 Team Status: Inactive Member Role Status Dates Kalani hurt , [employer]-C Primary Care Provider Active Start: April End: April 19jake Mcfarlane DOAtttomas ProviderActiveStart: April 19, 2024 End: April 19, 2024Team MemberRelationshipSpecialtyStart DateEnd Date Kalani Metcalf PA-C [address] [place] [address] PCP - General10/15/23 Team Status: Inactive Member Role Status Dates Kalani hurt , [employer]-C Primary Care Provider Active Start: May End: May 07Conchis Reyna ProviderActiveStart: May 07, 2024 End: May 07, 2024Te MemberRelationshipSpecialtyStart DateEnd Date Kalani Metcalf PA-C [address] [place] [address] PCP - General10/15/23Team MemberRelationshipSpecialtyStart DateEnd Date Kalani Metcalf PA-C [address] [place] [address] PCP - General10/15/23Team MemberRelationshipSpecialtyStart DateEnd Date Kalani Metcalf PA-C [address] [place] [address] PCP - General10/15/23Team MemberRelationshipSpecialtyStart DateEnd Date Kalani Metcalf PA-C [address] [place] [address] PCP - General10/15/23Team MemberRelationshipSpecialtyStart DateEnd Date Kalani Metcalf PA-C [address] [address] PCP - General10/15/23Team MemberRelationshipSpecialtyStart DateEnd Date Kalani Metcalf PA-C [address] [place] [address] PCP [facility]10/15/23Team MemberRelationshipSpecialtyStart DateEnd Date Kalani Metcalf PA-C [address] [place] [address] PCP - General10/15/23 Team Status: Inactive Member Role Status Dates Kalani hurt [employer]-C Primary Care Provider Active Start: August 272024 End: August 27Jaclyn Galeasending ProviderActiveStart: August 27, 2024 End: August 27, 2024Team MemberRelationshipSpecialtyStart DateEnd Date Kalani Metcalf PA-C [address] [place] [address] PCP - General10/15/23 Team Status: Inactive Member Role Status Dates Kalani hurt , [employer]-C Primary Care Provider Active Start: October 03, 2024 End: October 03oreeliu Mcfarlane DOAttending ProviderActiveStart: October 03, 2024 End: October 03, 2024 Team Status: Inactive Member Role Status Dates Kalani hurt [employer]-C Primary Care Provider Active Start: October 06, 2024 End: October 06oreeliu Mcfarlane DOAttending ProviderActiveStart: October 06, 2024 End: October 06, 2024 Team Status: Inactive Member Role Status Dates [facility] Primary Care Provider Active Start: October 08, 2024 End: October 08Adwoa Lay ProviderActiveStart: October 08, 2024 End: October 08louis Urrutia MDAbert ProviderActiveStart: October 08, 2024 End: October 08, 2024Team MemberRelationshipSpecialtyStart DateEnd Date DixonKalani PA-C [address] [place] PCP - General10/15/23 Team Status: Inactive Member Role Status Dates MELISSA Elam Attending Provider Active Start: October 29, 2024 End: October 29, 2024 Team Status: Active Member Role Status Dates NON STAFF Primary Care Provider Active Team Status: Inactive Member Role Status Dates Veronique Haney APRN Attending Provider Active Start: December 04, 2024 End: December 04, 2024NON STAFFPrimary Care ProviderActiveStart: December 04, 2024 End: December 04, 2024 Team Status: Inactive Member Role Status Dates MELISSA Elam Attending Provider Active Start: December 24, 2024 End: December 24, 2024NON STAFFPrimary Care ProviderActiveStart: December 24, 2024 End: December 24, 2024 Team Status: Inactive Member Role Status Dates MELISSA Elam Attending Provider Active Start: March 26, 2025 End: March 26, 2025 Team Status: Inactive Member Role/Relationship Status Dates MELISSA Elam Attending Provider Active Start: March 26, 2025 End: March 26, 2025 Team Status: Inactive Member Role/Relationship Status Dates Aida Carrizales APRN [employer] TECHNICIAN-BC Attending Provider Activ e Start: April 17, 2025 End: April 17, 2025 Goals (unrecognized section and content) Goals may be documented in a n alternate sectionNo InformationGoals may be documented in an alternate sectionNo InformationNo InformationNo InformationNo InformationNo InformationGoals may be documented in an alternate sectionGoals may be documented in an alternate sectionGoals may be documented in an alternate sectionNo InformationGoals may be documented in an alternate sectionNo InformationNo InformationGoals may be documented in an alternate sectionGoals may be documented in an alternate sectionGoals may be documented in an alternate sectionGoals may be documented in an alternate sectionGoals may be documented in an alternate sectionGoals may be documented in an alternate sectionGoals may be documented in an alternate sectionGoals may be documented in an alternate section No data available for this sectionGoals may be documented in an alternate sectionGoals may be documented in an alternate sectionGoals may be documented in an alternate sectionGoals may be documented in an alternate sectionGoals may be documented in an alternate sectionGoals may be documented in an alternate sectionGoals may be documented in an alternate sectionGoals may be documented in an alternate section REASON FOR VISIT (unrecogniz ed section and content) JhrkbjYzmfurcjJhzsgk-[id number]-irDh present today for Metformin follow up visit. Pt was put on 500 mg and was to increase it to 1000mg on 03/24/2024.Weight ManagementPt present today for Adipex visit #!ReasonComments Weight ManagementPt present today for Adipex #2ReasonCommentsWeight Management ReasonCommentsDiscuss FertiltyReasonCommentsInfertilityPt present today for a fertility f/up visit and for her Adipex #4. INFORMATION SOURCE (unrecogn ized section and content) DATE CREATED AUTHOR 05/30/2022 [facility] DATE CREATED AUTHOR AUTHOR'S ORGANIZ ATION 04/01/2024 [facility] DATE CREATED AUTHOR AUTHOR'S ORGANIZ ATION 10/23/2024 [facility] DATE CREATED AUTHOR AUTHOR'S ORGANIZ ATION 04/27/2025 [facility] FOR RECORDS PERTAINING TO PATIENTS WHO ARE OR HAVE BEEN ENROLLED IN A CHEMICAL DEPENDENCY/SUBSTANCEABUSE PROGRAM, SOME INFORMATION MAY BE OMITTED. This clinical summary was aggregated from multiple sources. Caution should be exercised in using it in the provision of clinical care. This summary normalizes information from multiple sources, and as a consequence, information in this document may materially change the coding, format and clinical context of patient data. In addition, data may be omitted in some cases. CLINICAL DECISIONS SHOULD BE BASED ON THE PRIMARY CLINICAL RECORDS. [employer] provides no warranty or guarantee of the accuracy or completeness of information in this document.
== END 2025-06-05 08:07 | disposition home or self-care (01) ==
PROVIDERS: Visit Provider Podiatrist Foot & Ankle Surgery
DX: M25.571 Pain in right ankle and joints of right foot (principal)
CPT/HCPCS: 73610